=== PATIENT | male | born 1940 | race Caucasian/White ===

== ENCOUNTER → 2016-08-14 | Outpatient (CLI) | payer OTHER ==
[~2016-08-14] MED LIST: ASPI1TAB83 PO; ASPI325T39 PO; CIPR-255 PO; CIPR250T3 PO; CLOP1TAB5 PO; DILT120C68 PO; FINA5TAB PO; LISI-461 PO; NTRSL3 UT; OXYC-57 PO; OXYC5TAB PO; PHEN-939 PO; TAMS0.4C38 PO
[2016-08-14 18:04] LABS: HEMATOCRIT 27.4 % (42-52); MEAN CORPUSCULAR HEMOGLOBIN 21.9 pg (25-34); MEAN CORPUSCULAR HGB CONC 28.5 g/dl (32-36); MEAN PLATELET VOLUME 9.9 fL (7.4-10.4); PLATELET COUNT 611 K/uL (130-400); RED BLOOD COUNT 3.56 M/uL (4.7-6.1); WHITE BLOOD COUNT 7.47 K/uL (4.8-10.8)
[2016-08-14 18:23] LABS: BASO % 2.3 %; BASO ABS # 0.17 K/uL (0-0.2); COMPLETE YES; ECHINOCYTES 1+; EOS % 2.4 %; IG% 0.3 %; LYMPH % 20.1 %; MONO % 7.2 %; NEUT % 67.7 %; OVALOCYTES 1+; POIKILOCYTOSIS PRESENT
[2016-08-14 19:29] LABS: BLOOD UREA NITROGEN 37 mg/dl (7-18); BUN/CREATININE RATIO 15.6 (10-20); CALCIUM 8.5 mg/dl (8.5-10.1); CARBON DIOXIDE 18 mmol/L (21-32); CHLORIDE 110 mmol/L (98-107); GLUCOSE 90 mg/dl (70-99); POTASSIUM 4.8 mmol/L (3.5-5.1); SODIUM 140 mmol/L (136-145)
[2016-08-14 19:41] LABS: ALB/GLOB RATIO 1.1 (0.9-2); ALKALINE PHOSPHATASE 129 U/L (45-117); ALT/SGPT 21 U/L (12-78); AST/SGOT 12 U/L (15-37); CHOLESTEROL 148 mg/dl (0-200); CHOLESTEROL/HDL RATIO 2.8; HDL CHOLESTEROL 53 mg/dl; TRIGLYCERIDES 117 mg/dl (0-150); VERY LOW DENSITY LIPOPROT CALC 23 mg/dl
[2016-08-15 06:30] LABS: ESTIMATED AVERAGE GLUCOSE 100 mg/dl; HA1C FLAG Normal (Normal)
--- NOTE | 2016-08-21 06:54 | CODING QUERY MEDICAL NECESSITY ---
SUPPORTING DIAGNOSIS NEEDED A supporting diagnosis is required for the test/procedure performed on this patient in order for us to be reimbursed by the patient's insurance. Please provide a supporting diagnosis for the following test/procedure listed below next to the test name along with your signature. *If there is no additional diagnosis for this patient that would support the following test/procedure please document that below next to the test/procedure. Test(s)/Procedure(s) that require a supporting diagnosis: * HEMOGLOBIN A1C DIAGNOSIS: Provider Signature: Date: Thank you Liliana Ireland [facility] Information Management Once completed, please kindly fax back to [phone] For questions please call [phone]
== END | disposition home or self-care (01) ==
LOC: C.LABSPEC 17:31
PROVIDERS: ATTEND Internal Medicine
DX: I25.10 Atherosclerotic heart disease of native coronary artery without angina pectoris (principal); I10 Essential (primary) hypertension; E78.5 Hyperlipidemia, unspecified; N39.0 Urinary tract infection, site not specified; R73.9 Hyperglycemia, unspecified

== ENCOUNTER → 2016-08-25 | Outpatient (CLI) | payer OTHER ==
[2016-08-25 16:52] LABS: FERRITIN 8.9 ng/ml (8.0-388.0)
[2016-08-25 17:45] LABS: HEMATOCRIT 22.2 % (42-52); MEAN CELL VOLUME 77.4 fL (80-100); MEAN CORPUSCULAR HEMOGLOBIN 23.3 pg (25-34); MEAN CORPUSCULAR HGB CONC 30.2 g/dl (32-36); MEAN PLATELET VOLUME 9.9 fL (7.4-10.4); PLATELET COUNT 462 K/uL (130-400); RED BLOOD COUNT 2.87 M/uL (4.7-6.1); WHITE BLOOD COUNT 8.89 K/uL (4.8-10.8)
[2016-08-25 17:50] LABS: ACANTHOCYTES 1+; BASO % 0.4 %; BASO ABS # 0.04 K/uL (0-0.2); COMPLETE YES; ECHINOCYTES 1+; EOS % 1.5 %; HYPOCHROMIA PRESENT; IG% 0.2 %; LYMPH % 12.7 %; LYMPH ABS # 1.13 K/uL (1.2-3.4); MONO % 5.7 %; NEUT % 79.5 %; OVALOCYTES 1+; POIKILOCYTOSIS PRESENT; SCHISTOCYTES 1+
== END | disposition home or self-care (01) ==
LOC: C.LABSPEC 15:33
PROVIDERS: ATTEND Internal Medicine
DX: D64.9 Anemia, unspecified (principal)

== ENCOUNTER → 2016-09-11 | Outpatient (CLI) | payer OTHER ==
[~2016-09-11] MED LIST changes: -ASPI1TAB83 PO; -CIPR-255 PO; -CIPR250T3 PO; -OXYC-57 PO; -OXYC5TAB PO; -PHEN-939 PO
--- NOTE | 2016-09-11 15:59 | DIAGNOSTIC IMAGING REPORT ---
ULTRASOUND LEFT LOWER EXTREMITY VENOUS CLINICAL HISTORY: Left leg pain and swelling. COMPARISON STUDY: No priors. TECHNIQUE: Real-time, grayscale, and color Doppler sonography of the deep veins of the left lower extremity was performed from the inguinal crease to the calf. Compression and augmentation were utilized. FINDINGS: There is no sonographic evidence of deep venous thrombosis identified in the left lower extremity. The common femoral, superficial femoral, and popliteal veins are patent and normally compressible. The greater saphenous vein and the profunda femoris vein at the junction with the common femoral vein are clear. The visualized calf veins are patent. IMPRESSION: There is no sonographic evidence of deep venous thrombosis identified in the left lower extremity. Electronically signed by: Randy Correa M.D. 09/11/2016 3:58 PM Dictated Date/Time: 09/11/2016 3:57 PM
== END | disposition home or self-care (01) ==
LOC: C.ULTR 15:33
PROVIDERS: ATTEND Internal Medicine
DX: M79.605 Pain in left leg (principal); M79.89 Other specified soft tissue disorders

== ENCOUNTER → 2016-09-11 | Outpatient (CLI) | payer OTHER ==
[2016-09-11 15:58] LABS: BASO ABS # 0.13 K/uL (0-0.2); EOS % 3.2 %; HEMATOCRIT 27.9 % (42-52); IG% 0.2 %; LYMPH % 18.2 %; LYMPH ABS # 1.19 K/uL (1.2-3.4); MEAN CELL VOLUME 84.5 fL (80-100); MEAN CORPUSCULAR HEMOGLOBIN 25.8 pg (25-34); MEAN CORPUSCULAR HGB CONC 30.5 g/dl (32-36); MEAN PLATELET VOLUME 10.1 fL (7.4-10.4); MONO % 8.4 %; PLATELET COUNT 405 K/uL (130-400); WHITE BLOOD COUNT 6.53 K/uL (4.8-10.8)
[2016-09-11 16:06] LABS: ALT/SGPT 40 U/L (12-78); BLOOD UREA NITROGEN 28 mg/dl (7-18); BUN/CREATININE RATIO 11.6 (10-20); CALCIUM 8.2 mg/dl (8.5-10.1); CARBON DIOXIDE 18 mmol/L (21-32); CHLORIDE 115 mmol/L (98-107); GLUCOSE 81 mg/dl (70-99); POTASSIUM 5.6 mmol/L (3.5-5.1); SODIUM 140 mmol/L (136-145)
[2016-09-11 16:10] LABS: ALB/GLOB RATIO 1.1 (0.9-2); ALKALINE PHOSPHATASE 117 U/L (45-117); AST/SGOT 15 U/L (15-37); FERRITIN 12.8 ng/ml (8.0-388.0)
[2016-09-11 16:53] LABS: ANISOCYTOSIS PRESENT; COMPLETE YES; ECHINOCYTES 2+; OVALOCYTES 1+
== END | disposition home or self-care (01) ==
LOC: C.LABSPEC 15:03
PROVIDERS: ATTEND Internal Medicine
DX: J44.9 Chronic obstructive pulmonary disease, unspecified (principal); I10 Essential (primary) hypertension; I25.10 Atherosclerotic heart disease of native coronary artery without angina pectoris; D64.9 Anemia, unspecified

== ENCOUNTER 2016-11-20 16:18 | Emergency (ER) | payer OTHER ==
[~2016-11-20] VITALS: Ht 177.8 cm; Wt 62.0 kg
[2016-11-20 16:22] VITALS: Ht 177.8 cm; Wt 62.0 kg
[2016-11-20 16:58] LABS: URINE APPEARANCE CLOUDY (CLEAR); URINE BILIRUBIN NEG (NEG); URINE COLOR YELLOW; URINE EPITHELIAL CELL AUTO >30 /lpf (0-5); URINE NITRITE POS (NEG); URINE PH 8.5 (4.5-7.5); URINE SPECIFIC GRAVITY 1.013 (1.000-1.030); UROBILINOGEN NEG (NEG)
[2016-11-20 17:08] LABS: MANUAL MICROSCOPIC REQUIRED? NO; REVIEW REQ? YES; SULFASALICYLIC ACID NEG (NEG)
[2016-11-20 17:13] LABS: ZZURINE CULT IF INDIC CATH YES
[2016-11-20] MEDS ORDERED: CIPROFLOXACIN 500 MG TAB PO STA (18:05)
[2016-11-20] MEDS ORDERED: CIPR-255 PO (18:11)
[2016-11-20 18:40] VITALS: BP 116/66; PULSE 89; TEMP 36.5; O2SAT 98
--- NOTE | 2016-11-21 02:00 | EMERGENCY ROOM VISIT NOTE ---
History First contact with patient: 16:30 Chief Complaint: UNABLE TO VOID Stated Complaint: UNABLE TO VOID Nursing Triage Summary: pt states he cant urinate, states he had a few drops at 0315 this am, pt states he feels like his bladder is full. pt has a hx of needing to be cathed History of Present Illness The patient is a 76 year old male who presents to the Emergency Room with complaints of inability to urinate since early this morning upon awakening. The patient reports a history of prostate problems, and takes finasteride as prescribed by his PCP. The patient reports that he has seen a urologist in the past that provided prescription for a medication that seems to work better. The patient reports that his last Hill catheterization was approximately one year ago. The patient has no recent increased urination, dysuria, hematuria or frequency. He also denies any preceding abdominal or back pain, fever or chills. He rates his discomfort a 10 out of 10. Review of Systems HEENT: Denies dizziness, visual problems, hearing loss, tinnitus. Denies difficulty swallowing or oral lesions. PULMONARY: Denies cough, shortness of breath, sputum production or hemoptysis. CARDIOVASCULAR: Denies chest pain, palpitations, dyspnea on exertion, orthopnea or peripheral edema. GASTROINTESTINAL: Denies diarrhea, constipation, nausea or vomiting. GENITOURINARY: Denies recent dysuria, frequency, urgency or nocturia. NEUROLOGIC: Denies history of epilepsy, CVA, TIA or chronic headaches. MUSCULOSKELETAL: Denies history of joint tenderness/swelling. SKIN: Denies rashes or lesions. PSYCHIATRIC: Denies history of depression or mental illness. ENDOCRINE: Denies history of diabetes or thyroid disorders. Past Medical/Surgical History Medical Problems: (1) Superficial femoral artery occlusion (2) Urinary retention Family History Unremarkable Social History Smoking Status: Current Every Day Smoker Alcohol Use: none Drug Use: none Marital Status: Occupation Status: retired Current/Historical Medications Scheduled Aspirin (Aspirin Ec), 325 MG PO DAILY Ciprofloxacin Hcl (Cipro), 500 MG PO BID Clopidogrel Bisulfate (Plavix), 75 MG PO QPM Diltiazem Hcl Ext Rel (Tiazac), 120 MG PO HS Finasteride (Proscar), 5 MG PO HS Lisinopril (Zestril), 10 MG PO HS Nitroglycerin (Nitrostat), 0.3 MG UT PRN Tamsulosin Hcl (Flomax), 0.4 MG PO BID Physical Exam Vital Signs Date Time Temp Pulse Resp B/P (MAP) Pulse Ox O2 Delivery O2 Flow Rate FiO2 11/20/16 18:40 36.5 89 18 116/66 98 11/20/16 18:15 89 18 116/66 98 Room Air 11/20/16 16:22 36.5 97 18 93/67 98 Room Air Pain Rating (0-10): 4.0 Physical Exam CONSTITUTIONAL: Healthy and well nourished. Alert and oriented X 3 with positive affect. Patient appears in moderate discomfort. HEENT: Normocephalic, atraumatic. Pupils equal, round and reactive. NECK: Full active range of motion without discomfort. RESPIRATORY: Clear to auscultation bilaterally with no wheezing, crackles, rhonchi or stridor. CARDIOVASCULAR: Regular rate and rhythm with no murmurs, rubs or gallops. GASTROINTESTINAL: Bowel sounds present in all quadrants. The patient has suprapubic tenderness to palpation with a palpable distended bladder. Negative CVA tenderness. No abdominal rigidity, guarding or rebound. MUSCULOSKELETAL: Full range of motion of all joints without discomfort. INTEGUMENTARY: No rash or other significant dermatologic conditions noted. NEUROLOGIC: No focal neurologic deficits noted. Medical Decision & Procedures Laboratory Results Test 11/20/16 16:49 Urine Color YELLOW Urine Appearance CLOUDY (CLEAR) Urine pH 8.5 (4.5-7.5) Urine Specific [place] 1.013 (1.000-1.030) Urine Protein NEG (NEG) Urine Glucose (UA) NEG (NEG) Urine Ketones NEG (NEG) Urine Occult Blood 1+ (NEG) Urine Nitrite POS (NEG) Urine Bilirubin NEG (NEG) Urine Urobilinogen NEG (NEG) Urine Leukocyte Esterase TRACE (NEG) Urine WBC (Auto) 5-10 /hpf (0-5) Urine RBC (Auto) 5-10 /hpf (0-4) Urine Hyaline Casts (Auto) 1-5 /lpf (0-5) Urine Epithelial Cells (Auto) >30 /lpf (0-5) Urine Bacteria (Auto) 2+ (NEG) Urine Renal Epithelial Cells /lpf (0-5) Urine Yeast (Auto) (NONE PRSENT) Urinalysis shows a contaminated cath sample, but enough elements to suggest UTI. Urine cultures are pending. Cultures were ordered on a second catheter bag collection instead of the first draw. Medications Administered Medications (Trade) Dose Ordered Sig/[place] Route Start Time Stop Time Status Last Admin Dose Admin Ciprofloxacin (Cipro Tab) 500 mg NOW STAT PO 11/20/16 18:05 11/20/16 18:08 DC 11/20/16 18:31 500 MG ED Course Patient history and physical exam were performed. Nurse's notes were reviewed. Vital signs were reviewed showing hypertension. The patient reports that his blood pressure is usually low. He is afebrile and not tachycardic. The patient appears in moderate discomfort because of inability to urinate. A bladder scan was unable to provide a calculated volume, showing a fully distended bladder. A Hill catheter was inserted with output of 1950 milliliters. The patient reported complete relief of his discomfort. Review of urinalysis results shows evidence for possible infection. Initial catheter collection was contaminated. Second collection was sent to the lab for cultures. The patient was provided a prescription for Cipro 500 mg twice a day. He was instructed to follow-up with his urologist for further reevaluation and management. He is welcome to return to the emergency department over the weekend for any unmanageable pain secondary to his Hill catheter placement. He was also instructed to return for any developing fever or other concerning symptoms. The patient was happy with plan of care, and denied any discomfort at the time of discharge. The patient was also seen and examined by Dr. Donahue, ED attending physician , who agrees with workup and plan of care. Medical Decision Medication Reconcilliation Current Medication List: was personally reviewed by fl Blood Pressure Screening Patient's blood pressure: Low blood pressure Impression Primary Impression: UTI (urinary tract infection) Additional Impression: Acute urinary retention Departure Information Dispostion Home / Self-Care Condition GOOD Prescriptions Ciprofloxacin Hcl (CIPRO) 500 Mg Tab 500 MG PO BID for 7 Days, #14 TAB Prov: Chai Chu PA 11/20/16 Referrals Dmitriy Aguilar M.D. Forms HOME CARE DOCUMENTATION FORM, IMPORTANT VISIT INFORMATION Patient Instructions UTI, My [facility], ED Catheter Care [facility] Additional Instructions Complete all Cipro antibiotics as prescribed. Follow-up with [facility] urology (Dr. Aguilar's office) for further management. Return to the emergency department for any progressively worsening symptoms or other catheter issues. Problem Qualifiers Primary Impression: UTI (urinary tract infection) Urinary tract infection type: acute cystitis Hematuria presence: with hematuria Qualified Codes: N30.01 - Acute cystitis with hematuria
--- NOTE | 2016-11-22 17:47 | EMERGENCY ROOM VISIT NOTE ---
ED Visit Note First contact with patient: 16:30 Physician Web Retailer Supervision Note: I interviewed and examined the patient. Discussed with Chai Chu PA-C and agree with findings and plan as documented in the note. The pt UA is questionable and likely contaminated however with acute urinary retention there is a possibility of prostatitis. Pt will be placed on cipro. He was asked to f /u with PCP this week. He will return to the ED for worsening of symptoms or any medical concerns. Documented By: Vonnie Donahue
== END 2016-11-20 18:40 | disposition home or self-care (01) ==
LOC: C.EDB 16:19 → C.EDA 18:40
DX: R33.9 Retention of urine, unspecified (principal); N39.0 Urinary tract infection, site not specified; F17.210 Nicotine dependence, cigarettes, uncomplicated; Z79.82 Long term (current) use of aspirin; Z79.899 Other long term (current) drug therapy

== ENCOUNTER → 2016-12-03 | Outpatient (CLI) | payer OTHER ==
[~2016-12-03] MED LIST changes: +CIPR-255 PO
[2016-12-03 16:54] LABS: BLOOD UREA NITROGEN 44 mg/dl (7-18); BUN/CREATININE RATIO 18.5 (10-20)
--- NOTE | 2016-12-08 10:14 | CODING QUERY MEDICAL NECESSITY ---
SUPPORTING DIAGNOSIS NEEDED Dr. Urbina, A supporting diagnosis is required for the test/procedure performed on this patient in order for us to be reimbursed by the patient's insurance. Please provide a supporting diagnosis for the following test/procedure listed below next to the test name along with your signature. *If there is no additional diagnosis for this patient that would support the following test/procedure please document that below next to the test/procedure. Test(s)/Procedure(s) that require a supporting diagnosis: * [id number] PSA DIAGNOSIS: DATE OF SERVICE: 12/03/16 Provider Signature: Date: Thank you Carlito Chowdhury [facility] Information Management Once completed, please kindly fax back to [phone] For questions please call [phone]
== END | disposition home or self-care (01) ==
LOC: C.LAB 15:45
PROVIDERS: ATTEND Urology
DX: N32.89 Other specified disorders of bladder (principal)

== ENCOUNTER → 2016-12-25 | Outpatient (CLI) | payer OTHER ==
[~2016-12-25] MED LIST changes: -CIPR-255 PO; +CIPR250T3 PO; +OXYC-57 PO; +PHEN-939 PO
--- NOTE | 2016-12-25 09:05 | DIAGNOSTIC IMAGING REPORT ---
CT SCAN OF THE ABDOMEN AND PELVIS WITHOUT IV CONTRAST CLINICAL HISTORY: Bladder mass. COMPARISON STUDY: No priors. TECHNIQUE: CT scan of the abdomen and pelvis is performed from the lung bases to the proximal femora. Images are reviewed in the axial, sagittal, and coronal planes. IV contrast was not administered for this examination as per the referring clinician. Note that the examination is suboptimal without oral and IV contrast. A dose lowering technique was utilized adhering to the principles of ALARA. CT DOSE: 253.30 mGy.cm FINDINGS: Lung bases: The heart is mildly enlarged and there is trace pericardial effusion. The coronary arteries are densely calcified. Advanced emphysematous change is seen at the lung bases. There is dependent atelectasis. No airspace consolidation or pleural effusion is identified. Liver: The unenhanced liver is normal in size, contour, and attenuation. Small hepatic cysts measure up to 1.5 cm. Additional subcentimeter hepatic hypodensities also likely represent cysts but are too small for definitive characterization. There is no intrahepatic biliary ductal dilatation. Gallbladder: Unremarkable. Spleen: Normal in size and attenuation. Pancreas: The unenhanced pancreas is grossly unremarkable. Adrenal glands: Unremarkable. Kidneys: The unenhanced kidneys are atrophic and without hydronephrosis. There are no renal calculi clearly identified. Numerous renovascular calcifications are observed. Bilateral renal cysts measure 1.8 cm. Additional subcentimeter cortical hypodensities also likely represent cysts but are too small for definitive characterization. Abdominal vasculature: The abdominal aorta is normal in course and caliber noting advanced atherosclerotic calcification. Postoperative change is suggested involving the femoral arteries bilaterally. Bowel: There is a left inguinal hernia containing a nonobstructed loop of small bowel. No bowel obstruction is seen. There is moderate to advanced colonic diverticulosis without CT evidence of acute diverticulitis. The appendix is well-visualized and normal. Peritoneum: There is no intraperitoneal free air or abdominal ascites. Lymphadenopathy: None. Pelvic viscera: There is marked median lobe hypertrophy of the prostate gland. The bladder wall is thickened and trabeculated indicating chronic outlet obstruction. Postoperative change is noted in the groin bilaterally. Skeletal structures: The skeletal structures are heterogeneously osteopenic. There are moderate and age-indeterminate compression deformities of L2 and L5. No large retropulsed fragments are identified. There are bilateral pars defects at L5 with 1.5 cm of anterolisthesis at L5-S1. Moderate lumbosacral spondylosis is observed. No lytic or blastic lesions are seen. Trabecular thickening and sclerosis involving L5 may represent Pagetoid change. IMPRESSION: 1. Significantly suboptimal examination without oral and IV contrast. 2. The prostate gland is enlarged and there is marked median lobe hypertrophy. Correlation with serum PSA levels is recommended. 3. The bladder wall is thickened and trabeculated, consistent with chronic outlet obstruction. No bladder mass is identified by CT. If there is strong clinical concern for bladder mass then correlation with cystoscopy would be appropriate for further assessment. 4. Moderate to advanced colonic diverticulosis without CT evidence of acute diverticulitis. 5. Cardiomegaly and advanced emphysema. 6. There is a left inguinal hernia containing a nonobstructed loop of small bowel. 7. Additional findings as above. Electronically signed by: Randy Correa M.D. 12/25/2016 9:03 AM Dictated Date/Time: 12/25/2016 8:41 AM
== END | disposition home or self-care (01) ==
LOC: C.CTS 07:23
PROVIDERS: ATTEND Urology
DX: N32.89 Other specified disorders of bladder (principal); N40.1 Benign prostatic hyperplasia with lower urinary tract symptoms; K57.30 Diverticulosis of large intestine without perforation or abscess without bleeding; I51.7 Cardiomegaly; J43.9 Emphysema, unspecified; K40.90 Unilateral inguinal hernia, without obstruction or gangrene, not specified as recurrent

== ENCOUNTER → 2017-01-26 | Outpatient (CLI) | payer OTHER ==
[~2017-01-26] MED LIST changes: -PHEN-939 PO
--- NOTE | 2017-01-26 14:54 | DIAGNOSTIC IMAGING REPORT ---
BONE SCAN WHOLE BODY HISTORY: Prostate carcinoma C61 Prostate cancerNPR - DANNY Cunningham REF#[id number] RADIOTRACER: 23.5 mCi Tc-99m MDP STUDY/IMAGES: Planar anterior and posterior whole body imaging was performed 3 hours following the intravenous administration of radiotracer. COMPARISON: None. FINDINGS: Mild S-shaped scoliosis of the thoracolumbar spine. Intense increase in metabolic activity overlying the low lumbosacral spine. Base of the patient's prior CT study this potentially represents patchy joint change. Activity characteristics otherwise are unremarkable. Mild scattered degenerative activity of the hips and shoulders and knees are present area IMPRESSION: 1. Intense activity overlying the low lumbar and superior sacral regions. 2. Based on the patient's prior CT exam this potentially represents patchy joint change, with the possibility of metastatic disease less likely but impossible to entirely exclude. 3. Minimal scattered degenerative activity throughout the remainder of the axial and appendicular skeleton. The above report was generated using voice recognition software. It may contain grammatical, syntax or spelling errors. Electronically signed by: Apolinar Orta M.D. 01/26/2017 2:53 PM Dictated Date/Time: 01/26/2017 2:49 PM
== END | disposition home or self-care (01) ==
LOC: C.NUCL 10:57
PROVIDERS: ATTEND Urology
DX: C61 Malignant neoplasm of prostate (principal)

== ENCOUNTER 2017-02-05 13:10 | Inpatient (IN) | payer OTHER ==
[~2017-02-05] VITALS: Ht 177.8 cm; Wt 61.2 kg
[2017-02-05] VITALS (17 sets, daily range): BP systolic 118–169; BP diastolic 48–62; PULSE 65–88; TEMP 32.9–37.4; O2SAT 90–100; Ht 177.8 cm; Wt 61.2 kg
[2017-02-05] MEDS ORDERED: SODIUM CHLORIDE 0.9% 1000ML 1,000 ML IV STA ×2 (13:19→15:20)
--- NOTE | 2017-02-05 13:39 | DIAGNOSTIC IMAGING REPORT ---
CHEST ONE VIEW PORTABLE CLINICAL HISTORY: Sepsis SHORTNESS OF BREATH COMPARISON STUDY: No previous studies for comparison. FINDINGS: The heart is at the upper limits of normal in size. There are low lung volumes with hypoventilatory changes at the lung bases. There are no pleural effusions. There is no failure. There is colonic interposition versus free intraperitoneal air. Abdominal imaging with decubitus views is recommended in follow-up. This finding will be called to the emergency room.[ IMPRESSION: 1. Free intraperitoneal air versus colonic interposition. Abdominal imaging with decubitus views is recommended in follow-up 2. Low lung volumes with hypoventilatory changes at the lung bases. Electronically signed by: Ozzy Tuttle M.D. 02/05/2017 1:38 PM Dictated Date/Time: 02/05/2017 1:36 PM
[2017-02-05 13:55] LABS: ISTAT CREATININE 5.4 mg/dl (0.6-1.3); ISTAT IONIZED CALCIUM 0.94 mmol/l (1.12-1.32); ISTAT POTASSIUM 6.8 mEq/L (3.3-5.0)
[2017-02-05] MEDS ORDERED: DOPamine 400MG / D5W 400 MG IV STA (14:07)
[2017-02-05 14:17] LABS: INR 1.1 (0.9-1.1); PTT PATIENT 20.5 SECONDS (21.0-31.0)
[2017-02-05 14:18] LABS: HEMATOCRIT 17.9 % (42-52); HEMOGLOBIN 5.1 g/dL (14.0-18.0); MEAN CELL VOLUME 88.2 fL (80-100); MEAN CORPUSCULAR HEMOGLOBIN 25.1 pg (25-34); MEAN CORPUSCULAR HGB CONC 28.5 g/dl (32-36); MEAN PLATELET VOLUME 9.4 fL (7.4-10.4); PLATELET COUNT 536 K/uL (130-400); RED CELL DISTRIBUTION WIDTH CV 18.9 % (11.5-14.5); RED CELL DISTRIBUTION WIDTH SD 61.1 fL (36.4-46.3); WHITE BLOOD COUNT 15.15 K/uL (4.8-10.8)
[2017-02-05] MEDS ORDERED: NovoLIN-R INSULIN PER UNIT CHARGE IV STA (14:18)
[2017-02-05] MEDS ORDERED: DEXTROSE 50% 50 ML SYR IV STA (14:18)
[2017-02-05] MEDS ORDERED: ALBUT/IPRATROP 3MG/0.5MG NEB 3 ML VIAL INH STA (14:18)
[2017-02-05 14:19] LABS: BASO % 0.1 %; BASO ABS # 0.01 K/uL (0-0.2); IG# 0.06 K/uL (0.00-0.02); LYMPH % 5.2 %; LYMPH ABS # 0.79 K/uL (1.2-3.4); MONO % 4.7 %; MONO ABS # 0.71 K/uL (0.11-0.59); NEUT % 89.6 %; NEUT ABS # 13.58 K/uL (1.4-6.5)
[2017-02-05 14:36] LABS: CALCIUM 8.3 mg/dl (8.5-10.1); CREATININE 5.29 mg/dl (0.60-1.40); POTASSIUM 6.8 mmol/L (3.5-5.1); TOTAL PROTEIN 6.2 gm/dl (6.4-8.2)
--- NOTE | 2017-02-05 14:47 | DIAGNOSTIC IMAGING REPORT ---
SINGLE VIEW CHEST CLINICAL HISTORY: Central venous catheter placement. FINDINGS: An AP, portable, upright chest radiograph is compared to study performed earlier the same day 02/05/2017. The examination is significantly degraded by portable technique and patient rotation. A right internal jugular central venous catheter has been placed. The tip projects over the cavoatrial junction. The heart is top normal for projection. There is atherosclerotic calcification of the thoracic aorta. The pulmonary vasculature is noncongested. Emphysema and chronic interstitial thickening are similar to previous. There are low lung volumes. Bibasilar airspace opacities have increased and likely represent atelectasis. No large pleural effusion or pneumothorax is seen. The skeletal structures are osteopenic. The bony thorax is grossly intact. Gas-filled structures below both hemidiaphragms likely represent gas-filled stomach and bowel loops. IMPRESSION: 1. Emphysema. 2. There are low lung volumes with increasing bibasilar airspace opacities. This likely represents atelectasis. Clinical correlation will be required. 3. A right internal jugular central venous catheter has been placed as above. No pneumothorax is seen post procedure. Electronically signed by: Randy Correa M.D. 02/05/2017 2:46 PM Dictated Date/Time: 02/05/2017 2:42 PM
[2017-02-05] MEDS ORDERED: PANTOprazole INJ 80 MG in DEXTROSE 5% 100ML 100 ML IV SCH (15:00)
[2017-02-05] MEDS ORDERED: SODIUM BICARB 8.4% INJ 50 MEQ/50 ML SYR IV STA (15:39)
[2017-02-05] MEDS ORDERED: SODIUM BICARB 8.4% INJ 50 MEQ/50 ML SYR IV ONE (15:43)
[2017-02-05 15:48] LABS: INFLUENZA B ANTIGEN Neg for Influ B (NEG)
[2017-02-05] MEDS ORDERED: CEFTRIAXONE SOD INJ 2,000 MG in DEXTROSE 5% 50ML 50 ML IV ONE (16:15)
--- NOTE | 2017-02-05 16:53 | EMERGENCY ROOM VISIT NOTE ---
History Report prepared by Jamaal: Albino Terrell Under the Supervision of: Dr. Mau Matute M.D. First contact with patient: 13:14 Chief Complaint: SHORTNESS OF BREATH Stated Complaint: SHORTNESS OF BREATH History of Present Illness The patient is a 76 year old male who presents to the Emergency Room by EMS with complaints of persistent shortness of breath beginning a few days ago. He is unsure if he has had a fever recently. He denies generalized weakness, lightheadedness, headache, rashes, chest discomfort, or new urinary symptoms. The patient denies passing out, but states that he feels like he is going to. He lives at home with his . He does not wear supplemental oxygen at home. Per EMS, the patient's blood pressure was found to be in the 60's upon their arrival. They state that the patient appeared "lethargic, and slow to respond" at this time. They deny any confusion. The patient was not febrile upon arrival of EMS. EMS is unsure regarding the patient's wishes on advance directives. They note that the patient's recently had flu-like symptoms. Source of History: patient, EMS History Limited By: other (patient is critically ill) Onset: A few days ago Quality: other (shortness of breath) Timing: other (persistent) Associated Symptoms: No fevers, No headache, No urinary symptoms, No weakness Note: The patient denies lightheadedness. Additional symptoms: appearing "lethargic, and slow to respond". Review of Systems See HPI for pertinent positives & negatives. A total of 10 systems reviewed and were otherwise negative. Past Medical & Surgical Medical Problems: (1) gi bleed, anemia, acutr renal failure (2) Superficial femoral artery occlusion (3) Urinary retention Family History No pertinent family history stated. Social History Smoking Status: Current Every Day Smoker Alcohol Use: none Drug Use: none Marital Status: Occupation Status: retired Current/Historical Medications Scheduled Aspirin (Aspirin Ec), 325 MG PO QPM Ciprofloxacin (Cipro), 250 MG PO BID Clopidogrel Bisulfate (Plavix), 75 MG PO QPM Diltiazem Hcl Ext Rel (Tiazac), 120 MG PO HS Finasteride (Proscar), 5 MG PO HS Lisinopril (Zestril), 10 MG PO HS Nitroglycerin (Nitrostat), 0.3 MG UT PRN Tamsulosin Hcl (Flomax), 0.4 MG PO BID Scheduled PRN Oxycodone/Acetaminophen 5MG/325MG (Percocet 5MG/325MG), 1 TABLET PO Q4H PRN for Pain Allergies Coded Allergies: No Known Allergies (Verified , 12/31/16) Physical Exam Vital Signs Date Time Temp Pulse Resp B/P (MAP) Pulse Ox O2 Delivery O2 Flow Rate FiO2 02/05/17 16:15 33.4 66 22 118/48 02/05/17 15:55 32.9 66 21 118/52 50.0 02/05/17 15:50 88 100 100 02/05/17 15:36 65 24 122/53 BiPAP 100 02/05/17 15:25 32.5 98 28 124/52 Nasal Cannula 6.0 02/05/17 15:11 67 30 115/51 02/05/17 15:05 69 30 120/40 02/05/17 15:00 67 30 120/40 86 Nasal Cannula 02/05/17 14:45 78 38 111/42 86 Nasal Cannula 02/05/17 14:37 68 26 103/50 90 Nasal Cannula 4.0 02/05/17 14:00 32.5 02/05/17 13:36 100 Nasal Cannula 3.5 02/05/17 13:36 140 36 56/38 100 Nasal Cannula 3.5 02/05/17 13:30 56 02/05/17 13:28 58 36 75/36 84 Nasal Cannula 5.0 02/05/17 13:23 100 Nasal Cannula 3.5 02/05/17 13:18 58 30 56/38 Physical Exam Constitutional: Vital signs reviewed. Noted to be hypotensive. Eyes: Pupils are equal round reactive to light. Conjunctiva are noninjected. ENT: Pharynx is clear without erythema or exudate. Mucous membranes are moist. Neck supple without meningeal signs. Respiratory: Rhonchi bilaterally. Breath sounds are equal bilaterally. Cardiovascular: Regular rate and rhythm. No rubs or gallops. GI: Soft, nondistended and nontender. Bowel sounds are present. Rectal: Guaiac positive, melanotic stool. No gross blood. Musculoskeletal: No peripheral edema. No lower extremity tenderness. Integumentary: Pale. No cyanosis. Neurological: The patient is awake and alert. No focal deficits. Psychiatric: Unable to assess. Medical Decision & Procedures ER Provider Diagnostic Interpretation: X-ray results as stated below per interpretation by me and the radiologist: CHEST ONE VIEW PORTABLE FINDINGS: The heart is at the upper limits of normal in size. There are low lung volumes with hypoventilatory changes at the lung bases. There are no pleural effusions. There is no failure. There is colonic interposition versus free intraperitoneal air. Abdominal imaging with decubitus views is recommended in follow-up. This finding will be called to the emergency room.[ IMPRESSION: 1. Free intraperitoneal air versus colonic interposition. Abdominal imaging with decubitus views is recommended in follow-up 2. Low lung volumes with hypoventilatory changes at the lung bases. Electronically signed by: Ozzy Tuttle M.D. 02/05/2017 1:38 PM Laboratory Results 02/05/17 13:20 Red Blood Count 2.03, Mean Corpuscular Volume 88.2, Mean Corpuscular Hemoglobin 25.1, Mean Corpuscular Hemoglobin Concent 28.5, Mean Platelet Volume 9.4, Neutrophils (%) (Auto) 89.6, Lymphocytes (%) (Auto) 5.2, Monocytes (%) (Auto) 4.7, Eosinophils (%) (Auto) 0.0, Basophils (%) (Auto) 0.1, Neutrophils # (Auto) 13.58, Lymphocytes # (Auto) 0.79, Monocytes # (Auto) 0.71, Eosinophils # (Auto) 0.00, Basophils # (Auto) 0.01 02/05/17 13:20 Test 02/05/17 13:20 02/05/17 13:32 02/05/17 13:36 02/05/17 13:37 White Blood Count 15.15 K/uL (4.8-10.8) Red Blood Count 2.03 M/uL (4.7-6.1) Hemoglobin 5.1 g/dL (14.0-18.0) Hematocrit 17.9 % (42-52) Mean Corpuscular Volume 88.2 fL (80-100) Mean Corpuscular Hemoglobin 25.1 pg (25-34) Mean Corpuscular Hemoglobin Concent 28.5 g/dl (32-36) Platelet Count 536 K/uL (130-400) Mean Platelet Volume 9.4 fL (7.4-10.4) Neutrophils (%) (Auto) 89.6 % Lymphocytes (%) (Auto) 5.2 % Monocytes (%) (Auto) 4.7 % Eosinophils (%) (Auto) 0.0 % Basophils (%) (Auto) 0.1 % Neutrophils # (Auto) 13.58 K/uL (1.4-6.5) Lymphocytes # (Auto) 0.79 K/uL (1.2-3.4) Monocytes # (Auto) 0.71 K/uL (0.11-0.59) Eosinophils # (Auto) 0.00 K/uL (0-0.5) Basophils # (Auto) 0.01 K/uL (0-0.2) RDW Standard Deviation 61.1 fL (36.4-46.3) RDW Coefficient of Variation 18.9 % (11.5-14.5) Immature Granulocyte % (Auto) 0.4 % Immature Granulocyte # (Auto) 0.06 K/uL (0.00-0.02) Hypochromasia PRESENT Acanthocytes 1+ Schistocytes 1+ Prothrombin Time 11.7 SECONDS (9.0-12.0) Prothromb Time International Ratio 1.1 (0.9-1.1) Activated Partial Thromboplast Time 20.5 SECONDS (21.0-31.0) Partial Thromboplastin Ratio 0.8 Est Creatinine Clear Calc Drug Dose 9.9 ml/min Estimated GFR () 11.1 Estimated GFR (Non- 9.6 BUN/Creatinine Ratio 16.2 (10-20) Calcium Level 8.3 mg/dl (8.5-10.1) Total Bilirubin 0.4 mg/dl (0.2-1) Aspartate Amino Transf (AST/SGOT) 75 U/L (15-37) Alanine Aminotransferase (ALT/SGPT) 51 U/L (12-78) Alkaline Phosphatase 86 U/L (45-117) Total Protein 6.2 gm/dl (6.4-8.2) Albumin 3.0 gm/dl (3.4-5.0) Globulin 3.2 gm/dl (2.5-4.0) Albumin/Globulin Ratio 0.9 (0.9-2) Bedside Lactic Acid Venous 13.93 mmol/L (0.90-1.70) Bedside Hemoglobin 5.1 g/dl (14.0-18.0) Bedside Hematocrit 15 % (42-52) Bedside Sodium 135 mEq/L (135-144) Bedside Potassium 6.8 mEq/L (3.3-5.0) Bedside Chloride 104 mEq/L (101-112) Bedside Total CO2 16 mEq/l (24-31) Anion Gap 23.0 mmol/L (16-25) Bedside Blood Urea Nitrogen 84 mg/dl (7-18) Bedside Creatinine 5.4 mg/dl (0.6-1.3) Bedside Glucose (other) 79 mg/dl (70-99) Bedside Ionized Calcium (Marianela) 0.94 mmol/l (1.12-1.32) Bedside Troponin I < 0.030 ng/ml (0-0.045) Test 02/05/17 14:30 02/05/17 15:10 02/05/17 15:38 Urine Color YELLOW Urine Appearance CLOUDY (CLEAR) Urine pH 8.5 (4.5-7.5) Urine Specific Brilliant 1.016 (1.000-1.030) Urine Protein 1+ (NEG) Urine Glucose (UA) NEG (NEG) Urine Ketones NEG (NEG) Urine Occult Blood NEG (NEG) Urine Nitrite POS (NEG) Urine Bilirubin NEG (NEG) Urine Urobilinogen NEG (NEG) Urine Leukocyte Esterase LARGE (NEG) Urine WBC (Auto) >30 /hpf (0-5) Urine RBC (Auto) 0-4 /hpf (0-4) Urine Hyaline Casts (Auto) 1-5 /lpf (0-5) Urine Epithelial Cells (Auto) 5-10 /lpf (0-5) Urine Bacteria (Auto) NEG (NEG) Influenza Type A Antigen Neg for Influ A (NEG) Influenza Type B Antigen Neg for Influ B (NEG) Bedside Blood Gas pH (LAB) 7.25 (7.35-7.45) Bedside Blood Gas pCO2 (LAB) 30 mmHg (35-46) Bedside Blood Gas pO2 (LAB) 390 mmHg (80-95) Bedside Blood Gas HCO3 (LAB) 13 meq/L (19-24) Bedside Blood Gas Total CO2 14 mEq/l (24-31) Bedside Blood Gas Base Excess (LAB) -14.0 meq/L (-9-1.8) Bedside Blood Gas O2 Saturation 100.0 % (90-95) Laboratory results as reviewed by me. Medications Administered Medications (Trade) Dose Ordered Sig/Prais Route Start Time Stop Time Status Last Admin Dose Admin Sodium Chloride 1,000 ml @ 999 mls/hr Q1H1M STAT IV 02/05/17 13:19 02/05/17 14:19 DC 02/05/17 13:19 999 MLS/HR Dopamine HCl/ Dextrose 250 ml @ 0 mls/hr Q0M STAT IV 02/05/17 14:07 02/05/17 14:11 DC 02/05/17 14:29 11.4 MLS/HR Insulin Human Regular (novoLIN-R U-100 PER UNIT) 10 units NOW STAT IV 02/05/17 14:18 02/05/17 14:20 DC 02/05/17 14:56 10 UNITS Dextrose (Dextrose 50% 50ML Syringe) 50 ml NOW STAT IV 02/05/17 14:18 02/05/17 14:20 DC 02/05/17 14:56 50 ML Albuterol/ Ipratropium (Duoneb) 3 ml NOW STAT INH 02/05/17 14:18 02/05/17 14:20 DC 02/05/17 14:55 3 ML Pantoprazole Sodium 80 mg/ Dextrose 120 ml @ 400 mls/hr NOW IV 02/05/17 15:00 03/07/17 14:59 02/05/17 15:53 400 MLS/HR Sodium Chloride 1,000 ml @ 999 mls/hr Q1H1M STAT IV 02/05/17 15:20 02/05/17 16:20 DC 02/05/17 13:30 999 MLS/HR Sodium Bicarbonate (Sodium Bicarbonate 8.4% Inj) 50 ml STK-MED ONCE IV 02/05/17 15:43 02/05/17 15:44 DC 02/05/17 15:47 50 ML Procedure Central Venous Catheter Indication: hypotension Catheter type: triple lumen Location: right IJ Verbal consent was obtained after the risks and benefits were explained, including but not limited to pneumothorax, hemothorax, vessel injury, bleeding, scarring, infection, pain, and bone/joint/nerve damage. At this time, the risks of the procedure are less than the risks of NOT performing the procedure. A time out was taken and the correct patient and site identified. The patient was placed in the Trendelenburg supine position and the skin was prepped in the standard fashion with chlorhexidine and full sterile drapes applied. The proper landmarks were identified with ultrasound, anesthetized with 1% lidocaine without epinephrine, and the needle was inserted through the skin in the standard fashion. The needle was carefully advanced into blood vessel lumen under ultrasound guidance. The guidewire was placed uneventfully. The vessel is dilated and the catheter was placed. It was sutured into position. There was good blood return from all ports. The patient tolerated the procedure well and there were no complications. Post procedure x-ray was normal. ECG Indication: SOB/dyspnea Rate (beats per minute): 62 Rhythm: normal sinus Findings: RBBB, T-wave inversion (AVR and V1) Comparison ECG Date: December 31, 2016 Change: no significant change Change: Pre-hospital ECG reveals a sinus bradycardia with a rate of 54 bpm. Right bundle branch block pattern noted. T-wave inversions seen in AVR and V1. No significant change from other ECG. ED Course 1310: The patient was evaluated in room A1. A complete history and physical exam was performed. 1319: Ordered Sodium Chloride 1000 ml @ 999 mls/hr IV. 1336: The patient's blood pressure is 75/35. I obtained verbal consent for a central line. The patient states that he is a full code. 1342: I placed the central line. See the procedure note for details. 1407: Ordered Dopamine HCl/Dextrose 250 mL IV. 1418: Ordered DuoNeb 3 mL INH, Dextrose 50% 50 mL IV, Novolin-R U-100 10 units IV. 1420: I reevaluated the patient. He states that he has been having bloody stools recently. Rectal exam reveals guaiac positive, melanotic stools. No gross blood seen. I discussed the patient's results with him. He verbalized agreement and understanding. The patient will be evaluated for further management. 1440: I reassessed the patient. His blood pressure is 103/50. He is having a Hill catheter placed. 1453: I checked in on the patient. His blood pressure is 114/47. 1500: Ordered Pantoprazole Sodium 80 mg/Dextrose 80 mg 120 mL @ 400 mL/hr IV. 1518: I spoke with Dr. Sorto at the patient's bedside. He recommends an additional bag of saline, and to hold the Dopamine for now. The patient's blood pressure is 124 systolically. I called the blood bank for an update, and they are still working on obtaining blood for the patient. 1520: Ordered Sodium Chloride 1000 ml @ 999 mls/hr IV. 1615: I reexamined the patient. His blood pressure is 114/48. He is receiving his blood transfusion. I spoke with Dr. Sorto who recommends holding off on the CT given the patient's PA O2. Medical Decision This is a 76-year-old male who presents in respiratory distress with hypotension. Differential diagnosis includes pulmonary embolism, pneumonia, sepsis, UTI, metabolic derangement, anemia, GI bleed. I did perform a limited focused review of portions of the patient's old chart on the electronic medical record. The patient had a TURP and biopsy of the prostate January [address] Urbina of Urology. I did provide prehospital medical command for the patient. The patient was hypotensive and they had difficulty getting a pulse ox. I did order a liter normal saline IV but his IV was not functioning and he did not receive that prior to arrival. I did immediately evaluate the patient as noted above. IV access was established. The patient was placed on a continuous environmental monitoring specialist. He is hypotensive. He has no specific complaints other than shortness of breath. He denies any pain anywhere. I did order and personally review the patient's 12-lead EKG and chest x-ray as described above. I did order and review the patient's blood work as noted in the electronic medical record. He is severely anemic. He also has acute kidney injury with hyperkalemia. He states he only takes aspirin and no other anticoagulants. Rectal examination was performed which showed guaiac positive melanotic stools. I did order 2 units of packed RBCs for transfusion. Written consent was obtained from the patient prior to this. I also ordered Protonix IV. He also has acute kidney injury and hyperkalemia. I did treat him with an albuterol nebulizer as well as IV insulin and glucose. He was given a liter normal saline here. His blood pressure remained low and so I did order a second liter normal saline and recommended central line placement for pressors. I did place a triple-lumen central venous catheter in the right internal jugular vein as described above. He was placed on a dopamine drip and his blood pressure improved significantly. I did discuss the case with Dr. Sorto who evaluated patient in the ED. Transfusion was started in the ED. Initially I had written for a CT scan of the chest to rule out a central pulmonary embolism but wanted to hold off at this time. Medication Reconcilliation Current Medication List: was personally reviewed by me Blood Pressure Screening Patient's blood pressure: Low blood pressure Blood pressure disposition: Did not require urgent referral Consults Time Called: 1412 Consulting Physician: Dr. Sorto -[facility] Returned Call: [address] Sorto of [facility]. We discussed the patient and his results. The patient will be further evaluated by Dr. Shiva Cavazos. Impression Primary Impression: Symptomatic anemia Additional Impressions: Hypotension MY (acute kidney injury) Hyperkalemia GI bleed UTI (urinary tract infection) Critical Care I have personally spent 45 minutes of critical care time in the direct management of this patient. This includes bedside care, interpretation of diagnostic studies, and testing, discussion with consultants, patient, and family members, and other required patient management activities. This 45 minutes is in excess of all separately billable procedures. Scribe Attestation The scribe's documentation has been prepared under my direct and personally reviewed by me in its entirety. I confirm that the note above accurately reflects all work, treatment, procedures, and medical decision making performed by me. Departure Information Dispostion Being Evaluated By Hospitalist Referrals Nitish Shay M.D. (PCP) Patient Instructions My [facility] Problem Qualifiers Additional Impressions: Hypotension Hypotension type: unspecified hypotension type Qualified Codes: I95.9 - Hypotension, unspecified GI bleed GI bleed type/associated pathology: unspecified gastrointestinal hemorrhage type Qualified Codes: K92.2 - Gastrointestinal hemorrhage, unspecified UTI (urinary tract infection) Urinary tract infection type: site unspecified Hematuria presence: without hematuria Qualified Codes: N39.0 - Urinary tract infection, site not specified
[2017-02-05] MEDS: PANTOprazole INJ 40 MG in DEXTROSE 5% 100ML IV SCH (20:10)
[2017-02-05 21:16] LABS: ALBUMIN 2.7 gm/dl (3.4-5.0); CALCIUM 7.2 mg/dl (8.5-10.1); CREATININE 4.38 mg/dl (0.60-1.40); POTASSIUM 5.5 mmol/L (3.5-5.1); TOTAL PROTEIN 5.2 gm/dl (6.4-8.2)
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
[2017-02-06] VITALS (15 sets, daily range): BP systolic 89–164; BP diastolic 50–68; PULSE 50–76; TEMP 36.7–36.9; O2SAT 90–100
[2017-02-06] MEDS: PANTOprazole INJ 40 MG in DEXTROSE 5% 100ML IV SCH ×5 (01:10→19:52)
[2017-02-06 03:56] LABS: ALBUMIN 2.6 gm/dl (3.4-5.0); CREATININE 4.44 mg/dl (0.60-1.40); POTASSIUM 6.3 mmol/L (3.5-5.1); TOTAL PROTEIN 5.2 gm/dl (6.4-8.2)
[2017-02-06 04:13] LABS: HEMATOCRIT 29.2 % (42-52); HEMOGLOBIN 9.5 g/dL (14.0-18.0); MEAN CELL VOLUME 83.9 fL (80-100); MEAN CORPUSCULAR HEMOGLOBIN 27.3 pg (25-34); MEAN CORPUSCULAR HGB CONC 32.5 g/dl (32-36); MEAN PLATELET VOLUME 10.2 fL (7.4-10.4); NUCLEATED RED BLOOD CELL ABS 0.04 K/uL (0-0); PLATELET COUNT 299 K/uL (130-400); RED CELL DISTRIBUTION WIDTH CV 16.5 % (11.5-14.5); RED CELL DISTRIBUTION WIDTH SD 50.3 fL (36.4-46.3); WHITE BLOOD COUNT 28.81 K/uL (4.8-10.8)
[2017-02-06 04:16] LABS: BASO ABS # 0.01 K/uL (0-0.2); IG# 0.17 K/uL (0.00-0.02); LYMPH % 2.1 %; LYMPH ABS # 0.61 K/uL (1.2-3.4); MONO % 3.5 %; MONO ABS # 1.01 K/uL (0.11-0.59); NEUT % 93.8 %; NEUT ABS # 27.01 K/uL (1.4-6.5)
[2017-02-06] MEDS ORDERED: SODIUM POLYST. SULF SUSP 15G/60ML PO STA (04:42)
[2017-02-06] MEDS: SODIUM CHLORIDE 0.9% 1000ML 1,000 ML IV SCH ×2 (05:17→16:04)
[2017-02-06] MEDS: LEVALBUTEROL 1.25MG/3ML NEB INH SCH ×5 (08:58→23:07)
--- NOTE | 2017-02-06 09:00 | Clinical Documentation Query ---
Dr. SOPHIA SPENCE KYLEIGH : CLINICAL DOCUMENTATION QUERIES QUERY 1 OF 3 Patient is a 76 year old male admitted for evaluation and treatment of GI bleeding, anemia, hypotension, MY, and UTI. Was markedly "hypotensive, lethargic, and slow to respond". Blood pressure was found to be in the 60's upon arrival. Right IJ TLC inserted in the ED. IV NSS boluses and IV Dopamine infusion administered. PRBC transfusion initiated and admitted to telemetry. In your clinical opinion is this patient being managed for: ( x ) Hemorrhagic shock ( ) Not Agree ( ) Other explanation of clinical findings (Please Explain) ( ) Unable to determine (Please Define) ( ) Need to Discuss The medical record reflects the following clinical findings, treatment, and risk factors. Clinical Indicators: As above Treatment: IV boluses, maintenance fluid, IV dopamine, IJ TLC, PRBC transfusion, telemetry. Risk Factors:GI bleed, severe anemia QUERY 2 OF 3 Documentation includes "profound anemia". Although documented GI bleeding, the anemia cannot be assumed by the jig borer to be related to, or only to bleeding. As appropriate, consider documentation as suggested below. In your clinical opinion is this patient being managed for: ( xxxx ) Acute blood loss anemia ( ) Not Agree ( ) Other explanation of clinical findings (Please Explain) ( ) Unable to determine (Please Define) ( ) Need to Discuss The medical record reflects the following clinical findings, treatment, and risk factors. Clinical Indicators: As above, H&H 5.1 g/dl and 17.9 % on admission. Treatment: Transfusion of 4 units of PRBC's. Serial hematology, PPI infusion, GI consultation Risk Factors: Angiodysplasia, ASA, Plavix QUERY 3 OF 3 BMI noted to be 17.9 Kg/m*m. In order to capture the severity of illness associated with this data, an associated clinical condition must be explicitly documented by the provider. As appropriate, consider clarification as suggested below. In your clinical opinion is this patient: ( x ) Underweight/thin/cachectic ( ) Not Agree ( ) Other explanation of clinical findings (Please Explain) ( ) Unable to determine (Please Define) ( ) Need to Discuss The medical record reflects the following clinical findings, treatment, and risk factors. Clinical Indicators: Above noted BMI Treatment: Risk Factors: Age, prostate CA Please clarify and document your clinical opinion in the progress notes and discharge summary. Terms such as "probable", "suspected", "likely", "questionable", "possible", or "still to be ruled out" are acceptable. IF IN AGREEMENT, YOU MUST DOCUMENT ABOVE DIAGNOSTIC STATEMENT IN DAILY PROGRESS NOTES AND DISCHARGE SUMMARY. This document is not part of the patient's record. Thank You, Nain Camacho, RN [phone]
[2017-02-06 09:21] LABS: HEMATOCRIT 29.8 % (42-52); HEMOGLOBIN 9.5 g/dL (14.0-18.0); MEAN CELL VOLUME 84.4 fL (80-100); MEAN CORPUSCULAR HEMOGLOBIN 26.9 pg (25-34); MEAN CORPUSCULAR HGB CONC 31.9 g/dl (32-36); MEAN PLATELET VOLUME 10.2 fL (7.4-10.4); PLATELET COUNT 313 K/uL (130-400); RED CELL DISTRIBUTION WIDTH SD 52.5 fL (36.4-46.3); WHITE BLOOD COUNT 28.96 K/uL (4.8-10.8)
[2017-02-06 09:44] LABS: BASO % 0.1 %; BASO ABS # 0.02 K/uL (0-0.2); IG# 0.19 K/uL (0.00-0.02); LYMPH % 2.1 %; LYMPH ABS # 0.61 K/uL (1.2-3.4); MONO % 3.4 %; MONO ABS # 0.99 K/uL (0.11-0.59); NEUT % 93.7 %; NEUT ABS # 27.15 K/uL (1.4-6.5)
--- NOTE | 2017-02-06 10:02 | DIAGNOSTIC IMAGING REPORT ---
CHEST ONE VIEW PORTABLE CLINICAL HISTORY: dyspnea dysphagia COMPARISON STUDY: 02/05/2017 FINDINGS: Unchanging bibasilar atelectasis. Mid and upper lungs are clear. Central catheter remains this. Vena cava. No evidence pneumothorax. IMPRESSION: Unchanging mild bibasilar atelectasis. No new or interval process. The above report was generated using voice recognition software. It may contain grammatical, syntax or spelling errors. Electronically signed by: Apolinar Orta M.D. 02/06/2017 10:00 AM Dictated Date/Time: 02/06/2017 10:00 AM
[2017-02-06] MEDS ORDERED: VANCOMYCIN CONSULT ACTIVE PRN (10:45)
[2017-02-06] MEDS ORDERED: VANCOMYCIN INJ 1,000 MG in SODIUM CHLORIDE 0.9% 250ML 250 ML IV SCH (11:00)
--- NOTE | 2017-02-06 11:32 | Pharmacy Progress Note ---
Pharmacy Antibiotic Consult Date of Service: Feb 06, 2017. Pharmacy Dosing Scope Pharmacy is consulted to initiate vancomycin IV dosing therapy, order appropriate labs and adjust drug dose/frequency. Subjective The patient is a 76 year old male admitted on Feb 05, 2017 at 16:09 with UTI, culture positive for [facility], sens pending. Concern for sepsis, elevated WBC count. Rocephin 1gm IV q 24h is ordered for UTI, vanco is added empirically until more results obtained. Objective Height (Feet): 5 Height (Inches): 10.00 Weight (Kilograms): 56.500 Lab Results (24hrs): Test 02/05/17 13:20 02/05/17 13:32 02/05/17 13:36 02/05/17 13:37 Hypochromasia PRESENT Acanthocytes 1+ Schistocytes 1+ Prothrombin Time 11.7 SECONDS (9.0-12.0) Prothromb Time International Ratio 1.1 (0.9-1.1) Activated Partial Thromboplast Time 20.5 SECONDS (21.0-31.0) Partial Thromboplastin Ratio 0.8 Bedside Lactic Acid Venous 13.93 mmol/L (0.90-1.70) Bedside Hemoglobin 5.1 g/dl (14.0-18.0) Bedside Hematocrit 15 % (42-52) Bedside Sodium 135 mEq/L (135-144) Bedside Potassium 6.8 mEq/L (3.3-5.0) Bedside Chloride 104 mEq/L (101-112) Bedside Total CO2 16 mEq/l (24-31) Bedside Blood Urea Nitrogen 84 mg/dl (7-18) Bedside Creatinine 5.4 mg/dl (0.6-1.3) Bedside Glucose (other) 79 mg/dl (70-99) Bedside Ionized Calcium (Marianela) 0.94 mmol/l (1.12-1.32) Bedside Troponin I < 0.030 ng/ml (0-0.045) Test 02/05/17 14:30 02/05/17 15:10 02/05/17 15:15 02/05/17 15:38 Urine Color YELLOW Urine Appearance CLOUDY (CLEAR) Urine pH 8.5 (4.5-7.5) Urine Specific Elliott 1.016 (1.000-1.030) Urine Protein 1+ (NEG) Urine Glucose (UA) NEG (NEG) Urine Ketones NEG (NEG) Urine Occult Blood NEG (NEG) Urine Nitrite POS (NEG) Urine Bilirubin NEG (NEG) Urine Urobilinogen NEG (NEG) Urine Leukocyte Esterase LARGE (NEG) Urine WBC (Auto) >30 /hpf (0-5) Urine RBC (Auto) 0-4 /hpf (0-4) Urine Hyaline Casts (Auto) 1-5 /lpf (0-5) Urine Epithelial Cells (Auto) 5-10 /lpf (0-5) Urine Bacteria (Auto) NEG (NEG) Influenza Type A Antigen Neg for Influ A (NEG) Influenza Type B Antigen Neg for Influ B (NEG) Stool Occult Blood POSITIVE (NEGATIVE) Bedside Blood Gas pH (LAB) 7.25 (7.35-7.45) Bedside Blood Gas pCO2 (LAB) 30 mmHg (35-46) Bedside Blood Gas pO2 (LAB) 390 mmHg (80-95) Bedside Blood Gas HCO3 (LAB) 13 meq/L (19-24) Bedside Blood Gas Total CO2 14 mEq/l (24-31) Bedside Blood Gas Base Excess (LAB) -14.0 meq/L (-9-1.8) Bedside Blood Gas O2 Saturation 100.0 % (90-95) Test 02/05/17 19:51 02/05/17 20:52 02/06/17 03:07 02/06/17 08:53 Sodium Level 139 mmol/L (136-145) 138 mmol/L (136-145) Potassium Level 5.5 mmol/L (3.5-5.1) 6.3 mmol/L (3.5-5.1) Chloride Level 110 mmol/L (98-107) 112 mmol/L (98-107) Carbon Dioxide Level 19 mmol/L (21-32) 23 mmol/L (21-32) Anion Gap 10.0 mmol/L (3-11) 3.0 mmol/L (3-11) Blood Urea Nitrogen 83 mg/dl (7-18) 85 mg/dl (7-18) Creatinine 4.38 mg/dl (0.60-1.40) 4.44 mg/dl (0.60-1.40) Est Creatinine Clear Calc Drug Dose 11.8 ml/min 11.6 ml/min Estimated GFR () 13.9 13.7 Estimated GFR (Non- 12.0 11.8 BUN/Creatinine Ratio 19.0 (10-20) 19.2 (10-20) Random Glucose 79 mg/dl (70-99) 85 mg/dl (70-99) Calcium Level 7.2 mg/dl (8.5-10.1) 7.0 mg/dl (8.5-10.1) Magnesium Level 6.0 mg/dl (1.8-2.4) Total Bilirubin 0.4 mg/dl (0.2-1) 0.5 mg/dl (0.2-1) Aspartate Amino Transf (AST/SGOT) 252 U/L (15-37) 315 U/L (15-37) Alanine Aminotransferase (ALT/SGPT) 127 U/L (12-78) 142 U/L (12-78) Alkaline Phosphatase 72 U/L (45-117) 75 U/L (45-117) Total Protein 5.2 gm/dl (6.4-8.2) 5.2 gm/dl (6.4-8.2) Albumin 2.7 gm/dl (3.4-5.0) 2.6 gm/dl (3.4-5.0) Globulin 2.5 gm/dl (2.5-4.0) 2.6 gm/dl (2.5-4.0) Albumin/Globulin Ratio 1.1 (0.9-2) 1.0 (0.9-2) Lactic Acid Level 2.3 mmol/L (0.4-2.0) White Blood Count 28.81 K/uL (4.8-10.8) 28.96 K/uL (4.8-10.8) Red Blood Count 3.48 M/uL (4.7-6.1) 3.53 M/uL (4.7-6.1) Hemoglobin 9.5 g/dL (14.0-18.0) 9.5 g/dL (14.0-18.0) Hematocrit 29.2 % (42-52) 29.8 % (42-52) Mean Corpuscular Volume 83.9 fL (80-100) 84.4 fL (80-100) Mean Corpuscular Hemoglobin 27.3 pg (25-34) 26.9 pg (25-34) Mean Corpuscular Hemoglobin Concent 32.5 g/dl (32-36) 31.9 g/dl (32-36) Platelet Count 299 K/uL (130-400) 313 K/uL (130-400) Mean Platelet Volume 10.2 fL (7.4-10.4) 10.2 fL (7.4-10.4) Neutrophils (%) (Auto) 93.8 % 93.7 % Lymphocytes (%) (Auto) 2.1 % 2.1 % Monocytes (%) (Auto) 3.5 % 3.4 % Eosinophils (%) (Auto) 0.0 % 0.0 % Basophils (%) (Auto) 0.0 % 0.1 % Neutrophils # (Auto) 27.01 K/uL (1.4-6.5) 27.15 K/uL (1.4-6.5) Lymphocytes # (Auto) 0.61 K/uL (1.2-3.4) 0.61 K/uL (1.2-3.4) Monocytes # (Auto) 1.01 K/uL (0.11-0.59) 0.99 K/uL (0.11-0.59) Eosinophils # (Auto) 0.00 K/uL (0-0.5) 0.00 K/uL (0-0.5) Basophils # (Auto) 0.01 K/uL (0-0.2) 0.02 K/uL (0-0.2) RDW Standard Deviation 50.3 fL (36.4-46.3) 52.5 fL (36.4-46.3) RDW Coefficient of Variation 16.5 % (11.5-14.5) 17.0 % (11.5-14.5) Immature Granulocyte % (Auto) 0.6 % 0.7 % Immature Granulocyte # (Auto) 0.17 K/uL (0.00-0.02) 0.19 K/uL (0.00-0.02) Nucleated RBC Absolute Count (auto) 0.04 K/uL (0-0) Nucleated Red Blood Cells % 0.1 % Polychromasia 1+ 1+ Poikilocytosis PRESENT Schistocytes OCCASIONAL Hypersegmented Polys 1+ Hypochromasia PRESENT Anisocytosis PRESENT Echinocytes 1+ Micro Results: Blood cx x 2 ordered Urine: [employer] Assessment & Plan Vancomycin: 1000mg x 1 dose (~17mg/kg). Pt with ARF, SCr = 4.44 today ( baseline ~2.4). One time dose 1000mg due to poor renal fx. Will get a random level tomorrow w/ AM labs and assess CrCl. Pharmacy will continue to follow and will adjust dose/frequency as necessary. Thank you
--- NOTE | 2017-02-06 12:14 | Progress Note ---
Progress Note Date of Service Feb 06, 2017. Progress Note 76-year-old male admitted with multiple problems including * Acute GI bleed with hemoglobin down to 5.1 * History of prior episodes of severe anemia requiring transfusion but has declined any recent hospitalization or evaluation other than the blood transfusions * History of GI bleed with documented angiodysplasia * Hemorrhagic shock with hypothermia, hypotension, acute renal failure, hyperkalemia, metabolic acidosis * Acute renal failure most likely related to his hypotension and anemia. Possible ATN. * Severe COPD. * Smoker since age 12 * Coronary artery disease * Peripheral arterial disease * Recent diagnosis of prostate cancer Patient was admitted. Resuscitated. Received IV fluid, dopamine, transfused 4 units of packed RBCs, IV Protonix. His condition has improved. He is resting comfortably. Denied any headache or dizziness or lightheadedness. No chest pain. He is chronically dyspneic. No abdominal pain. No nausea no vomiting. He continues to have bowel movements with black stool. He has a Hill catheter in place EXAMINATION Well-developed. No distress. Vital signs blood pressure 136/50, pulse 50, respiration 20, temperature 36.7, oxygen saturation 95% on 2 L oxygen by nasal cannula Skin is warm and dry. No rash. HEENT oxygen cannula in place. He does not have any teeth. Neck is supple. Nontender. No JVD no adenopathy. Heart regular heart sounds with 2/6 systolic murmur Lungs diffuse rhonchi. Abdomen is soft nontender without organomegaly or masses Extremities no edema clubbing or cyanosis absent pedal pulses LABORATORY TESTS WBC count 28,960, hemoglobin 9.5, hematocrit 29.8, platelet count 313,000. Sodium 138, potassium 6.3, chloride 112, CO2 23, BUN 85, creatinine 4.44, glucose 85, calcium 7.0, total bilirubin 0.5, AST 315, ALT 142, alkaline phosphatase 75, total protein 5.2, albumin 2.6, Urine culture is growing coagulase-negative Staphylococcus. Sensitivities pending. Electrocardiogram showed sinus rhythm with PVCs. No acute changes Chest x-ray showed chronic changes. No acute CHF. ASSESSMENT * Massive GI bleed * Hemorrhagic shock * Acute renal failure * Anemia secondary to acute blood loss * Chronic obstructive pulmonary disease * Coronary artery disease * Peripheral arterial disease * Carcinoma of the prostate PLAN: * Continuing IV fluid * Continue IV Protonix * Continue monitoring his laboratory tests * GI consultation requested * He is already on Rocephin for his urinary tract infection * Added vancomycin because of the positive urine culture with Staphylococcus aureus. I did speak with Estee in pharmacy. * Started on Xopenex * Was given a dose of Kayexalate this morning. Repeat blood tests pending.
[2017-02-06 12:29] LABS: HEMATOCRIT 27.7 % (42-52); MEAN CELL VOLUME 84.2 fL (80-100); MEAN CORPUSCULAR HEMOGLOBIN 27.4 pg (25-34); MEAN CORPUSCULAR HGB CONC 32.5 g/dl (32-36); NUCLEATED RED BLOOD CELL ABS 0.06 K/uL (0-0); PLATELET COUNT 274 K/uL (130-400); RED CELL DISTRIBUTION WIDTH CV 17.2 % (11.5-14.5); RED CELL DISTRIBUTION WIDTH SD 53.4 fL (36.4-46.3); WHITE BLOOD COUNT 27.12 K/uL (4.8-10.8)
[2017-02-06 12:56] LABS: BASO ABS # 0.01 K/uL (0-0.2); IG# 0.14 K/uL (0.00-0.02); LYMPH % 1.7 %; LYMPH ABS # 0.46 K/uL (1.2-3.4); MONO % 3.7 %; NEUT % 94.1 %; NEUT ABS # 25.51 K/uL (1.4-6.5)
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
[2017-02-06 13:14] LABS: CALCIUM 7.2 mg/dl (8.5-10.1); CREATININE 4.51 mg/dl (0.60-1.40); POTASSIUM 5.1 mmol/L (3.5-5.1)
[2017-02-06] MEDS: CEFTRIAXONE SOD INJ 2,000 MG in DEXTROSE 5% 50ML 50 ML IV SCH (16:03)
[2017-02-06 16:51] LABS: HEMATOCRIT 27.7 % (42-52); MEAN CELL VOLUME 84.5 fL (80-100); MEAN CORPUSCULAR HEMOGLOBIN 27.4 pg (25-34); MEAN CORPUSCULAR HGB CONC 32.5 g/dl (32-36); MEAN PLATELET VOLUME 10.6 fL (7.4-10.4); NUCLEATED RED BLOOD CELL ABS 0.03 K/uL (0-0); PLATELET COUNT 247 K/uL (130-400); RED CELL DISTRIBUTION WIDTH CV 17.3 % (11.5-14.5); RED CELL DISTRIBUTION WIDTH SD 53.1 fL (36.4-46.3); WHITE BLOOD COUNT 25.75 K/uL (4.8-10.8)
[2017-02-06 17:22] LABS: BASO ABS # 0.01 K/uL (0-0.2); IG# 0.12 K/uL (0.00-0.02); LYMPH % 1.9 %; MONO % 3.7 %; MONO ABS # 0.96 K/uL (0.11-0.59); NEUT % 93.9 %; NEUT ABS # 24.16 K/uL (1.4-6.5)
[2017-02-07] VITALS (15 sets, daily range): BP systolic 118–185; BP diastolic 61–76; PULSE 62–77; TEMP 36.5–37; O2SAT 91–100
[2017-02-07] MEDS: PANTOprazole INJ 40 MG in DEXTROSE 5% 100ML IV SCH ×5 (00:26→20:41)
[2017-02-07] MEDS: SODIUM CHLORIDE 0.9% 1000ML 1,000 ML IV SCH ×2 (00:26→11:45)
[2017-02-07] MEDS: LEVALBUTEROL 1.25MG/3ML NEB INH SCH ×2 (03:02→07:02)
[2017-02-07 05:20] LABS: HEMATOCRIT 27.8 % (42-52); HEMOGLOBIN 8.8 g/dL (14.0-18.0); MEAN CELL VOLUME 85.3 fL (80-100); MEAN CORPUSCULAR HGB CONC 31.7 g/dl (32-36); MEAN PLATELET VOLUME 10.3 fL (7.4-10.4); NUCLEATED RED BLOOD CELL ABS 0.04 K/uL (0-0); PLATELET COUNT 215 K/uL (130-400); RED CELL DISTRIBUTION WIDTH CV 17.7 % (11.5-14.5); WHITE BLOOD COUNT 24.39 K/uL (4.8-10.8)
[2017-02-07 05:49] LABS: ALBUMIN 2.3 gm/dl (3.4-5.0); CALCIUM 6.9 mg/dl (8.5-10.1); CREATININE 4.12 mg/dl (0.60-1.40); POTASSIUM 4.4 mmol/L (3.5-5.1)
[2017-02-07 06:33] LABS: BASO ABS # 0.01 K/uL (0-0.2); IG# 0.14 K/uL (0.00-0.02); LYMPH % 1.9 %; LYMPH ABS # 0.47 K/uL (1.2-3.4); MONO % 3.8 %; MONO ABS # 0.92 K/uL (0.11-0.59); NEUT % 93.7 %; NEUT ABS # 22.85 K/uL (1.4-6.5)
--- NOTE | 2017-02-07 07:18 | Progress Note ---
Subjective Date of Service: Feb 06, 2017. Subjective pt is confused, appears weak and chronically ill Problem List Medical Problems: (1) Acute urinary retention Status: Acute (2) MY (acute kidney injury) Status: Acute (3) GI bleed Status: Acute (4) Hyperkalemia Status: Acute (5) Hypotension Status: Acute (6) Symptomatic anemia Status: Acute (7) UTI (urinary tract infection) Status: Acute (8) UTI (urinary tract infection) Status: Acute Objective Vital Signs Date Time Temp Pulse Resp B/P (MAP) Pulse Ox O2 Delivery O2 Flow Rate FiO2 02/06/17 11:56 36.7 66 20 91/62 (72) 92 Nasal Cannula 3.0 02/06/17 11:10 76 20 92 Nasal Cannula 3.0 02/06/17 08:58 62 20 92 Nasal Cannula 2.0 02/06/17 08:30 50 20 136/50 (78) 95 Nasal Cannula 2.0 02/06/17 08:00 Nasal Cannula 2.0 02/06/17 07:49 36.7 70 20 164/60 (94) 97 Nasal Cannula 1.0 02/06/17 04:18 36.8 72 20 159/58 (91) 93 Nasal Cannula 2.0 02/06/17 04:00 Nasal Cannula 2.0 02/06/17 00:58 73 20 151/53 93 2.0 02/06/17 00:01 Nasal Cannula 2.0 02/05/17 23:58 75 20 143/57 93 2.0 02/05/17 23:30 36.9 76 22 149/57 92 2.0 02/05/17 23:11 36.8 77 20 159/56 90 2.0 02/05/17 22:07 36.8 78 18 169/62 92 2.0 02/05/17 21:40 37.4 80 18 161/55 94 2.0 02/05/17 21:08 36.5 79 20 168/58 97 02/05/17 20:00 Nasal Cannula 2.0 02/05/17 19:30 36.5 77 22 157/55 95 3.0 02/05/17 18:25 34.6 70 14 144/52 97 2.0 02/05/17 18:10 68 147/55 100 2.0 02/05/17 17:49 68 18 121/51 97 12/7/17 17:46 67 20 121/51 92 2.0 02/05/17 17:40 65 121/51 98 Nasal Cannula 2.0 02/05/17 17:15 69 20 131/60 02/05/17 17:15 33.9 69 20 131/60 100 02/05/17 16:45 33.9 71 18 128/52 02/05/17 16:15 33.4 66 22 118/48 02/05/17 15:55 32.9 66 21 118/52 50.0 02/05/17 15:50 88 100 100 02/05/17 15:36 65 24 122/53 BiPAP 100 02/05/17 15:25 32.5 98 28 124/52 Nasal Cannula 6.0 02/05/17 15:11 67 30 115/51 02/05/17 15:05 69 30 120/40 Laboratory Results Last 24 Hours Test 02/05/17 15:10 02/05/17 15:15 02/05/17 15:38 02/05/17 19:51 Influenza Type A Antigen Neg for Influ A Influenza Type B Antigen Neg for Influ B Stool Occult Blood POSITIVE Bedside Blood Gas pH (LAB) 7.25 Bedside Blood Gas pCO2 (LAB) 30 mmHg Bedside Blood Gas pO2 (LAB) 390 mmHg Bedside Blood Gas HCO3 (LAB) 13 meq/L Bedside Blood Gas Total CO2 14 mEq/l Bedside Blood Gas Base Excess (LAB) -14.0 meq/L Bedside Blood Gas O2 Saturation 100.0 % Sodium Level 139 mmol/L Potassium Level 5.5 mmol/L Chloride Level 110 mmol/L Carbon Dioxide Level 19 mmol/L Anion Gap 10.0 mmol/L Blood Urea Nitrogen 83 mg/dl Creatinine 4.38 mg/dl Est Creatinine Clear Calc Drug Dose 11.8 ml/min Estimated GFR () 13.9 Estimated GFR (Non- 12.0 BUN/Creatinine Ratio 19.0 Random Glucose 79 mg/dl Calcium Level 7.2 mg/dl Magnesium Level 6.0 mg/dl Total Bilirubin 0.4 mg/dl Aspartate Amino Transf (AST/SGOT) 252 U/L Alanine Aminotransferase (ALT/SGPT) 127 U/L Alkaline Phosphatase 72 U/L Total Protein 5.2 gm/dl Albumin 2.7 gm/dl Globulin 2.5 gm/dl Albumin/Globulin Ratio 1.1 Test 02/05/17 20:52 02/06/17 03:07 02/06/17 08:53 02/06/17 11:57 Lactic Acid Level 2.3 mmol/L White Blood Count 28.81 K/uL 28.96 K/uL 27.12 K/uL Red Blood Count 3.48 M/uL 3.53 M/uL 3.29 M/uL Hemoglobin 9.5 g/dL 9.5 g/dL 9.0 g/dL Hematocrit 29.2 % 29.8 % 27.7 % Mean Corpuscular Volume 83.9 fL 84.4 fL 84.2 fL Mean Corpuscular Hemoglobin 27.3 pg 26.9 pg 27.4 pg Mean Corpuscular Hemoglobin Concent 32.5 g/dl 31.9 g/dl 32.5 g/dl Platelet Count 299 K/uL 313 K/uL 274 K/uL Mean Platelet Volume 10.2 fL 10.2 fL 10.0 fL Neutrophils (%) (Auto) 93.8 % 93.7 % 94.1 % Lymphocytes (%) (Auto) 2.1 % 2.1 % 1.7 % Monocytes (%) (Auto) 3.5 % 3.4 % 3.7 % Eosinophils (%) (Auto) 0.0 % 0.0 % 0.0 % Basophils (%) (Auto) 0.0 % 0.1 % 0.0 % Neutrophils # (Auto) 27.01 K/uL 27.15 K/uL 25.51 K/uL Lymphocytes # (Auto) 0.61 K/uL 0.61 K/uL 0.46 K/uL Monocytes # (Auto) 1.01 K/uL 0.99 K/uL 1.00 K/uL Eosinophils # (Auto) 0.00 K/uL 0.00 K/uL 0.00 K/uL Basophils # (Auto) 0.01 K/uL 0.02 K/uL 0.01 K/uL RDW Standard Deviation 50.3 fL 52.5 fL 53.4 fL RDW Coefficient of Variation 16.5 % 17.0 % 17.2 % Immature Granulocyte % (Auto) 0.6 % 0.7 % 0.5 % Immature Granulocyte # (Auto) 0.17 K/uL 0.19 K/uL 0.14 K/uL Nucleated RBC Absolute Count (auto) 0.04 K/uL 0.06 K/uL Nucleated Red Blood Cells % 0.1 % 0.2 % Polychromasia 1+ 1+ 1+ Poikilocytosis PRESENT Schistocytes OCCASIONAL Sodium Level 138 mmol/L 142 mmol/L Potassium Level 6.3 mmol/L 5.1 mmol/L Chloride Level 112 mmol/L 114 mmol/L Carbon Dioxide Level 23 mmol/L 19 mmol/L Anion Gap 3.0 mmol/L 9.0 mmol/L Blood Urea Nitrogen 85 mg/dl 87 mg/dl Creatinine 4.44 mg/dl 4.51 mg/dl Est Creatinine Clear Calc Drug Dose 11.6 ml/min 10.8 ml/min Estimated GFR () 13.7 13.5 Estimated GFR (Non- 11.8 11.6 BUN/Creatinine Ratio 19.2 19.4 Random Glucose 85 mg/dl 103 mg/dl Calcium Level 7.0 mg/dl 7.2 mg/dl Total Bilirubin 0.5 mg/dl Aspartate Amino Transf (AST/SGOT) 315 U/L Alanine Aminotransferase (ALT/SGPT) 142 U/L Alkaline Phosphatase 75 U/L Total Protein 5.2 gm/dl Albumin 2.6 gm/dl Globulin 2.6 gm/dl Albumin/Globulin Ratio 1.0 Hypersegmented Polys 1+ Hypochromasia PRESENT Anisocytosis PRESENT Echinocytes 1+ 1+ Basophilic Stippling 1+ Target Cells 1+ Ovalocytes 1+ Magnesium Level 6.3 mg/dl Assessment and Plan 76 M admitted with hemorrhagic shock, from presumed GI bleed and coagulase neg staph uti poa. Has acute on chronic renal failure stage 3 now with hyperkalemia , and COPD Hemorrhagic shock from presumed GI bleed, volume resuscitated, IV protonix, clear liquids, Gi medicine did see and plans on endoscopy 02/09. Typically takes asa and plavix Acute renal failure and hyperkalemia, did recieve kayexalate and is having stools, repeat K is improved as well as CR although still 4, prehospital was on lisinopril UTI poa, will be continued on vancomycin renally dosing by pharmacy and rocephin COPD, Xopenex BPH was on proscar and flomax, these are held and rapp is placed DVT prevention is mechanical with concern for GI bleed PT is DNR
[2017-02-07] MEDS ORDERED: HydrALAZINE HCL 20 MG/ML VIAL IV PRN (09:00)
[2017-02-07] MEDS: TAMSULOSIN HCL 0.4 MG CAP PO SCH ×2 (10:57→20:41)
[2017-02-07] MEDS: GUAIFENESIN 600 MG TABCR PO SCH ×2 (10:57→20:41)
[2017-02-07] MEDS: DILTIAZEM HCL 120 MG EXT REL CAP PO SCH (10:58)
[2017-02-07] MEDS ORDERED: VANCOMYCIN INJ 1,250 MG in SODIUM CHLORIDE 0.9% 250ML 250 ML IV SCH (11:00)
[2017-02-07] MEDS: FORMOTEROL FUMA NEBULIZER SOLN 20 MCG/2 ML VIAL INH SCH ×2 (11:14→19:49)
[2017-02-07] MEDS: ALBUT/IPRATROP 3MG/0.5MG NEB 3 ML VIAL INH SCH ×3 (11:15→19:49)
--- NOTE | 2017-02-07 11:41 | Progress Note ---
Subjective Date of Service: Feb 07, 2017. Subjective pts biggest complaint is his breathing, not able to cough sputum out, still with some dark stools Problem List Medical Problems: (1) Acute urinary retention Status: Acute (2) MY (acute kidney injury) Status: Acute (3) GI bleed Status: Acute (4) Hyperkalemia Status: Acute (5) Hypotension Status: Acute (6) Symptomatic anemia Status: Acute (7) UTI (urinary tract infection) Status: Acute (8) UTI (urinary tract infection) Status: Acute Review of Systems Constitutional: + weakness, No fever, No chills Respiratory: + cough, + shortness of breath, + dyspnea on exertion, No sputum Cardiac: No chest pain, No edema Abdomen: + GI bleeding, No pain, No nausea, No vomiting, No diarrhea, No constipation Musculoskeletal: No joint pain, No muscle pain Neurologic: No memory loss, No paralysis, No weakness Psychiatric: No depression symptoms, No anhedonism Objective Vital Signs Date Time Temp Pulse Resp B/P (MAP) Pulse Ox O2 Delivery O2 Flow Rate FiO2 02/07/17 07:02 69 20 96 BiPAP/CPAP 50 02/07/17 04:00 BiPAP 02/07/17 03:54 36.8 73 18 118/62 (80) 100 BiPAP 02/07/17 03:03 69 100 50 02/07/17 03:03 69 17 100 BiPAP/CPAP 50 02/07/17 00:00 BiPAP 02/06/17 23:42 36.7 66 18 101/60 (74) 99 BiPAP 50 02/06/17 23:08 67 16 100 BiPAP/CPAP 50 02/06/17 22:21 70 100 50 02/06/17 20:00 Nasal Cannula 3.0 02/06/17 19:33 68 20 95 Nasal Cannula 3.0 02/06/17 19:21 36.9 62 18 149/68 (95) 100 02/06/17 16:00 94 Nasal Cannula 3.0 100 02/06/17 15:38 36.7 74 19 89/50 (63) 94 Nasal Cannula 3.0 02/06/17 15:25 67 18 90 Nasal Cannula 3.0 02/06/17 12:00 Nasal Cannula 3.0 02/06/17 11:56 36.7 66 20 91/62 (72) 92 Nasal Cannula 3.0 02/06/17 11:10 76 20 92 Nasal Cannula 3.0 02/06/17 08:58 62 20 92 Nasal Cannula 2.0 02/06/17 08:30 50 20 136/50 (78) 95 Nasal Cannula 2.0 02/06/17 08:00 Nasal Cannula 2.0 02/06/17 07:49 36.7 70 20 164/60 (94) 97 Nasal Cannula 1.0 Physical Exam General Appearance: WD/WN, + moderate distress Eyes: normal inspection, PERRL Respiratory/Chest: chest non-tender, + decreased breath sounds, + accessory muscle use, + rhonchi Cardiovascular: regular rate, rhythm, no murmur Abdomen: normal bowel sounds, non tender, soft Extremities: no pedal edema, no calf tenderness Neurologic/Psychiatric: alert, oriented x 3 Laboratory Results Last 24 Hours Test 02/06/17 08:53 02/06/17 11:57 02/06/17 15:56 02/07/17 04:46 White Blood Count 28.96 K/uL 27.12 K/uL 25.75 K/uL 24.39 K/uL Red Blood Count 3.53 M/uL 3.29 M/uL 3.28 M/uL 3.26 M/uL Hemoglobin 9.5 g/dL 9.0 g/dL 9.0 g/dL 8.8 g/dL Hematocrit 29.8 % 27.7 % 27.7 % 27.8 % Mean Corpuscular Volume 84.4 fL 84.2 fL 84.5 fL 85.3 fL Mean Corpuscular Hemoglobin 26.9 pg 27.4 pg 27.4 pg 27.0 pg Mean Corpuscular Hemoglobin Concent 31.9 g/dl 32.5 g/dl 32.5 g/dl 31.7 g/dl Platelet Count 313 K/uL 274 K/uL 247 K/uL 215 K/uL Mean Platelet Volume 10.2 fL 10.0 fL 10.6 fL 10.3 fL Neutrophils (%) (Auto) 93.7 % 94.1 % 93.9 % 93.7 % Lymphocytes (%) (Auto) 2.1 % 1.7 % 1.9 % 1.9 % Monocytes (%) (Auto) 3.4 % 3.7 % 3.7 % 3.8 % Eosinophils (%) (Auto) 0.0 % 0.0 % 0.0 % 0.0 % Basophils (%) (Auto) 0.1 % 0.0 % 0.0 % 0.0 % Neutrophils # (Auto) 27.15 K/uL 25.51 K/uL 24.16 K/uL 22.85 K/uL Lymphocytes # (Auto) 0.61 K/uL 0.46 K/uL 0.50 K/uL 0.47 K/uL Monocytes # (Auto) 0.99 K/uL 1.00 K/uL 0.96 K/uL 0.92 K/uL Eosinophils # (Auto) 0.00 K/uL 0.00 K/uL 0.00 K/uL 0.00 K/uL Basophils # (Auto) 0.02 K/uL 0.01 K/uL 0.01 K/uL 0.01 K/uL RDW Standard Deviation 52.5 fL 53.4 fL 53.1 fL 55.0 fL RDW Coefficient of Variation 17.0 % 17.2 % 17.3 % 17.7 % Immature Granulocyte % (Auto) 0.7 % 0.5 % 0.5 % 0.6 % Immature Granulocyte # (Auto) 0.19 K/uL 0.14 K/uL 0.12 K/uL 0.14 K/uL Hypersegmented Polys 1+ Polychromasia 1+ 1+ 1+ Hypochromasia PRESENT Anisocytosis PRESENT Echinocytes 1+ 1+ 1+ 1+ Nucleated RBC Absolute Count (auto) 0.06 K/uL 0.03 K/uL 0.04 K/uL Nucleated Red Blood Cells % 0.2 % 0.1 % 0.2 % Basophilic Stippling 1+ Target Cells 1+ Ovalocytes 1+ 1+ 1+ Sodium Level 142 mmol/L 140 mmol/L Potassium Level 5.1 mmol/L 4.4 mmol/L Chloride Level 114 mmol/L 114 mmol/L Carbon Dioxide Level 19 mmol/L 21 mmol/L Anion Gap 9.0 mmol/L 5.0 mmol/L Blood Urea Nitrogen 87 mg/dl 78 mg/dl Creatinine 4.51 mg/dl 4.12 mg/dl Est Creatinine Clear Calc Drug Dose 10.8 ml/min 11.8 ml/min Estimated GFR () 13.5 15.0 Estimated GFR (Non- 11.6 13.0 BUN/Creatinine Ratio 19.4 19.0 Random Glucose 103 mg/dl 92 mg/dl Calcium Level 7.2 mg/dl 6.9 mg/dl Magnesium Level 6.3 mg/dl 5.7 mg/dl Total Bilirubin 0.2 mg/dl Aspartate Amino Transf (AST/SGOT) 191 U/L Alanine Aminotransferase (ALT/SGPT) 156 U/L Alkaline Phosphatase 78 U/L Total Protein 5.0 gm/dl Albumin 2.3 gm/dl Globulin 2.7 gm/dl Albumin/Globulin Ratio 0.9 Random Vancomycin Level 10.2 mcg/ml Assessment and Plan 76 M admitted with hemorrhagic shock, from presumed GI bleed and coagulase neg staph uti poa. Has acute on chronic renal failure stage 3 now with hyperkalemia , and COPD Hemorrhagic shock from presumed GI bleed, volume resuscitated, IV protonix, clear liquids, Gi medicine did see and plans on endoscopy 02/09. Typically takes asa and plavix which are held. concerns that COPD may present limitation to anesthesia and prohibit EGD, will not add steroids for COPD unless absolutely necessary HTN, typically takes diltiazem which will be restarted, holding lisinopril due to renal failure Acute renal failure and hyperkalemia, did recieve kayexalate and is having stools, repeat K is improved as well as CR although still 4, prehospital was on lisinopril Hypermagnesemia, is improving, will follow no clinical issues at this time UTI poa, will be continued on vancomycin renally dosing by pharmacy and rocephin COPD, , pt not able to cough up sputum, will add mucolytics, and broaden nebulized meds, add flutter valve may need chest PT BPH was on proscar and flomax,restarted 02/07 and rapp is placed DVT prevention is mechanical with concern for GI bleed PT is DNR, called left ring for over a minute, no answer and no answering machine
--- NOTE | 2017-02-07 13:59 | Gastroenterology Progress Note ---
Progress Note Date of Service: Feb 07, 2017 Subjective Pt evaluation today including: conversation w/ patient, physical exam, chart review, lab review, review of studies, review of inpatient medication list CC f/u GI bleeding HPI Pt with bleeding in his bowels at home and having difficulty telling me what color. Going back and forth the last statement seems as if it was black stools at home. Pt appears very short of breath at present. NO abd pain. Review of Systems Respiratory: + shortness of breath Cardiac: No chest pain Medications Current Inpatient Medications Medications (Trade) Dose Ordered Sig/[place] Route Start Time Stop Time Status Last Admin Dose Admin Ceftriaxone Sodium 2000 mg/ Dextrose 70 ml @ 100 mls/hr Q24H IV 02/06/17 16:00 02/16/17 15:59 02/06/17 16:03 100 MLS/HR Pantoprazole Sodium 40 mg/ Dextrose 100 ml @ 20 mls/hr Q5H IV 02/05/17 19:00 03/07/17 18:59 02/07/17 10:55 20 MLS/HR Sodium Chloride 1,000 ml @ 80 mls/hr [id number] IV 02/06/17 04:45 03/08/17 04:44 02/07/17 11:45 80 MLS/HR Vancomycin HCl (Consult) 1 ea UD PRN N/A 02/06/17 10:45 03/08/17 10:44 Heparin Sodium (Porcine) (Heparin 10 Unit/ ml 5 ml Flush) 5 ml PRN PRN FLUSH 02/07/17 04:00 03/09/17 03:59 Diltiazem HCl (TIAzac CAP) 120 mg DAILY PO 02/07/17 09:00 03/09/17 08:59 02/07/17 10:58 120 MG Finasteride (Proscar Tab) 5 mg HS PO 02/07/17 21:00 03/09/17 20:59 Tamsulosin HCl (Flomax Cap) 0.4 mg BID PO 02/07/17 09:00 03/09/17 08:59 02/07/17 10:57 0.4 MG Hydralazine HCl (HydrALAZINE INJ) 10 mg Q4H PRN IV 02/07/17 09:00 03/09/17 08:59 Formoterol Fumarate (Perforomist 20MCG/2ML Neb Soln) 20 mcg BID INH 02/07/17 09:00 03/09/17 08:59 Albuterol/ Ipratropium (Duoneb) 3 ml QIDR INH 02/07/17 12:00 03/09/17 11:59 02/07/17 11:15 3 ML Guaifenesin (Mucinex Contr Rel Tab) 600 mg Q12 PO 02/07/17 09:00 03/09/17 08:59 02/07/17 10:57 600 MG Objective Vital Signs Date Time Temp Pulse Resp B/P (MAP) Pulse Ox O2 Delivery O2 Flow Rate FiO2 02/07/17 12:00 97 Nasal Cannula 3.0 02/07/17 11:50 36.7 65 22 181/76 (111) 94 Nasal Cannula 3.0 02/07/17 11:16 70 20 96 Nasal Cannula 3.0 02/07/17 08:00 96 Nasal Cannula 3.0 02/07/17 07:36 36.6 73 22 185/63 (103) 100 Nasal Cannula 3.0 02/07/17 07:02 69 20 96 BiPAP/CPAP 50 02/07/17 04:00 BiPAP 02/07/17 03:54 36.8 73 18 118/62 (80) 100 BiPAP 02/07/17 03:03 69 100 50 02/07/17 03:03 69 17 100 BiPAP/CPAP 50 02/07/17 00:00 BiPAP 02/06/17 23:42 36.7 66 18 101/60 (74) 99 BiPAP 50 02/06/17 23:08 67 16 100 BiPAP/CPAP 50 02/06/17 22:21 70 100 50 02/06/17 20:00 Nasal Cannula 3.0 02/06/17 19:33 68 20 95 Nasal Cannula 3.0 02/06/17 19:21 36.9 62 18 149/68 (95) 100 02/06/17 16:00 94 Nasal Cannula 3.0 100 02/06/17 15:38 36.7 74 19 89/50 (63) 94 Nasal Cannula 3.0 02/06/17 15:25 67 18 90 Nasal Cannula 3.0 Physical Exam General Appearance: WD/WN, + mild distress (short of breath) Respiratory/Chest: + decreased breath sounds, + accessory muscle use Cardiovascular: no murmur Abdomen: normal bowel sounds, non tender, soft, no organomegaly Neurologic/Psych: clinician oncology II-XII nml as tested, alert, normal mood/affect, oriented x 3 Laboratory Results Last 24 Hours Test 02/06/17 15:56 02/07/17 04:46 White Blood Count 25.75 K/uL 24.39 K/uL Red Blood Count 3.28 M/uL 3.26 M/uL Hemoglobin 9.0 g/dL 8.8 g/dL Hematocrit 27.7 % 27.8 % Mean Corpuscular Volume 84.5 fL 85.3 fL Mean Corpuscular Hemoglobin 27.4 pg 27.0 pg Mean Corpuscular Hemoglobin Concent 32.5 g/dl 31.7 g/dl Platelet Count 247 K/uL 215 K/uL Mean Platelet Volume 10.6 fL 10.3 fL Neutrophils (%) (Auto) 93.9 % 93.7 % Lymphocytes (%) (Auto) 1.9 % 1.9 % Monocytes (%) (Auto) 3.7 % 3.8 % Eosinophils (%) (Auto) 0.0 % 0.0 % Basophils (%) (Auto) 0.0 % 0.0 % Neutrophils # (Auto) 24.16 K/uL 22.85 K/uL Lymphocytes # (Auto) 0.50 K/uL 0.47 K/uL Monocytes # (Auto) 0.96 K/uL 0.92 K/uL Eosinophils # (Auto) 0.00 K/uL 0.00 K/uL Basophils # (Auto) 0.01 K/uL 0.01 K/uL RDW Standard Deviation 53.1 fL 55.0 fL RDW Coefficient of Variation 17.3 % 17.7 % Immature Granulocyte % (Auto) 0.5 % 0.6 % Immature Granulocyte # (Auto) 0.12 K/uL 0.14 K/uL Nucleated RBC Absolute Count (auto) 0.03 K/uL 0.04 K/uL Nucleated Red Blood Cells % 0.1 % 0.2 % Polychromasia 1+ Ovalocytes 1+ 1+ Echinocytes 1+ 1+ Sodium Level 140 mmol/L Potassium Level 4.4 mmol/L Chloride Level 114 mmol/L Carbon Dioxide Level 21 mmol/L Anion Gap 5.0 mmol/L Blood Urea Nitrogen 78 mg/dl Creatinine 4.12 mg/dl Est Creatinine Clear Calc Drug Dose 11.8 ml/min Estimated GFR () 15.0 Estimated GFR (Non- 13.0 BUN/Creatinine Ratio 19.0 Random Glucose 92 mg/dl Calcium Level 6.9 mg/dl Magnesium Level 5.7 mg/dl Total Bilirubin 0.2 mg/dl Aspartate Amino Transf (AST/SGOT) 191 U/L Alanine Aminotransferase (ALT/SGPT) 156 U/L Alkaline Phosphatase 78 U/L Total Protein 5.0 gm/dl Albumin 2.3 gm/dl Globulin 2.7 gm/dl Albumin/Globulin Ratio 0.9 Random Vancomycin Level 10.2 mcg/ml Assessment and Plan GI bleeding--unclear if upper or lower source. In his present pulmonary state he is not candidate for sedation for endoscopy. If/when pulmonary status improves enough to be a candidate then would do EGD because of black stool and hx of upper AVMs and also colonoscopy anemia--stable, transfuse prn pulm status--Discussed with DR Prajapati who is attempting to optimize this elev WBC--suspect pulmonary--no abd pain to suggest ischemic bowel or other abdominal process.
[2017-02-07] MEDS: CEFTRIAXONE SOD INJ 2,000 MG in DEXTROSE 5% 50ML 50 ML IV SCH (15:13)
[2017-02-07] MEDS: BOOST BREEZE NUTRITION DRINK 1 BOX PO SCH (16:45)
[2017-02-07] MEDS: FINASTERIDE 5 MG TAB PO SCH (20:41)
[2017-02-08] VITALS (13 sets, daily range): BP systolic 131–155; BP diastolic 49–64; PULSE 54–75; TEMP 36.2–36.8; O2SAT 89–97
[2017-02-08] MEDS: PANTOprazole INJ 40 MG in DEXTROSE 5% 100ML IV SCH ×5 (01:59→22:08)
[2017-02-08 04:49] LABS: HEMATOCRIT 26.5 % (42-52); HEMOGLOBIN 8.3 g/dL (14.0-18.0); MEAN CELL VOLUME 85.8 fL (80-100); MEAN CORPUSCULAR HEMOGLOBIN 26.9 pg (25-34); MEAN CORPUSCULAR HGB CONC 31.3 g/dl (32-36); MEAN PLATELET VOLUME 10.2 fL (7.4-10.4); NUCLEATED RED BLOOD CELL ABS 0.02 K/uL (0-0); PLATELET COUNT 192 K/uL (130-400); RED CELL DISTRIBUTION WIDTH CV 17.8 % (11.5-14.5); RED CELL DISTRIBUTION WIDTH SD 55.9 fL (36.4-46.3); WHITE BLOOD COUNT 17.74 K/uL (4.8-10.8)
[2017-02-08] MEDS: SODIUM CHLORIDE 0.9% 1000ML 1,000 ML IV SCH (05:03)
[2017-02-08 05:26] LABS: CREATININE 3.75 mg/dl (0.60-1.40); POTASSIUM 4.2 mmol/L (3.5-5.1); TOTAL PROTEIN 4.8 gm/dl (6.4-8.2)
[2017-02-08 05:28] LABS: BASO % 0.1 %; BASO ABS # 0.02 K/uL (0-0.2); EOS % 0.3 %; EOS ABS # 0.05 K/uL (0-0.5); IG# 0.06 K/uL (0.00-0.02); LYMPH % 2.5 %; LYMPH ABS # 0.45 K/uL (1.2-3.4); MONO ABS # 0.88 K/uL (0.11-0.59); NEUT % 91.8 %; NEUT ABS # 16.28 K/uL (1.4-6.5)
[2017-02-08] MEDS: ALBUT/IPRATROP 3MG/0.5MG NEB 3 ML VIAL INH SCH ×4 (07:13→20:00)
[2017-02-08] MEDS: FORMOTEROL FUMA NEBULIZER SOLN 20 MCG/2 ML VIAL INH SCH ×2 (07:13→19:58)
[2017-02-08] MEDS: BOOST BREEZE NUTRITION DRINK 1 BOX PO SCH ×2 (07:44→15:57)
[2017-02-08] MEDS: TAMSULOSIN HCL 0.4 MG CAP PO SCH ×2 (07:44→21:17)
[2017-02-08] MEDS: DILTIAZEM HCL 120 MG EXT REL CAP PO SCH (07:45)
[2017-02-08] MEDS: GUAIFENESIN 600 MG TABCR PO SCH ×2 (07:45→21:17)
--- NOTE | 2017-02-08 09:34 | DIAGNOSTIC IMAGING REPORT ---
CHEST ONE VIEW PORTABLE HISTORY: 76 years-old Male COPD, ?chf follow-up study in a patient with COPD and congestive heart failure. Acute dyspnea COMPARISON: Chest radiograph 02/06/2017 TECHNIQUE: Portable AP view of the chest FINDINGS: Cardiac silhouette is upper limits of normal. Pulmonary vascular congestion is noted with development of mild interstitial coarsening bilaterally. Hazy subsegmental bibasilar opacities. No pneumothorax or large pleural effusion. Mild left hemidiaphragmatic elevation. Atherosclerosis of the aorta. Right internal jugular central venous catheter is unchanged. Gaseous distention of bowel throughout the upper abdomen again noted. Bones appear grossly intact. IMPRESSION: 1. Development of pulmonary vascular congestion with interstitial coarsening suggesting mild pulmonary edema. 2. Persistent left greater than right bibasilar opacities suggest atelectasis. The above report was generated using voice recognition software. It may contain grammatical, syntax or spelling errors. Electronically signed by: Chema Cruz M.D. 02/08/2017 9:33 AM Dictated Date/Time: 02/08/2017 9:30 AM
--- NOTE | 2017-02-08 12:43 | DIAGNOSTIC IMAGING REPORT ---
KUB HISTORY: Acute abdominal distention abd distension on examination COMPARISON: Chest radiograph of same day, CT abdomen and pelvis 12/25/2016. FINDINGS: Mildly dilated air distended loops of both small and large bowel are noted throughout the abdomen with moderate volume of formed stool seen within the rectosigmoid. Extensive vascular calcifications noted. Stent grafts of the bilateral iliac vasculature. There is no organomegaly. No renal calculi. No ureteral calculi. No pneumoperitoneum or pneumatosis. No fracture. Dextroscoliosis of the lumbar spine. Multilevel degenerative changes of the lumbar spine are noted. IMPRESSION: 1. Mild gaseous distention of both small and large bowel loops suggest ileus with distal obstruction also differential. 2. No pneumoperitoneum identified. 3. Moderate stool volume of the rectosigmoid suggests constipation. Electronically signed by: Chema Cruz M.D. 02/08/2017 12:42 PM Dictated Date/Time: 02/08/2017 12:39 PM
--- NOTE | 2017-02-08 13:19 | Gastroenterology Progress Note ---
Progress Note Date of Service: Feb 08, 2017 Subjective Pt evaluation today including: conversation w/ patient, physical exam, chart review, lab review, review of studies, review of inpatient medication list CC f/u GI bleed HPI Per nurse patient has incontinence of soft stools several times daily. The KUB suggest distal colon stool with dilated SB and colon. He denies abd paiin. Review of Systems Respiratory: + shortness of breath Cardiac: No chest pain Medications Current Inpatient Medications Medications (Trade) Dose Ordered Sig/[place] Route Start Time Stop Time Status Last Admin Dose Admin Ceftriaxone Sodium 2000 mg/ Dextrose 70 ml @ 100 mls/hr Q24H IV 02/06/17 16:00 02/16/17 15:59 02/07/17 15:13 100 MLS/HR Pantoprazole Sodium 40 mg/ Dextrose 100 ml @ 20 mls/hr Q5H IV 02/05/17 19:00 03/07/17 18:59 02/08/17 07:44 20 MLS/HR Vancomycin HCl (Consult) 1 ea UD PRN N/A 02/06/17 10:45 03/08/17 10:44 Heparin Sodium (Porcine) (Heparin 10 Unit/ ml 5 ml Flush) 5 ml PRN PRN FLUSH 02/07/17 04:00 03/09/17 03:59 Diltiazem HCl (TIAzac CAP) 120 mg DAILY PO 02/07/17 09:00 03/09/17 08:59 02/08/17 07:45 120 MG Finasteride (Proscar Tab) 5 mg HS PO 02/07/17 21:00 03/09/17 20:59 02/07/17 20:41 5 MG Tamsulosin HCl (Flomax Cap) 0.4 mg BID PO 02/07/17 09:00 03/09/17 08:59 02/08/17 07:44 0.4 MG Hydralazine HCl (HydrALAZINE INJ) 10 mg Q4H PRN IV 02/07/17 09:00 03/09/17 08:59 Formoterol Fumarate (Perforomist 20MCG/2ML Neb Soln) 20 mcg BID INH 02/07/17 09:00 03/09/17 08:59 02/08/17 07:13 20 MCG Albuterol/ Ipratropium (Duoneb) 3 ml QIDR INH 02/07/17 12:00 03/09/17 11:59 02/08/17 11:16 3 ML Guaifenesin (Mucinex Contr Rel Tab) 600 mg Q12 PO 02/07/17 09:00 18 08:59 02/08/17 07:45 600 MG Enteral Nutritional Formula (Boost Breeze Nutritional Drink) 1 box BIDM PO 02/07/17 16:45 03/09/17 16:44 02/08/17 07:44 1 BOX Methylprednisolone Sodium Succinate 40 mg/Syringe 0.64 ml @ 1.5 mls/min Q12H IV 02/08/17 13:00 03/10/17 12:59 Objective Vital Signs Date Time Temp Pulse Resp B/P (MAP) Pulse Ox O2 Delivery O2 Flow Rate FiO2 02/08/17 12:00 94 Nasal Cannula 3.0 02/08/17 11:49 36.4 54 23 135/54 (81) 93 Nasal Cannula 2.0 02/08/17 11:16 72 18 95 Nasal Cannula 3.0 02/08/17 08:00 96 Nasal Cannula 3.0 02/08/17 07:49 36.2 75 20 154/64 (94) 96 Nasal Cannula 3.0 02/08/17 07:14 70 20 93 Nasal Cannula 3.0 02/08/17 04:00 BiPAP 40 02/08/17 04:00 36.6 66 22 146/53 (84) 97 BiPAP 45 02/07/17 23:59 36.5 65 20 150/61 (90) 95 BiPAP 40 02/07/17 23:59 BiPAP 40 02/07/17 22:32 62 94 40 02/07/17 20:00 Nasal Cannula 3.0 02/07/17 19:49 74 16 91 Nasal Cannula 3.0 02/07/17 19:32 37.0 74 18 126/72 (90) 99 02/07/17 16:04 36.9 67 18 132/63 (86) 100 02/07/17 16:00 95 Nasal Cannula 3.0 02/07/17 15:18 77 16 91 Nasal Cannula 3.0 Physical Exam General Appearance: WD/WN, no apparent distress Respiratory/Chest: lungs clear, + decreased breath sounds, + accessory muscle use Cardiovascular: no murmur Abdomen: normal bowel sounds, non tender, soft, no organomegaly, + distended ( mildly distended and tympanitic) Neurologic/Psych: normal mood/affect, oriented x 3 Skin: normal color Laboratory Results Last 24 Hours Test 02/08/17 04:34 White Blood Count 17.74 K/uL Red Blood Count 3.09 M/uL Hemoglobin 8.3 g/dL Hematocrit 26.5 % Mean Corpuscular Volume 85.8 fL Mean Corpuscular Hemoglobin 26.9 pg Mean Corpuscular Hemoglobin Concent 31.3 g/dl Platelet Count 192 K/uL Mean Platelet Volume 10.2 fL Neutrophils (%) (Auto) 91.8 % Lymphocytes (%) (Auto) 2.5 % Monocytes (%) (Auto) 5.0 % Eosinophils (%) (Auto) 0.3 % Basophils (%) (Auto) 0.1 % Neutrophils # (Auto) 16.28 K/uL Lymphocytes # (Auto) 0.45 K/uL Monocytes # (Auto) 0.88 K/uL Eosinophils # (Auto) 0.05 K/uL Basophils # (Auto) 0.02 K/uL RDW Standard Deviation 55.9 fL RDW Coefficient of Variation 17.8 % Immature Granulocyte % (Auto) 0.3 % Immature Granulocyte # (Auto) 0.06 K/uL Nucleated RBC Absolute Count (auto) 0.02 K/uL Nucleated Red Blood Cells % 0.1 % Echinocytes 1+ Schistocytes OCCASIONAL Sodium Level 138 mmol/L Potassium Level 4.2 mmol/L Chloride Level 113 mmol/L Carbon Dioxide Level 20 mmol/L Anion Gap 5.0 mmol/L Blood Urea Nitrogen 75 mg/dl Creatinine 3.75 mg/dl Est Creatinine Clear Calc Drug Dose 13.0 ml/min Estimated GFR () 16.8 Estimated GFR (Non- 14.5 BUN/Creatinine Ratio 19.9 Random Glucose 84 mg/dl Calcium Level 7.0 mg/dl Magnesium Level 5.2 mg/dl Total Bilirubin 0.3 mg/dl Aspartate Amino Transf (AST/SGOT) 100 U/L Alanine Aminotransferase (ALT/SGPT) 124 U/L Alkaline Phosphatase 75 U/L Total Protein 4.8 gm/dl Albumin 2.0 gm/dl Globulin 2.8 gm/dl Albumin/Globulin Ratio 0.7 Random Vancomycin Level 17.8 mcg/ml Assessment and Plan GI bleeding--unclear if upper or lower source. In his present pulmonary state he is not candidate for sedation for endoscopy. If/when pulmonary status improves enough to be a candidate then would do EGD because of black stool and hx of upper AVMs and also colonoscopy distended bowel---possible partial obstruction from stools, will have nurse check for impaction and give enema. anemia--stable, transfuse prn pulm status--per attending. elev WBC--suspect pulmonary--no abd pain to suggest ischemic bowel or other abdominal process.
[2017-02-08] MEDS ORDERED: SOD PHOSPHATE/SOD BIPHOSPHATE ENEMA 132 ML BTL PR ONE (13:30)
[2017-02-08] MEDS ORDERED: SOAP SUDS ENEMA PR ONE (13:45)
[2017-02-08] MEDS ORDERED: SOD PHOSPHATE/SOD BIPHOSPHATE ENEMA 132 ML BTL ONE (14:07)
[2017-02-08] MEDS: METHYLPREDNISOLONE IV 40 MG in SYRINGE 0 ML IV SCH (15:56)
[2017-02-08] MEDS: CEFTRIAXONE SOD INJ 2,000 MG in DEXTROSE 5% 50ML 50 ML IV SCH (15:59)
[2017-02-08] MEDS ORDERED: FUROSEMIDE INJ 60 MG in SYRINGE 0 ML IV ONE (17:00)
--- NOTE | 2017-02-08 17:02 | Progress Note ---
Subjective Date of Service: Feb 08, 2017. Subjective Pt evaluation today including: conversation w/ patient, physical exam, chart review, lab review, review of studies (cxr), conversation w/ sr solutions consultant (GI), review of inpatient medication list Pain: none voiced PO Intake: only on clears; tolerating Voiding: rapp catheter in place tele stable overnight reports cough, wheezing, and dyspnea but "better" than early this AM no obvious melena or BRBPR BPs stable overnight staff report stool is liquid Problem List Medical Problems: (1) Acute urinary retention Status: Acute (2) MY (acute kidney injury) Status: Acute (3) GI bleed Status: Acute (4) Hyperkalemia Status: Acute (5) Hypotension Status: Acute (6) Symptomatic anemia Status: Acute (7) UTI (urinary tract infection) Status: Acute (8) UTI (urinary tract infection) Status: Acute Review of Systems Constitutional: No fever Cardiac: No chest pain, No orthopnea Abdomen: No pain Objective Vital Signs Date Time Temp Pulse Resp B/P (MAP) Pulse Ox O2 Delivery O2 Flow Rate FiO2 02/08/17 16:00 95 Nasal Cannula 3.0 02/08/17 15:42 36.5 63 20 131/51 (77) 90 Nasal Cannula 2.0 02/08/17 14:59 72 18 91 Nasal Cannula 3.0 02/08/17 12:00 94 Nasal Cannula 3.0 02/08/17 11:49 36.4 54 23 135/54 (81) 93 Nasal Cannula 2.0 02/08/17 11:16 72 18 95 Nasal Cannula 3.0 02/08/17 08:00 96 Nasal Cannula 3.0 02/08/17 07:49 36.2 75 20 154/64 (94) 96 Nasal Cannula 3.0 02/08/17 07:14 70 20 93 Nasal Cannula 3.0 02/08/17 04:00 BiPAP 40 02/08/17 04:00 36.6 66 22 146/53 (84) 97 BiPAP 45 02/07/17 23:59 36.5 65 20 150/61 (90) 95 BiPAP 40 02/07/17 23:59 BiPAP 40 02/07/17 22:32 62 94 40 02/07/17 20:00 Nasal Cannula 3.0 02/07/17 19:49 74 16 91 Nasal Cannula 3.0 02/07/17 19:32 37.0 74 18 126/72 (90) 99 Physical Exam General Appearance: + mild distress (tachypnea, audible wheezing), + cachetic ENT: + pertinent finding (MM dry; no thrush) Neck: no JVD, + pertinent finding (right sided CVC clean) Respiratory/Chest: + respiratory distress, + decreased breath sounds, + wheezing, + pertinent finding (tachypnea) Cardiovascular: + pertinent finding (heart tones distant, but RRR, s1, s2) Abdomen: normal bowel sounds, non tender, no organomegaly, + distended Extremities: no pedal edema Neurologic/Psychiatric: alert, oriented x 3 Skin: + pallor Laboratory Results Last 24 Hours Test 02/08/17 04:34 White Blood Count 17.74 K/uL Red Blood Count 3.09 M/uL Hemoglobin 8.3 g/dL Hematocrit 26.5 % Mean Corpuscular Volume 85.8 fL Mean Corpuscular Hemoglobin 26.9 pg Mean Corpuscular Hemoglobin Concent 31.3 g/dl Platelet Count 192 K/uL Mean Platelet Volume 10.2 fL Neutrophils (%) (Auto) 91.8 % Lymphocytes (%) (Auto) 2.5 % Monocytes (%) (Auto) 5.0 % Eosinophils (%) (Auto) 0.3 % Basophils (%) (Auto) 0.1 % Neutrophils # (Auto) 16.28 K/uL Lymphocytes # (Auto) 0.45 K/uL Monocytes # (Auto) 0.88 K/uL Eosinophils # (Auto) 0.05 K/uL Basophils # (Auto) 0.02 K/uL RDW Standard Deviation 55.9 fL RDW Coefficient of Variation 17.8 % Immature Granulocyte % (Auto) 0.3 % Immature Granulocyte # (Auto) 0.06 K/uL Nucleated RBC Absolute Count (auto) 0.02 K/uL Nucleated Red Blood Cells % 0.1 % Echinocytes 1+ Schistocytes OCCASIONAL Sodium Level 138 mmol/L Potassium Level 4.2 mmol/L Chloride Level 113 mmol/L Carbon Dioxide Level 20 mmol/L Anion Gap 5.0 mmol/L Blood Urea Nitrogen 75 mg/dl Creatinine 3.75 mg/dl Est Creatinine Clear Calc Drug Dose 13.0 ml/min Estimated GFR () 16.8 Estimated GFR (Non- 14.5 BUN/Creatinine Ratio 19.9 Random Glucose 84 mg/dl Calcium Level 7.0 mg/dl Magnesium Level 5.2 mg/dl Total Bilirubin 0.3 mg/dl Aspartate Amino Transf (AST/SGOT) 100 U/L Alanine Aminotransferase (ALT/SGPT) 124 U/L Alkaline Phosphatase 75 U/L Total Protein 4.8 gm/dl Albumin 2.0 gm/dl Globulin 2.8 gm/dl Albumin/Globulin Ratio 0.7 Random Vancomycin Level 17.8 mcg/ml Assessment and Plan 76yo male: 1. Hemorrhagic shock - from presumed GI bleed. Resolved. 2. acute blood loss anemia s/p 4 units PRBCs - H/H relatively stable last 48 hours. Cont PPI drip. Cont clear liquids. CBC every AM and more frequently if clinically indicated. 3. acute renal failure in setting of CKD stage 4 - ARF slowly improving, but now with evidence of volume overload based on cxr. stop IVF. Give dose of IV lasix. Follow UOP. BMP am. Rapp. 4. coag negative staph UTI - cont vanco, stop rocephin. 5. hypothermia at admission - presumably due to #1 above - resolved. 6. acute hypoxic respiratory failure 2nd to COPD exacerbation - I believe the benefits of IV steroids outweigh its risk. Will start solumedrol 40mg IV q12h. Cont nebs. Cont pulmonary toilet. Part of this issue could also be due to volume overload. 7. HTN - adequate control - hold lisinopril Cont diltiazem. 8. BPH - cont flomax. Rapp in place. 9. DVT proph - SCDs; chemical means contraindicated. 10. prostate cancer - newly diagnosed. 11. severe hypoalbuminemia - likely severe protein calorie malnutrition - boost breeze for now. 12. abnormal LFTs - 2nd to shock at time of presentation ? Either way they continue to improve. Check again in AM. 13. abdominal distension - KUB x-ray obtained - has ileus. GI aware. Clear liquids only. Enema for impaction. remains quite ill but hemodynamically stable Continued [facility] stay due to: inadequate po fluid intake, voiding difficulties, ambulation difficulties, multiple IV medications needed Discharge planning: uncertain
[2017-02-08] MEDS ORDERED: VANCOMYCIN INJ 1,000 MG in SODIUM CHLORIDE 0.9% 250ML 250 ML IV SCH (18:00)
[2017-02-08] MEDS: FINASTERIDE 5 MG TAB PO SCH (21:17)
[2017-02-09] VITALS (10 sets, daily range): BP systolic 125–153; BP diastolic 53–62; PULSE 57–111; TEMP 36.2–36.9; O2SAT 90–96
[2017-02-09] MEDS: METHYLPREDNISOLONE IV 40 MG in SYRINGE 0 ML IV SCH ×3 (01:25→17:55)
[2017-02-09] MEDS: PANTOprazole INJ 40 MG in DEXTROSE 5% 100ML IV SCH ×5 (03:23→23:38)
[2017-02-09 06:30] LABS: HEMATOCRIT 26.2 % (42-52); HEMOGLOBIN 8.2 g/dL (14.0-18.0); IG# 0.05 K/uL (0.00-0.02); LYMPH % 1.1 %; LYMPH ABS # 0.18 K/uL (1.2-3.4); MEAN CELL VOLUME 84.8 fL (80-100); MEAN CORPUSCULAR HEMOGLOBIN 26.5 pg (25-34); MEAN CORPUSCULAR HGB CONC 31.3 g/dl (32-36); MEAN PLATELET VOLUME 10.7 fL (7.4-10.4); MONO % 1.3 %; MONO ABS # 0.22 K/uL (0.11-0.59); NEUT % 97.3 %; NEUT ABS # 16.34 K/uL (1.4-6.5); NUCLEATED RED BLOOD CELL ABS 0.06 K/uL (0-0); PLATELET COUNT 171 K/uL (130-400); RED CELL DISTRIBUTION WIDTH CV 17.7 % (11.5-14.5); RED CELL DISTRIBUTION WIDTH SD 55.2 fL (36.4-46.3); WHITE BLOOD COUNT 16.79 K/uL (4.8-10.8)
[2017-02-09] MEDS: ALBUT/IPRATROP 3MG/0.5MG NEB 3 ML VIAL INH SCH ×4 (06:58→19:48)
[2017-02-09] MEDS: FORMOTEROL FUMA NEBULIZER SOLN 20 MCG/2 ML VIAL INH SCH ×2 (06:58→19:05)
[2017-02-09 07:15] LABS: CALCIUM 7.2 mg/dl (8.5-10.1); CREATININE 3.88 mg/dl (0.60-1.40); POTASSIUM 3.5 mmol/L (3.5-5.1); TOTAL PROTEIN 4.9 gm/dl (6.4-8.2)
[2017-02-09] MEDS: DILTIAZEM HCL 120 MG EXT REL CAP PO SCH (08:00)
[2017-02-09] MEDS: BOOST BREEZE NUTRITION DRINK 1 BOX PO SCH ×2 (08:00→17:00)
[2017-02-09] MEDS: GUAIFENESIN 600 MG TABCR PO SCH ×2 (08:00→20:37)
[2017-02-09] MEDS: TAMSULOSIN HCL 0.4 MG CAP PO SCH ×2 (08:00→20:37)
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
--- NOTE | 2017-02-09 11:14 | Hospitalist Progress Note ---
Hospitalist Progress Note Date of Service Feb 09, 2017. (Zahida Blanco CRNP) Subjective Pt evaluation today including: conversation w/ patient, physical exam, chart review, lab review, conversation w/ mainframe consultant, review of inpatient medication list Voiding: no voiding problems Mr. Thurman wants to go home. He appears very frail in bed. He is visibly sob. He denies any n/v/abdominal pain. Per nursing he has had multiple large liquid bowel movements, no obvious bleeding though stools were a little dark. ROS Constitutional: no chills, aches, sweats or fever Respiratory: no sob,cough, sputum, or wheezing Cardiac: no chest pain, palpitations, edema, orthopnea or lightheadedness GI: no abdominal pain, nausea, vomiting, diarrhea or constipation : no dysuria or hesitancy Extremities: no joint pain or weakness Skin: no rash All Other Systems: Reviewed and Negative (Zahida Blanco CRNP) Medications Medications Administered Medications (Trade) Dose Ordered Sig/Paris Route Start Time Stop Time Status Last Admin Dose Admin Sodium Chloride 1,000 ml @ 999 mls/hr Q1H1M STAT IV 02/05/17 13:19 02/05/17 14:19 DC 02/05/17 13:19 999 MLS/HR Dopamine HCl/ Dextrose 250 ml @ 0 mls/hr Q0M STAT IV 02/05/17 14:07 02/05/17 14:11 DC 02/05/17 14:29 11.4 MLS/HR Insulin Human Regular (novoLIN-R U-100 PER UNIT) 10 units NOW STAT IV 02/05/17 14:18 02/05/17 14:20 DC 02/05/17 14:56 10 UNITS Dextrose (Dextrose 50% 50ML Syringe) 50 ml NOW STAT IV 02/05/17 14:18 02/05/17 14:20 DC 02/05/17 14:56 50 ML Albuterol/ Ipratropium (Duoneb) 3 ml NOW STAT INH 02/05/17 14:18 02/05/17 14:20 DC 02/05/17 14:55 3 ML Pantoprazole Sodium 80 mg/ Dextrose 120 ml @ 400 mls/hr NOW IV 02/05/17 15:00 02/05/17 18:50 DC 02/05/17 15:53 400 MLS/HR Sodium Chloride 1,000 ml @ 999 mls/hr Q1H1M STAT IV 02/05/17 15:20 02/05/17 16:20 DC 02/05/17 13:30 999 MLS/HR Sodium Bicarbonate (Sodium Bicarbonate 8.4% Inj) 50 ml STK-MED ONCE IV 02/05/17 15:43 02/05/17 15:44 DC 02/05/17 15:47 50 ML Ceftriaxone Sodium 2000 mg/ Dextrose 70 ml @ 100 mls/hr 1615 ONCE IV 02/05/17 16:15 02/05/17 16:56 DC 02/05/17 16:40 100 MLS/HR Ceftriaxone Sodium 2000 mg/ Dextrose 70 ml @ 100 mls/hr Q24H IV 02/06/17 16:00 02/08/17 16:51 DC 02/08/17 15:59 100 MLS/HR Pantoprazole Sodium 40 mg/ Dextrose 100 ml @ 20 mls/hr Q5H IV 02/05/17 19:00 03/07/17 18:59 02/09/17 08:00 20 MLS/HR Sodium Chloride 1,000 ml @ 80 mls/hr [id number] IV 02/06/17 04:45 02/08/17 11:33 DC 02/08/17 05:03 80 MLS/HR Sodium Polystyrene Sulfonate (Kayexalate Susp) 15 gm NOW STAT PO 02/06/17 04:42 02/06/17 05:10 DC 02/06/17 05:57 15 GM Levalbuterol (Xopenex 1.25MG/ 3ML Neb) 1.25 mg Q4R INH 02/06/17 08:30 02/07/17 08:59 DC 02/07/17 07:02 1.25 MG Vancomycin HCl 1000 mg/Sodium Chloride 270 ml @ 125 mls/hr TODAY@1100 IV 02/06/17 11:00 02/06/17 13:10 DC 02/06/17 11:27 125 MLS/HR Heparin Sodium (Porcine) (Heparin 10 Unit/ ml 5 ml Flush) 5 ml PRN PRN FLUSH 02/07/17 04:00 03/09/17 03:59 02/08/17 21:17 5 ML Diltiazem HCl (TIAzac CAP) 120 mg DAILY PO 02/07/17 09:00 03/09/17 08:59 02/09/17 08:00 120 MG Finasteride (Proscar Tab) 5 mg HS PO 02/07/17 21:00 03/09/17 20:59 02/08/17 21:17 5 MG Tamsulosin HCl (Flomax Cap) 0.4 mg BID PO 02/07/17 09:00 03/09/17 08:59 02/09/17 08:00 0.4 MG Formoterol Fumarate (Perforomist 20MCG/2ML Neb Soln) 20 mcg BID INH 02/07/17 09:00 03/09/17 08:59 02/09/17 06:58 20 MCG Albuterol/ Ipratropium (Duoneb) 3 ml QIDR INH 02/07/17 12:00 03/09/17 11:59 02/08/17 14:59 3 ML Guaifenesin (Mucinex Contr Rel Tab) 600 mg Q12 PO 02/07/17 09:00 03/09/17 08:59 02/09/17 08:00 600 MG Vancomycin HCl 1250 mg/Sodium Chloride 275 ml @ 125 mls/hr TODAY@1100 IV 02/07/17 11:00 02/07/17 13:11 DC 02/07/17 11:51 125 MLS/HR Enteral Nutritional Formula (Boost Breeze Nutritional Drink) 1 box BIDM PO 02/07/17 16:45 03/09/17 16:44 02/09/17 08:00 1 BOX Methylprednisolone Sodium Succinate 40 mg/Syringe 0.64 ml @ 1.5 mls/min Q12H IV 02/08/17 13:00 02/09/17 10:28 DC 02/09/17 01:25 1.5 MLS/MIN Miscellaneous (Soap Suds Enema) 1 ea NOW ONCE ND 02/08/17 13:45 02/08/17 13:46 DC 02/08/17 15:56 1 EA Sodium Biphosphate/ Sodium Phosphate (Fleet Enema) 132 ml STK-MED ONCE .ROUTE 02/08/17 14:07 02/08/17 14:08 DC 02/08/17 15:56 132 ML Furosemide 60 mg/ Syringe 6 ml @ 4 mls/min 1700 ONCE IV 02/08/17 17:00 02/08/17 17:01 DC 02/08/17 17:43 4 MLS/MIN Vancomycin HCl 1000 mg/Sodium Chloride 270 ml @ 125 mls/hr TODAY@1800 IV 02/08/17 18:00 02/08/17 20:10 DC 02/08/17 18:37 125 MLS/HR (Zahida Blanco, TRANSITION RN) Objective Vital Signs Date Time Temp Pulse Resp B/P (MAP) Pulse Ox O2 Delivery O2 Flow Rate FiO2 02/09/17 08:13 36.2 62 18 149/61 (90) 90 Nasal Cannula 3.0 02/09/17 08:00 Nasal Cannula 3.0 02/09/17 07:01 68 18 93 Nasal Cannula 3.0 02/09/17 04:00 Nasal Cannula 3.0 02/09/17 03:33 36.9 57 16 153/53 (86) 92 Nasal Cannula 3.0 02/09/17 00:00 Nasal Cannula 3.0 02/08/17 23:31 36.8 62 16 155/61 (92) 89 Nasal Cannula 2.0 02/08/17 20:01 58 18 90 Nasal Cannula 3.0 02/08/17 20:00 Nasal Cannula 3.0 02/08/17 19:36 36.6 59 20 147/49 (81) 92 Nasal Cannula 3.0 02/08/17 16:00 95 Nasal Cannula 3.0 02/08/17 15:42 36.5 63 20 131/51 (77) 90 Nasal Cannula 2.0 02/08/17 14:59 72 18 91 Nasal Cannula 3.0 02/08/17 12:00 94 Nasal Cannula 3.0 02/08/17 11:49 36.4 54 23 135/54 (81) 93 Nasal Cannula 2.0 02/08/17 11:16 72 18 95 Nasal Cannula 3.0 (Zahida Blanco, OXANA) Physical Exam Notes: General: no distress Eyes: normal inspection, PERLL Respiratory: chest non tender, coarse with expiratory wheezes throughout both lung schafer, appears somewhat labored breathing Cardiac: regular rate and rhythm, no rub or gallop, no murmur, no edema, no jvd GI/: active bowel sounds, no abd pain or tenderness, soft, non distended Extremities: normal range of motion, normal strength, non tender Neuro/Psych: alert and oriented x 3, normal mood and affect Skin: normal color, dry (Zahida Blanco, OXANA) Laboratory Results Last 24 Hours Test 02/09/17 06:05 02/09/17 06:38 White Blood Count 16.79 K/uL Red Blood Count 3.09 M/uL Hemoglobin 8.2 g/dL Hematocrit 26.2 % Mean Corpuscular Volume 84.8 fL Mean Corpuscular Hemoglobin 26.5 pg Mean Corpuscular Hemoglobin Concent 31.3 g/dl Platelet Count 171 K/uL Mean Platelet Volume 10.7 fL Neutrophils (%) (Auto) 97.3 % Lymphocytes (%) (Auto) 1.1 % Monocytes (%) (Auto) 1.3 % Eosinophils (%) (Auto) 0.0 % Basophils (%) (Auto) 0.0 % Neutrophils # (Auto) 16.34 K/uL Lymphocytes # (Auto) 0.18 K/uL Monocytes # (Auto) 0.22 K/uL Eosinophils # (Auto) 0.00 K/uL Basophils # (Auto) 0.00 K/uL RDW Standard Deviation 55.2 fL RDW Coefficient of Variation 17.7 % Immature Granulocyte % (Auto) 0.3 % Immature Granulocyte # (Auto) 0.05 K/uL Nucleated RBC Absolute Count (auto) 0.06 K/uL Nucleated Red Blood Cells % 0.3 % Polychromasia 1+ Echinocytes 1+ Sodium Level 136 mmol/L Potassium Level 3.5 mmol/L Chloride Level 106 mmol/L Carbon Dioxide Level 19 mmol/L Anion Gap 11.0 mmol/L Blood Urea Nitrogen 73 mg/dl Creatinine 3.88 mg/dl Est Creatinine Clear Calc Drug Dose 13.9 ml/min Estimated GFR () 16.1 Estimated GFR (Non- 13.9 BUN/Creatinine Ratio 18.9 Random Glucose 115 mg/dl Calcium Level 7.2 mg/dl Magnesium Level 4.9 mg/dl Total Bilirubin 0.3 mg/dl Aspartate Amino Transf (AST/SGOT) 73 U/L Alanine Aminotransferase (ALT/SGPT) 118 U/L Alkaline Phosphatase 83 U/L Total Protein 4.9 gm/dl Albumin 2.0 gm/dl Globulin 2.9 gm/dl Albumin/Globulin Ratio 0.7 Bedside Glucose 125 mg/dl (Zahida Blanco ., OXANA) Assessment and Plan Mr. Thurman is a 76 year old man with multiple comorbidities who presented to the hospital for GI bleed and renal failure. Pmhx COPD, current smoker, CAD, PAD, prostate CA, anemia and CKD IV Severe anemia due to GI Bleed - Hgb was 5.1 on presentation and today is 8.2 - cbc am, continue to monitor for s/s of bleeding with stools - GI unable to scope patient due to respiratory status - s/p 4 units prbcs - Cont PPI drip. - Cont clear liquids. Acute renal failure in setting of CKD stage 4 - baseline creatinine is 1.8 - consulted nephrology - avoid DAVID inhibitors, no indication for dialysis at this time - creatinine 3.2 today Coag negative staph UTI - cont vanco Acute hypoxic respiratory failure 2nd to COPD exacerbation -Increased solumedrol from 40mg IV q12h to TID -Cont nebs. -Cont pulmonary toilet. - Some volume overload yesterday may have been exacerbating issue and lasix was administered, no further diuresis indicated at this time. HTN -Cont diltiazem. BPH - cont flomax. DVT proph - SCDs; chemical proph contraindicated due to GI bleed Prostate cancer - newly diagnosed. Severe hypoalbuminemia - likely severe protein calorie malnutrition - boost breeze for now. Abnormal LFTs - 2nd to shock at time of presentation ? - improving Abdominal distension - KUB x-ray obtained - has ileus. GI aware. - continue Clear liquids only - Enema yesterday resulted in multiple liquid stools and another this morning (Zahida Blanco ., OXANA) Attending Attestation: Pt seen/examined, chart reviewed, care plan d/w OXANA Blanco. I agree w/ the michaud components of her documentation. Pt again asks "when am I leaving?" He states "my breathing is fine." Had multiple liquid BMs yesterday after enema. Tele stable overnight. Refused CPAP overnight. VSS, no fever gen - cachectic, respiratory distress (accessory muscle use, tachypnea) present but able to speak in full sentences neck - no JVD, right IJ CVC clean mouth - no thrush heart - tones are distant, but RRR, s1, s2 lungs - diffuse wheeze & rhonchi b/l abd - softer today (less distended), BS+, NT ext - no edema labs - Hb 8.2 Cr 3.8 A/P: 1. acute renal failure in setting of CKD stage 4 - nephrology consult; 2nd to ATN from hypotension/shock? 2. acute hypoxic respiratory failure 2nd to COPD exacerbation + acute diastolic CHF/volume overload agree w/ increase in steroids s/p IV lasix yesterday with good UOP 3. hemorrhagic shock - resolved 4. presumed GI bleeding with resulting acute blood loss anemia spoke with GI - in event this is portal HTN bleeding will add octreotide to the PPI drip 5. ileus - clears Eron Crum MD (Eron Crum MD)
--- NOTE | 2017-02-09 13:15 | GASTROENTEROLOGY PROGRESS NOTE ---
DATE: 02/09/2017 GASTROENTEROLOGY INPATIENT PROGRESS NOTE SUBJECTIVE: Chart reviewed, patient examined. The patient doing about the same by his history, compared with yesterday perhaps slightly better. Reading continues to be reasonably comfortable at rest, although does have distress, easily, particularly with coughing. The patient currently being treated with for COPD exacerbation with steroids started. The patient denies any hematemesis, coffee-ground emesis, melena or bright red blood per rectum. MEDICATIONS: Include methylprednisolone, finasteride, DuoNeb, diltiazem, Flomax, hydralazine, guaifenesin, heparin, vancomycin and pantoprazole IV drip. LABORATORY STUDIES: His microbiology shows coag-negative Staphylococcus on urine and blood cultures no growth to date. Today, white count is down to 16.7 with a hemoglobin of 8.2, which has drifted down over the past 2 days. Platelets 171,000. BUN and creatinine today is 73 and 3.88. Total bilirubin 0.3; AST 73, slightly decreased and ALT 118 slightly decreased, but alkaline phosphatase is normal, albumin 2.9. INR 1.1. Negative for influenza type A and B. IMAGING: No imaging from today reported. PHYSICAL EXAMINATION: VITAL SIGNS: Today - blood pressure 132/62, 92% on 3 liters, heart rate 62, afebrile 36.3, respirations 22. GENERAL: The patient is awake, alert and oriented x3. HEENT: Sclerae are anicteric. Conjunctivae moist. Oral mucosa parched. LUNGS: There is diffuse crackles, wheezes and rhonchi noted throughout both lung schafer. HEART: Normal S1, S2 with distant sounds. ABDOMEN: Abdomen soft, flat, nontender, nondistended with good bowel sounds. The patient has reported bowel movements through yesterday at midnight, up to 6. EXTREMITIES: Without edema. RECTAL: Deferred. The patient has received a total of 4 units of packed red blood cells. DATA: The patient had upper endoscopy in 2014, which revealed gastric AVMs that were cauterized. IMPRESSION AND PLAN: The patient with chronic obstructive pulmonary disease exacerbation and significant anemia on admission with a hemoglobin of 5.1 with an MCV of 88, RDW is markedly elevated 18.9. At the present time, respiratory status precludes elective endoscopy and hopefully this can be optimized over the next 24-48 hours with intentions perform an upper endoscopy initially. At some point a colonoscopy may be reasonable, although his current respiratory status is limited and therefore, upper endoscopy alone is reasonable. Please continue the PPI drip. I would test stools for H. pylori antigen. There is a history of alcohol use and it is reasonable to consider an empiric therapy with octreotide, in case this represents a portal hypertensive bleeding event. Case discussed with Dr. Gustafson. Will continue to follow. All questions answered.
--- NOTE | 2017-02-09 14:29 | DIAGNOSTIC IMAGING REPORT ---
(RENAL)RETROPERITON COMP CLINICAL HISTORY: 76 years-old Male presenting with MY. TECHNIQUE: Real-time grayscale and limited color Doppler ultrasound imaging of the kidneys and bladder was performed. COMPARISON: CT from 12/25/2016. FINDINGS: Right kidney: Increased parenchymal echogenicity. Right kidney measures 7.5 cm. No hydronephrosis. 1.5 x 1.3 x 1.3 cm cyst noted at the upper pole among other smaller simple appearing cysts. Normal perfusion. Left kidney: Increased parenchymal echogenicity. Left kidney measures 8.7 cm. No hydronephrosis. Cysts also noted in the left kidney, the largest at the lower pole measuring 2.1 x 1.7 x 1.3 cm. Normal perfusion. Bladder: Decompressed with a Hill catheter. Other: Trace amount of ascites noted. Gallbladder sludge evident. A 1.6 cm hepatic cyst also seen in the right lobe. IMPRESSION: 1. Echogenic renal parenchyma suggests medical renal disease. No obstruction. 2. Gallbladder sludge. 3. Trace ascites. Electronically signed by: Jameel Valenzuela M.D. 02/09/2017 2:28 PM Dictated Date/Time: 02/09/2017 2:25 PM
[2017-02-09] MEDS ORDERED: OCTREOTIDE IV BOLUS & DRIP IV STA (14:38)
[2017-02-09] MEDS ORDERED: OCTREOTIDE ACETATE INJ 100 MCG in SYR 9 ML PHA PREPARED IV SCH (15:00)
[2017-02-09] MEDS: OCTREOTIDE ACETATE INJ 500 MCG in NSS 100ML IV SCH (15:20)
[2017-02-09] MEDS: CEPHALEXIN MONOHYDRATE 250 MG CAP PO SCH (17:00)
[2017-02-09] MEDS: FINASTERIDE 5 MG TAB PO SCH (20:38)
[2017-02-10] VITALS (11 sets, daily range): BP systolic 150–173; BP diastolic 54–72; PULSE 53–100; TEMP 36.4–36.6; O2SAT 79–95
[2017-02-10] MEDS: OCTREOTIDE ACETATE INJ 500 MCG in NSS 100ML IV SCH ×3 (00:56→20:54)
[2017-02-10] MEDS: METHYLPREDNISOLONE IV 40 MG in SYRINGE 0 ML IV SCH ×3 (02:30→18:20)
[2017-02-10] MEDS: PANTOprazole INJ 40 MG in DEXTROSE 5% 100ML IV SCH ×5 (04:15→23:05)
[2017-02-10 07:11] LABS: BASO % 0.1 %; BASO ABS # 0.01 K/uL (0-0.2); HEMATOCRIT 26.6 % (42-52); HEMOGLOBIN 8.3 g/dL (14.0-18.0); IG# 0.05 K/uL (0.00-0.02); LYMPH % 1.4 %; LYMPH ABS # 0.23 K/uL (1.2-3.4); MEAN CELL VOLUME 85.3 fL (80-100); MEAN CORPUSCULAR HEMOGLOBIN 26.6 pg (25-34); MEAN CORPUSCULAR HGB CONC 31.2 g/dl (32-36); MEAN PLATELET VOLUME 11.3 fL (7.4-10.4); MONO % 3.5 %; MONO ABS # 0.58 K/uL (0.11-0.59); NEUT % 94.7 %; NEUT ABS # 15.71 K/uL (1.4-6.5); NUCLEATED RED BLOOD CELL ABS 0.11 K/uL (0-0); PLATELET COUNT 213 K/uL (130-400); RED CELL DISTRIBUTION WIDTH CV 17.6 % (11.5-14.5); RED CELL DISTRIBUTION WIDTH SD 55.1 fL (36.4-46.3); WHITE BLOOD COUNT 16.58 K/uL (4.8-10.8)
[2017-02-10] MEDS: FORMOTEROL FUMA NEBULIZER SOLN 20 MCG/2 ML VIAL INH SCH ×2 (07:15→18:49)
[2017-02-10 07:39] LABS: ALBUMIN 2.1 gm/dl (3.4-5.0); CALCIUM 7.6 mg/dl (8.5-10.1); CREATININE 3.95 mg/dl (0.60-1.40); POTASSIUM 3.6 mmol/L (3.5-5.1)
[2017-02-10 07:41] LABS: TOTAL PROTEIN 5.3 gm/dl (6.4-8.2)
[2017-02-10] MEDS: ALBUT/IPRATROP 3MG/0.5MG NEB 3 ML VIAL INH SCH ×4 (08:00→18:49)
[2017-02-10] MEDS: TAMSULOSIN HCL 0.4 MG CAP PO SCH ×2 (08:07→20:53)
[2017-02-10] MEDS: DILTIAZEM HCL 120 MG EXT REL CAP PO SCH (08:07)
[2017-02-10] MEDS: BOOST BREEZE NUTRITION DRINK 1 BOX PO SCH ×2 (08:07→16:31)
[2017-02-10] MEDS: CEPHALEXIN MONOHYDRATE 250 MG CAP PO SCH (08:07)
[2017-02-10] MEDS: GUAIFENESIN 600 MG TABCR PO SCH ×2 (08:07→20:53)
--- NOTE | 2017-02-10 09:54 | Nephrology Progress Note ---
Nephrology Progress Note Date of Service Feb 10, 2017. Chief Complaint Evaluation of acute on chronic kidney disease Subjective Mr. Thurman was seen & examined in the PCU this morning. He reports that his breathing is improved. He is breathing comfortably flat in bed on O2 at 3 L / min NC. Mr. Thurman denies fever, angina, or abdominal pain. He has had no overt blood loss overnight. Review of Systems Constitutional: No fever Cardiovascular: No chest pain Respiratory: No dyspnea at rest Abdomen: No pain, No hematochezia, No melena Extremities: No leg edema A complete review of systems was performed. Pertinent positives are noted above. All other systems are negative. Vital Signs Last 8 Hrs Date Time Temp Pulse Resp B/P (MAP) Pulse Ox O2 Delivery O2 Flow Rate FiO2 02/10/17 08:02 100 20 79 Nasal Cannula 02/10/17 08:00 95 Nasal Cannula 3.0 02/10/17 07:40 36.6 58 20 167/72 (103) 95 Nasal Cannula 3.0 02/10/17 04:00 Nasal Cannula 3.0 02/10/17 03:52 36.6 63 17 150/54 (86) 90 Nasal Cannula 3.0 Last Recorded Weight Weight (Kilograms): 61.200 Physical Exam General Appearance: + cachetic Head: atraumatic (temporal muscle wasting) Eyes: PERRL, EOMI Neck: no adenopathy Respiratory/Chest: + wheezing Cardiovascular: + tachycardia Abdomen/GI: soft (hypoactive bowel sounds) Extremities/Musculoskelatal: no pedal edema Neurologic/Psych: alert, oriented x 3 Family History Negative for CKD / ESRD Social History Smoking Status: Current every day smoker Drug Use: none Marital Status: Occupation: retired . No children. Current smoker (1 ppd since age 13). Drinks 3 beer / day. Formerly worked at [employer]. Now retired. Laboratory Results Past 24 Hours 02/10/17 06:32 Red Blood Count 3.12, Mean Corpuscular Volume 85.3, Mean Corpuscular Hemoglobin 26.6, Mean Corpuscular Hemoglobin Concent 31.2, Mean Platelet Volume 11.3, Neutrophils (%) (Auto) 94.7, Lymphocytes (%) (Auto) 1.4, Monocytes (%) (Auto) 3.5, Eosinophils (%) (Auto) 0.0, Basophils (%) (Auto) 0.1, Neutrophils # (Auto) 15.71, Lymphocytes # (Auto) 0.23, Monocytes # (Auto) 0.58, Eosinophils # (Auto) 0.00, Basophils # (Auto) 0.01 02/10/17 06:32 Test 02/09/17 18:00 02/10/17 06:32 Urine Color YELLOW Urine Appearance CLEAR (CLEAR) Urine pH 5.0 (4.5-7.5) Urine Specific [place] 1.018 (1.000-1.030) Urine Protein TRACE (NEG) Urine Glucose (UA) NEG (NEG) Urine Ketones NEG (NEG) Urine Occult Blood TRACE (NEG) Urine Nitrite NEG (NEG) Urine Bilirubin NEG (NEG) Urine Urobilinogen NEG (NEG) Urine Leukocyte Esterase MODERATE (NEG) Urine WBC (Auto) >30 /hpf (0-5) Urine RBC (Auto) 0-4 /hpf (0-4) Urine Hyaline Casts (Auto) 5-10 /lpf (0-5) Urine Epithelial Cells (Auto) 10-20 /lpf (0-5) Urine Bacteria (Auto) NEG (NEG) White Blood Count 16.58 K/uL (4.8-10.8) Red Blood Count 3.12 M/uL (4.7-6.1) Hemoglobin 8.3 g/dL (14.0-18.0) Hematocrit 26.6 % (42-52) Mean Corpuscular Volume 85.3 fL (80-100) Mean Corpuscular Hemoglobin 26.6 pg (25-34) Mean Corpuscular Hemoglobin Concent 31.2 g/dl (32-36) Platelet Count 213 K/uL (130-400) Mean Platelet Volume 11.3 fL (7.4-10.4) Neutrophils (%) (Auto) 94.7 % Lymphocytes (%) (Auto) 1.4 % Monocytes (%) (Auto) 3.5 % Eosinophils (%) (Auto) 0.0 % Basophils (%) (Auto) 0.1 % Neutrophils # (Auto) 15.71 K/uL (1.4-6.5) Lymphocytes # (Auto) 0.23 K/uL (1.2-3.4) Monocytes # (Auto) 0.58 K/uL (0.11-0.59) Eosinophils # (Auto) 0.00 K/uL (0-0.5) Basophils # (Auto) 0.01 K/uL (0-0.2) RDW Standard Deviation 55.1 fL (36.4-46.3) RDW Coefficient of Variation 17.6 % (11.5-14.5) Immature Granulocyte % (Auto) 0.3 % Immature Granulocyte # (Auto) 0.05 K/uL (0.00-0.02) Nucleated RBC Absolute Count (auto) 0.11 K/uL (0-0) Nucleated Red Blood Cells % 0.7 % Hypochromasia PRESENT Acanthocytes 2+ Schistocytes 1+ Anion Gap 11.0 mmol/L (3-11) Est Creatinine Clear Calc Drug Dose 13.3 ml/min Estimated GFR () 15.8 Estimated GFR (Non- 13.6 BUN/Creatinine Ratio 19.9 (10-20) Calcium Level 7.6 mg/dl (8.5-10.1) Magnesium Level 4.7 mg/dl (1.8-2.4) Total Bilirubin 0.3 mg/dl (0.2-1) Aspartate Amino Transf (AST/SGOT) 34 U/L (15-37) Alanine Aminotransferase (ALT/SGPT) 97 U/L (12-78) Alkaline Phosphatase 78 U/L (45-117) Total Protein 5.3 gm/dl (6.4-8.2) Albumin 2.1 gm/dl (3.4-5.0) Globulin 3.2 gm/dl (2.5-4.0) Albumin/Globulin Ratio 0.7 (0.9-2) Allergies Coded Allergies: No Known Allergies (Verified , 12/31/16) Medications Current Inpatient Medications Medications (Trade) Dose Ordered Sig/[place] Route Start Time Stop Time Status Last Admin Dose Admin Pantoprazole Sodium 40 mg/ Dextrose 100 ml @ 20 mls/hr Q5H IV 02/05/17 19:00 03/07/17 18:59 02/10/17 08:07 20 MLS/HR Heparin Sodium (Porcine) (Heparin 10 Unit/ ml 5 ml Flush) 5 ml PRN PRN FLUSH 02/07/17 04:00 03/09/17 03:59 02/08/17 21:17 5 ML Diltiazem HCl (TIAzac CAP) 120 mg DAILY PO 02/07/17 09:00 03/09/17 08:59 02/10/17 08:07 120 MG Finasteride (Proscar Tab) 5 mg HS PO 02/07/17 21:00 03/09/17 20:59 02/09/17 20:38 5 MG Tamsulosin HCl (Flomax Cap) 0.4 mg BID PO 02/07/17 09:00 03/09/17 08:59 02/10/17 08:07 0.4 MG Hydralazine HCl (HydrALAZINE INJ) 10 mg Q4H PRN IV 02/07/17 09:00 03/09/17 08:59 Formoterol Fumarate (Perforomist 20MCG/2ML Neb Soln) 20 mcg BID INH 02/07/17 09:00 03/09/17 08:59 02/10/17 07:15 20 MCG Albuterol/ Ipratropium (Duoneb) 3 ml QIDR INH 02/07/17 12:00 03/09/17 11:59 02/09/17 15:38 3 ML Guaifenesin (Mucinex Contr Rel Tab) 600 mg Q12 PO 02/07/17 09:00 03/09/17 08:59 02/10/17 08:07 600 MG Enteral Nutritional Formula (Boost Breeze Nutritional Drink) 1 box BIDM PO 02/07/17 16:45 03/09/17 16:44 02/10/17 08:07 1 BOX Methylprednisolone Sodium Succinate 40 mg/Syringe 0.64 ml @ 1.5 mls/min Q8H IV 02/09/17 10:00 03/11/17 09:59 02/10/17 08:08 1.5 MLS/MIN Octreotide Acetate 500 mcg/ Sodium Chloride 105 ml @ 10 mls/hr [id number] IV 02/09/17 15:00 03/11/17 14:59 02/10/17 00:56 10 MLS/HR Cephalexin Monohydrate (Keflex Cap) 250 mg DAILY PO 02/09/17 16:00 02/15/17 15:59 02/10/17 08:07 250 MG Impression (1) GI bleed (2) Hypotension (3) MY (acute kidney injury) (4) Chronic kidney disease (CKD) stage G3b/A1, moderately decreased glomerular filtration rate (GFR) between 30-44 mL/min/1.73 square meter and albuminuria creatinine ratio less than 30 mg/g (5) COPD exacerbation (6) History of ASCVD (7) PVD (peripheral vascular disease) (8) Prostate CA (9) Cachexia Recommendations ACUTE KIDNEY INJURY: -- Suspect ATN related to hemodynamic instability & anemia in the setting of DAVID inhibitor therapy -- Kidney function is relatively unchanged. Electrolyte balance is acceptable. No acute indication for HD at this time -- Avoid DAVID inhibitor, NSAIDS or potential nephrotoxins -- Renal US 02/09: R kidney 7.5 cm, L kidney 8.7 cm. Increased cortical echogenicity. No obstruction/stone/mass -- Urinalysis c/w UTI. No casts reported on microscopy -- Monitor serial PRP CHRONIC KIDNEY DISEASE: -- Baseline creatinine has been ~ 1.8 HYPERTENSION: -- Now on Diltiazem & Hydralazine. Blood pressure is acceptable -- Hold antihypertensives for SBP < 100 ANEMIA: -- Await endoscopy results. Patient has h/o UGI bleeding w/ angiodysplasia of the stomach COPD: -- Improving. Continue nebulizer and steroid therapy -- CXR film from 1210 reviewed: mild pulmonary vascular congestion
--- NOTE | 2017-02-10 10:34 | Gastroenterology Progress Note ---
Progress Note Date of Service: Feb 10, 2017 Subjective Pt evaluation today including: conversation w/ patient, physical exam, chart review, lab review, review of studies, review of inpatient medication list CC f/u anemia, abd distension HPI Pt now with liquid stools post enema couple days ago. Stool in nursing note from 0655 brown in color. NO abd pain. Review of Systems Respiratory: + shortness of breath Cardiac: No chest pain Medications Current Inpatient Medications Medications (Trade) Dose Ordered Sig/[place] Route Start Time Stop Time Status Last Admin Dose Admin Pantoprazole Sodium 40 mg/ Dextrose 100 ml @ 20 mls/hr Q5H IV 02/05/17 19:00 03/07/17 18:59 02/10/17 08:07 20 MLS/HR Heparin Sodium (Porcine) (Heparin 10 Unit/ ml 5 ml Flush) 5 ml PRN PRN FLUSH 02/07/17 04:00 03/09/17 03:59 02/08/17 21:17 5 ML Diltiazem HCl (TIAzac CAP) 120 mg DAILY PO 02/07/17 09:00 03/09/17 08:59 02/10/17 08:07 120 MG Finasteride (Proscar Tab) 5 mg HS PO 02/07/17 21:00 03/09/17 20:59 02/09/17 20:38 5 MG Tamsulosin HCl (Flomax Cap) 0.4 mg BID PO 02/07/17 09:00 03/09/17 08:59 02/10/17 08:07 0.4 MG Hydralazine HCl (HydrALAZINE INJ) 10 mg Q4H PRN IV 02/07/17 09:00 03/09/17 08:59 Formoterol Fumarate (Perforomist 20MCG/2ML Neb Soln) 20 mcg BID INH 02/07/17 09:00 03/09/17 08:59 02/10/17 07:15 20 MCG Albuterol/ Ipratropium (Duoneb) 3 ml QIDR INH 02/07/17 12:00 03/09/17 11:59 02/09/17 15:38 3 ML Guaifenesin (Mucinex Contr Rel Tab) 600 mg Q12 PO 02/07/17 09:00 03/09/17 08:59 02/10/17 08:07 600 MG Enteral Nutritional Formula (Boost Breeze Nutritional Drink) 1 box BIDM PO 02/07/17 16:45 03/09/17 16:44 02/10/17 08:07 1 BOX Methylprednisolone Sodium Succinate 40 mg/Syringe 0.64 ml @ 1.5 mls/min Q8H IV 02/09/17 10:00 03/11/17 09:59 02/10/17 08:08 1.5 MLS/MIN Octreotide Acetate 500 mcg/ Sodium Chloride 105 ml @ 10 mls/hr [id number] IV 02/09/17 15:00 03/11/17 14:59 02/10/17 10:21 10 MLS/HR Cephalexin Monohydrate (Keflex Cap) 250 mg DAILY PO 02/09/17 16:00 02/15/17 15:59 02/10/17 08:07 250 MG Objective Vital Signs Date Time Temp Pulse Resp B/P (MAP) Pulse Ox O2 Delivery O2 Flow Rate FiO2 02/10/17 08:02 100 20 79 Nasal Cannula 02/10/17 08:00 95 Nasal Cannula 3.0 02/10/17 07:40 36.6 58 20 167/72 (103) 95 Nasal Cannula 3.0 02/10/17 04:00 Nasal Cannula 3.0 02/10/17 03:52 36.6 63 17 150/54 (86) 90 Nasal Cannula 3.0 02/10/17 00:00 Nasal Cannula 3.0 02/09/17 23:26 36.7 61 20 140/62 (88) 91 Nasal Cannula 3.0 02/09/17 20:00 Nasal Cannula 3.0 02/09/17 19:40 36.4 66 20 125/55 (78) 90 Nasal Cannula 3.0 02/09/17 19:05 111 20 96 Nasal Cannula 3.0 02/09/17 16:12 Nasal Cannula 3.0 02/09/17 15:56 36.3 63 20 146/59 (88) 91 Nasal Cannula 3.0 02/09/17 15:38 71 20 91 Nasal Cannula 3.0 02/09/17 12:33 Nasal Cannula 3.0 02/09/17 11:40 36.6 62 22 132/62 (85) 92 Nasal Cannula 3.0 02/09/17 11:25 107 20 91 Nasal Cannula 3.0 Physical Exam General Appearance: WD/WN, no apparent distress Respiratory/Chest: + decreased breath sounds Cardiovascular: regular rate, rhythm Abdomen: normal bowel sounds, non tender, no organomegaly, + distended (mildly distended and tympanitic) Neurologic/Psych: normal mood/affect, oriented x 3 Skin: warm/dry Laboratory Results Last 24 Hours Test 02/09/17 18:00 02/10/17 06:32 Urine Color YELLOW Urine Appearance CLEAR Urine pH 5.0 Urine Specific [place] 1.018 Urine Protein TRACE Urine Glucose (UA) NEG Urine Ketones NEG Urine Occult Blood TRACE Urine Nitrite NEG Urine Bilirubin NEG Urine Urobilinogen NEG Urine Leukocyte Esterase MODERATE Urine WBC (Auto) >30 /hpf Urine RBC (Auto) 0-4 /hpf Urine Hyaline Casts (Auto) 5-10 /lpf Urine Epithelial Cells (Auto) 10-20 /lpf Urine Bacteria (Auto) NEG White Blood Count 16.58 K/uL Red Blood Count 3.12 M/uL Hemoglobin 8.3 g/dL Hematocrit 26.6 % Mean Corpuscular Volume 85.3 fL Mean Corpuscular Hemoglobin 26.6 pg Mean Corpuscular Hemoglobin Concent 31.2 g/dl Platelet Count 213 K/uL Mean Platelet Volume 11.3 fL Neutrophils (%) (Auto) 94.7 % Lymphocytes (%) (Auto) 1.4 % Monocytes (%) (Auto) 3.5 % Eosinophils (%) (Auto) 0.0 % Basophils (%) (Auto) 0.1 % Neutrophils # (Auto) 15.71 K/uL Lymphocytes # (Auto) 0.23 K/uL Monocytes # (Auto) 0.58 K/uL Eosinophils # (Auto) 0.00 K/uL Basophils # (Auto) 0.01 K/uL RDW Standard Deviation 55.1 fL RDW Coefficient of Variation 17.6 % Immature Granulocyte % (Auto) 0.3 % Immature Granulocyte # (Auto) 0.05 K/uL Nucleated RBC Absolute Count (auto) 0.11 K/uL Nucleated Red Blood Cells % 0.7 % Hypochromasia PRESENT Acanthocytes 2+ Schistocytes 1+ Sodium Level 134 mmol/L Potassium Level 3.6 mmol/L Chloride Level 105 mmol/L Carbon Dioxide Level 18 mmol/L Anion Gap 11.0 mmol/L Blood Urea Nitrogen 79 mg/dl Creatinine 3.95 mg/dl Est Creatinine Clear Calc Drug Dose 13.3 ml/min Estimated GFR () 15.8 Estimated GFR (Non- 13.6 BUN/Creatinine Ratio 19.9 Random Glucose 139 mg/dl Calcium Level 7.6 mg/dl Magnesium Level 4.7 mg/dl Total Bilirubin 0.3 mg/dl Aspartate Amino Transf (AST/SGOT) 34 U/L Alanine Aminotransferase (ALT/SGPT) 97 U/L Alkaline Phosphatase 78 U/L Total Protein 5.3 gm/dl Albumin 2.1 gm/dl Globulin 3.2 gm/dl Albumin/Globulin Ratio 0.7 Assessment and Plan GI bleeding--unclear if upper or lower source. In his present pulmonary state he is not candidate for sedation for endoscopy. If/when pulmonary status improves enough to be a candidate then would do EGD because of black stool and hx of upper AVMs and also colonoscopy distended abdomen--stooling but abdomen distended diarrhea--check cdiff anemia--stable, transfuse prn pulm status--per attending. elev WBC--suspect pulmonary--no abd pain to suggest ischemic bowel or other abdominal process. Discussed with DR Crum--pt not optimized from pulm standpoint yet. We discussed doing repeat KUB for abd distension and Cdiff for diarrhea and he states he would order those.
[2017-02-10] MEDS ORDERED: ACETAMINOPHEN 500 MG TAB PO ONE (13:15)
--- NOTE | 2017-02-10 18:01 | Progress Note ---
Subjective Date of Service: Feb 10, 2017. 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 "breathing is ok" - maybe "about the same" as yesterday having liquid stools no abdominal pain Problem List Medical Problems: (1) Acute urinary retention Status: Acute (2) MY (acute kidney injury) Status: Acute (3) GI bleed Status: Acute (4) Hyperkalemia Status: Acute (5) Hypotension Status: Acute (6) Symptomatic anemia Status: Acute (7) UTI (urinary tract infection) Status: Acute (8) UTI (urinary tract infection) Status: Acute Review of Systems Constitutional: No fever Respiratory: + cough, + wheezing, + dyspnea on exertion, No sputum, No dyspnea at rest Cardiac: No chest pain Abdomen: + diarrhea, No pain, No nausea, No vomiting, No GI bleeding Objective Vital Signs Date Time Temp Pulse Resp B/P (MAP) Pulse Ox O2 Delivery O2 Flow Rate FiO2 02/10/17 15:32 70 18 93 Nasal Cannula 3.0 02/10/17 15:25 36.6 71 22 169/69 (102) 91 Nasal Cannula 3.0 02/10/17 12:00 95 Nasal Cannula 3.0 02/10/17 11:51 36.4 68 22 161/61 (94) 94 Nasal Cannula 3.0 02/10/17 11:10 68 20 94 Nasal Cannula 3.0 02/10/17 08:02 100 20 79 Nasal Cannula 02/10/17 08:00 95 Nasal Cannula 3.0 02/10/17 07:40 36.6 58 20 167/72 (103) 95 Nasal Cannula 3.0 02/10/17 04:00 Nasal Cannula 3.0 02/10/17 03:52 36.6 63 17 150/54 (86) 90 Nasal Cannula 3.0 02/10/17 00:00 Nasal Cannula 3.0 02/09/17 23:26 36.7 61 20 140/62 (88) 91 Nasal Cannula 3.0 02/09/17 20:00 Nasal Cannula 3.0 02/09/17 19:40 36.4 66 20 125/55 (78) 90 Nasal Cannula 3.0 02/09/17 19:05 111 20 96 Nasal Cannula 3.0 Physical Exam General Appearance: no apparent distress, + cachetic, + pertinent finding (no distress today) ENT: pharynx normal Neck: no JVD, + pertinent finding (right IJ CVC clean) Respiratory/Chest: no respiratory distress, no accessory muscle use, + rhonchi , + wheezing (b/l, modestly improved from yesterday) Cardiovascular: regular rate, rhythm, no gallop, no murmur Abdomen: normal bowel sounds, non tender, no organomegaly, + distended Extremities: no pedal edema Neurologic/Psychiatric: alert, oriented x 3 Skin: + pallor Laboratory Results Last 24 Hours Test 02/09/17 18:00 02/10/17 06:32 Urine Color YELLOW Urine Appearance CLEAR Urine pH 5.0 Urine Specific [place] 1.018 Urine Protein TRACE Urine Glucose (UA) NEG Urine Ketones NEG Urine Occult Blood TRACE Urine Nitrite NEG Urine Bilirubin NEG Urine Urobilinogen NEG Urine Leukocyte Esterase MODERATE Urine WBC (Auto) >30 /hpf Urine RBC (Auto) 0-4 /hpf Urine Hyaline Casts (Auto) 5-10 /lpf Urine Epithelial Cells (Auto) 10-20 /lpf Urine Bacteria (Auto) NEG White Blood Count 16.58 K/uL Red Blood Count 3.12 M/uL Hemoglobin 8.3 g/dL Hematocrit 26.6 % Mean Corpuscular Volume 85.3 fL Mean Corpuscular Hemoglobin 26.6 pg Mean Corpuscular Hemoglobin Concent 31.2 g/dl Platelet Count 213 K/uL Mean Platelet Volume 11.3 fL Neutrophils (%) (Auto) 94.7 % Lymphocytes (%) (Auto) 1.4 % Monocytes (%) (Auto) 3.5 % Eosinophils (%) (Auto) 0.0 % Basophils (%) (Auto) 0.1 % Neutrophils # (Auto) 15.71 K/uL Lymphocytes # (Auto) 0.23 K/uL Monocytes # (Auto) 0.58 K/uL Eosinophils # (Auto) 0.00 K/uL Basophils # (Auto) 0.01 K/uL RDW Standard Deviation 55.1 fL RDW Coefficient of Variation 17.6 % Immature Granulocyte % (Auto) 0.3 % Immature Granulocyte # (Auto) 0.05 K/uL Nucleated RBC Absolute Count (auto) 0.11 K/uL Nucleated Red Blood Cells % 0.7 % Hypochromasia PRESENT Acanthocytes 2+ Schistocytes 1+ Sodium Level 134 mmol/L Potassium Level 3.6 mmol/L Chloride Level 105 mmol/L Carbon Dioxide Level 18 mmol/L Anion Gap 11.0 mmol/L Blood Urea Nitrogen 79 mg/dl Creatinine 3.95 mg/dl Est Creatinine Clear Calc Drug Dose 13.3 ml/min Estimated GFR () 15.8 Estimated GFR (Non- 13.6 BUN/Creatinine Ratio 19.9 Random Glucose 139 mg/dl Calcium Level 7.6 mg/dl Magnesium Level 4.7 mg/dl Total Bilirubin 0.3 mg/dl Aspartate Amino Transf (AST/SGOT) 34 U/L Alanine Aminotransferase (ALT/SGPT) 97 U/L Alkaline Phosphatase 78 U/L Total Protein 5.3 gm/dl Albumin 2.1 gm/dl Globulin 3.2 gm/dl Albumin/Globulin Ratio 0.7 Assessment and Plan 76yo male with: 1. acute renal failure in setting of CKD stage 4 - nephrology consult appreciated; 2nd to ATN from hypotension/shock suspected; supportive care. volume status/acid-base balance acceptable today. Making good urine. BMP am. 2. acute hypoxic respiratory failure 2nd to COPD exacerbation + acute diastolic CHF/volume overload - stable, improving slowly. 3. hemorrhagic shock - resolved 4. presumed GI bleeding with resulting acute blood loss anemia - cont PPI drip and octreotide drip. Once pulmonary status is more stable then EGD (possibly with colonoscopy). 5. ileus - clears, improved. 6. coag neg staph UTI - day # 5 of abx; plan 7 days then stop. Consider MALI to r/o prostatitis as this would change lengthy of abx course. 7. DVT proph - chemical means contraindicated; SCDs for now. 8. COPD exacerbation - slowly improving; no wean on steroids today; continue nebs & supportive care. 9. HTN - controlled. 10. BPH - cont flomax. 11. recent dx of prostate ca - noted. 12. Severe hypoalbuminemia - likely severe protein calorie malnutrition - boost breeze for now. 13. Abnormal LFTs - 2nd to shock at time of presentation?? -- nearly resolved. 14. liquid bowel movements - check c. diff toxin; repeat KUB x-ray today attempted to call pt's at phone # listed in chart - no answer (02/10/17) PT, OT probably will need rehab Continued [facility] stay due to: inadequate po fluid intake, voiding difficulties, ambulation difficulties, multiple IV medications needed Discharge planning: uncertain
[2017-02-10] MEDS: ACETAMINOPHEN 500 MG TAB PO PRN (18:23)
[2017-02-10] MEDS: FINASTERIDE 5 MG TAB PO SCH (20:53)
--- NOTE | 2017-02-10 21:13 | DIAGNOSTIC IMAGING REPORT ---
KUB CLINICAL HISTORY: Abdominal distention. Recent ileus. COMPARISON STUDY: KUB February 08, [address] of the abdomen and pelvis December 25, 2016. FINDINGS: Incidental note is made of bilateral iliac stents. There is a moderate amount of stool within the rectum. Moderate dilatation of small and large bowel is again noted. Left basilar airspace opacity is noted. IMPRESSION: 1. No significant change in moderate distention of small and large bowel which favors an ileus. 2. Moderate amount of stool within the rectum and colon. Electronically signed by: Gucci Farnsworth M.D. 02/10/2017 9:11 PM Dictated Date/Time: 02/10/2017 9:07 PM
[2017-02-11] VITALS (15 sets, daily range): BP systolic 138–193; BP diastolic 56–75; PULSE 52–82; TEMP 36.3–36.6; O2SAT 91–94
[2017-02-11] MEDS: METHYLPREDNISOLONE IV 40 MG in SYRINGE 0 ML IV SCH ×3 (01:55→17:25)
[2017-02-11] MEDS: ACETAMINOPHEN 500 MG TAB PO PRN (01:58)
[2017-02-11] MEDS ORDERED: METRONIDAZOLE 500 MG TAB PO ONE (03:11)
[2017-02-11] MEDS: PANTOprazole INJ 40 MG in DEXTROSE 5% 100ML IV SCH ×4 (04:43→20:11)
--- NOTE | 2017-02-11 06:33 | DIAGNOSTIC IMAGING REPORT ---
ULTRASOUND VENOUS DOPPLER UPR EXT UNIL CLINICAL HISTORY: Nonfunctioning central venous catheter possible internal jugular vein clot COMPARISON STUDY: No previous studies for comparison. FINDINGS: No intraluminal thrombus was visualized. The internal jugular, subclavian, axillary, cephalic, brachial, basilic, radial, and ulnar veins were patent. IMPRESSION: No evidence of right upper extremity DVT. Electronically signed by: Ozzy Tuttle M.D. 02/11/2017 6:31 AM Dictated Date/Time: 02/11/2017 6:30 AM
[2017-02-11] MEDS: OCTREOTIDE ACETATE INJ 500 MCG in NSS 100ML IV SCH (06:44)
[2017-02-11] MEDS: ALBUT/IPRATROP 3MG/0.5MG NEB 3 ML VIAL INH SCH ×4 (07:04→19:31)
[2017-02-11] MEDS: FORMOTEROL FUMA NEBULIZER SOLN 20 MCG/2 ML VIAL INH SCH ×2 (07:04→19:31)
--- NOTE | 2017-02-11 07:19 | DIAGNOSTIC IMAGING REPORT ---
SINGLE VIEW CHEST CLINICAL HISTORY: Central venous catheter placement. FINDINGS: An AP, portable, upright chest radiograph is compared to study dated 02/08/2017. The examination is significantly degraded by portable technique and patient rotation. A right internal jugular central venous catheter has been placed. The catheter appears truncated, the tip projects over the right internal jugular vein. The catheter is significantly shorter than the catheter is identified on 02/08/2017. The heart is enlarged and there is atherosclerotic calcification of the thoracic aorta. The pulmonary vasculature is noncongested. Emphysema and chronic interstitial thickening are similar to previous. There are low lung volumes and bibasilar atelectasis. Small pleural effusions are not excluded. No pneumothorax is seen. The skeletal structures are osteopenic. The bony thorax is grossly intact. IMPRESSION: 1. Cardiomegaly and emphysema. 2. A short right internal jugular central venous catheter is in place. The tip projects over the internal jugular vein. 3. The catheter is significantly shorter than the catheter identified on 02/08/2017. This may be normal if the catheter has been replaced and this is a new catheter. If this is the same catheter from 02/08/2017 then the appearance is highly concerning for fracture of the catheter. 4. Low lung volumes with bibasilar atelectasis. Electronically signed by: Randy Correa M.D. 02/11/2017 7:18 AM Dictated Date/Time: 02/11/2017 7:14 AM
[2017-02-11 07:29] LABS: BASO % 0.1 %; BASO ABS # 0.01 K/uL (0-0.2); HEMATOCRIT 26.6 % (42-52); HEMOGLOBIN 8.4 g/dL (14.0-18.0); IG# 0.06 K/uL (0.00-0.02); LYMPH % 0.9 %; LYMPH ABS # 0.14 K/uL (1.2-3.4); MEAN CELL VOLUME 85.5 fL (80-100); MEAN CORPUSCULAR HGB CONC 31.6 g/dl (32-36); MEAN PLATELET VOLUME 10.1 fL (7.4-10.4); MONO % 4.6 %; MONO ABS # 0.71 K/uL (0.11-0.59); NEUT ABS # 14.42 K/uL (1.4-6.5); NUCLEATED RED BLOOD CELL ABS 0.08 K/uL (0-0); PLATELET COUNT 260 K/uL (130-400); RED CELL DISTRIBUTION WIDTH CV 17.1 % (11.5-14.5); WHITE BLOOD COUNT 15.34 K/uL (4.8-10.8)
[2017-02-11] MEDS: BOOST BREEZE NUTRITION DRINK 1 BOX PO SCH ×2 (07:30→17:23)
[2017-02-11] MEDS: TAMSULOSIN HCL 0.4 MG CAP PO SCH ×2 (07:31→20:10)
[2017-02-11] MEDS: CEPHALEXIN MONOHYDRATE 250 MG CAP PO SCH (07:31)
[2017-02-11] MEDS: DILTIAZEM HCL 120 MG EXT REL CAP PO SCH (07:31)
[2017-02-11] MEDS: GUAIFENESIN 600 MG TABCR PO SCH ×2 (07:32→20:10)
[2017-02-11 07:48] LABS: CALCIUM 7.3 mg/dl (8.5-10.1); CREATININE 3.84 mg/dl (0.60-1.40); POTASSIUM 3.6 mmol/L (3.5-5.1)
[2017-02-11] MEDS ORDERED: METRONIDAZOLE 500 MG TAB PO SCH (09:00)
--- NOTE | 2017-02-11 09:05 | DIAGNOSTIC IMAGING REPORT ---
CHEST ONE VIEW PORTABLE CLINICAL HISTORY: Nonfunctioning central line. Possible catheter fracture or malposition. COMPARISON STUDY: 02/11/2017 FINDINGS: The cardiac and mediastinal contours remain stable. There is pulmonary emphysema. There are bibasal interstitial opacities similar to the preceding study. The right internal jugular central venous catheter remains unchanged in appearance when compared the preceding study. Again, the catheter appears foreshortened when compared the prior study dated 02/08/2017. This needs to be correlated clinically. If there is concern the presence of a catheter fracture, a noncontrast chest CT could be obtained in follow-up. IMPRESSION: 1. No significant change from the prior study. Emphysema with stable bibasilar interstitial opacities. 2. No change in the appearance of the right internal jugular central venous catheter. The catheter continues to appear foreshortened when compared the prior study dated 02/08/2017. This needs to be correlated clinically to exclude a catheter fracture. Electronically signed by: Ozzy Tuttle M.D. 02/11/2017 9:03 AM Dictated Date/Time: 02/11/2017 8:57 AM
--- NOTE | 2017-02-11 10:46 | Nephrology Progress Note ---
Nephrology Progress Note Date of Service Feb 11, 2017. Chief Complaint Evaluation of acute on chronic kidney disease Subjective Mr. hTurman was seen & examined in the PCU this morning. He reports that his breathing is improved. He is suffering from diarrhea. He is anxious to return home. He denies abdominal pain or overt blood loss. Review of Systems Constitutional: No fever Cardiovascular: No chest pain Respiratory: No dyspnea at rest Abdomen: No pain, No vomiting, No hematochezia, No melena Extremities: No leg edema A complete review of systems was performed. Pertinent positives are noted above. All other systems are negative. Vital Signs Last 8 Hrs Date Time Temp Pulse Resp B/P (MAP) Pulse Ox O2 Delivery O2 Flow Rate FiO2 02/11/17 08:51 36.4 71 20 193/75 (114) 92 Nasal Cannula 3.0 02/11/17 08:00 Nasal Cannula 3.0 02/11/17 07:06 52 18 93 Nasal Cannula 3.0 02/11/17 04:43 36.4 61 23 174/62 (99) 91 Nasal Cannula 3.0 02/11/17 04:00 Nasal Cannula 3.0 Last Recorded Weight Weight (Kilograms): 61.200 Physical Exam General Appearance: no apparent distress Head: normocephalic, atraumatic Eyes: PERRL, EOMI Neck: no adenopathy Respiratory/Chest: lungs clear, no respiratory distress Cardiovascular: regular rate, rhythm Abdomen/GI: normal bowel sounds, non tender, soft Extremities/Musculoskelatal: no calf tenderness, no pedal edema Neurologic/Psych: alert, oriented x 3 Family History Negative for CKD / ESRD Social History Smoking Status: Current every day smoker Drug Use: none Marital Status: Occupation: retired . No children. Current smoker (1 ppd since age 13). Drinks 3 beer / day. Formerly worked at [employer]. Now retired. Laboratory Results Past 24 Hours 02/11/17 07:15 Red Blood Count 3.11, Mean Corpuscular Volume 85.5, Mean Corpuscular Hemoglobin 27.0, Mean Corpuscular Hemoglobin Concent 31.6, Mean Platelet Volume 10.1, Neutrophils (%) (Auto) 94.0, Lymphocytes (%) (Auto) 0.9, Monocytes (%) (Auto) 4.6, Eosinophils (%) (Auto) 0.0, Basophils (%) (Auto) 0.1, Neutrophils # (Auto) 14.42, Lymphocytes # (Auto) 0.14, Monocytes # (Auto) 0.71, Eosinophils # (Auto) 0.00, Basophils # (Auto) 0.01 02/11/17 07:15 Test 02/11/17 07:15 White Blood Count 15.34 K/uL (4.8-10.8) Red Blood Count 3.11 M/uL (4.7-6.1) Hemoglobin 8.4 g/dL (14.0-18.0) Hematocrit 26.6 % (42-52) Mean Corpuscular Volume 85.5 fL (80-100) Mean Corpuscular Hemoglobin 27.0 pg (25-34) Mean Corpuscular Hemoglobin Concent 31.6 g/dl (32-36) Platelet Count 260 K/uL (130-400) Mean Platelet Volume 10.1 fL (7.4-10.4) Neutrophils (%) (Auto) 94.0 % Lymphocytes (%) (Auto) 0.9 % Monocytes (%) (Auto) 4.6 % Eosinophils (%) (Auto) 0.0 % Basophils (%) (Auto) 0.1 % Neutrophils # (Auto) 14.42 K/uL (1.4-6.5) Lymphocytes # (Auto) 0.14 K/uL (1.2-3.4) Monocytes # (Auto) 0.71 K/uL (0.11-0.59) Eosinophils # (Auto) 0.00 K/uL (0-0.5) Basophils # (Auto) 0.01 K/uL (0-0.2) RDW Standard Deviation 54.0 fL (36.4-46.3) RDW Coefficient of Variation 17.1 % (11.5-14.5) Immature Granulocyte % (Auto) 0.4 % Immature Granulocyte # (Auto) 0.06 K/uL (0.00-0.02) Nucleated RBC Absolute Count (auto) 0.08 K/uL (0-0) Nucleated Red Blood Cells % 0.5 % Acanthocytes 1+ Schistocytes 1+ Anion Gap 11.0 mmol/L (3-11) Est Creatinine Clear Calc Drug Dose 13.7 ml/min Estimated GFR () 16.4 Estimated GFR (Non- 14.1 BUN/Creatinine Ratio 19.1 (10-20) Calcium Level 7.3 mg/dl (8.5-10.1) Magnesium Level 4.6 mg/dl (1.8-2.4) Date/Time Source Procedure Growth Status 02/11/17 00:30 Stool C.difficile Toxin B Gene (PCR) - Final Positive for C. difficile toxin B gene Complete Allergies Coded Allergies: No Known Allergies (Verified , 12/31/16) Medications Current Inpatient Medications Medications (Trade) Dose Ordered Sig/[place] Route Start Time Stop Time Status Last Admin Dose Admin Pantoprazole Sodium 40 mg/ Dextrose 100 ml @ 20 mls/hr Q5H IV 02/05/17 19:00 03/07/17 18:59 02/11/17 09:13 20 MLS/HR Heparin Sodium (Porcine) (Heparin 10 Unit/ ml 5 ml Flush) 5 ml PRN PRN FLUSH 02/07/17 04:00 03/09/17 03:59 02/08/17 21:17 5 ML Diltiazem HCl (TIAzac CAP) 120 mg DAILY PO 02/07/17 09:00 03/09/17 08:59 02/11/17 07:31 120 MG Finasteride (Proscar Tab) 5 mg HS PO 02/07/17 21:00 03/09/17 20:59 02/10/17 20:53 5 MG Tamsulosin HCl (Flomax Cap) 0.4 mg BID PO 02/07/17 09:00 03/09/17 08:59 02/11/17 07:31 0.4 MG Hydralazine HCl (HydrALAZINE INJ) 10 mg Q4H PRN IV 02/07/17 09:00 03/09/17 08:59 Formoterol Fumarate (Perforomist 20MCG/2ML Neb Soln) 20 mcg BID INH 02/07/17 09:00 03/09/17 08:59 02/11/17 07:04 20 MCG Albuterol/ Ipratropium (Duoneb) 3 ml QIDR INH 02/07/17 12:00 03/09/17 11:59 02/10/17 15:29 3 ML Guaifenesin (Mucinex Contr Rel Tab) 600 mg Q12 PO 02/07/17 09:00 03/09/17 08:59 02/11/17 07:32 600 MG Enteral Nutritional Formula (Boost Breeze Nutritional Drink) 1 box BIDM PO 02/07/17 16:45 03/09/17 16:44 02/11/17 07:30 1 BOX Methylprednisolone Sodium Succinate 40 mg/Syringe 0.64 ml @ 1.5 mls/min Q8H IV 02/09/17 10:00 03/11/17 09:59 02/11/17 09:14 1.5 MLS/MIN Octreotide Acetate 500 mcg/ Sodium Chloride 105 ml @ 10 mls/hr [id number] IV 02/09/17 15:00 03/11/17 14:59 02/11/17 06:44 10 MLS/HR Cephalexin Monohydrate (Keflex Cap) 250 mg DAILY PO 02/09/17 16:00 02/15/17 15:59 02/11/17 07:31 250 MG Acetaminophen (Tylenol Tab) 1,000 mg Q8 PRN PO 02/10/17 13:00 03/12/17 12:59 02/11/17 01:58 1,000 MG Metronidazole (Flagyl Tab) 500 mg TID PO 02/11/17 09:00 02/25/17 08:59 02/11/17 07:30 500 MG Impression (1) GI bleed (2) Hypotension (3) MY (acute kidney injury) (4) Chronic kidney disease (CKD) stage G3b/A1, moderately decreased glomerular filtration rate (GFR) between 30-44 mL/min/1.73 square meter and albuminuria creatinine ratio less than 30 mg/g (5) COPD exacerbation (6) History of ASCVD (7) PVD (peripheral vascular disease) (8) Prostate CA (9) Cachexia Recommendations ACUTE KIDNEY INJURY: -- Suspect ATN related to hemodynamic instability & anemia in the setting of DAVID inhibitor therapy -- Kidney function is relatively unchanged. Electrolyte balance is acceptable. No acute indication for HD at this time -- Avoid DAVID inhibitor, NSAIDS or potential nephrotoxins -- Renal US 02/09: R kidney 7.5 cm, L kidney 8.7 cm. Increased cortical echogenicity. No obstruction/stone/mass -- Urinalysis c/w UTI. No casts reported on microscopy -- Monitor serial PRP CHRONIC KIDNEY DISEASE: -- Baseline creatinine has been ~ 1.8 HYPERTENSION: -- Now on Diltiazem & Hydralazine. Blood pressure is acceptable -- Hold antihypertensives for SBP < 100 ANEMIA: -- Await endoscopy results. Patient has h/o UGI bleeding w/ angiodysplasia of the stomach COPD: -- Improving. Continue nebulizer and steroid therapy -- CXR film from 02/11 reviewed: No pulmonary vascular congestion ID: -- On Metronidazole for C. Difficile colitis -- On Keflex for UTI
[2017-02-11] MEDS: VANCOMYCIN HCL 125 MG/2.5ML SOLN PO SCH ×3 (12:11→20:11)
[2017-02-11] MEDS: RASPBERRY SYRUP 5 ML UDP PO SCH ×3 (12:11→20:11)
--- NOTE | 2017-02-11 16:13 | PROGRESS NOTE ---
DATE: 02/11/2017 SUBJECTIVE: The patient still is short of breath at rest but better than on admission. The patient's hemoglobin and hematocrit are remaining stable at 8.4 and 26.6. He has received a total of 4 units of blood. The hospitalists feel that he is stable enough now to at least tolerate an upper endoscopy, which we will schedule tomorrow. IMPRESSION AND PLAN: The patient has anemia with heme positive stool. He has had a history of ulcers. We will plan on scheduling him for an EGD tomorrow. I am not sure the patient is quite ready to tolerate a bowel prep, but hopefully will be able to accomplish this as an outpatient when his breathing is a little bit better.
[2017-02-11] MEDS ORDERED: NURSING VERBAL MED ORDER ONE ×2 (17:15→17:30)
[2017-02-11] MEDS ORDERED: HALOPERIDOL 0.5 MG TAB PO ONE (17:15)
[2017-02-11] MEDS: FINASTERIDE 5 MG TAB PO SCH (20:11)
[2017-02-12] VITALS (12 sets, daily range): BP systolic 131–173; BP diastolic 55–81; PULSE 62–79; TEMP 36.1–36.5; O2SAT 90–97
--- NOTE | 2017-02-12 00:06 | Progress Note ---
Subjective Date of Service: Feb 11, 2017. Subjective Pt evaluation today including: conversation w/ patient, physical exam, chart review, lab review, review of inpatient medication list Pain: none reported PO Intake: tolerating clears Voiding: rapp catheter in place tele stable overnight throughout the day today the patient voiced he was very angry about still being in the hospital, still only allowed to have clears, etc he reported he was leaving the hospital and that his would pick him up late afternoon today the patient removed/pulled his rapp catheter out, removed an IV, and told staff he was leaving and that no one could stop him I visited him shortly after and spoke with him extensively he was oriented x 3 and could provide full history he was most angry about his diet and that he has had clears for 5+ days additional events - overnight his c. diff toxin returned positive started on flagyl his central venous catheter also started leaking IV fluid and there was concern of fracture of the catheter Problem List Medical Problems: (1) Acute urinary retention Status: Acute (2) MY (acute kidney injury) Status: Acute (3) GI bleed Status: Acute (4) Hyperkalemia Status: Acute (5) Hypotension Status: Acute (6) Symptomatic anemia Status: Acute (7) UTI (urinary tract infection) Status: Acute (8) UTI (urinary tract infection) Status: Acute Review of Systems Constitutional: No fever Respiratory: + cough, + wheezing, + dyspnea on exertion, No dyspnea at rest, No hemoptysis Cardiac: No chest pain Abdomen: + diarrhea, No pain Objective Vital Signs Date Time Temp Pulse Resp B/P (MAP) Pulse Ox O2 Delivery O2 Flow Rate FiO2 02/11/17 20:39 93 Nasal Cannula 3.0 02/11/17 20:00 Nasal Cannula 3.0 02/11/17 19:36 71 20 Nasal Cannula 3.0 02/11/17 19:25 36.3 75 22 138/62 (87) Nasal Cannula 3.0 02/11/17 16:30 Room Air 02/11/17 15:32 82 20 94 Nasal Cannula 3.0 02/11/17 15:15 36.5 72 22 155/68 (97) 94 Nasal Cannula 3.0 02/11/17 12:00 36.6 68 18 156/59 (91) 92 Nasal Cannula 3.0 02/11/17 12:00 Nasal Cannula 3.0 02/11/17 11:45 36.6 62 20 167/69 (101) 92 Nasal Cannula 3.0 02/11/17 11:30 36.4 62 20 162/60 (94) 92 Nasal Cannula 3.0 02/11/17 11:00 36.4 64 20 174/56 (95) 92 Nasal Cannula 3.0 02/11/17 10:20 36.3 66 20 174/56 (95) 93 Nasal Cannula 3.5 02/11/17 08:51 36.4 71 20 193/75 (114) 92 Nasal Cannula 3.0 02/11/17 08:00 Nasal Cannula 3.0 02/11/17 07:06 52 18 93 Nasal Cannula 3.0 02/11/17 04:43 36.4 61 23 174/62 (99) 91 Nasal Cannula 3.0 02/11/17 04:00 Nasal Cannula 3.0 02/11/17 00:24 36.6 62 22 178/69 (105) 91 Nasal Cannula 3.0 02/11/17 00:00 93 Nasal Cannula 3.0 Physical Exam General Appearance: no apparent distress, + cachetic, + thin ENT: pharynx normal Neck: no JVD Respiratory/Chest: no respiratory distress, no accessory muscle use, + wheezing (but much improved today; no rales) Cardiovascular: regular rate, rhythm, no gallop, no murmur Abdomen: + abnormal bowel sounds (hyperactive), + distended (but less than previous) Extremities: no pedal edema Neurologic/Psychiatric: alert, oriented x 3 Skin: + pallor Laboratory Results Last 24 Hours Test 02/11/17 07:15 White Blood Count 15.34 K/uL Red Blood Count 3.11 M/uL Hemoglobin 8.4 g/dL Hematocrit 26.6 % Mean Corpuscular Volume 85.5 fL Mean Corpuscular Hemoglobin 27.0 pg Mean Corpuscular Hemoglobin Concent 31.6 g/dl Platelet Count 260 K/uL Mean Platelet Volume 10.1 fL Neutrophils (%) (Auto) 94.0 % Lymphocytes (%) (Auto) 0.9 % Monocytes (%) (Auto) 4.6 % Eosinophils (%) (Auto) 0.0 % Basophils (%) (Auto) 0.1 % Neutrophils # (Auto) 14.42 K/uL Lymphocytes # (Auto) 0.14 K/uL Monocytes # (Auto) 0.71 K/uL Eosinophils # (Auto) 0.00 K/uL Basophils # (Auto) 0.01 K/uL RDW Standard Deviation 54.0 fL RDW Coefficient of Variation 17.1 % Immature Granulocyte % (Auto) 0.4 % Immature Granulocyte # (Auto) 0.06 K/uL Nucleated RBC Absolute Count (auto) 0.08 K/uL Nucleated Red Blood Cells % 0.5 % Acanthocytes 1+ Schistocytes 1+ Sodium Level 136 mmol/L Potassium Level 3.6 mmol/L Chloride Level 106 mmol/L Carbon Dioxide Level 19 mmol/L Anion Gap 11.0 mmol/L Blood Urea Nitrogen 74 mg/dl Creatinine 3.84 mg/dl Est Creatinine Clear Calc Drug Dose 13.7 ml/min Estimated GFR () 16.4 Estimated GFR (Non- 14.1 BUN/Creatinine Ratio 19.1 Random Glucose 134 mg/dl Calcium Level 7.3 mg/dl Magnesium Level 4.6 mg/dl Assessment and Plan 76yo male with: 1. acute renal failure in setting of CKD stage 4 - nephrology consult appreciated; 2nd to ATN from hypotension/shock suspected; supportive care. volume status/acid-base balance acceptable today. BMP again in am. 2. acute hypoxic respiratory failure 2nd to COPD exacerbation + acute diastolic CHF/volume overload - stable, improving slowly. Wean steroids today. 3. hemorrhagic shock - resolved 4. presumed GI bleeding with resulting acute blood loss anemia - cont PPI drip ; patient refusing to allow another IV to be placed and thus cannot run the octreotide. 5. ileus - likely due to c. diff. 6. coag neg staph UTI - day # 6 of abx; plan 7 days then stop. Consider MALI to r/o prostatitis as this would change lengthy of abx course. 7. DVT proph - chemical means contraindicated; SCDs for now. 8. COPD exacerbation - improved; wean steroids to q12h dosing. I believe from a pulmonary standpoint it is reasonable to go ahead and perform his EGD tomorrow. GI aware. 9. HTN - controlled. 10. BPH - cont flomax. 11. recent dx of prostate ca - noted. 12. Severe hypoalbuminemia - likely severe protein calorie malnutrition - boost breeze for now. 13. Abnormal LFTs - 2nd to shock at time of presentation?? -- nearly resolved. 14. c diff colitis - in light of severity of his illness, elevated creatinine, etc I believe that vanco is warranted in [place] of flagyl 15. left leg pain - sounds like radicular pain from his lumbar spine. Treat pain for now. DVT possible but less likely. Consider doppler u/s. attempted to call pt's at phone # listed in chart - no answer (02/10/17 and 02/11/17) PT, OT probably will need rehab - if patient is agreeable right IJ central line was pulled/discontinued today - the catheter was NOT fractured - was completely intact after much discussion patient IS agreeable to staying hospitalized for EGD tomorrow Continued [facility] stay due to: inadequate po fluid intake, voiding difficulties, ambulation difficulties, multiple IV medications needed Discharge planning: uncertain
[2017-02-12] MEDS: PANTOprazole INJ 40 MG in DEXTROSE 5% 100ML IV SCH ×3 (01:34→10:41)
[2017-02-12] MEDS ORDERED: METHYLPREDNISOLONE IV 40 MG in SYRINGE 0 ML IV SCH (06:00)
[2017-02-12] MEDS: FORMOTEROL FUMA NEBULIZER SOLN 20 MCG/2 ML VIAL INH SCH ×2 (07:09→19:30)
[2017-02-12] MEDS: ALBUT/IPRATROP 3MG/0.5MG NEB 3 ML VIAL INH SCH ×4 (07:09→19:29)
[2017-02-12 07:11] LABS: HEMATOCRIT 26.8 % (42-52); HEMOGLOBIN 8.6 g/dL (14.0-18.0); MEAN CELL VOLUME 84.8 fL (80-100); MEAN CORPUSCULAR HEMOGLOBIN 27.2 pg (25-34); MEAN CORPUSCULAR HGB CONC 32.1 g/dl (32-36); MEAN PLATELET VOLUME 9.8 fL (7.4-10.4); NUCLEATED RED BLOOD CELL ABS 0.07 K/uL (0-0); PLATELET COUNT 297 K/uL (130-400); RED CELL DISTRIBUTION WIDTH SD 53.3 fL (36.4-46.3)
[2017-02-12] MEDS: BOOST BREEZE NUTRITION DRINK 1 BOX PO SCH ×2 (07:30→16:18)
[2017-02-12 07:51] LABS: CALCIUM 7.7 mg/dl (8.5-10.1); CREATININE 3.81 mg/dl (0.60-1.40)
[2017-02-12] MEDS: GUAIFENESIN 600 MG TABCR PO SCH ×2 (08:53→20:50)
[2017-02-12] MEDS: CEPHALEXIN MONOHYDRATE 250 MG CAP PO SCH (08:53)
[2017-02-12] MEDS: DILTIAZEM HCL 120 MG EXT REL CAP PO SCH (08:53)
[2017-02-12] MEDS: RASPBERRY SYRUP 5 ML UDP PO SCH ×4 (08:54→20:47)
[2017-02-12] MEDS: TAMSULOSIN HCL 0.4 MG CAP PO SCH ×2 (08:54→20:50)
[2017-02-12] MEDS: VANCOMYCIN HCL 125 MG/2.5ML SOLN PO SCH ×4 (08:59→20:47)
--- NOTE | 2017-02-12 10:29 | Nephrology Progress Note ---
Nephrology Progress Note Date of Service Feb 12, 2017. Chief Complaint Evaluation of acute on chronic kidney disease Subjective Mr. Thurman reports that his breathing is improved. He is breathing comfortably on O2 at 3 L / min NC. He denies fever, abdominal pain or overt blood loss. He continues to have diarrhea. Mr. Thurman is awaiting EGD later this morning. Review of Systems Constitutional: No fever Cardiovascular: No chest pain Respiratory: No dyspnea at rest Abdomen: No pain, No nausea, No vomiting Extremities: No leg edema A complete review of systems was performed. Pertinent positives are noted above. All other systems are negative. Vital Signs Last 8 Hrs Date Time Temp Pulse Resp B/P (MAP) Pulse Ox O2 Delivery O2 Flow Rate FiO2 02/12/17 08:00 Nasal Cannula 3.0 02/12/17 07:53 36.1 66 18 158/64 (95) 02/12/17 07:13 79 18 91 Nasal Cannula 3.0 02/12/17 05:58 163/61 (95) 02/12/17 04:00 Nasal Cannula 3.0 Last Recorded Weight Weight (Kilograms): 71.700 Physical Exam General Appearance: no apparent distress Head: atraumatic (temporal muscle wasting) Eyes: PERRL, EOMI Neck: no adenopathy, no JVD Respiratory/Chest: lungs clear, no respiratory distress Cardiovascular: regular rate, rhythm Abdomen/GI: normal bowel sounds, non tender, soft Extremities/Musculoskelatal: no calf tenderness, no pedal edema Neurologic/Psych: alert, oriented x 3 Family History Negative for CKD / ESRD Social History Smoking Status: Current every day smoker Drug Use: none Marital Status: Occupation: retired . No children. Current smoker (1 ppd since age 13). Drinks 3 beer / day. Formerly worked at [employer]. Now retired. Laboratory Results Past 24 Hours 02/12/17 07:01 02/12/17 07:01 Test 02/12/17 07:01 Red Blood Count 3.16 M/uL (4.7-6.1) Mean Corpuscular Volume 84.8 fL (80-100) Mean Corpuscular Hemoglobin 27.2 pg (25-34) Mean Corpuscular Hemoglobin Concent 32.1 g/dl (32-36) RDW Standard Deviation 53.3 fL (36.4-46.3) RDW Coefficient of Variation 17.0 % (11.5-14.5) Mean Platelet Volume 9.8 fL (7.4-10.4) Nucleated RBC Absolute Count (auto) 0.07 K/uL (0-0) Nucleated Red Blood Cells % 0.4 % Anion Gap 9.0 mmol/L (3-11) Est Creatinine Clear Calc Drug Dose 16.2 ml/min Estimated GFR () 16.5 Estimated GFR (Non- 14.2 BUN/Creatinine Ratio 23.0 (10-20) Calcium Level 7.7 mg/dl (8.5-10.1) Allergies Coded Allergies: No Known Allergies (Verified , 12/31/16) Medications Current Inpatient Medications Medications (Trade) Dose Ordered Sig/Paris Route Start Time Stop Time Status Last Admin Dose Admin Pantoprazole Sodium 40 mg/ Dextrose 100 ml @ 20 mls/hr Q5H IV 02/05/17 19:00 03/07/17 18:59 02/12/17 05:49 20 MLS/HR Heparin Sodium (Porcine) (Heparin 10 Unit/ ml 5 ml Flush) 5 ml PRN PRN FLUSH 02/07/17 04:00 03/09/17 03:59 02/08/17 21:17 5 ML Diltiazem HCl (TIAzac CAP) 120 mg DAILY PO 02/07/17 09:00 03/09/17 08:59 02/12/17 08:53 120 MG Finasteride (Proscar Tab) 5 mg HS PO 02/07/17 21:00 03/09/17 20:59 02/11/17 20:11 5 MG Tamsulosin HCl (Flomax Cap) 0.4 mg BID PO 02/07/17 09:00 03/09/17 08:59 02/12/17 08:54 0.4 MG Hydralazine HCl (HydrALAZINE INJ) 10 mg Q4H PRN IV 02/07/17 09:00 03/09/17 08:59 Formoterol Fumarate (Perforomist 20MCG/2ML Neb Soln) 20 mcg BID INH 02/07/17 09:00 03/09/17 08:59 02/12/17 07:09 20 MCG Albuterol/ Ipratropium (Duoneb) 3 ml QIDR INH 02/07/17 12:00 03/09/17 11:59 02/11/17 19:31 3 ML Guaifenesin (Mucinex Contr Rel Tab) 600 mg Q12 PO 02/07/17 09:00 03/09/17 08:59 02/12/17 08:53 600 MG Enteral Nutritional Formula (Boost Breeze Nutritional Drink) 1 box BIDM PO 02/07/17 16:45 03/09/17 16:44 02/11/17 07:30 1 BOX Cephalexin Monohydrate (Keflex Cap) 250 mg DAILY PO 02/09/17 16:00 02/15/17 15:59 02/12/17 08:53 250 MG Acetaminophen (Tylenol Tab) 1,000 mg Q8 PRN PO 02/10/17 13:00 03/12/17 12:59 02/11/17 01:58 1,000 MG Vancomycin HCl (Vancomycin Oral Soln) 125 mg QID PO 02/11/17 13:00 02/25/17 12:59 02/12/17 08:59 125 MG Raspberry (Raspberry Syrup 5ml Cup) 5 ml QID PO 02/11/17 13:00 02/25/17 12:59 02/12/17 08:54 5 ML Methylprednisolone Sodium Succinate 40 mg/Syringe 0.64 ml @ 1.5 mls/min Q12H IV 02/12/17 06:00 03/11/17 09:59 02/12/17 05:49 1.5 MLS/MIN Impression (1) GI bleed (2) Hypotension (3) MY (acute kidney injury) (4) Chronic kidney disease (CKD) stage G3b/A1, moderately decreased glomerular filtration rate (GFR) between 30-44 mL/min/1.73 square meter and albuminuria creatinine ratio less than 30 mg/g (5) COPD exacerbation (6) History of ASCVD (7) PVD (peripheral vascular disease) (8) Prostate CA (9) Cachexia Recommendations ACUTE KIDNEY INJURY: -- Suspect ATN related to hemodynamic instability & anemia in the setting of DAVID inhibitor therapy -- Kidney function is gradually improving. Electrolyte balance is acceptable. No acute indication for HD at this time. Continue supportive care. -- Avoid DAVID inhibitor, NSAIDS or potential nephrotoxins -- Renal US 02/09: R kidney 7.5 cm, L kidney 8.7 cm. Increased cortical echogenicity. No obstruction/stone/mass -- Urinalysis c/w UTI. No casts reported on microscopy -- Monitor serial PRP CHRONIC KIDNEY DISEASE: -- Baseline creatinine has been ~ 1.8 HYPERTENSION: -- Now on Diltiazem & Hydralazine. Blood pressure is acceptable -- Hold antihypertensives for SBP < 100 ANEMIA: -- Await endoscopy results. Patient has h/o UGI bleeding w/ angiodysplasia of the stomach COPD: -- Improved. Continue nebulizer and steroid therapy ID: -- On po Vancomycin for C. Difficile colitis -- Patient has completed 7 days Keflex therapy for UTI. Consider d/c Keflex
[2017-02-12] MEDS ORDERED: KETAMINE HCL INJ 50 MG/ML 10 ML VIAL ONE (12:27)
[2017-02-12] MEDS ORDERED: SODIUM CHLORIDE 0.9% INJ 10 ML VIAL ONE (12:27)
[2017-02-12] MEDS ORDERED: PROPOFOL IV EMULSION 10 MG/ML 20 ML VIAL IV ONE (12:27)
[2017-02-12] MEDS ORDERED: BENZOCAIN/TETRACA/BUTAM SPRAY 200 APPLN/20 GM SPRY ONE (12:27)
[2017-02-12] MEDS ORDERED: MIDAZOLAM HCL 1 MG/ML 2ML VIAL ONE (12:28)
--- NOTE | 2017-02-12 12:37 | Endo History and Physical ---
History & Physical Date of Service: Feb 12, 2017. Chief Complaint: Anemia Referring Physician: Dr Vangie Cavazos History of Present Illness For EGD Past Medical History COPD, CVA/TIA, DE Past Surgical History Hx Cardiac Surgery: Yes (CARDIAC CATH) Hx Abdominal Surgery: No Hx Post-Op Nausea and Vomiting: No Hx Cancer Surgery: No Hx Thoracic Surgery: No Hx Orthopedic: No Hx Urinary Tract Surgery: No Social History Smoking Status: Current Every Day Smoker Hx Substance Use: No Hx Alcohol Use: No Allergies Coded Allergies: No Known Allergies (Verified , 12/31/16) Current Medications Reported Home Medications Medications Dose Route/Sig Max Daily Dose Days Date Category Dose Instructions Percocet 5MG/325MG (Oxycodone/Acetaminophen) Tab 1 Tablet PO Q4H PRN 01/01/17 Rx Cipro (Ciprofloxacin) 250 Mg Tab 250 Mg PO BID 01/01/17 Rx Aspirin Ec (Aspirin) 325 Mg Tab 325 Mg PO QPM 08/26/16 Reported Restart in 3 days if urine clear STOPPED TAKING 6-7 DAYS AGO Flomax (Tamsulosin Hcl) 0.4 Mg Cap 0.4 Mg PO BID 04/25/15 Reported Plavix (Clopidogrel Bisulfate) 75 Mg Tab 75 Mg PO QPM 06/20/14 Reported Restart in 3 days if urine clear. STOPPED TAKING 6-7 DAYS AGO Tiazac (Diltiazem HCl) 120 Mg Capcr 120 Mg PO HS 08/13/12 Reported Proscar (Finasteride) 5 Mg Tab 5 Mg PO HS 08/06/12 Reported Nitrostat (Nitroglycerin) 0.3 Mg Tab 0.3 Mg UT PRN 05/16/09 Reported Zestril (Lisinopril) 10 Mg Tab 10 Mg PO HS 05/16/09 Reported Vital Signs Weight (Kilograms): 71.700 Height (Feet): 5 Height (Inches): 10.00 Date Time Temp Pulse Resp B/P (MAP) Pulse Ox O2 Delivery O2 Flow Rate FiO2 02/12/17 12:25 36.5 95 22 165/76 (105) 94 Nasal Cannula 3 02/12/17 12:00 Nasal Cannula 3.0 02/12/17 11:54 36.1 66 18 158/64 91 Nasal Cannula 3.0 40 02/12/17 11:25 64 18 Nasal Cannula 3.0 02/12/17 08:00 Nasal Cannula 3.0 02/12/17 07:53 36.1 66 18 158/64 (95) 02/12/17 07:13 79 18 91 Nasal Cannula 3.0 02/12/17 05:58 163/61 (95) 02/12/17 04:00 Nasal Cannula 3.0 02/12/17 00:25 155/81 (105) 02/12/17 00:00 94 Nasal Cannula 3.0 02/11/17 20:39 93 Nasal Cannula 3.0 02/11/17 20:00 Nasal Cannula 3.0 02/11/17 19:36 71 20 Nasal Cannula 3.0 02/11/17 19:25 36.3 75 22 138/62 (87) Nasal Cannula 3.0 02/11/17 16:30 Room Air 02/11/17 15:32 82 20 94 Nasal Cannula 3.0 02/11/17 15:15 36.5 72 22 155/68 (97) 94 Nasal Cannula 3.0 Physical Exam General Appearance: + thin Respiratory/Chest: Auscultation: decreased breath sounds Cardiovascular: Heart Auscultation: RRR Abdomen: Inspection & Palpation: soft (Anemia for EGD) Assessment and Plan anemia for EGD
[2017-02-12] MEDS ORDERED: EpHEDrine SULFATE INJ 50 MG/ML AMP IV PRN (13:00)
[2017-02-12] MEDS ORDERED: ATROPINE SULFATE 0.1 MG/ML 5ML SYR IV PRN (13:00)
--- NOTE | 2017-02-12 13:17 | Discharge Instructions ---
Endoscopy Patient Instructions Date / Procedure(s) Performed Feb 12, 2017. EGD Allergy Information Coded Allergies: No Known Allergies (Verified , 02/12/17) Discharge Date / Findings Feb 12, 2017. post pharynx mass, blood in the stomach Medication Instructions Restart Stopped Medication(s): resume meds Current Inpatient Medications Medications (Trade) Dose Ordered Sig/Paris Route Start Time Stop Time Status Last Admin Dose Admin Pantoprazole Sodium 40 mg/ Dextrose 100 ml @ 20 mls/hr Q5H IV 02/05/17 19:00 03/07/17 18:59 02/12/17 10:41 20 MLS/HR Heparin Sodium (Porcine) (Heparin 10 Unit/ ml 5 ml Flush) 5 ml PRN PRN FLUSH 02/07/17 04:00 03/09/17 03:59 02/08/17 21:17 5 ML Diltiazem HCl (TIAzac CAP) 120 mg DAILY PO 02/07/17 09:00 03/09/17 08:59 02/12/17 08:53 120 MG Finasteride (Proscar Tab) 5 mg HS PO 02/07/17 21:00 03/09/17 20:59 02/11/17 20:11 5 MG Tamsulosin HCl (Flomax Cap) 0.4 mg BID PO 02/07/17 09:00 03/09/17 08:59 02/12/17 08:54 0.4 MG Hydralazine HCl (HydrALAZINE INJ) 10 mg Q4H PRN IV 02/07/17 09:00 03/09/17 08:59 Formoterol Fumarate (Perforomist 20MCG/2ML Neb Soln) 20 mcg BID INH 02/07/17 09:00 03/09/17 08:59 02/12/17 07:09 20 MCG Albuterol/ Ipratropium (Duoneb) 3 ml QIDR INH 02/07/17 12:00 03/09/17 11:59 02/12/17 11:25 3 ML Guaifenesin (Mucinex Contr Rel Tab) 600 mg Q12 PO 02/07/17 09:00 03/09/17 08:59 02/12/17 08:53 600 MG Enteral Nutritional Formula (Boost Breeze Nutritional Drink) 1 box BIDM PO 02/07/17 16:45 03/09/17 16:44 02/11/17 07:30 1 BOX Cephalexin Monohydrate (Keflex Cap) 250 mg DAILY PO 02/09/17 16:00 02/15/17 15:59 02/12/17 08:53 250 MG Acetaminophen (Tylenol Tab) 1,000 mg Q8 PRN PO 02/10/17 13:00 03/12/17 12:59 02/11/17 01:58 1,000 MG Vancomycin HCl (Vancomycin Oral Soln) 125 mg QID PO 02/11/17 13:00 02/25/17 12:59 02/12/17 08:59 125 MG Raspberry (Raspberry Syrup 5ml Cup) 5 ml QID PO 02/11/17 13:00 02/25/17 12:59 02/12/17 08:54 5 ML Methylprednisolone Sodium Succinate 40 mg/Syringe 0.64 ml @ 1.5 mls/min Q12H IV 02/12/17 06:00 03/11/17 09:59 02/12/17 05:49 1.5 MLS/MIN Ephedrine Sulfate (EpHEDrine SULFATE INJ) 5 mg Q5M PRN IV 02/12/17 13:00 02/12/17 18:00 Atropine Sulfate (Atropine Sulfate 0.1MG/Ml Inj) 0.5 mg Q1M PRN IV 02/12/17 13:00 02/12/17 18:00 Provider Instructions Activity Restrictions - No exercising or heavy lifting for 24 hours. - Do not drink alcohol the day of the procedure. - Do not drive a car or operate machinery until the day after the procedure. - Do not make any important decisions or sign important papers in 24 hours after the procedure. Following Day: - Return to full activity which may include returning to work/school. Diet Start your diet with liquids and light foods (jello, soup, juice, toast). Then eat your usual diet if not nauseated. Treatment For Common After Affects For mild abdominal pain, bloating, or excessive gas: - Rest - Eat lightly - Lie on right side Follow-Up Information Follow-up with as scheduled Anesthesia Information What You Should Know You have had a procedure that required some medicine to reduce anxiety and discomfort. This treatment is called moderate sedation. After receiving the treatment, you may be sleepy, but you will be able to breathe on your own. The effects of the treatment may last for several hours. Follow these instructions along with Activity/Diet recommendations noted above: * Do NOT do anything where dizziness or clumsiness would be dangerous. * Rest quietly at home today, then you can be up and about tomorrow. * Have a responsible person stay with you the rest of today. * You may have had an I.V. today. If so, you may take the dressing off later today. Recommendations Call your doctor if: * Trouble breathing * Continuous vomiting for more than 24 hours * Temperature above 101 degrees * Severe abdominal pain or bloating * Pain not relieved by pain medicine ordered * There is increased drainage or redness from any incision * A large amount of rectal bleeding greater than 2-3 tablespoons. (If you had a polyp/s removed or have hemorrhoids, a small amount of blood - from the rectum is to be expected.) * You have any unanswered questions or concerns. IN THE EVENT OF A SERIOUS EMERGENCY, GO TO THE NEAREST EMERGENCY ROOM Your discharge instructions were prepared by provider Mynor Sharma. Patient Instructions Signature Page Wade Thurman Patient (or Guardian) Signature/Date: I have read and understand the instructions given to me by my caregivers. Caregiver/RN/Doctor Signature/Date: The above-named patient and/or guardian has received patient instructions on this date. + Original Patient Signature Page (only) stays with chart. Please make copy for patient.
--- NOTE | 2017-02-12 13:24 | GI REPORT ---
Procedure Date: 02/12/2017 12:47 PM Procedure: Upper GI endoscopy Indications: Iron deficiency anemia secondary to chronic blood loss, Heme positive stool Medicines: Midazolam 2 mg IV, Ketamine 25 mg IV, Cetacaine spray Complications: No immediate complications. Estimated Blood Loss: Estimated blood loss was minimal. Procedure: Pre-Anesthesia Assessment: - Prior to the procedure, a History and Physical was performed, and patient medications, allergies and sensitivities were reviewed. The patient's tolerance of previous anesthesia was reviewed. - The risks and benefits of the procedure and the sedation options and risks were discussed with the patient. All questions were answered and informed consent was obtained. After obtaining informed consent, the endoscope was passed under direct vision. Throughout the procedure, the patient's blood pressure, pulse, and oxygen saturations were monitored continuously. The scope was introduced through the mouth, and advanced to the second part of duodenum. The upper GI endoscopy was accomplished without difficulty. The patient tolerated the procedure fairly well. Findings: A medium sized exophytic and raised mass was found in the left pyriform sinus. The mass is not obstructing the airway. Biopsies were taken with a cold forceps for histology. Estimated blood loss was minimal. The Z-line was regular and was found 40 cm from the incisors. Hematin (altered blood/qsuzpk-[id number]-nhrj material) was found in the gastric body. The examined duodenum was normal. Impression: - Medium sized exophytic and raised mass found in the left pyriform sinus, not obstructing the airway. This lesion is possibly malignant. Biopsied. - Z-line regular, 40 cm from the incisors. - Hematin (altered blood/hgfoqm-guyiws-xsnc material) in the gastric body. - Normal examined duodenum. Recommendation: - Return patient to hospital [facility] for ongoing care. - Refer to an ENT specialist at the next available appointment. Mynor Sharma M.D. Mynor Sharma MD 02/12/2017 1:24:15 PM This report has been signed electronically. Note Initiated On: 02/12/2017 12:47 PM I attest to the content of the Intraoperative Record and orders documented therein, exceptions below
--- NOTE | 2017-02-12 13:26 | Hospitalist Progress Note ---
Hospitalist Progress Note Date of Service Feb 12, 2017. (Zahida Blanco CRNP) Subjective Pt evaluation today including: conversation w/ patient, physical exam, chart review, lab review, review of inpatient medication list Voiding: no voiding problems Mr. Thurman is less angry and unhappy with his hospital stay but he maintains that he is leaving today. He is to get an endoscopy today. He continues to have some blood in his stool though the diarrhea has improved. No abd pain, nausea, vomiting. He does not feel particularly short of breath. Per nursing he has some bleeding from the urethra following his traumatic self removal of his Rapp yesterday ROS Constitutional: no chills, aches, sweats or fever Respiratory: no sob,cough, sputum, or wheezing Cardiac: no chest pain, palpitations, edema, orthopnea or lightheadedness GI: no abdominal pain, nausea, vomiting : no dysuria or hesitancy Extremities: no joint pain or weakness Skin: no rash All Other Systems: Reviewed and Negative (Zahida Blanco CRNP) Medications Medications Administered Medications (Trade) Dose Ordered Sig/Paris Route Start Time Stop Time Status Last Admin Dose Admin Sodium Chloride 1,000 ml @ 999 mls/hr Q1H1M STAT IV 02/05/17 13:19 02/05/17 14:19 DC 02/05/17 13:19 999 MLS/HR Dopamine HCl/ Dextrose 250 ml @ 0 mls/hr Q0M STAT IV 02/05/17 14:07 02/05/17 14:11 DC 02/05/17 14:29 11.4 MLS/HR Insulin Human Regular (novoLIN-R U-100 PER UNIT) 10 units NOW STAT IV 02/05/17 14:18 02/05/17 14:20 DC 02/05/17 14:56 10 UNITS Dextrose (Dextrose 50% 50ML Syringe) 50 ml NOW STAT IV 02/05/17 14:18 02/05/17 14:20 DC 02/05/17 14:56 50 ML Albuterol/ Ipratropium (Duoneb) 3 ml NOW STAT INH 02/05/17 14:18 02/05/17 14:20 DC 02/05/17 14:55 3 ML Pantoprazole Sodium 80 mg/ Dextrose 120 ml @ 400 mls/hr NOW IV 02/05/17 15:00 02/05/17 18:50 DC 02/05/17 15:53 400 MLS/HR Sodium Chloride 1,000 ml @ 999 mls/hr Q1H1M STAT IV 02/05/17 15:20 02/05/17 16:20 DC 02/05/17 13:30 999 MLS/HR Sodium Bicarbonate (Sodium Bicarbonate 8.4% Inj) 50 ml STK-MED ONCE IV 02/05/17 15:43 02/05/17 15:44 DC 02/05/17 15:47 50 ML Ceftriaxone Sodium 2000 mg/ Dextrose 70 ml @ 100 mls/hr 1615 ONCE IV 02/05/17 16:15 02/05/17 16:56 DC 02/05/17 16:40 100 MLS/HR Ceftriaxone Sodium 2000 mg/ Dextrose 70 ml @ 100 mls/hr Q24H IV 02/06/17 16:00 02/08/17 16:51 DC 02/08/17 15:59 100 MLS/HR Pantoprazole Sodium 40 mg/ Dextrose 100 ml @ 20 mls/hr Q5H IV 02/05/17 19:00 03/07/17 18:59 02/12/17 10:41 20 MLS/HR Sodium Chloride 1,000 ml @ 80 mls/hr [id number] IV 02/06/17 04:45 02/08/17 11:33 DC 02/08/17 05:03 80 MLS/HR Sodium Polystyrene Sulfonate (Kayexalate Susp) 15 gm NOW STAT PO 02/06/17 04:42 02/06/17 05:10 DC 02/06/17 05:57 15 GM Levalbuterol (Xopenex 1.25MG/ 3ML Neb) 1.25 mg Q4R INH 02/06/17 08:30 02/07/17 08:59 DC 02/07/17 07:02 1.25 MG Vancomycin HCl 1000 mg/Sodium Chloride 270 ml @ 125 mls/hr TODAY@1100 IV 02/06/17 11:00 02/06/17 13:10 DC 02/06/17 11:27 125 MLS/HR Heparin Sodium (Porcine) (Heparin 10 Unit/ ml 5 ml Flush) 5 ml PRN PRN FLUSH 02/07/17 04:00 03/09/17 03:59 02/08/17 21:17 5 ML Diltiazem HCl (TIAzac CAP) 120 mg DAILY PO 02/07/17 09:00 03/09/17 08:59 02/12/17 08:53 120 MG Finasteride (Proscar Tab) 5 mg HS PO 02/07/17 21:00 03/09/17 20:59 02/11/17 20:11 5 MG Tamsulosin HCl (Flomax Cap) 0.4 mg BID PO 02/07/17 09:00 03/09/17 08:59 02/12/17 08:54 0.4 MG Formoterol Fumarate (Perforomist 20MCG/2ML Neb Soln) 20 mcg BID INH 02/07/17 09:00 03/09/17 08:59 02/12/17 07:09 20 MCG Albuterol/ Ipratropium (Duoneb) 3 ml QIDR INH 02/07/17 12:00 03/09/17 11:59 02/12/17 11:25 3 ML Guaifenesin (Mucinex Contr Rel Tab) 600 mg Q12 PO 02/07/17 09:00 03/09/17 08:59 02/12/17 08:53 600 MG Vancomycin HCl 1250 mg/Sodium Chloride 275 ml @ 125 mls/hr TODAY@1100 IV 02/07/17 11:00 02/07/17 13:11 DC 02/07/17 11:51 125 MLS/HR Enteral Nutritional Formula (Boost Breeze Nutritional Drink) 1 box BIDM PO 02/07/17 16:45 03/09/17 16:44 02/11/17 07:30 1 BOX Methylprednisolone Sodium Succinate 40 mg/Syringe 0.64 ml @ 1.5 mls/min Q12H IV 02/08/17 13:00 02/09/17 10:28 DC 02/09/17 01:25 1.5 MLS/MIN Miscellaneous (Soap Suds Enema) 1 ea NOW ONCE IL 02/08/17 13:45 02/08/17 13:46 DC 02/08/17 15:56 1 EA Sodium Biphosphate/ Sodium Phosphate (Fleet Enema) 132 ml STK-MED ONCE .ROUTE 02/08/17 14:07 02/08/17 14:08 DC 02/08/17 15:56 132 ML Furosemide 60 mg/ Syringe 6 ml @ 4 mls/min 1700 ONCE IV 02/08/17 17:00 02/08/17 17:01 DC 02/08/17 17:43 4 MLS/MIN Vancomycin HCl 1000 mg/Sodium Chloride 270 ml @ 125 mls/hr TODAY@1800 IV 02/08/17 18:00 02/08/17 20:10 DC 02/08/17 18:37 125 MLS/HR Methylprednisolone Sodium Succinate 40 mg/Syringe 0.64 ml @ 1.5 mls/min Q8H IV 02/09/17 10:00 02/12/17 00:02 DC 02/11/17 17:25 1.5 MLS/MIN Octreotide Acetate 100 mcg/ Syringe 10 ml @ 3 mls/min TODAY@1500 IV 02/09/17 15:00 02/09/17 15:04 DC 02/09/17 15:20 3 MLS/MIN Octreotide Acetate 500 mcg/ Sodium Chloride 105 ml @ 10 mls/hr [id number] IV 02/09/17 15:00 02/11/17 17:25 DC 02/11/17 06:44 10 MLS/HR Cephalexin Monohydrate (Keflex Cap) 250 mg DAILY PO 02/09/17 16:00 02/15/17 15:59 02/12/17 08:53 250 MG Acetaminophen (Tylenol Tab) 1,000 mg Q8 PRN PO 02/10/17 13:00 03/12/17 12:59 02/11/17 01:58 1,000 MG Acetaminophen (Tylenol Tab) 1,000 mg STK-MED ONCE PO 02/10/17 13:15 02/10/17 13:16 DC 02/10/17 13:20 1,000 MG Metronidazole (Flagyl Tab) 500 mg TID PO 02/11/17 09:00 02/11/17 10:58 DC 02/11/17 07:30 500 MG Metronidazole (Flagyl Tab) 500 mg 0311 ONCE PO 02/11/17 03:11 02/11/17 03:23 DC 02/11/17 03:39 500 MG Vancomycin HCl (Vancomycin Oral Soln) 125 mg QID PO 02/11/17 13:00 02/25/17 12:59 02/12/17 08:59 125 MG Raspberry (Raspberry Syrup 5ml Cup) 5 ml QID PO 02/11/17 13:00 02/25/17 12:59 02/12/17 08:54 5 ML Haloperidol (Haldol Tab) 0.5 mg NOW ONCE PO 02/11/17 17:15 02/11/17 17:16 DC 02/11/17 17:25 0.5 MG Methylprednisolone Sodium Succinate 40 mg/Syringe 0.64 ml @ 1.5 mls/min Q12H IV 02/12/17 06:00 03/11/17 09:59 02/12/17 05:49 1.5 MLS/MIN (Zahida Blanco, OXANA) Objective Vital Signs Date Time Temp Pulse Resp B/P (MAP) Pulse Ox O2 Delivery O2 Flow Rate FiO2 02/12/17 12:25 36.5 95 22 165/76 (105) 94 Nasal Cannula 3 02/12/17 12:00 Nasal Cannula 3.0 02/12/17 11:54 36.1 66 18 158/64 91 Nasal Cannula 3.0 40 02/12/17 11:25 64 18 Nasal Cannula 3.0 02/12/17 08:00 Nasal Cannula 3.0 02/12/17 07:53 36.1 66 18 158/64 (95) 02/12/17 07:13 79 18 91 Nasal Cannula 3.0 02/12/17 05:58 163/61 (95) 02/12/17 04:00 Nasal Cannula 3.0 02/12/17 00:25 155/81 (105) 02/12/17 00:00 94 Nasal Cannula 3.0 02/11/17 20:39 93 Nasal Cannula 3.0 02/11/17 20:00 Nasal Cannula 3.0 02/11/17 19:36 71 20 Nasal Cannula 3.0 02/11/17 19:25 36.3 75 22 138/62 (87) Nasal Cannula 3.0 02/11/17 16:30 Room Air 02/11/17 15:32 82 20 94 Nasal Cannula 3.0 02/11/17 15:15 36.5 72 22 155/68 (97) 94 Nasal Cannula 3.0 (Zahida Blanco, OXANA) Physical Exam Notes: General: no distress Eyes: normal inspection, PERLL Respiratory: chest non tender, clear to auscultation, coarse breath sounds throughout though much improved since admission, no accessory muscle use Cardiac: regular rate and rhythm, no rub or gallop, no murmur, no edema, no jvd GI/: active bowel sounds, no abd pain or tenderness, soft, non distended Extremities: normal range of motion, normal strength, non tender Neuro/Psych: alert and oriented x 3, normal mood and affect Skin: normal color, dry (Zahida Blanco CRNP) Laboratory Results Last 24 Hours Test 02/12/17 07:01 White Blood Count 17.30 K/uL Red Blood Count 3.16 M/uL Hemoglobin 8.6 g/dL Hematocrit 26.8 % Mean Corpuscular Volume 84.8 fL Mean Corpuscular Hemoglobin 27.2 pg Mean Corpuscular Hemoglobin Concent 32.1 g/dl RDW Standard Deviation 53.3 fL RDW Coefficient of Variation 17.0 % Platelet Count 297 K/uL Mean Platelet Volume 9.8 fL Nucleated RBC Absolute Count (auto) 0.07 K/uL Nucleated Red Blood Cells % 0.4 % Sodium Level 136 mmol/L Potassium Level 4.0 mmol/L Chloride Level 107 mmol/L Carbon Dioxide Level 20 mmol/L Anion Gap 9.0 mmol/L Blood Urea Nitrogen 88 mg/dl Creatinine 3.81 mg/dl Est Creatinine Clear Calc Drug Dose 16.2 ml/min Estimated GFR () 16.5 Estimated GFR (Non- 14.2 BUN/Creatinine Ratio 23.0 Random Glucose 114 mg/dl Calcium Level 7.7 mg/dl (Zahida Blanco CRNP) Assessment and Plan Mr. Thurman is a 76 year old man with multiple comorbidities who presented to the hospital for GI bleed and renal failure. Pmhx COPD, current smoker, CAD, PAD, prostate CA, anemia and CKD IV Severe anemia due to GI Bleed - Hgb was 5.1 on presentation - hgb has been between 8.3 and 8.6 for about 5 days now - cbc am, continue to monitor for s/s of bleeding with stools - s/p 4 units prbcs - Cont PPI drip, octreotide - NPO for endoscopy today - mass found above vocal chords - ENT will see patient outpatient Acute renal failure in setting of CKD stage 4 - baseline creatinine is 1.8 - consulted nephrology - avoid DAVID inhibitors, no indication for dialysis at this time - creatinine 3.81 today Coag negative staph UTI - cont Keflex - end 02/15 abx therapy Acute hypoxic respiratory failure 2nd to COPD exacerbation -Changed steroids to oral prednisone -Cont nebs. -Cont pulmonary toilet. - no further s/s of volume overload although patient is up almost 10L from admission HTN -Cont diltiazem. BPH - cont flomax. - patient pulled out his Rapp yesterday while threatening to leave AMA DVT proph - SCDs; chemical proph contraindicated due to GI bleed Prostate cancer - newly diagnosed. Severe hypoalbuminemia - likely severe protein calorie malnutrition - boost breeze for now. Abnormal LFTs - 2nd to shock at time of presentation ? - improving C.diff infection/Ileus - Ileus likely due to infection - no longer with abdominal distention - Continue po vancomycin (Zahida Blanco ., OXANA) Attending Attestation: Pt seen/examined, chart reviewed, care plan d/w OXANA Blanco. I agree w/ the michaud components of her documentation. Pt had uneventful EGD today by Dr. Sharma - supraglottic mass seen and was biopsied. old blood seen in stomach without PUD or lesions Ms. Blanco & I spoke with patient following EGD - gave him results of EGD and that mass was seen. Numerous questions posed by Mr. Thurman. Willing to stay at least 1 more day. VSS, no fever gen - cachectic, hoarse voice, NAD neck - no JVD mouth - no thrush, no mass seen heart - tones are distant, but RRR, s1, s2 lungs - surprisingly CTA b/l today, no distress abd - still mild distension, BS+, NT ext - no edema labs - Hb 8.6 Cr 3.8 A/P: 1. acute renal failure in setting of CKD stage 4 - nephrology consult appreciated; 2nd to ATN from hypotension/shock. 2. acute hypoxic respiratory failure 2nd to COPD exacerbation + acute diastolic CHF/volume overload - improved. wean steroids again tomorrow - likely over to PO prednisone 3. hemorrhagic shock - resolved 4. presumed GI bleeding with resulting acute blood loss anemia - s/p 4 units PRBCs this admission s/p EGD today - old blood in stomach - did he bleed from avms or gastritis? can stop PPI drip; PPI twice daily by mouth advance diet 5. ileus - likely due to c. diff 6. c diff colitis - 14 day course of vanco 125mg qid 7. prostate ca 8. urinary retention - pt reports he self-cathes at home; he pulled out his rapp yesterday at the time he was demanding to be discharged he likely traumatized the urethral tract as he has had some intermittent clots since recommend I/O cath 2-3x's a day 9. 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 Eron Crum MD (Eron Crum MD)
--- NOTE | 2017-02-12 13:39 | PROGRESS NOTE ---
DATE: 02/12/2017 SUBJECTIVE: The patient underwent an EGD today for anemia and heme positive stool, was found to have a mass in the left posterior pharynx that was biopsied. There was a fair amount of old blood in the stomach that was evacuated. He had a gastric inlet patch in the upper esophagus, but no other source of blood loss or abnormalities were found through the second portion of the duodenum. IMPRESSION: The patient has posterior pharynx mass, biopsied. ENT will be consulted.
--- NOTE | 2017-02-12 13:46 | Anesthesiology Progress Note ---
Anesthesia Post Op Note Date & Time Feb 12, 2017 at 13:45 Vital Signs Pain Intensity: 0.0 Vital Signs Past 12 Hours Date Time Temp Pulse Resp B/P (MAP) Pulse Ox O2 Delivery O2 Flow Rate FiO2 02/12/17 13:36 60 22 123/68 (86) 95 Nasal Cannula 3 02/12/17 13:22 62 22 154/56 (88) 99 Nasal Cannula 3 02/12/17 12:25 36.5 95 22 165/76 (105) 94 Nasal Cannula 3 02/12/17 12:00 Nasal Cannula 3.0 02/12/17 11:54 36.1 66 18 158/64 91 Nasal Cannula 3.0 40 02/12/17 11:25 64 18 Nasal Cannula 3.0 02/12/17 08:00 Nasal Cannula 3.0 02/12/17 07:53 36.1 66 18 158/64 (95) 02/12/17 07:13 79 18 91 Nasal Cannula 3.0 02/12/17 05:58 163/61 (95) 02/12/17 04:00 Nasal Cannula 3.0 Notes Mental Status: alert / awake / arousable, participated in evaluation Pt Amnestic to Procedure: Yes Nausea / Vomiting: adequately controlled Pain: adequately controlled Airway Patency, RR, SpO2: stable & adequate BP & HR: stable & adequate Hydration State: stable & adequate Anesthetic Complications: no major complications apparent
[2017-02-12] MEDS ORDERED: METHYLPREDNISOLONE IV 30 MG in SYRINGE 0 ML IV ONE (16:30)
[2017-02-12] MEDS: FINASTERIDE 5 MG TAB PO SCH (20:50)
[2017-02-12] MEDS ORDERED: METHYLPREDNISOLONE IV 30 MG in SYRINGE 0 ML IV SCH (21:00)
[2017-02-12] MEDS ORDERED: MoRPHine SULFATE 2 MG/ML CARP IV PRN (22:30)
[2017-02-13] VITALS (10 sets, daily range): BP systolic 88–171; BP diastolic 55–89; PULSE 60–79; TEMP 36.4–36.7; O2SAT 93–100
[2017-02-13] MEDS: PANTOprazole SOD 40 MG TAB PO SCH ×3 (00:10→20:30)
[2017-02-13 06:47] LABS: CALCIUM 7.4 mg/dl (8.5-10.1); CREATININE 4.02 mg/dl (0.60-1.40); POTASSIUM 3.8 mmol/L (3.5-5.1)
[2017-02-13] MEDS: ALBUT/IPRATROP 3MG/0.5MG NEB 3 ML VIAL INH SCH ×4 (07:08→19:43)
[2017-02-13] MEDS: FORMOTEROL FUMA NEBULIZER SOLN 20 MCG/2 ML VIAL INH SCH ×2 (07:09→19:43)
[2017-02-13] MEDS: BOOST BREEZE NUTRITION DRINK 1 BOX PO SCH ×2 (07:30→16:45)
[2017-02-13] MEDS: TAMSULOSIN HCL 0.4 MG CAP PO SCH ×2 (08:21→20:29)
[2017-02-13] MEDS: DILTIAZEM HCL 120 MG EXT REL CAP PO SCH (08:21)
[2017-02-13] MEDS: CEPHALEXIN MONOHYDRATE 250 MG CAP PO SCH (08:21)
[2017-02-13] MEDS: VANCOMYCIN HCL 125 MG/2.5ML SOLN PO SCH ×4 (08:22→20:29)
[2017-02-13] MEDS: GUAIFENESIN 600 MG TABCR PO SCH ×2 (08:22→20:30)
[2017-02-13] MEDS: RASPBERRY SYRUP 5 ML UDP PO SCH ×4 (08:22→20:29)
--- NOTE | 2017-02-13 11:15 | Nephrology Progress Note ---
Nephrology Progress Note Date of Service Feb 13, 2017. Chief Complaint Evaluation of acute on chronic kidney disease Subjective Mr. Thurman is anxious to leave the hospital. He has removed his IV and rapp catheter on his own. He reports that he is able to do his own clean intermittent bladder catheterizations. He continues to have diarrhea and has tested positive for C. Difficile toxin Review of Systems Constitutional: No fever Cardiovascular: No chest pain Abdomen: No pain, No nausea, No vomiting Extremities: No leg edema A complete review of systems was performed. Pertinent positives are noted above. All other systems are negative. Vital Signs Last 8 Hrs Date Time Temp Pulse Resp B/P (MAP) Pulse Ox O2 Delivery O2 Flow Rate FiO2 02/13/17 08:00 Room Air 02/13/17 07:57 36.7 70 20 170/83 (112) 94 02/13/17 07:12 70 20 100 Nasal Cannula 2.0 02/13/17 04:30 36.6 79 20 94/59 (71) 97 Nasal Cannula 2.0 130/89 (103) 02/13/17 04:00 Nasal Cannula 2.0 Last Recorded Weight Weight (Kilograms): 62.100 Physical Exam General Appearance: + cachetic (frail appearing), + pertinent finding Head: atraumatic (temporal muscle wasting) Eyes: PERRL (+ corneal arcus), EOMI Neck: supple, no adenopathy Respiratory/Chest: + rhonchi Cardiovascular: regular rate, rhythm Abdomen/GI: normal bowel sounds, non tender, soft Extremities/Musculoskelatal: no pedal edema Neurologic/Psych: alert, oriented x 3 Family History Negative for CKD / ESRD Social History Smoking Status: Current every day smoker Drug Use: none Marital Status: Occupation: retired . No children. Current smoker (1 ppd since age 13). Drinks 3 beer / day. Formerly worked at [employer]. Now retired. Laboratory Results Past 24 Hours 02/13/17 05:44 Test 02/13/17 05:44 Anion Gap 10.0 mmol/L (3-11) Est Creatinine Clear Calc Drug Dose 13.3 ml/min Estimated GFR () 15.5 Estimated GFR (Non- 13.3 BUN/Creatinine Ratio 21.8 (10-20) Calcium Level 7.4 mg/dl (8.5-10.1) Allergies Coded Allergies: No Known Allergies (Verified , 02/12/17) Medications Current Inpatient Medications Medications (Trade) Dose Ordered Sig/Paris Route Start Time Stop Time Status Last Admin Dose Admin Heparin Sodium (Porcine) (Heparin 10 Unit/ ml 5 ml Flush) 5 ml PRN PRN FLUSH 02/07/17 04:00 03/09/17 03:59 02/08/17 21:17 5 ML Diltiazem HCl (TIAzac CAP) 120 mg DAILY PO 02/07/17 09:00 03/09/17 08:59 02/13/17 08:21 120 MG Finasteride (Proscar Tab) 5 mg HS PO 02/07/17 21:00 03/09/17 20:59 02/12/17 20:50 5 MG Tamsulosin HCl (Flomax Cap) 0.4 mg BID PO 02/07/17 09:00 03/09/17 08:59 02/13/17 08:21 0.4 MG Hydralazine HCl (HydrALAZINE INJ) 10 mg Q4H PRN IV 02/07/17 09:00 03/09/17 08:59 Formoterol Fumarate (Perforomist 20MCG/2ML Neb Soln) 20 mcg BID INH 02/07/17 09:00 03/09/17 08:59 02/13/17 07:09 20 MCG Albuterol/ Ipratropium (Duoneb) 3 ml QIDR INH 02/07/17 12:00 03/09/17 11:59 02/12/17 15:49 3 ML Guaifenesin (Mucinex Contr Rel Tab) 600 mg Q12 PO 02/07/17 09:00 03/09/17 08:59 02/13/17 08:22 600 MG Enteral Nutritional Formula (Boost Breeze Nutritional Drink) 1 box BIDM PO 02/07/17 16:45 03/09/17 16:44 02/11/17 07:30 1 BOX Cephalexin Monohydrate (Keflex Cap) 250 mg DAILY PO 02/09/17 16:00 02/15/17 15:59 02/13/17 08:21 250 MG Acetaminophen (Tylenol Tab) 1,000 mg Q8 PRN PO 02/10/17 13:00 03/12/17 12:59 12/13/17 01:58 1,000 MG Vancomycin HCl (Vancomycin Oral Soln) 125 mg QID PO 02/11/17 13:00 02/25/17 12:59 02/13/17 08:22 125 MG Raspberry (Raspberry Syrup 5ml Cup) 5 ml QID PO 02/11/17 13:00 02/25/17 12:59 02/13/17 08:22 5 ML Prednisone (PredniSONE TAB) 60 mg DAILY PO 02/13/17 09:00 03/15/17 08:59 02/13/17 08:21 60 MG Pantoprazole Sodium (Protonix Tab) 40 mg BID PO 02/12/17 21:00 02/16/17 20:59 02/13/17 08:23 40 MG Morphine Sulfate (MoRPHine SULFATE INJ) 2 mg Q4H PRN IV 02/12/17 22:30 02/26/17 22:29 Impression (1) GI bleed (2) Hypotension (3) MY (acute kidney injury) (4) Chronic kidney disease (CKD) stage G3b/A1, moderately decreased glomerular filtration rate (GFR) between 30-44 mL/min/1.73 square meter and albuminuria creatinine ratio less than 30 mg/g (5) COPD exacerbation (6) History of ASCVD (7) PVD (peripheral vascular disease) (8) Prostate CA (9) Cachexia Recommendations ACUTE KIDNEY INJURY: -- Suspect ATN related to hemodynamic instability & anemia in the setting of DAVID inhibitor therapy -- Kidney recovery has stalled following removal of rapp catheter. Electrolyte balance is acceptable. No acute indication for HD at this time. Continue supportive care. -- Recommend that patient demonstrate ability to perform C.I.C prior to hospital discharge -- Ideally patient should remain hospitalized until serum creatinine clearly trending down (creatinine < 2.5). Question whether he will keep outpatient follow up appointments CHRONIC KIDNEY DISEASE: -- Baseline creatinine has been ~ 1.8 HYPERTENSION: -- Now on Diltiazem & Hydralazine. Blood pressure is acceptable -- Hold antihypertensives for SBP < 100 ANEMIA: -- EGD results reviewed. 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 This was discussed in detail w/ patient this am and in hospital ENT evaluation recommended. Patient voiced understanding. COPD: -- Improved. Continue nebulizer and steroid therapy ID: -- On po Vancomycin for C. Difficile colitis -- Patient has completed 8 days Keflex therapy for UTI. Recommend d/c Keflex
--- NOTE | 2017-02-13 14:30 | Hospitalist Progress Note ---
Hospitalist Progress Note Date of Service Feb 13, 2017. (Zahida Blanco .OXANA) Subjective Pt evaluation today including: conversation w/ patient, physical exam, chart review, lab review, review of inpatient medication list Voiding: requires PRN straight cath Mr. Thurman is not agreeable to any further inpatient care for rehab. He is adamant about going home today. He has very little support at home and PT/OT has stated he is not safe to go home. His respiratory status has improved and he is off O2 although respiratory therapy was unable to get an oxygen saturation on him for a 2 step He continues to require prn straight cath, per nursing, they watched him cath himself and gave him teaching on sterile technique which he did not want to comply with. Diarrhea is improving, he has not seen any further blood in his bms. He denies problems swallowing and is eating and drinking normally ROS Constitutional: no chills, aches, sweats or fever Respiratory: no sob,cough, sputum, or wheezing Cardiac: no chest pain, palpitations, edema, orthopnea or lightheadedness GI: see HPI :see HPI Extremities: no joint pain or weakness Skin: no rash All Other Systems: Reviewed and Negative (Zahida Blanco .OXANA) Medications Medications Administered Medications (Trade) Dose Ordered Sig/Paris Route Start Time Stop Time Status Last Admin Dose Admin Sodium Chloride 1,000 ml @ 999 mls/hr Q1H1M STAT IV 02/05/17 13:19 02/05/17 14:19 DC 02/05/17 13:19 999 MLS/HR Dopamine HCl/ Dextrose 250 ml @ 0 mls/hr Q0M STAT IV 02/05/17 14:07 02/05/17 14:11 DC 02/05/17 14:29 11.4 MLS/HR Insulin Human Regular (novoLIN-R U-100 PER UNIT) 10 units NOW STAT IV 02/05/17 14:18 02/05/17 14:20 DC 02/05/17 14:56 10 UNITS Dextrose (Dextrose 50% 50ML Syringe) 50 ml NOW STAT IV 02/05/17 14:18 02/05/17 14:20 DC 02/05/17 14:56 50 ML Albuterol/ Ipratropium (Duoneb) 3 ml NOW STAT INH 02/05/17 14:18 02/05/17 14:20 DC 02/05/17 14:55 3 ML Pantoprazole Sodium 80 mg/ Dextrose 120 ml @ 400 mls/hr NOW IV 02/05/17 15:00 02/05/17 18:50 DC 02/05/17 15:53 400 MLS/HR Sodium Chloride 1,000 ml @ 999 mls/hr Q1H1M STAT IV 02/05/17 15:20 02/05/17 16:20 DC 02/05/17 13:30 999 MLS/HR Sodium Bicarbonate (Sodium Bicarbonate 8.4% Inj) 50 ml STK-MED ONCE IV 02/05/17 15:43 02/05/17 15:44 DC 02/05/17 15:47 50 ML Ceftriaxone Sodium 2000 mg/ Dextrose 70 ml @ 100 mls/hr 1615 ONCE IV 02/05/17 16:15 02/05/17 16:56 DC 02/05/17 16:40 100 MLS/HR Ceftriaxone Sodium 2000 mg/ Dextrose 70 ml @ 100 mls/hr Q24H IV 02/06/17 16:00 02/08/17 16:51 DC 02/08/17 15:59 100 MLS/HR Pantoprazole Sodium 40 mg/ Dextrose 100 ml @ 20 mls/hr Q5H IV 02/05/17 19:00 02/12/17 15:38 DC 02/12/17 10:41 20 MLS/HR Sodium Chloride 1,000 ml @ 80 mls/hr [id number] IV 02/06/17 04:45 02/08/17 11:33 DC 02/08/17 05:03 80 MLS/HR Sodium Polystyrene Sulfonate (Kayexalate Susp) 15 gm NOW STAT PO 02/06/17 04:42 02/06/17 05:10 DC 02/06/17 05:57 15 GM Levalbuterol (Xopenex 1.25MG/ 3ML Neb) 1.25 mg Q4R INH 02/06/17 08:30 02/07/17 08:59 DC 02/07/17 07:02 1.25 MG Vancomycin HCl 1000 mg/Sodium Chloride 270 ml @ 125 mls/hr TODAY@1100 IV 02/06/17 11:00 02/06/17 13:10 DC 02/06/17 11:27 125 MLS/HR Heparin Sodium (Porcine) (Heparin 10 Unit/ ml 5 ml Flush) 5 ml PRN PRN FLUSH 02/07/17 04:00 03/09/17 03:59 02/08/17 21:17 5 ML Diltiazem HCl (TIAzac CAP) 120 mg DAILY PO 02/07/17 09:00 03/09/17 08:59 02/13/17 08:21 120 MG Finasteride (Proscar Tab) 5 mg HS PO 02/07/17 21:00 03/09/17 20:59 02/12/17 20:50 5 MG Tamsulosin HCl (Flomax Cap) 0.4 mg BID PO 02/07/17 09:00 03/09/17 08:59 02/13/17 08:21 0.4 MG Formoterol Fumarate (Perforomist 20MCG/2ML Neb Soln) 20 mcg BID INH 02/07/17 09:00 03/09/17 08:59 02/13/17 07:09 20 MCG Albuterol/ Ipratropium (Duoneb) 3 ml QIDR INH 02/07/17 12:00 03/09/17 11:59 02/12/17 15:49 3 ML Guaifenesin (Mucinex Contr Rel Tab) 600 mg Q12 PO 02/07/17 09:00 03/09/17 08:59 02/13/17 08:22 600 MG Vancomycin HCl 1250 mg/Sodium Chloride 275 ml @ 125 mls/hr TODAY@1100 IV 02/07/17 11:00 02/07/17 13:11 DC 02/07/17 11:51 125 MLS/HR Enteral Nutritional Formula (Boost Breeze Nutritional Drink) 1 box BIDM PO 02/07/17 16:45 03/09/17 16:44 02/11/17 07:30 1 BOX Methylprednisolone Sodium Succinate 40 mg/Syringe 0.64 ml @ 1.5 mls/min Q12H IV 02/08/17 13:00 02/09/17 10:28 DC 02/09/17 01:25 1.5 MLS/MIN Miscellaneous (Soap Suds Enema) 1 ea NOW ONCE AK 02/08/17 13:45 02/08/17 13:46 DC 02/08/17 15:56 1 EA Sodium Biphosphate/ Sodium Phosphate (Fleet Enema) 132 ml STK-MED ONCE .ROUTE 02/08/17 14:07 02/08/17 14:08 DC 02/08/17 15:56 132 ML Furosemide 60 mg/ Syringe 6 ml @ 4 mls/min 1700 ONCE IV 02/08/17 17:00 02/08/17 17:01 DC 02/08/17 17:43 4 MLS/MIN Vancomycin HCl 1000 mg/Sodium Chloride 270 ml @ 125 mls/hr TODAY@1800 IV 02/08/17 18:00 02/08/17 20:10 DC 02/08/17 18:37 125 MLS/HR Methylprednisolone Sodium Succinate 40 mg/Syringe 0.64 ml @ 1.5 mls/min Q8H IV 02/09/17 10:00 02/12/17 00:02 DC 02/11/17 17:25 1.5 MLS/MIN Octreotide Acetate 100 mcg/ Syringe 10 ml @ 3 mls/min TODAY@1500 IV 02/09/17 15:00 02/09/17 15:04 DC 02/09/17 15:20 3 MLS/MIN Octreotide Acetate 500 mcg/ Sodium Chloride 105 ml @ 10 mls/hr [id number] IV 02/09/17 15:00 02/11/17 17:25 DC 02/11/17 06:44 10 MLS/HR Cephalexin Monohydrate (Keflex Cap) 250 mg DAILY PO 02/09/17 16:00 02/15/17 15:59 02/13/17 08:21 250 MG Acetaminophen (Tylenol Tab) 1,000 mg Q8 PRN PO 02/10/17 13:00 03/12/17 12:59 02/11/17 01:58 1,000 MG Acetaminophen (Tylenol Tab) 1,000 mg STK-MED ONCE PO 02/10/17 13:15 02/10/17 13:16 DC 02/10/17 13:20 1,000 MG Metronidazole (Flagyl Tab) 500 mg TID PO 02/11/17 09:00 02/11/17 10:58 DC 02/11/17 07:30 500 MG Metronidazole (Flagyl Tab) 500 mg 0311 ONCE PO 02/11/17 03:11 02/11/17 03:23 DC 02/11/17 03:39 500 MG Vancomycin HCl (Vancomycin Oral Soln) 125 mg QID PO 02/11/17 13:00 02/25/17 12:59 02/13/17 08:22 125 MG Raspberry (Raspberry Syrup 5ml Cup) 5 ml QID PO 02/11/17 13:00 02/25/17 12:59 02/13/17 08:22 5 ML Haloperidol (Haldol Tab) 0.5 mg NOW ONCE PO 02/11/17 17:15 02/11/17 17:16 DC 02/11/17 17:25 0.5 MG Methylprednisolone Sodium Succinate 40 mg/Syringe 0.64 ml @ 1.5 mls/min Q12H IV 02/12/17 06:00 02/12/17 16:10 DC 02/12/17 05:49 1.5 MLS/MIN Prednisone (PredniSONE TAB) 60 mg DAILY PO 02/13/17 09:00 03/15/17 08:59 02/13/17 08:21 60 MG Methylprednisolone Sodium Succinate 30 mg/Syringe 0.48 ml @ 1.5 mls/min ONE IV 02/12/17 21:00 02/12/17 21:01 DC 02/12/17 20:51 1.5 MLS/MIN Pantoprazole Sodium (Protonix Tab) 40 mg BID PO 02/12/17 21:00 02/16/17 20:59 02/13/17 08:23 40 MG (Zahida Blanco, OXANA) Objective Vital Signs Date Time Temp Pulse Resp B/P (MAP) Pulse Ox O2 Delivery O2 Flow Rate FiO2 02/13/17 13:22 171/67 (101) 02/13/17 12:00 Room Air 02/13/17 11:41 36.5 69 18 88/55 (66) 97 02/13/17 08:00 Room Air 02/13/17 07:57 36.7 70 20 170/83 (112) 94 02/13/17 07:12 70 20 100 Nasal Cannula 2.0 02/13/17 04:30 36.6 79 20 94/59 (71) 97 Nasal Cannula 2.0 130/89 (103) 02/13/17 04:00 Nasal Cannula 2.0 02/13/17 00:01 Nasal Cannula 3.0 02/12/17 20:32 36.5 62 18 173/63 (99) Nasal Cannula 3.0 02/12/17 20:00 97 Nasal Cannula 3.0 02/12/17 19:35 76 20 Room Air 02/12/17 16:00 Nasal Cannula 3.0 02/12/17 15:50 69 18 Nasal Cannula 3.0 02/12/17 15:36 36.4 69 22 131/55 (80) 90 Nasal Cannula 3.0 (Zahida Blanco CRNP) Physical Exam Notes: General: no distress Eyes: normal inspection, PERLL Respiratory: chest non tender, coarse bases bilaterally, no respiratory distress , no accessory muscle use Cardiac: regular rate and rhythm, no rub or gallop, no murmur, no edema, no jvd GI/: active bowel sounds, no abd pain or tenderness, soft, non distended Extremities: normal range of motion, normal strength, non tender Neuro/Psych: alert and oriented x 3, normal mood and affect Skin: normal color, dry (Zahida Blanco CRNP) Laboratory Results Last 24 Hours Test 02/13/17 05:44 Sodium Level 139 mmol/L Potassium Level 3.8 mmol/L Chloride Level 109 mmol/L Carbon Dioxide Level 20 mmol/L Anion Gap 10.0 mmol/L Blood Urea Nitrogen 88 mg/dl Creatinine 4.02 mg/dl Est Creatinine Clear Calc Drug Dose 13.3 ml/min Estimated GFR () 15.5 Estimated GFR (Non- 13.3 BUN/Creatinine Ratio 21.8 Random Glucose 94 mg/dl Calcium Level 7.4 mg/dl (Zahida Blanco CRNP) Assessment and Plan Mr. Thurman is a 76 year old man with multiple comorbidities who presented to the hospital for GI bleed and renal failure. Pmhx COPD, current smoker, CAD, PAD, prostate CA, anemia and CKD IV Pharyngeal mass - f/u ENT op Severe anemia due to GI Bleed - Hgb was 5.1 on presentation - hgb has been stable in mid 8s for multiple days - cbc am, continue to monitor for s/s of bleeding with stools - s/p 4 units prbcs - d/c ppi in light of EGD results yesterday which did not find a gastric source of bleeding Acute renal failure in setting of CKD stage 4 - baseline creatinine is 1.8 - consulted nephrology - avoid DAVID inhibitors, no indication for dialysis at this time - creatinine above 4 today Coag negative staph UTI - cont Keflex - end 02/15 abx therapy - nursing attempted teaching on sterile technique for self cath but patient was not receptive to it. Acute hypoxic respiratory failure 2nd to COPD exacerbation - improving - continue oral prednisone -Cont nebs. -Cont pulmonary toilet. HTN -Cont diltiazem. BPH - cont flomax. - patient pulled out his [place] yesterday while threatening to leave AMA DVT proph - SCDs; chemical proph contraindicated due to GI bleed Prostate cancer - newly diagnosed. Severe hypoalbuminemia - likely severe protein calorie malnutrition - boost breeze for now. Abnormal LFTs - 2nd to shock at time of presentation ? - improving C.diff infection/Ileus - improving - Ileus likely due to infection - no longer with abdominal distention - Continue po vancomycin (Zahida Blanco ., OXANA) OXANA Supervision Note: I interviewed and examined the patient. Discussed with Zahida DAIGLE and agree with findings and plan as documented in the note. Any exceptions or clarifications are listed here: None Pt is here with GI blood loss, unfortunately Upper endoscopy suggests a pharyngeal mass, no defined source of bleeding was found. He however presented with hypovolemic shock from acute blood loss and subsequently did suffer from ATN, and persists with a CR in the 4 range. The pt is frustrated and wants to go home, however we are unsure of his home situation. vitals are reviewed and stable, overall the pt is thin car is regular lungs are clear but diminished at bases abd is soft Pharyngeal mass - f/u ENT op, final pathology is pending Severe anemia due to GI Bleed - s/p transfusion of 4 units prbcs - d/c ppi in light of EGD results which did not find a gastric source of bleeding Acute renal failure in setting of CKD stage 4 - baseline creatinine is 1.8 - consulted nephrology -continue to avoid nephrotoxins Coag negative staph UTI pt does self cath so concern was poa - Keflex - last dose 02/15 - nursing attempted teaching on sterile technique for self cath but patient was not receptive to it. Acute hypoxic respiratory failure 2nd to COPD exacerbation - improving oral prednisone nebs. HTN controlled with diltiazem. BPH flomax. intermittent straight caths at home DVT proph - SCDs; chemical proph contraindicated due to GI bleed due to pharyngeal mass, palliative care discussion was had, pt is considering palliative care direction (Mau Prajapati M.D.)
--- NOTE | 2017-02-13 17:01 | Palliative Care Consultation ---
Consultation Date of Consultation: Feb 13, 2017. Requesting Physician: OXANA Nascimento Attending Physician: OXANA Nascimento; Dr. Crum Reason for Consultation: Goals of care History of Present Illness This 76 year old male patient with PMH listed below presented to the ED five days ago with c/o lightheadedness, weakness, and lethargy. Hgb found to be 5.1, GI bleed, hypotensive. Recently was diagnosed with prostate cancer, no treatment yet but per patient there are plans for possible radiation therapy. Patient has received 4 units PRBCs. EGD performed yesterday which showed old blood in stomach, non-bleeding ulcers, and a suspicious mass above his vocal cords. Biopsy taken, results pending. Patient has been upset about being in the hospital, has threatened to sign out AMA several times. He has been worried about his 80 year old at home who also has some health problems. Given patient's comorbidities, poor functional status, declining condition, and unhappiness about being in hospital, palliative care is consulted to establish goals of care. I met with the patient and his , Alondra, in room [address] Elaine. Patient is awake, alert and oriented x4. He denies any complaints of pain or SOB at this time. He recapped what brought him into hospital and what was found on EGD yesterday. Patient states that he knows the mass is suspicious for cancer, but he would not want surgery. He states that the only therapy he would ever undergo for cancer of the prostate or of the throat (if that's what it is) would be radiation. He would not want chemo or surgery. Patient's goal is to get home with his . We discussed home health vs. hospice. Patient does not feel he is ready for hospice at this time, nor do I know for sure if he qualifies at this point. He would opt for home health. I did express concern for patient and being alone with any extra care. They have no family in the area to be with them. Case management is involved. Past Medical/Surgical History Medical History: COPD, advanced Current smoker Prostate carcinoma CAD PAD Htn, arterial Social History Smoking Status: Current Every Day Smoker History of Alcohol Use: No Drug Use: none Marital Status: Occupation Status: retired Review of Systems Constitutional: + weakness, No fever, No chills ENT: No trouble swallowing Respiratory: + cough, + dyspnea on exertion, No dyspnea at rest Cardiac: No chest pain, No edema Abdomen: No pain, No nausea, No vomiting Psychiatric: No depression symptoms, No anxiety Heme: + problem reported (scattered bruising from fragile skin) Allergies Coded Allergies: No Known Allergies (Verified , 02/12/17) Medications Current Inpatient Medications Medications (Trade) Dose Ordered Sig/Paris Route Start Time Stop Time Status Last Admin Dose Admin Heparin Sodium (Porcine) (Heparin 10 Unit/ ml 5 ml Flush) 5 ml PRN PRN FLUSH 02/07/17 04:00 03/09/17 03:59 02/08/17 21:17 5 ML Diltiazem HCl (TIAzac CAP) 120 mg DAILY PO 02/07/17 09:00 03/09/17 08:59 02/13/17 08:21 120 MG Finasteride (Proscar Tab) 5 mg HS PO 02/07/17 21:00 03/09/17 20:59 02/12/17 20:50 5 MG Tamsulosin HCl (Flomax Cap) 0.4 mg BID PO 02/07/17 09:00 03/09/17 08:59 02/13/17 08:21 0.4 MG Hydralazine HCl (HydrALAZINE INJ) 10 mg Q4H PRN IV 02/07/17 09:00 03/09/17 08:59 Formoterol Fumarate (Perforomist 20MCG/2ML Neb Soln) 20 mcg BID INH 02/07/17 09:00 03/09/17 08:59 02/13/17 07:09 20 MCG Albuterol/ Ipratropium (Duoneb) 3 ml QIDR INH 02/07/17 12:00 03/09/17 11:59 02/12/17 15:49 3 ML Guaifenesin (Mucinex Contr Rel Tab) 600 mg Q12 PO 02/07/17 09:00 03/09/17 08:59 02/13/17 08:22 600 MG Enteral Nutritional Formula (Boost Breeze Nutritional Drink) 1 box BIDM PO 02/07/17 16:45 03/09/17 16:44 02/11/17 07:30 1 BOX Cephalexin Monohydrate (Keflex Cap) 250 mg DAILY PO 02/09/17 16:00 02/15/17 15:59 02/13/17 08:21 250 MG Acetaminophen (Tylenol Tab) 1,000 mg Q8 PRN PO 02/10/17 13:00 03/12/17 12:59 02/11/17 01:58 1,000 MG Vancomycin HCl (Vancomycin Oral Soln) 125 mg QID PO 02/11/17 13:00 02/25/17 12:59 02/13/17 08:22 125 MG Raspberry (Raspberry Syrup 5ml Cup) 5 ml QID PO 02/11/17 13:00 02/25/17 12:59 02/13/17 08:22 5 ML Prednisone (PredniSONE TAB) 60 mg DAILY PO 02/13/17 09:00 03/15/17 08:59 02/13/17 08:21 60 MG Pantoprazole Sodium (Protonix Tab) 40 mg BID PO 02/12/17 21:00 02/16/17 20:59 02/13/17 08:23 40 MG Morphine Sulfate (MoRPHine SULFATE INJ) 2 mg Q4H PRN IV 02/12/17 22:30 02/26/17 22:29 Physical Exam Date Time Temp Pulse Resp B/P (MAP) Pulse Ox O2 Delivery O2 Flow Rate FiO2 02/13/17 15:14 36.4 65 19 163/67 (99) 95 Room Air 02/13/17 13:22 171/67 (101) 02/13/17 12:00 Room Air 02/13/17 11:41 36.5 69 18 88/55 (66) 97 02/13/17 08:00 Room Air 02/13/17 07:57 36.7 70 20 170/83 (112) 94 02/13/17 07:12 70 20 100 Nasal Cannula 2.0 02/13/17 04:30 36.6 79 20 94/59 (71) 97 Nasal Cannula 2.0 130/89 (103) 02/13/17 04:00 Nasal Cannula 2.0 02/13/17 00:01 Nasal Cannula 3.0 02/12/17 20:32 36.5 62 18 173/63 (99) Nasal Cannula 3.0 02/12/17 20:00 97 Nasal Cannula 3.0 02/12/17 19:35 76 20 Room Air General Appearance: no apparent distress, + cachetic, + thin ENT: hearing grossly normal Neck: supple, no JVD Respiratory: no respiratory distress, no accessory muscle use, + pertinent finding (on room air) Cardiovascular: regular rate, rhythm, no edema Abdomen: non tender, soft Neurologic/Psychiatric: alert, normal mood/affect, oriented x 3 Skin: + pertinent finding (scattered ecchymosis on hands and arms) Laboratory Results Last 24 Hours Test 02/13/17 05:44 Sodium Level 139 mmol/L Potassium Level 3.8 mmol/L Chloride Level 109 mmol/L Carbon Dioxide Level 20 mmol/L Anion Gap 10.0 mmol/L Blood Urea Nitrogen 88 mg/dl Creatinine 4.02 mg/dl Est Creatinine Clear Calc Drug Dose 13.3 ml/min Estimated GFR () 15.5 Estimated GFR (Non- 13.3 BUN/Creatinine Ratio 21.8 Random Glucose 94 mg/dl Calcium Level 7.4 mg/dl Assessment & Plan Palliative Performance Scale: 50 % Problem list: Weakness Lethargy- resolved Lightheadedness- resolved Severe protein/calorie malnutrition Hypoalbuminemia- 2.1 GI bleed/anemia- received 4 units PRBCs COPD- advanced Mass above vocal cords- biopsy pending Prostate carcinoma Goals of care (Z51.) Palliative care recs: discussed with patient, , Zahida Blanco OXANA, and pillowcase maker. -COPD is advanced, but possibly not end-stage. Was on room air entire time I was in room, had no SOB at rest. -Two-step oxygen test to be done to determine patient's need for home oxygen. -Prostate carcinoma- willing to undergo XRT, but not chemo or surgery. He would like to follow up with oncology. -Patient would like to go home with home health. We did discuss hospice for the future and patient would certainly be amenable when the time came. I suggested that he choose a home health agency that also has hospice and he agreed. I updated pillowcase maker on this. -Vocal cord mass- biopsy pending. Again, patient said if it was cancerous, he would not want chemo, and preferably not surgery either. He would consider XRT if it was offered. He will follow up with oncology. -Discharge will be determined by primary medical. Thank you kindly for this consult. I will follow up on Thursday if patient is here.
--- NOTE | 2017-02-13 19:02 | GASTROENTEROLOGY PROGRESS NOTE ---
DATE: 02/13/2017 SUBJECTIVE: The patient doing well, reports no rectal bleeding, tolerated EGD yesterday well. Biopsies were taken from the posterior pharynx with a lesion suspected in this region. The final biopsies show sheaths of fungal spore, keratinaceous debris and strips of mucus. A tentative diagnosis cannot be ranted although no tumor was seen, area in question suggest whether or not this represents a crypt or other tonsil. EGD otherwise did not reveal an obvious source of bleeding. The patient reports no melena or bright red blood per rectum. His appetite is good and would like to advance his diet and is hopeful that he will go home soon. His laboratory studies have shown essentially a consistent hemoglobin since at least February 08 and is currently 8.6 which is slightly above yesterday's value of 8.4. White count; however, is climbing, was 15.3 yesterday and is currently 17.3, although had also been elevated back in on February 08. This, however, is still far lower than his white count on February 06 of 28,000. REVIEW OF SYSTEMS: Review of systems is otherwise noncontributory based on 13-point examined except for mentioned above. CURRENT INPATIENT MEDICATIONS: Include prednisone, morphine p.r.n., pantoprazole orally twice daily, vancomycin q.i.d. for C. diff colitis, Keflex, finasteride, DuoNeb, diltiazem, Flomax, hydralazine, formoterol, guaifenesin. OBJECTIVE: VITAL SIGNS: Show afebrile status 36.4, pulse 65, respirations 19, blood pressure 163/67 and 95% on room air. GENERAL: The patient is awake, alert and oriented x3. HEENT: Sclerae anicteric. Conjunctivae moist. Oral mucosa moist. HEART: Normal S1, S2, although breath sounds are diminished bibasilarly. ABDOMEN: Soft, flat, nontender, nondistended with good bowel sounds. EXTREMITIES: Without edema. RECTAL: Deferred. IMPRESSION AND PLAN: The patient with initial presentation with severe chronic obstructive pulmonary disease exacerbation as well as gastrointestinal bleeding. An upper source was not specifically identified on February 12. There was blood found in the gastric body; however, specific source was not identified. The duodenum was normal. We would continue on PPI therapy and if not recently checked, a stool for H. pylori would be helpful. It would appear that there is at least a component of upper gastrointestinal bleeding but this may coming from the oropharyngeal region. If hemoglobin does not correct or if there is evidence of overt gastrointestinal bleeding or melena repeat upper endoscopy may be needed. Additionally, a colonoscopy may be prudent at some point, although the patient is anxious to go home. I believe it is reasonable to advance his diet. Would complete a 14-day course of vancomycin orally for his C. diff and would consider a tapering dose given that he has been on antibiotics. We will follow with you. Dr. Sharma is covering this weekend.
[2017-02-13] MEDS: FINASTERIDE 5 MG TAB PO SCH (20:30)
[2017-02-14] VITALS (10 sets, daily range): BP systolic 157–175; BP diastolic 62–72; PULSE 56–70; TEMP 36.5–36.6; O2SAT 89–96
[2017-02-14 06:51] LABS: CALCIUM 7.2 mg/dl (8.5-10.1); CREATININE 3.86 mg/dl (0.60-1.40); POTASSIUM 3.7 mmol/L (3.5-5.1)
[2017-02-14] MEDS: ALBUT/IPRATROP 3MG/0.5MG NEB 3 ML VIAL INH SCH ×4 (07:03→19:33)
[2017-02-14] MEDS: FORMOTEROL FUMA NEBULIZER SOLN 20 MCG/2 ML VIAL INH SCH ×2 (07:03→19:34)
[2017-02-14] MEDS: BOOST BREEZE NUTRITION DRINK 1 BOX PO SCH ×2 (07:30→17:00)
[2017-02-14] MEDS: TAMSULOSIN HCL 0.4 MG CAP PO SCH ×2 (10:03→20:32)
[2017-02-14] MEDS: RASPBERRY SYRUP 5 ML UDP PO SCH ×4 (10:03→20:31)
[2017-02-14] MEDS: CEPHALEXIN MONOHYDRATE 250 MG CAP PO SCH (10:03)
[2017-02-14] MEDS: VANCOMYCIN HCL 125 MG/2.5ML SOLN PO SCH ×4 (10:03→20:30)
[2017-02-14] MEDS: GUAIFENESIN 600 MG TABCR PO SCH ×2 (10:03→20:32)
[2017-02-14] MEDS: PANTOprazole SOD 40 MG TAB PO SCH ×2 (10:03→20:31)
[2017-02-14] MEDS: DILTIAZEM HCL 120 MG EXT REL CAP PO SCH (10:04)
--- NOTE | 2017-02-14 10:29 | Nephrology Progress Note ---
Nephrology Progress Note Date of Service Feb 14, 2017. Chief Complaint Evaluation of acute on chronic kidney disease Subjective Mr. Thurman was seen & examined in the PCU this morning. He denied fever or abdominal pain. He does continue to have diarrhea. He removed his rapp catheter but states that senior staff psychologist has been performing C.I.C Review of Systems Constitutional: No fever Cardiovascular: No chest pain Respiratory: No dyspnea at rest Abdomen: No pain, No nausea Extremities: No leg edema A complete review of systems was performed. Pertinent positives are noted above. All other systems are negative. Vital Signs Last 8 Hrs Date Time Temp Pulse Resp B/P (MAP) Pulse Ox O2 Delivery O2 Flow Rate FiO2 02/14/17 08:06 36.5 61 20 175/72 (106) 96 Room Air 02/14/17 07:04 61 18 94 Room Air 02/14/17 05:01 Room Air 02/14/17 04:15 92 Room Air 02/14/17 03:45 36.5 57 23 164/69 (100) 89 Room Air Last Recorded Weight Weight (Kilograms): 71.900 Physical Exam General Appearance: no apparent distress Head: normocephalic, atraumatic Eyes: PERRL, EOMI Neck: no adenopathy Respiratory/Chest: lungs clear, no respiratory distress Cardiovascular: regular rate, rhythm Abdomen/GI: normal bowel sounds, non tender, soft Extremities/Musculoskelatal: no pedal edema Neurologic/Psych: alert Family History Negative for CKD / ESRD Social History Smoking Status: Current every day smoker Drug Use: none Marital Status: Occupation: retired . No children. Current smoker (1 ppd since age 13). Drinks 3 beer / day. Formerly worked at [employer]. Now retired. Laboratory Results Past 24 Hours 02/14/17 05:45 Test 02/14/17 05:45 Anion Gap 9.0 mmol/L (3-11) Est Creatinine Clear Calc Drug Dose 13.9 ml/min Estimated GFR () 16.2 Estimated GFR (Non- 14.0 BUN/Creatinine Ratio 24.5 (10-20) Calcium Level 7.2 mg/dl (8.5-10.1) Allergies Coded Allergies: No Known Allergies (Verified , 02/12/17) Medications Current Inpatient Medications Medications (Trade) Dose Ordered Sig/Paris Route Start Time Stop Time Status Last Admin Dose Admin Heparin Sodium (Porcine) (Heparin 10 Unit/ ml 5 ml Flush) 5 ml PRN PRN FLUSH 02/07/17 04:00 03/09/17 03:59 02/08/17 21:17 5 ML Diltiazem HCl (TIAzac CAP) 120 mg DAILY PO 02/07/17 09:00 03/09/17 08:59 02/14/17 10:04 120 MG Finasteride (Proscar Tab) 5 mg HS PO 02/07/17 21:00 03/09/17 20:59 02/13/17 20:30 5 MG Tamsulosin HCl (Flomax Cap) 0.4 mg BID PO 02/07/17 09:00 03/09/17 08:59 02/14/17 10:03 0.4 MG Hydralazine HCl (HydrALAZINE INJ) 10 mg Q4H PRN IV 02/07/17 09:00 03/09/17 08:59 Formoterol Fumarate (Perforomist 20MCG/2ML Neb Soln) 20 mcg BID INH 02/07/17 09:00 03/09/17 08:59 02/14/17 07:03 20 MCG Albuterol/ Ipratropium (Duoneb) 3 ml QIDR INH 02/07/17 12:00 03/09/17 11:59 02/13/17 19:43 3 ML Guaifenesin (Mucinex Contr Rel Tab) 600 mg Q12 PO 02/07/17 09:00 03/09/17 08:59 02/14/17 10:03 600 MG Enteral Nutritional Formula (Boost Breeze Nutritional Drink) 1 box BIDM PO 02/07/17 16:45 03/09/17 16:44 02/11/17 07:30 1 BOX Cephalexin Monohydrate (Keflex Cap) 250 mg DAILY PO 02/09/17 16:00 02/15/17 15:59 02/14/17 10:03 250 MG Acetaminophen (Tylenol Tab) 1,000 mg Q8 PRN PO 02/10/17 13:00 03/12/17 12:59 02/11/17 01:58 1,000 MG Vancomycin HCl (Vancomycin Oral Soln) 125 mg QID PO 02/11/17 13:00 02/25/17 12:59 02/14/17 10:03 125 MG Raspberry (Raspberry Syrup 5ml Cup) 5 ml QID PO 02/11/17 13:00 02/25/17 12:59 02/14/17 10:03 5 ML Prednisone (PredniSONE TAB) 60 mg DAILY PO 02/13/17 09:00 03/15/17 08:59 02/14/17 10:04 60 MG Pantoprazole Sodium (Protonix Tab) 40 mg BID PO 02/12/17 21:00 02/16/17 20:59 02/14/17 10:03 40 MG Morphine Sulfate (MoRPHine SULFATE INJ) 2 mg Q4H PRN IV 02/12/17 22:30 02/26/17 22:29 Impression (1) GI bleed (2) Hypotension (3) MY (acute kidney injury) (4) Chronic kidney disease (CKD) stage G3b/A1, moderately decreased glomerular filtration rate (GFR) between 30-44 mL/min/1.73 square meter and albuminuria creatinine ratio less than 30 mg/g (5) COPD exacerbation (6) History of ASCVD (7) PVD (peripheral vascular disease) (8) Prostate CA (9) Cachexia Recommendations ACUTE KIDNEY INJURY: -- Suspect ATN related to hemodynamic instability & anemia in the setting of DAVID inhibitor therapy -- Kidney recovery has stalled following removal of rapp catheter. Electrolyte balance is acceptable. No acute indication for HD at this time. Continue supportive care. -- Recommend that patient demonstrate ability to perform C.I.C prior to hospital discharge -- Ideally patient should remain hospitalized until serum creatinine clearly trending down (creatinine < 2.5). Question whether he will keep outpatient follow up appointments CHRONIC KIDNEY DISEASE: -- Baseline creatinine has been ~ 1.8 HYPERTENSION: -- Now on Diltiazem & Hydralazine. Blood pressure is acceptable -- Hold antihypertensives for SBP < 100 ANEMIA: -- EGD results reviewed. 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 This was discussed in detail w/ patient this am and in hospital ENT evaluation recommended. Patient voiced understanding. COPD: -- Improved. Continue nebulizer and steroid therapy ID: -- On po Vancomycin for C. Difficile colitis -- Patient has completed 8 days Keflex therapy for UTI. Recommend d/c Keflex
--- NOTE | 2017-02-14 11:55 | GASTROENTEROLOGY PROGRESS NOTE ---
DATE: 02/14/2017 DATE: 02/14/2017 The patient had biopsies from his left posterior pharynx during his EGD for evaluation of anemia, no source of blood loss was found, although there was a small blood found in the stomach. There was a mass in the left posterior pharynx, which was biopsied. It just showed nondiagnostic material including keratinaceous material, mucus and sheets of fungal spores. ENT was consulted and recommended an outpatient evaluation in our office to be performed after discharge. At this point, the patient is in the process of working on discharge plans. It is likely that he will go home with some home help and once he is home arrangements can be made for him to follow up with ENT as an outpatient. Should he have any signs of overt GI bleeding a repeat endoscopy may be considered.
--- NOTE | 2017-02-14 15:58 | Progress Note ---
Subjective Date of Service: Feb 14, 2017. Subjective pt continues to maintain that he wants to go home, previous PT/OT evaluation recommended rehab, pt is agreeable to rehab and case management is working on the authorization the pt himself, besides feeling weak has no additional complaints Problem List Medical Problems: (1) Acute urinary retention Status: Acute (2) MY (acute kidney injury) Status: Acute (3) GI bleed Status: Acute (4) Hyperkalemia Status: Acute (5) Hypotension Status: Acute (6) Symptomatic anemia Status: Acute (7) UTI (urinary tract infection) Status: Acute (8) UTI (urinary tract infection) Status: Acute Review of Systems Constitutional: + weakness, + fatigue, No fever, No chills Respiratory: + dyspnea on exertion, No cough, No shortness of breath Cardiac: No chest pain, No edema, No claudication Abdomen: No pain, No nausea, No vomiting Musculoskeletal: No joint pain, No muscle pain Male : No dysuria, No urinary frequency Neurologic: + weakness, No memory loss, No paralysis Psychiatric: + depression symptoms, No anhedonism Objective Vital Signs Date Time Temp Pulse Resp B/P (MAP) Pulse Ox O2 Delivery O2 Flow Rate FiO2 02/14/17 15:47 36.6 57 20 157/70 (99) 92 Room Air 02/14/17 15:45 57 18 93 Room Air 02/14/17 12:00 Room Air 02/14/17 11:58 36.5 70 20 168/66 (100) 94 Room Air 02/14/17 11:15 63 18 95 Room Air 02/14/17 08:06 36.5 61 20 175/72 (106) 96 Room Air 02/14/17 08:00 Room Air 02/14/17 07:04 61 18 94 Room Air 02/14/17 05:01 Room Air 02/14/17 04:15 92 Room Air 02/14/17 03:45 36.5 57 23 164/69 (100) 89 Room Air 02/14/17 00:00 Room Air 02/13/17 23:25 36.5 64 24 160/73 (102) 94 Room Air 02/13/17 20:09 36.5 60 14 170/71 (104) 93 Room Air 02/13/17 20:00 Room Air 02/13/17 19:43 77 20 Room Air 02/13/17 16:00 Room Air Physical Exam General Appearance: + mild distress, + thin Eyes: normal inspection, sclerae normal Respiratory/Chest: chest non-tender, + decreased breath sounds, + rhonchi Cardiovascular: regular rate, rhythm, no murmur Abdomen: normal bowel sounds, non tender, soft Extremities: no pedal edema, no calf tenderness Neurologic/Psychiatric: alert, oriented x 3 Skin: normal color, warm/dry Laboratory Results Last 24 Hours Test 02/14/17 05:45 Sodium Level 141 mmol/L Potassium Level 3.7 mmol/L Chloride Level 109 mmol/L Carbon Dioxide Level 22 mmol/L Anion Gap 9.0 mmol/L Blood Urea Nitrogen 95 mg/dl Creatinine 3.86 mg/dl Est Creatinine Clear Calc Drug Dose 13.9 ml/min Estimated GFR () 16.2 Estimated GFR (Non- 14.0 BUN/Creatinine Ratio 24.5 Random Glucose 110 mg/dl Calcium Level 7.2 mg/dl Assessment and Plan 76 M with hemorrhagic shock, acute renal failure from atn, and newly discovered pharyngeal mass Pharyngeal mass - f/u ENT op, final pathology is no confirmatory, sheets of fungal elements seen started on nystatin 02/14 Severe anemia due to GI Bleed - s/p transfusion of 4 units prbcs - d/c ppi in light of EGD results which did not find a gastric source of bleeding -Hgb has been stable Acute renal failure in setting of CKD stage 4 - baseline creatinine is 1.8 - consulted nephrology -continue to avoid nephrotoxins, Cr is remaining up Coag negative staph UTI pt does self cath so concern was poa - Keflex - last dose 02/15 - nursing attempted teaching on sterile technique for self cath but patient was not receptive to it. Acute hypoxic respiratory failure 2nd to COPD exacerbation - improving oral prednisone nebs. 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 BPH flomax. intermittent straight caths at home DVT proph - SCDs; chemical proph contraindicated due to GI bleed due to pharyngeal mass, palliative care discussion was had, pt is considering palliative care direction, however the pt is not as sure in his decision Continued [facility] stay due to: inadequate po fluid intake, voiding difficulties, ambulation difficulties, multiple IV medications needed Discharge planning: uncertain
[2017-02-14] MEDS: NYSTATIN SUSP 500,000 U/5 ML UDC PO SCH ×2 (17:00→20:31)
[2017-02-14] MEDS: FINASTERIDE 5 MG TAB PO SCH (20:32)
[2017-02-15] VITALS (7 sets, daily range): BP systolic 155–183; BP diastolic 63–69; PULSE 59–111; TEMP 36.4–36.6; O2SAT 91–97
[2017-02-15] MEDS ORDERED: GUAIFENESIN SUGAR FREE 100 MG/5 ML UDC PO STA (02:12)
[2017-02-15] MEDS ORDERED: GUAIFENESIN SUGAR FREE 100 MG/5 ML UDC PO PRN (02:15)
[2017-02-15] MEDS: ACETAMINOPHEN 500 MG TAB PO PRN (02:28)
[2017-02-15 06:42] LABS: HEMATOCRIT 25.6 % (42-52); HEMOGLOBIN 7.9 g/dL (14.0-18.0); MEAN CELL VOLUME 84.8 fL (80-100); MEAN CORPUSCULAR HEMOGLOBIN 26.2 pg (25-34); MEAN CORPUSCULAR HGB CONC 30.9 g/dl (32-36); MEAN PLATELET VOLUME 10.7 fL (7.4-10.4); NUCLEATED RED BLOOD CELL ABS 0.03 K/uL (0-0); PLATELET COUNT 314 K/uL (130-400); RED CELL DISTRIBUTION WIDTH CV 17.3 % (11.5-14.5); RED CELL DISTRIBUTION WIDTH SD 54.6 fL (36.4-46.3); WHITE BLOOD COUNT 21.59 K/uL (4.8-10.8)
[2017-02-15] MEDS: ALBUT/IPRATROP 3MG/0.5MG NEB 3 ML VIAL INH SCH ×4 (07:05→20:00)
[2017-02-15] MEDS: FORMOTEROL FUMA NEBULIZER SOLN 20 MCG/2 ML VIAL INH SCH ×2 (07:05→20:34)
[2017-02-15 07:14] LABS: CALCIUM 7.3 mg/dl (8.5-10.1); CREATININE 3.66 mg/dl (0.60-1.40); POTASSIUM 3.7 mmol/L (3.5-5.1)
[2017-02-15] MEDS: BOOST BREEZE NUTRITION DRINK 1 BOX PO SCH ×2 (08:00→16:46)
[2017-02-15] MEDS: TAMSULOSIN HCL 0.4 MG CAP PO SCH ×2 (08:07→19:58)
[2017-02-15] MEDS: DILTIAZEM HCL 120 MG EXT REL CAP PO SCH (08:07)
[2017-02-15] MEDS: PANTOprazole SOD 40 MG TAB PO SCH ×2 (08:08→19:59)
[2017-02-15] MEDS: GUAIFENESIN 600 MG TABCR PO SCH ×2 (08:08→19:59)
[2017-02-15] MEDS: CEPHALEXIN MONOHYDRATE 250 MG CAP PO SCH (08:08)
[2017-02-15] MEDS: NYSTATIN SUSP 500,000 U/5 ML UDC PO SCH ×4 (08:08→19:58)
[2017-02-15] MEDS: RASPBERRY SYRUP 5 ML UDP PO SCH ×4 (08:09→19:57)
[2017-02-15] MEDS: VANCOMYCIN HCL 125 MG/2.5ML SOLN PO SCH ×4 (08:09→19:55)
--- NOTE | 2017-02-15 10:12 | Nephrology Progress Note ---
Nephrology Progress Note Date of Service Feb 15, 2017. Chief Complaint Evaluation of acute on chronic kidney disease Subjective Mr. Thurman was seen & examined in his hospital room this morning. He reports continued diarrhea but denies fever or abdominal pain. Review of Systems Constitutional: No fever Cardiovascular: No chest pain Respiratory: No dyspnea at rest Abdomen: + diarrhea, No pain, No nausea Extremities: No leg edema A complete review of systems was performed. Pertinent positives are noted above. All other systems are negative. Vital Signs Last 8 Hrs Date Time Temp Pulse Resp B/P (MAP) Pulse Ox O2 Delivery O2 Flow Rate FiO2 02/15/17 08:00 Room Air 02/15/17 07:14 36.4 111 20 183/69 (107) 97 Room Air 02/15/17 07:05 60 18 94 Room Air 02/15/17 04:05 Room Air Last Recorded Weight Weight (Kilograms): 71.900 Physical Exam General Appearance: no apparent distress, + cachetic (frail appearing) Eyes: PERRL, EOMI Neck: no adenopathy Respiratory/Chest: lungs clear, no respiratory distress Cardiovascular: regular rate, rhythm Abdomen/GI: normal bowel sounds, non tender, soft Extremities/Musculoskelatal: no calf tenderness, no pedal edema Neurologic/Psych: alert Family History Negative for CKD / ESRD Social History Smoking Status: Current every day smoker Drug Use: none Marital Status: Occupation: retired . No children. Current smoker (1 ppd since age 13). Drinks 3 beer / day. Formerly worked at [employer]. Now retired. Laboratory Results Past 24 Hours 02/15/17 06:23 02/15/17 06:23 Test 02/15/17 06:23 Red Blood Count 3.02 M/uL (4.7-6.1) Mean Corpuscular Volume 84.8 fL (80-100) Mean Corpuscular Hemoglobin 26.2 pg (25-34) Mean Corpuscular Hemoglobin Concent 30.9 g/dl (32-36) RDW Standard Deviation 54.6 fL (36.4-46.3) RDW Coefficient of Variation 17.3 % (11.5-14.5) Mean Platelet Volume 10.7 fL (7.4-10.4) Nucleated RBC Absolute Count (auto) 0.03 K/uL (0-0) Nucleated Red Blood Cells % 0.2 % Anion Gap 6.0 mmol/L (3-11) Est Creatinine Clear Calc Drug Dose 16.9 ml/min Estimated GFR () 17.3 Estimated GFR (Non- 15.0 BUN/Creatinine Ratio 24.3 (10-20) Calcium Level 7.3 mg/dl (8.5-10.1) Allergies Coded Allergies: No Known Allergies (Verified , 02/12/17) Medications Current Inpatient Medications Medications (Trade) Dose Ordered Sig/Paris Route Start Time Stop Time Status Last Admin Dose Admin Heparin Sodium (Porcine) (Heparin 10 Unit/ ml 5 ml Flush) 5 ml PRN PRN FLUSH 02/07/17 04:00 03/09/17 03:59 02/08/17 21:17 5 ML Diltiazem HCl (TIAzac CAP) 120 mg DAILY PO 02/07/17 09:00 03/09/17 08:59 02/15/17 08:07 120 MG Finasteride (Proscar Tab) 5 mg HS PO 02/07/17 21:00 03/09/17 20:59 02/14/17 20:32 5 MG Tamsulosin HCl (Flomax Cap) 0.4 mg BID PO 02/07/17 09:00 03/09/17 08:59 02/15/17 08:07 0.4 MG Hydralazine HCl (HydrALAZINE INJ) 10 mg Q4H PRN IV 02/07/17 09:00 03/09/17 08:59 Formoterol Fumarate (Perforomist 20MCG/2ML Neb Soln) 20 mcg BID INH 02/07/17 09:00 03/09/17 08:59 02/15/17 07:05 20 MCG Albuterol/ Ipratropium (Duoneb) 3 ml QIDR INH 02/07/17 12:00 03/09/17 11:59 02/14/17 15:36 3 ML Guaifenesin (Mucinex Contr Rel Tab) 600 mg Q12 PO 02/07/17 09:00 03/09/17 08:59 02/15/17 08:08 600 MG Enteral Nutritional Formula (Boost Breeze Nutritional Drink) 1 box BIDM PO 02/07/17 16:45 03/09/17 16:44 02/11/17 07:30 1 BOX Cephalexin Monohydrate (Keflex Cap) 250 mg DAILY PO 02/09/17 16:00 02/15/17 15:59 02/15/17 08:08 250 MG Acetaminophen (Tylenol Tab) 1,000 mg Q8 PRN PO 02/10/17 13:00 03/12/17 12:59 02/15/17 02:28 1,000 MG Vancomycin HCl (Vancomycin Oral Soln) 125 mg QID PO 02/11/17 13:00 02/25/17 12:59 02/15/17 08:09 125 MG Raspberry (Raspberry Syrup 5ml Cup) 5 ml QID PO 02/11/17 13:00 02/25/17 12:59 02/15/17 08:09 5 ML Prednisone (PredniSONE TAB) 60 mg DAILY PO 02/13/17 09:00 03/15/17 08:59 02/15/17 08:08 60 MG Pantoprazole Sodium (Protonix Tab) 40 mg BID PO 02/12/17 21:00 02/16/17 20:59 02/15/17 08:08 40 MG Morphine Sulfate (MoRPHine SULFATE INJ) 2 mg Q4H PRN IV 02/12/17 22:30 02/26/17 22:29 Nystatin (Mycostatin Susp) 5 ml QID PO 02/14/17 17:00 03/16/17 16:59 02/15/17 08:08 5 ML Zolpidem Tartrate (Ambien Tab) 5 mg HS PRN PO 02/15/17 00:00 03/17/17 00:00 Impression (1) GI bleed (2) Hypotension (3) MY (acute kidney injury) (4) Chronic kidney disease (CKD) stage G3b/A1, moderately decreased glomerular filtration rate (GFR) between 30-44 mL/min/1.73 square meter and albuminuria creatinine ratio less than 30 mg/g (5) COPD exacerbation (6) History of ASCVD (7) PVD (peripheral vascular disease) (8) Prostate CA (9) Cachexia Recommendations ACUTE KIDNEY INJURY: -- Suspect ATN related to hemodynamic instability & anemia in the setting of DAVID inhibitor therapy -- Creatinine is slowly trending downward. Electrolyte balance is acceptable. No acute indication for HD at this time. Continue supportive care. -- Recommend that patient demonstrate ability to perform C.I.C prior to hospital discharge -- Ideally patient should remain hospitalized until serum creatinine clearly trending down (creatinine < 2.5). Question whether he will keep outpatient follow up appointments CHRONIC KIDNEY DISEASE: -- Baseline creatinine has been ~ 1.8 HYPERTENSION: -- Now on Diltiazem & Hydralazine. Blood pressure is acceptable -- Hold antihypertensives for SBP < 100 ANEMIA: -- EGD results reviewed. 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 He is scheduled for outpatient ENT evaluation -- Hgb is again trending downward. Recommend transfusion to maintain Hgb > 10 COPD: -- Improved. Continue nebulizer and steroid therapy ID: -- On po Vancomycin for C. Difficile colitis -- Patient has completed 9 days Keflex therapy for UTI. Recommend d/c Keflex
--- NOTE | 2017-02-15 12:19 | Progress Note ---
Subjective Date of Service: Feb 15, 2017. Subjective this pt is improving but still his excercise tolerance is not near what is needed to return to home, has little local support. Problem List Medical Problems: (1) Acute urinary retention Status: Acute (2) MY (acute kidney injury) Status: Acute (3) GI bleed Status: Acute (4) Hyperkalemia Status: Acute (5) Hypotension Status: Acute (6) Symptomatic anemia Status: Acute (7) UTI (urinary tract infection) Status: Acute (8) UTI (urinary tract infection) Status: Acute Review of Systems Constitutional: + weight loss, + weakness, + fatigue, No fever, No chills Respiratory: No cough, No shortness of breath, No dyspnea on exertion Cardiac: No chest pain, No PND, No edema Abdomen: No pain, No nausea, No vomiting Male : No dysuria, No urinary frequency Psychiatric: + depression symptoms, No anxiety Objective Vital Signs Date Time Temp Pulse Resp B/P (MAP) Pulse Ox O2 Delivery O2 Flow Rate FiO2 02/15/17 12:00 Room Air 02/15/17 11:11 61 18 93 Room Air 02/15/17 08:00 Room Air 02/15/17 07:14 36.4 111 20 183/69 (107) 97 Room Air 02/15/17 07:05 60 18 94 Room Air 02/15/17 04:05 Room Air 02/15/17 00:05 Room Air 02/14/17 23:20 36.5 66 18 161/62 (95) 94 Room Air 02/14/17 20:05 Room Air 02/14/17 19:38 56 18 90 Room Air 02/14/17 17:04 Room Air 02/14/17 15:47 36.6 57 20 157/70 (99) 92 Room Air 02/14/17 15:45 57 18 93 Room Air Physical Exam General Appearance: + mild distress, + thin Eyes: normal inspection, sclerae normal Neck: supple, no JVD Respiratory/Chest: + decreased breath sounds, + accessory muscle use Cardiovascular: regular rate, rhythm, no murmur Abdomen: normal bowel sounds, non tender, soft Extremities: no pedal edema, no calf tenderness Neurologic/Psychiatric: alert, oriented x 3 Laboratory Results Last 24 Hours Test 02/15/17 06:23 White Blood Count 21.59 K/uL Red Blood Count 3.02 M/uL Hemoglobin 7.9 g/dL Hematocrit 25.6 % Mean Corpuscular Volume 84.8 fL Mean Corpuscular Hemoglobin 26.2 pg Mean Corpuscular Hemoglobin Concent 30.9 g/dl RDW Standard Deviation 54.6 fL RDW Coefficient of Variation 17.3 % Platelet Count 314 K/uL Mean Platelet Volume 10.7 fL Nucleated RBC Absolute Count (auto) 0.03 K/uL Nucleated Red Blood Cells % 0.2 % Sodium Level 139 mmol/L Potassium Level 3.7 mmol/L Chloride Level 109 mmol/L Carbon Dioxide Level 24 mmol/L Anion Gap 6.0 mmol/L Blood Urea Nitrogen 89 mg/dl Creatinine 3.66 mg/dl Est Creatinine Clear Calc Drug Dose 16.9 ml/min Estimated GFR () 17.3 Estimated GFR (Non- 15.0 BUN/Creatinine Ratio 24.3 Random Glucose 105 mg/dl Calcium Level 7.3 mg/dl Assessment and Plan 76 M with hemorrhagic shock, acute renal failure from atn, and newly discovered pharyngeal mass, biopsy inconclusive Pharyngeal mass - f/u ENT op, final pathology is no confirmatory, sheets of fungal elements seen started on nystatin 02/14 Severe anemia due to GI Bleed - s/p transfusion of 4 units prbcs - d/c ppi in light of EGD results which did not find a gastric source of bleeding -Hgb slightly going down to 7.9 continue to follow Acute renal failure in setting of CKD stage 4 - baseline creatinine is 1.8 - consulted nephrology -continue to avoid nephrotoxins, Cr is remaining up with modest improvement 02/15 Coag negative staph UTI pt does self cath so concern was poa - Keflex - last dose 02/15 - nursing attempted teaching on sterile technique for self cath but patient was not receptive to it. Acute hypoxic respiratory failure 2nd to COPD exacerbation - improving oral prednisone; nebs. 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 BPH flomax. intermittent straight caths at home DVT proph - SCDs; chemical proph contraindicated due to GI bleed due to pharyngeal mass, palliative care discussion was had, pt is considering palliative care direction, however the pt is not as sure in his decision, all patient wants to do is go home Continued [facility] stay due to: inadequate po fluid intake, voiding difficulties, ambulation difficulties, multiple IV medications needed Discharge planning: uncertain
[2017-02-15 13:22] LABS: HEMATOCRIT 25.3 % (42-52)
[2017-02-15] MEDS: ZOLPIDEM TARTRATE 5 MG TAB PO PRN (19:55)
[2017-02-15] MEDS: FINASTERIDE 5 MG TAB PO SCH (19:58)
[2017-02-16] VITALS (7 sets, daily range): BP systolic 126–174; BP diastolic 63–80; PULSE 61–89; TEMP 36.4; O2SAT 92–96
[2017-02-16 06:25] LABS: CALCIUM 7.4 mg/dl (8.5-10.1); CREATININE 3.7 mg/dl (0.60-1.40); POTASSIUM 3.8 mmol/L (3.5-5.1)
[2017-02-16] MEDS: ALBUT/IPRATROP 3MG/0.5MG NEB 3 ML VIAL INH SCH ×4 (07:18→20:00)
[2017-02-16] MEDS: FORMOTEROL FUMA NEBULIZER SOLN 20 MCG/2 ML VIAL INH SCH ×2 (07:18→20:04)
[2017-02-16] MEDS: BOOST BREEZE NUTRITION DRINK 1 BOX PO SCH ×2 (08:00→16:14)
[2017-02-16] MEDS: RASPBERRY SYRUP 5 ML UDP PO SCH ×4 (08:08→20:34)
[2017-02-16] MEDS: GUAIFENESIN 600 MG TABCR PO SCH ×2 (08:08→20:34)
[2017-02-16] MEDS: NYSTATIN SUSP 500,000 U/5 ML UDC PO SCH ×4 (08:08→20:35)
[2017-02-16] MEDS: PANTOprazole SOD 40 MG TAB PO SCH (08:08)
[2017-02-16] MEDS: VANCOMYCIN HCL 125 MG/2.5ML SOLN PO SCH ×4 (08:08→20:34)
[2017-02-16] MEDS: DILTIAZEM HCL 120 MG EXT REL CAP PO SCH (08:09)
[2017-02-16] MEDS: TAMSULOSIN HCL 0.4 MG CAP PO SCH ×2 (08:09→20:34)
--- NOTE | 2017-02-16 12:20 | Nephrology Progress Note ---
Nephrology Progress Note Date of Service Feb 16, 2017. Chief Complaint Acute renal insufficiency Subjective No acute events overnight. Appetite poor. No fevers or chills. Wade reports generalized weakness. He denies any evidence of active bleeding. He denies chest pain, palpitations or shortness of breath. No dysuria or frequency. No urinary hesitancy. Occasional incontinence reported. Review of Systems A complete review of systems was performed. Pertinent positives are noted above. All other systems are negative. Vital Signs Last 8 Hrs Date Time Temp Pulse Resp B/P (MAP) Pulse Ox O2 Delivery O2 Flow Rate FiO2 02/16/17 11:17 80 18 96 Room Air 02/16/17 08:00 Room Air 02/16/17 07:20 36.4 67 20 174/80 (111) 92 Room Air 02/16/17 07:18 61 18 92 Room Air Last Recorded Weight Weight (Kilograms): 61.200 Physical Exam General Appearance: no apparent distress, + thin Head: normocephalic, atraumatic Eyes: normal inspection, sclerae normal ENT: normal ENT inspection, + pertinent finding (oral mucosa dry) Neck: supple, + JVD Respiratory/Chest: lungs clear, no respiratory distress, + decreased breath sounds Cardiovascular: regular rate, rhythm, no gallop Abdomen/GI: non tender, soft Extremities/Musculoskelatal: normal inspection, no pedal edema Neurologic/Psych: alert, normal mood/affect Family History Negative for CKD / ESRD Social History Smoking Status: Current every day smoker Drug Use: none Marital Status: Occupation: retired . No children. Current smoker (1 ppd since age 13). Drinks 3 beer / day. Formerly worked at [email or web address]. Now retired. Laboratory Results Past 24 Hours 02/15/17 13:08 02/16/17 05:43 Test 02/16/17 05:43 Anion Gap 4.0 mmol/L (3-11) Est Creatinine Clear Calc Drug Dose 14.2 ml/min Estimated GFR () 17.1 Estimated GFR (Non- 14.8 BUN/Creatinine Ratio 22.7 (10-20) Calcium Level 7.4 mg/dl (8.5-10.1) Allergies Coded Allergies: No Known Allergies (Verified , 02/12/17) Medications Current Inpatient Medications Medications (Trade) Dose Ordered Sig/Paris Route Start Time Stop Time Status Last Admin Dose Admin Heparin Sodium (Porcine) (Heparin 10 Unit/ ml 5 ml Flush) 5 ml PRN PRN FLUSH 02/07/17 04:00 03/09/17 03:59 02/08/17 21:17 5 ML Diltiazem HCl (TIAzac CAP) 120 mg DAILY PO 02/07/17 09:00 03/09/17 08:59 02/16/17 08:09 120 MG Finasteride (Proscar Tab) 5 mg HS PO 02/07/17 21:00 03/09/17 20:59 02/15/17 19:58 5 MG Tamsulosin HCl (Flomax Cap) 0.4 mg BID PO 02/07/17 09:00 03/09/17 08:59 02/16/17 08:09 0.4 MG Hydralazine HCl (HydrALAZINE INJ) 10 mg Q4H PRN IV 02/07/17 09:00 03/09/17 08:59 Formoterol Fumarate (Perforomist 20MCG/2ML Neb Soln) 20 mcg BID INH 02/07/17 09:00 03/09/17 08:59 02/16/17 07:18 20 MCG Albuterol/ Ipratropium (Duoneb) 3 ml QIDR INH 02/07/17 12:00 03/09/17 11:59 02/16/17 11:17 3 ML Guaifenesin (Mucinex Contr Rel Tab) 600 mg Q12 PO 02/07/17 09:00 03/09/17 08:59 02/16/17 08:08 600 MG Enteral Nutritional Formula (Boost Breeze Nutritional Drink) 1 box BIDM PO 02/07/17 16:45 03/09/17 16:44 02/11/17 07:30 1 BOX Acetaminophen (Tylenol Tab) 1,000 mg Q8 PRN PO 02/10/17 13:00 03/12/17 12:59 02/15/17 02:28 1,000 MG Vancomycin HCl (Vancomycin Oral Soln) 125 mg QID PO 02/11/17 13:00 02/25/17 12:59 02/16/17 08:08 125 MG Raspberry (Raspberry Syrup 5ml Cup) 5 ml QID PO 02/11/17 13:00 02/25/17 12:59 02/16/17 08:08 5 ML Prednisone (PredniSONE TAB) 60 mg DAILY PO 02/13/17 09:00 03/15/17 08:59 02/16/17 08:08 60 MG Pantoprazole Sodium (Protonix Tab) 40 mg BID PO 02/12/17 21:00 02/16/17 20:59 02/16/17 08:08 40 MG Morphine Sulfate (MoRPHine SULFATE INJ) 2 mg Q4H PRN IV 02/12/17 22:30 02/26/17 22:29 Nystatin (Mycostatin Susp) 5 ml QID PO 02/14/17 17:00 03/16/17 16:59 02/16/17 08:08 5 ML Zolpidem Tartrate (Ambien Tab) 5 mg HS PRN PO 02/15/17 00:00 03/17/17 00:00 02/15/17 19:55 5 MG Impression (1) GI bleed (2) Hypotension (3) MY (acute kidney injury) (4) Chronic kidney disease (CKD) stage G3b/A1, moderately decreased glomerular filtration rate (GFR) between 30-44 mL/min/1.73 square meter and albuminuria creatinine ratio less than 30 mg/g (5) COPD exacerbation (6) History of ASCVD (7) PVD (peripheral vascular disease) (8) Prostate CA (9) Cachexia Recommendations ACUTE KIDNEY INJURY: -- Suspect ATN related to hemodynamic instability & anemia in the setting of DAVID inhibitor therapy -- Creatinine is slowly trending downward. Electrolyte balance is acceptable. No acute indication for HD at this time. Continue supportive care. -- Wade will need to demonstrate ability to perform C.I.C prior to hospital discharge -- We discussed concerns associated with his current renal impairment in detail today -- Wade acknowledged the risks of loss of renal function CHRONIC KIDNEY DISEASE: -- Baseline creatinine has been ~ 1.8 HYPERTENSION: -- Now on Diltiazem & Hydralazine. Blood pressure is acceptable -- Hold antihypertensives for SBP < 100 ANEMIA: -- EGD results reviewed. 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 He is scheduled for outpatient ENT evaluation -- Recommend transfusion to maintain Hgb > 10 COPD: -- Improved. Continue nebulizer and steroid therapy ID: -- On po Vancomycin for C. Difficile colitis -- Patient has completed 9 days Keflex therapy for UTI
[2017-02-16] MEDS: FINASTERIDE 5 MG TAB PO SCH (20:34)
[2017-02-16] MEDS: ZOLPIDEM TARTRATE 5 MG TAB PO PRN (20:34)
--- NOTE | 2017-02-16 23:22 | Progress Note ---
Subjective Date of Service: Feb 16, 2017. Subjective 76 m has no complaints today. Patient wants to go home. Problem List Medical Problems: (1) Acute urinary retention Status: Acute (2) MY (acute kidney injury) Status: Acute (3) GI bleed Status: Acute (4) Hyperkalemia Status: Acute (5) Hypotension Status: Acute (6) Symptomatic anemia Status: Acute (7) UTI (urinary tract infection) Status: Acute (8) UTI (urinary tract infection) Status: Acute Review of Systems Constitutional: No fever, No chills Respiratory: No cough, No sputum Cardiac: No chest pain Abdomen: No pain, No nausea Neurologic: No memory loss, No paralysis Heme: No abnormal bleeding/bruising Endo: No fatigue Skin: No rash All Other Systems: Reviewed and Negative Medications Current Inpatient Medications Medications (Trade) Dose Ordered Sig/Paris Route Start Time Stop Time Status Last Admin Dose Admin Heparin Sodium (Porcine) (Heparin 10 Unit/ ml 5 ml Flush) 5 ml PRN PRN FLUSH 02/07/17 04:00 03/09/17 03:59 02/08/17 21:17 5 ML Diltiazem HCl (TIAzac CAP) 120 mg DAILY PO 02/07/17 09:00 03/09/17 08:59 02/17/17 08:16 120 MG Finasteride (Proscar Tab) 5 mg HS PO 02/07/17 21:00 03/09/17 20:59 02/16/17 20:34 5 MG Tamsulosin HCl (Flomax Cap) 0.4 mg BID PO 02/07/17 09:00 03/09/17 08:59 02/17/17 08:15 0.4 MG Hydralazine HCl (HydrALAZINE INJ) 10 mg Q4H PRN IV 02/07/17 09:00 03/09/17 08:59 Formoterol Fumarate (Perforomist 20MCG/2ML Neb Soln) 20 mcg BID INH 02/07/17 09:00 03/09/17 08:59 02/17/17 07:42 20 MCG Albuterol/ Ipratropium (Duoneb) 3 ml QIDR INH 02/07/17 12:00 03/09/17 11:59 02/17/17 11:38 3 ML Guaifenesin (Mucinex Contr Rel Tab) 600 mg Q12 PO 02/07/17 09:00 03/09/17 08:59 02/17/17 08:15 600 MG Enteral Nutritional Formula (Boost Breeze Nutritional Drink) 1 box BIDM PO 02/07/17 16:45 03/09/17 16:44 02/11/17 07:30 1 BOX Acetaminophen (Tylenol Tab) 1,000 mg Q8 PRN PO 02/10/17 13:00 03/12/17 12:59 02/15/17 02:28 1,000 MG Vancomycin HCl (Vancomycin Oral Soln) 125 mg QID PO 02/11/17 13:00 02/25/17 12:59 02/17/17 08:16 125 MG Raspberry (Raspberry Syrup 5ml Cup) 5 ml QID PO 02/11/17 13:00 02/25/17 12:59 02/17/17 08:16 5 ML Prednisone (PredniSONE TAB) 60 mg DAILY PO 02/13/17 09:00 03/15/17 08:59 02/17/17 08:16 60 MG Morphine Sulfate (MoRPHine SULFATE INJ) 2 mg Q4H PRN IV 02/12/17 22:30 02/26/17 22:29 Nystatin (Mycostatin Susp) 5 ml QID PO 02/14/17 17:00 03/16/17 16:59 02/17/17 08:16 5 ML Zolpidem Tartrate (Ambien Tab) 5 mg HS PRN PO 02/15/17 00:00 03/17/17 00:00 02/16/17 20:34 5 MG Objective Vital Signs Date Time Temp Pulse Resp B/P (MAP) Pulse Ox O2 Delivery O2 Flow Rate FiO2 02/16/17 20:04 82 18 94 Room Air 02/16/17 17:30 36.4 88 18 150/65 (93) 93 Room Air 02/16/17 16:00 Room Air 02/16/17 15:41 36.4 89 16 126/63 (84) 94 Room Air 02/16/17 15:31 74 18 94 Room Air 02/16/17 11:17 80 18 96 Room Air 02/16/17 08:00 Room Air 02/16/17 07:20 36.4 67 20 174/80 (111) 92 Room Air 02/16/17 07:18 61 18 92 Room Air 02/16/17 00:05 Room Air Physical Exam Comments: General Appearance: No distress + thin Eyes: normal inspection, sclerae normal Neck: supple, no JVD Respiratory/Chest: + decreased breath sounds, + accessory muscle use Cardiovascular: regular rate, rhythm, no murmur Abdomen: normal bowel sounds, non tender, soft Extremities: no pedal edema, no calf tenderness Neurologic/Psychiatric: alert, oriented x 3 Laboratory Results Last 24 Hours Test 02/16/17 05:43 Sodium Level 139 mmol/L Potassium Level 3.8 mmol/L Chloride Level 110 mmol/L Carbon Dioxide Level 25 mmol/L Anion Gap 4.0 mmol/L Blood Urea Nitrogen 84 mg/dl Creatinine 3.70 mg/dl Est Creatinine Clear Calc Drug Dose 14.2 ml/min Estimated GFR () 17.1 Estimated GFR (Non- 14.8 BUN/Creatinine Ratio 22.7 Random Glucose 113 mg/dl Calcium Level 7.4 mg/dl Assessment and Plan 76 M with hemorrhagic shock, acute renal failure from atn, and newly discovered pharyngeal mass, biopsy inconclusive Pharyngeal mass no change in management - f/u ENT op, final pathology is no confirmatory, sheets of fungal elements seen started on nystatin 02/14 Severe anemia due to GI Bleed - s/p transfusion of 4 units prbcs -Has not needed transfusions since the - d/c ppi in light of EGD results which did not find a gastric source of bleeding -Hgb stable. is Acute renal failure in setting of CKD stage 4 - baseline creatinine is 1.8 -gradually improving but still elevated - consulted nephrology -continue to avoid nephrotoxins, Cr is remaining up with modest improvement 02/15 Coag negative staph UTI pt does self cath so concern was poa - Keflex - last dose 02/15 - nursing attempted teaching on sterile technique for self cath but patient was not receptive to it. Acute hypoxic respiratory failure 2nd to COPD exacerbation - improving oral prednisone; nebs. 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 BPH flomax. intermittent straight caths at home DVT proph - SCDs; chemical proph contraindicated due to GI bleed Disposition has not changed: due to pharyngeal mass, palliative care discussion was had, pt is considering palliative care direction, however the pt is not as sure in his decision, all patient wants to do is go home Continued [facility] stay due to: inadequate po fluid intake, voiding difficulties, ambulation difficulties, multiple IV medications needed Discharge planning: uncertain
[2017-02-17] VITALS (8 sets, daily range): BP systolic 117–142; BP diastolic 60–71; PULSE 64–89; TEMP 36.4–36.7; O2SAT 92–96
[2017-02-17 07:27] LABS: HEMATOCRIT 28.4 % (42-52); HEMOGLOBIN 8.9 g/dL (14.0-18.0); MEAN CELL VOLUME 84.5 fL (80-100); MEAN CORPUSCULAR HEMOGLOBIN 26.5 pg (25-34); MEAN CORPUSCULAR HGB CONC 31.3 g/dl (32-36); MEAN PLATELET VOLUME 11.4 fL (7.4-10.4); PLATELET COUNT 357 K/uL (130-400); RED CELL DISTRIBUTION WIDTH CV 17.8 % (11.5-14.5); RED CELL DISTRIBUTION WIDTH SD 55.4 fL (36.4-46.3)
[2017-02-17 07:36] LABS: CALCIUM 7.6 mg/dl (8.5-10.1); CREATININE 3.53 mg/dl (0.60-1.40); POTASSIUM 3.9 mmol/L (3.5-5.1)
[2017-02-17] MEDS: ALBUT/IPRATROP 3MG/0.5MG NEB 3 ML VIAL INH SCH ×4 (07:42→19:31)
[2017-02-17] MEDS: FORMOTEROL FUMA NEBULIZER SOLN 20 MCG/2 ML VIAL INH SCH ×2 (07:42→19:31)
[2017-02-17] MEDS: GUAIFENESIN 600 MG TABCR PO SCH ×2 (08:15→22:15)
[2017-02-17] MEDS: TAMSULOSIN HCL 0.4 MG CAP PO SCH ×2 (08:15→21:19)
[2017-02-17] MEDS: VANCOMYCIN HCL 125 MG/2.5ML SOLN PO SCH ×4 (08:16→21:17)
[2017-02-17] MEDS: DILTIAZEM HCL 120 MG EXT REL CAP PO SCH (08:16)
[2017-02-17] MEDS: NYSTATIN SUSP 500,000 U/5 ML UDC PO SCH ×4 (08:16→21:19)
[2017-02-17] MEDS: RASPBERRY SYRUP 5 ML UDP PO SCH ×4 (08:16→21:18)
--- NOTE | 2017-02-17 10:29 | Nephrology Progress Note ---
Nephrology Progress Note Date of Service Feb 17, 2017. Chief Complaint Acute renal insufficiency Subjective No acute events overnight. Wade feels well. He denies fevers or chills. No diarrhea. No abdominal pain. Appetite reported as good. Performing CIC 3-4 times daily without complications. Review of Systems A complete review of systems was performed. Pertinent positives are noted above. All other systems are negative. Vital Signs Last 8 Hrs Date Time Temp Pulse Resp B/P (MAP) Pulse Ox O2 Delivery O2 Flow Rate FiO2 02/17/17 07:42 82 18 96 Room Air 02/17/17 07:24 36.4 64 20 142/69 (93) 93 Room Air I & O 24-Hour Column 02/18/17 08:00 Output Total 900 ml Balance -900 ml Last Recorded Weight Weight (Kilograms): 61.200 Physical Exam General Appearance: + thin, + pertinent finding (chronically ill appearing) Head: normocephalic, atraumatic Eyes: normal inspection, sclerae normal ENT: normal ENT inspection, pharynx normal Neck: supple Respiratory/Chest: lungs clear, no respiratory distress, no accessory muscle use Cardiovascular: regular rate, rhythm, no gallop Abdomen/GI: non tender, soft Extremities/Musculoskelatal: normal inspection, no pedal edema Neurologic/Psych: alert, normal mood/affect Family History Negative for CKD / ESRD Social History Smoking Status: Current every day smoker Drug Use: none Marital Status: Occupation: retired . No children. Current smoker (1 ppd since age 13). Drinks 3 beer / day. Formerly worked at local [employer]. Now retired. Laboratory Results Past 24 Hours 02/17/17 06:45 02/17/17 06:45 Test 02/17/17 06:45 Red Blood Count 3.36 M/uL (4.7-6.1) Mean Corpuscular Volume 84.5 fL (80-100) Mean Corpuscular Hemoglobin 26.5 pg (25-34) Mean Corpuscular Hemoglobin Concent 31.3 g/dl (32-36) RDW Standard Deviation 55.4 fL (36.4-46.3) RDW Coefficient of Variation 17.8 % (11.5-14.5) Mean Platelet Volume 11.4 fL (7.4-10.4) Anion Gap 7.0 mmol/L (3-11) Est Creatinine Clear Calc Drug Dose 14.9 ml/min Estimated GFR () 18.1 Estimated GFR (Non- 15.6 BUN/Creatinine Ratio 23.9 (10-20) Calcium Level 7.6 mg/dl (8.5-10.1) Allergies Coded Allergies: No Known Allergies (Verified , 02/12/17) Medications Current Inpatient Medications Medications (Trade) Dose Ordered Sig/Paris Route Start Time Stop Time Status Last Admin Dose Admin Heparin Sodium (Porcine) (Heparin 10 Unit/ ml 5 ml Flush) 5 ml PRN PRN FLUSH 02/07/17 04:00 03/09/17 03:59 02/08/17 21:17 5 ML Diltiazem HCl (TIAzac CAP) 120 mg DAILY PO 02/07/17 09:00 03/09/17 08:59 02/17/17 08:16 120 MG Finasteride (Proscar Tab) 5 mg HS PO 02/07/17 21:00 03/09/17 20:59 02/16/17 20:34 5 MG Tamsulosin HCl (Flomax Cap) 0.4 mg BID PO 02/07/17 09:00 03/09/17 08:59 02/17/17 08:15 0.4 MG Hydralazine HCl (HydrALAZINE INJ) 10 mg Q4H PRN IV 02/07/17 09:00 03/09/17 08:59 Formoterol Fumarate (Perforomist 20MCG/2ML Neb Soln) 20 mcg BID INH 02/07/17 09:00 03/09/17 08:59 02/17/17 07:42 20 MCG Albuterol/ Ipratropium (Duoneb) 3 ml QIDR INH 02/07/17 12:00 03/09/17 11:59 02/17/17 07:42 3 ML Guaifenesin (Mucinex Contr Rel Tab) 600 mg Q12 PO 02/07/17 09:00 03/09/17 08:59 02/17/17 08:15 600 MG Enteral Nutritional Formula (Boost Breeze Nutritional Drink) 1 box BIDM PO 02/07/17 16:45 03/09/17 16:44 02/11/17 07:30 1 BOX Acetaminophen (Tylenol Tab) 1,000 mg Q8 PRN PO 02/10/17 13:00 03/12/17 12:59 02/15/17 02:28 1,000 MG Vancomycin HCl (Vancomycin Oral Soln) 125 mg QID PO 02/11/17 13:00 02/25/17 12:59 02/17/17 08:16 125 MG Raspberry (Raspberry Syrup 5ml Cup) 5 ml QID PO 02/11/17 13:00 02/25/17 12:59 02/17/17 08:16 5 ML Prednisone (PredniSONE TAB) 60 mg DAILY PO 02/13/17 09:00 03/15/17 08:59 02/17/17 08:16 60 MG Morphine Sulfate (MoRPHine SULFATE INJ) 2 mg Q4H PRN IV 02/12/17 22:30 02/26/17 22:29 Nystatin (Mycostatin Susp) 5 ml QID PO 02/14/17 17:00 03/16/17 16:59 02/17/17 08:16 5 ML Zolpidem Tartrate (Ambien Tab) 5 mg HS PRN PO 02/15/17 00:00 03/17/17 00:00 02/16/17 20:34 5 MG Impression (1) GI bleed (2) Hypotension (3) MY (acute kidney injury) (4) Chronic kidney disease (CKD) stage G3b/A1, moderately decreased glomerular filtration rate (GFR) between 30-44 mL/min/1.73 square meter and albuminuria creatinine ratio less than 30 mg/g (5) COPD exacerbation (6) History of ASCVD (7) PVD (peripheral vascular disease) (8) Prostate CA (9) Cachexia Recommendations ACUTE KIDNEY INJURY: -- ATN related to hemodynamic instability & anemia in the setting of DAVID inhibitor therapy -- Creatinine is stable. Electrolyte balance is acceptable. No acute indication for HD at this time. Continue supportive care. 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 He is scheduled for outpatient ENT evaluation -- Recommend transfusion to maintain Hgb > 10 ID: -- On po Vancomycin for C. Difficile colitis -- Patient has completed 9 days Keflex therapy for UTI -- Leukocytosis persists
[2017-02-17] MEDS: BOOST BREEZE NUTRITION DRINK 1 BOX PO SCH ×2 (12:10→16:30)
--- NOTE | 2017-02-17 12:19 | Progress Note ---
Subjective Date of Service: Feb 17, 2017. Subjective Pt evaluation today including: conversation w/ patient, physical exam 76 yo male who feels ok. Patient will like to go home. Problem List Medical Problems: (1) Acute urinary retention Status: Acute (2) MY (acute kidney injury) Status: Acute (3) GI bleed Status: Acute (4) Hyperkalemia Status: Acute (5) Hypotension Status: Acute (6) Symptomatic anemia Status: Acute (7) UTI (urinary tract infection) Status: Acute (8) UTI (urinary tract infection) Status: Acute Review of Systems Constitutional: No fever, No chills Respiratory: No cough, No sputum Cardiac: No chest pain Abdomen: No nausea Neurologic: No memory loss, No paralysis Heme: No abnormal bleeding/bruising Endo: No fatigue Skin: No rash, No itch All Other Systems: Reviewed and Negative Medications Current Inpatient Medications Medications (Trade) Dose Ordered Sig/Paris Route Start Time Stop Time Status Last Admin Dose Admin Heparin Sodium (Porcine) (Heparin 10 Unit/ ml 5 ml Flush) 5 ml PRN PRN FLUSH 02/07/17 04:00 03/09/17 03:59 02/08/17 21:17 5 ML Diltiazem HCl (TIAzac CAP) 120 mg DAILY PO 02/07/17 09:00 03/09/17 08:59 02/17/17 08:16 120 MG Finasteride (Proscar Tab) 5 mg HS PO 02/07/17 21:00 03/09/17 20:59 02/16/17 20:34 5 MG Tamsulosin HCl (Flomax Cap) 0.4 mg BID PO 02/07/17 09:00 03/09/17 08:59 02/17/17 08:15 0.4 MG Hydralazine HCl (HydrALAZINE INJ) 10 mg Q4H PRN IV 02/07/17 09:00 03/09/17 08:59 Formoterol Fumarate (Perforomist 20MCG/2ML Neb Soln) 20 mcg BID INH 02/07/17 09:00 03/09/17 08:59 02/17/17 07:42 20 MCG Albuterol/ Ipratropium (Duoneb) 3 ml QIDR INH 02/07/17 12:00 03/09/17 11:59 02/17/17 11:38 3 ML Guaifenesin (Mucinex Contr Rel Tab) 600 mg Q12 PO 02/07/17 09:00 03/09/17 08:59 02/17/17 08:15 600 MG Enteral Nutritional Formula (Boost Breeze Nutritional Drink) 1 box BIDM PO 02/07/17 16:45 03/09/17 16:44 02/17/17 12:10 1 BOX Acetaminophen (Tylenol Tab) 1,000 mg Q8 PRN PO 02/10/17 13:00 03/12/17 12:59 02/15/17 02:28 1,000 MG Vancomycin HCl (Vancomycin Oral Soln) 125 mg QID PO 02/11/17 13:00 02/25/17 12:59 02/17/17 12:10 125 MG Raspberry (Raspberry Syrup 5ml Cup) 5 ml QID PO 02/11/17 13:00 02/25/17 12:59 02/17/17 12:10 5 ML Prednisone (PredniSONE TAB) 60 mg DAILY PO 02/13/17 09:00 03/15/17 08:59 02/17/17 08:16 60 MG Morphine Sulfate (MoRPHine SULFATE INJ) 2 mg Q4H PRN IV 02/12/17 22:30 02/26/17 22:29 Nystatin (Mycostatin Susp) 5 ml QID PO 02/14/17 17:00 03/16/17 16:59 02/17/17 12:10 5 ML Zolpidem Tartrate (Ambien Tab) 5 mg HS PRN PO 02/15/17 00:00 03/17/17 00:00 02/16/17 20:34 5 MG Objective Vital Signs Date Time Temp Pulse Resp B/P (MAP) Pulse Ox O2 Delivery O2 Flow Rate FiO2 02/17/17 11:37 84 18 93 Room Air 02/17/17 10:59 Room Air 02/17/17 07:42 82 18 96 Room Air 02/17/17 07:24 36.4 64 20 142/69 (93) 93 Room Air 02/17/17 00:11 36.7 85 20 134/65 (88) 93 Room Air 02/17/17 00:00 Room Air 02/16/17 20:04 82 18 94 Room Air 02/16/17 17:30 36.4 88 18 150/65 (93) 93 Room Air 02/16/17 16:00 Room Air 02/16/17 15:41 36.4 89 16 126/63 (84) 94 Room Air 02/16/17 15:31 74 18 94 Room Air Physical Exam Comments: General Appearance: No distress + thin Eyes: normal inspection, sclerae normal Neck: supple, no JVD Respiratory/Chest: + decreased breath sounds, + accessory muscle use Cardiovascular: regular rate, rhythm, no murmur Abdomen: normal bowel sounds, non tender, soft Extremities: no pedal edema, no calf tenderness Neurologic/Psychiatric: alert, oriented x 3 Laboratory Results Last 24 Hours Test 02/17/17 06:45 White Blood Count 31.30 K/uL Red Blood Count 3.36 M/uL Hemoglobin 8.9 g/dL Hematocrit 28.4 % Mean Corpuscular Volume 84.5 fL Mean Corpuscular Hemoglobin 26.5 pg Mean Corpuscular Hemoglobin Concent 31.3 g/dl RDW Standard Deviation 55.4 fL RDW Coefficient of Variation 17.8 % Platelet Count 357 K/uL Mean Platelet Volume 11.4 fL Sodium Level 138 mmol/L Potassium Level 3.9 mmol/L Chloride Level 109 mmol/L Carbon Dioxide Level 22 mmol/L Anion Gap 7.0 mmol/L Blood Urea Nitrogen 85 mg/dl Creatinine 3.53 mg/dl Est Creatinine Clear Calc Drug Dose 14.9 ml/min Estimated GFR () 18.1 Estimated GFR (Non- 15.6 BUN/Creatinine Ratio 23.9 Random Glucose 89 mg/dl Calcium Level 7.6 mg/dl Assessment and Plan 76 M with hemorrhagic shock, acute renal failure from atn, and newly discovered pharyngeal mass, biopsy inconclusive Acute renal failure in setting of CKD stage 4 -will give more IVF today. ordered a fluid bolus. - baseline creatinine is 1.8 -gradually improving but still elevated at 3.5 - consulted nephrology -continue to avoid nephrotoxins, Cr is remaining up with modest improvement 02/15 Pharyngeal mass no change in management - f/u ENT op, final pathology is no confirmatory, sheets of fungal elements seen started on nystatin 02/14 Severe anemia due to GI Bleed - s/p transfusion of 4 units prbcs -Has not needed transfusions since the - d/c ppi in light of EGD results which did not find a gastric source of bleeding -Hgb stable. Has been increasing. Leukocytosis: likely secondary to prednisone. Coag negative staph UTI pt does self cath so concern was poa - Keflex - last dose 02/15 - nursing attempted teaching on sterile technique for self cath but patient was not receptive to it. Acute hypoxic respiratory failure 2nd to COPD exacerbation - improving oral prednisone; nebs. May need manager long term care oxygen HTN controlled with diltiazem. BPH flomax. intermittent straight caths at home DVT proph - SCDs; chemical proph contraindicated due to GI bleed Disposition has not changed: due to pharyngeal mass, palliative care discussion was had, pt is considering palliative care direction, however the pt is not as sure in his decision, all patient wants to do is go home SNF would like labs to be better. Continued [facility] stay due to: inadequate po fluid intake, voiding difficulties, ambulation difficulties, multiple IV medications needed Discharge planning: uncertain
[2017-02-17] MEDS: SODIUM CHLORIDE 0.9% 500ML 500 ML IV ONE ×2 (12:56→13:48)
[2017-02-17] MEDS: FINASTERIDE 5 MG TAB PO SCH (21:19)
[2017-02-17] MEDS: ZOLPIDEM TARTRATE 5 MG TAB PO PRN (21:25)
[2017-02-17] MEDS ORDERED: SODIUM CHLORIDE 0.9% 500ML 500 ML IV ONE (23:30)
[2017-02-18 07:14] LABS: CALCIUM 7.3 mg/dl (8.5-10.1); CREATININE 3.45 mg/dl (0.60-1.40); POTASSIUM 3.7 mmol/L (3.5-5.1)
[2017-02-18 07:35] VITALS: BP 94/69; PULSE 107; TEMP 36.9; O2SAT 90
[2017-02-18] MEDS: TAMSULOSIN HCL 0.4 MG CAP PO SCH ×2 (08:00→20:25)
[2017-02-18] MEDS: BOOST BREEZE NUTRITION DRINK 1 BOX PO SCH ×2 (08:00→16:48)
[2017-02-18] MEDS: ALBUT/IPRATROP 3MG/0.5MG NEB 3 ML VIAL INH SCH ×2 (08:00→11:11)
[2017-02-18] MEDS: NYSTATIN SUSP 500,000 U/5 ML UDC PO SCH ×4 (08:00→20:24)
[2017-02-18] MEDS: GUAIFENESIN 600 MG TABCR PO SCH ×2 (08:00→20:24)
[2017-02-18] MEDS: VANCOMYCIN HCL 125 MG/2.5ML SOLN PO SCH ×4 (08:01→20:23)
[2017-02-18] MEDS: DILTIAZEM HCL 120 MG EXT REL CAP PO SCH ×2 (08:01→14:00)
[2017-02-18] MEDS: RASPBERRY SYRUP 5 ML UDP PO SCH ×4 (08:01→20:24)
[2017-02-18] MEDS: FORMOTEROL FUMA NEBULIZER SOLN 20 MCG/2 ML VIAL INH SCH (09:00)
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
[2017-02-18 13:59] VITALS: BP 142/69; PULSE 84
[2017-02-18] MEDS: IPRATROPIUM BROMIDE/ALBUTEROL respimat INH INH SCH ×3 (14:01→20:22)
[2017-02-18 14:55] VITALS: BP 77/58; PULSE 99; TEMP 36.5; O2SAT 96
[2017-02-18 16:00] VITALS: O2SAT 96
--- NOTE | 2017-02-18 16:56 | Progress Note ---
Subjective Date of Service: Feb 18, 2017. Subjective Mr. Thurman has no new complaints today. Patient tells me that he is ok today to go to [facility]. Patient needed 2 nurses tohelp him go to the commode. Problem List Medical Problems: (1) Acute urinary retention Status: Acute (2) MY (acute kidney injury) Status: Acute (3) GI bleed Status: Acute (4) Hyperkalemia Status: Acute (5) Hypotension Status: Acute (6) Symptomatic anemia Status: Acute (7) UTI (urinary tract infection) Status: Acute (8) UTI (urinary tract infection) Status: Acute Review of Systems Constitutional: No fever, No chills Respiratory: + cough, No sputum, No wheezing, No shortness of breath Abdomen: No pain, No nausea Musculoskeletal: + problem reported (generalized weakness) Neurologic: + weakness Endo: + fatigue Skin: No rash, No itch All Other Systems: Reviewed and Negative Medications Current Inpatient Medications Medications (Trade) Dose Ordered Sig/Paris Route Start Time Stop Time Status Last Admin Dose Admin Heparin Sodium (Porcine) (Heparin 10 Unit/ ml 5 ml Flush) 5 ml PRN PRN FLUSH 02/07/17 04:00 03/09/17 03:59 02/08/17 21:17 5 ML Diltiazem HCl (TIAzac CAP) 120 mg DAILY PO 02/07/17 09:00 03/09/17 08:59 02/19/17 08:48 120 MG Finasteride (Proscar Tab) 5 mg HS PO 02/07/17 21:00 03/09/17 20:59 02/18/17 20:25 5 MG Tamsulosin HCl (Flomax Cap) 0.4 mg BID PO 02/07/17 09:00 03/09/17 08:59 02/19/17 08:48 0.4 MG Hydralazine HCl (HydrALAZINE INJ) 10 mg Q4H PRN IV 02/07/17 09:00 03/09/17 08:59 Formoterol Fumarate (Perforomist 20MCG/2ML Neb Soln) 20 mcg BID INH 02/07/17 09:00 03/09/17 08:59 02/17/17 19:31 20 MCG Guaifenesin (Mucinex Contr Rel Tab) 600 mg Q12 PO 02/07/17 09:00 03/09/17 08:59 02/19/17 08:48 600 MG Enteral Nutritional Formula (Boost Breeze Nutritional Drink) 1 box BIDM PO 02/07/17 16:45 03/09/17 16:44 02/19/17 08:49 1 BOX Acetaminophen (Tylenol Tab) 1,000 mg Q8 PRN PO 02/10/17 13:00 03/12/17 12:59 02/15/17 02:28 1,000 MG Vancomycin HCl (Vancomycin Oral Soln) 125 mg QID PO 02/11/17 13:00 02/25/17 12:59 02/19/17 08:47 125 MG Raspberry (Raspberry Syrup 5ml Cup) 5 ml QID PO 02/11/17 13:00 02/25/17 12:59 02/19/17 08:47 5 ML Prednisone (PredniSONE TAB) 60 mg DAILY PO 02/13/17 09:00 03/15/17 08:59 02/19/17 08:48 60 MG Morphine Sulfate (MoRPHine SULFATE INJ) 2 mg Q4H PRN IV 02/12/17 22:30 02/26/17 22:29 Nystatin (Mycostatin Susp) 5 ml QID PO 02/14/17 17:00 03/16/17 16:59 02/19/17 08:48 5 ML Zolpidem Tartrate (Ambien Tab) 5 mg HS PRN PO 02/15/17 00:00 03/17/17 00:00 02/18/17 20:28 5 MG Albuterol/ Ipratropium (Combivent Respimat Inh) 1 puffs QID INH 02/18/17 13:00 03/20/17 12:59 02/19/17 08:48 1 PUFFS Sodium Chloride 500 ml @ 500 mls/hr Q1H IV 02/19/17 08:45 03/21/17 08:44 UNV Objective Vital Signs Date Time Temp Pulse Resp B/P (MAP) Pulse Ox O2 Delivery O2 Flow Rate FiO2 02/18/17 14:55 36.5 99 18 77/58 (64) 96 Room Air 02/18/17 13:59 84 142/69 (93) 02/18/17 11:13 Room Air 02/18/17 07:35 36.9 107 18 94/69 (77) 90 Room Air 02/18/17 00:00 Room Air 02/17/17 23:41 36.6 82 18 117/60 (79) 93 Room Air 02/17/17 20:00 Room Air 02/17/17 19:32 81 16 94 Room Air Physical Exam Comments: General Appearance: No distress + thin Eyes: normal inspection, sclerae normal Neck: supple, no JVD Respiratory/Chest: + decreased breath sounds, + accessory muscle use Cardiovascular: regular rate, rhythm, no murmur Abdomen: normal bowel sounds, non tender, soft Extremities: no pedal edema, no calf tenderness Neurologic/Psychiatric: alert, oriented x 3 Laboratory Results Last 24 Hours Test 02/18/17 06:25 Sodium Level 140 mmol/L Potassium Level 3.7 mmol/L Chloride Level 110 mmol/L Carbon Dioxide Level 21 mmol/L Anion Gap 10.0 mmol/L Blood Urea Nitrogen 82 mg/dl Creatinine 3.45 mg/dl Est Creatinine Clear Calc Drug Dose 15.3 ml/min Estimated GFR () 18.6 Estimated GFR (Non- 16.1 BUN/Creatinine Ratio 23.8 Random Glucose 87 mg/dl Calcium Level 7.3 mg/dl Assessment and Plan 76 M with hemorrhagic shock, acute renal failure from atn, and newly discovered pharyngeal mass, biopsy inconclusive Acute renal failure in setting of CKD stage 4 -no significant improvement after fluids. -patient had a cough on ROS. -May be from fluid, will continue to trend creatinine however, this appears to be more of a chronic issue -especially given that he has other comorbiditites like the pharyngeal cancer and the generalized weakness - baseline creatinine is 1.8 -gradually improving but still elevated above 3 - consulted nephrology -continue to avoid nephrotoxins, Cr is remaining up with modest improvement Pharyngeal mass no change in management - f/u ENT op, final pathology is no confirmatory, sheets of fungal elements seen started on nystatin 02/14 Generalized weakness likely secondary to his multiple comorbidites and lack of activity continue with physical therapy as he has shown improvement throughout his stay. Severe anemia due to GI Bleed - s/p transfusion of 4 units prbcs -Has not needed transfusions since the - d/c ppi in light of EGD results which did not find a gastric source of bleeding -Hgb stable. Has been increasing. Leukocytosis: likely secondary to prednisone. Coag negative staph UTI pt does self cath so concern was poa - Keflex - last dose 02/15 - nursing attempted teaching on sterile technique for self cath but patient was not receptive to it. Acute hypoxic respiratory failure 2nd to COPD exacerbation - improving oral prednisone; nebs. May need half-way oxygen HTN controlled with diltiazem. BPH flomax. intermittent straight caths at home DVT proph - SCDs; chemical proph contraindicated due to GI bleed Disposition has not changed: due to pharyngeal mass, palliative care discussion was had, pt is considering palliative care direction, however the pt is not as sure in his decision, all patient wants to do is go home Patient will likely go to [facility] Continued [facility] stay due to: inadequate po fluid intake, voiding difficulties, ambulation difficulties, multiple IV medications needed Discharge planning: uncertain
[2017-02-18] MEDS: FINASTERIDE 5 MG TAB PO SCH (20:25)
[2017-02-18] MEDS: ZOLPIDEM TARTRATE 5 MG TAB PO PRN (20:28)
[2017-02-18 23:28] VITALS: BP 152/61; PULSE 88; TEMP 36.7; O2SAT 93
[2017-02-19 07:39] VITALS: BP 191/67; PULSE 87; TEMP 36.3; O2SAT 97
[2017-02-19 07:57] LABS: HEMATOCRIT 28.7 % (42-52); HEMOGLOBIN 8.9 g/dL (14.0-18.0); MEAN CELL VOLUME 84.7 fL (80-100); MEAN CORPUSCULAR HEMOGLOBIN 26.3 pg (25-34); MEAN PLATELET VOLUME 10.8 fL (7.4-10.4); PLATELET COUNT 376 K/uL (130-400); RED CELL DISTRIBUTION WIDTH CV 17.9 % (11.5-14.5); RED CELL DISTRIBUTION WIDTH SD 55.1 fL (36.4-46.3); WHITE BLOOD COUNT 30.59 K/uL (4.8-10.8)
[2017-02-19 08:06] LABS: ALBUMIN 2.5 gm/dl (3.4-5.0); CALCIUM 7.6 mg/dl (8.5-10.1); CREATININE 3.59 mg/dl (0.60-1.40); POTASSIUM 3.9 mmol/L (3.5-5.1)
[2017-02-19 08:13] LABS: BASO ABS # 0.01 K/uL (0-0.2); EOS ABS # 0.01 K/uL (0-0.5); IG# 0.26 K/uL (0.00-0.02); LYMPH % 1.3 %; LYMPH ABS # 0.41 K/uL (1.2-3.4); MONO % 5.1 %; MONO ABS # 1.57 K/uL (0.11-0.59); NEUT % 92.8 %; NEUT ABS # 28.33 K/uL (1.4-6.5)
--- NOTE | 2017-02-19 08:43 | Nephrology Progress Note ---
Nephrology Progress Note Date of Service Feb 19, 2017. Chief Complaint Acute renal insufficiency Subjective No acute events overnight. No fevers or chills. Wade remains weak. He is breathing comfortably. He was sleeping soundly when I entered his room. He remains very concerned about his . He is hoping to be able to leave the hospital today. He is considering [facility]. Appetite good. +BM. No diarrhea. No abdominal pain. No signs of bleeding. Review of Systems A complete review of systems was performed. Pertinent positives are noted above. All other systems are negative. Vital Signs Last 8 Hrs Date Time Temp Pulse Resp B/P (MAP) Pulse Ox O2 Delivery O2 Flow Rate FiO2 02/19/17 07:39 36.3 87 18 191/67 (108) 97 Room Air Last Recorded Weight Weight (Kilograms): 61.200 Physical Exam General Appearance: no apparent distress, + thin, + pertinent finding ( chronically ill appearing) Head: normocephalic, atraumatic Eyes: normal inspection, sclerae normal ENT: normal ENT inspection, pharynx normal, + pertinent finding (oral mucosa slightly dry) Neck: supple, + JVD Respiratory/Chest: lungs clear, no respiratory distress, no accessory muscle use Cardiovascular: regular rate, rhythm, no gallop Abdomen/GI: non tender, soft Extremities/Musculoskelatal: normal inspection, no pedal edema Neurologic/Psych: alert, oriented x 3 Family History Negative for CKD / ESRD Social History Smoking Status: Current every day smoker Drug Use: none Marital Status: Occupation: retired . No children. Current smoker (1 ppd since age 13). Drinks 3 beer / day. Formerly worked at [employer]. Now retired. Laboratory Results Past 24 Hours 02/19/17 07:16 Red Blood Count 3.39, Mean Corpuscular Volume 84.7, Mean Corpuscular Hemoglobin 26.3, Mean Corpuscular Hemoglobin Concent 31.0, Mean Platelet Volume 10.8, Neutrophils (%) (Auto) 92.8, Lymphocytes (%) (Auto) 1.3, Monocytes (%) (Auto) 5.1, Eosinophils (%) (Auto) 0.0, Basophils (%) (Auto) 0.0, Neutrophils # (Auto) 28.33, Lymphocytes # (Auto) 0.41, Monocytes # (Auto) 1.57, Eosinophils # (Auto) 0.01, Basophils # (Auto) 0.01 02/19/17 07:16 Test 02/19/17 07:16 White Blood Count 30.59 K/uL (4.8-10.8) Red Blood Count 3.39 M/uL (4.7-6.1) Hemoglobin 8.9 g/dL (14.0-18.0) Hematocrit 28.7 % (42-52) Mean Corpuscular Volume 84.7 fL (80-100) Mean Corpuscular Hemoglobin 26.3 pg (25-34) Mean Corpuscular Hemoglobin Concent 31.0 g/dl (32-36) Platelet Count 376 K/uL (130-400) Mean Platelet Volume 10.8 fL (7.4-10.4) Neutrophils (%) (Auto) 92.8 % Lymphocytes (%) (Auto) 1.3 % Monocytes (%) (Auto) 5.1 % Eosinophils (%) (Auto) 0.0 % Basophils (%) (Auto) 0.0 % Neutrophils # (Auto) 28.33 K/uL (1.4-6.5) Lymphocytes # (Auto) 0.41 K/uL (1.2-3.4) Monocytes # (Auto) 1.57 K/uL (0.11-0.59) Eosinophils # (Auto) 0.01 K/uL (0-0.5) Basophils # (Auto) 0.01 K/uL (0-0.2) RDW Standard Deviation 55.1 fL (36.4-46.3) RDW Coefficient of Variation 17.9 % (11.5-14.5) Immature Granulocyte % (Auto) 0.8 % Immature Granulocyte # (Auto) 0.26 K/uL (0.00-0.02) Hypersegmented Polys 1+ Polychromasia 1+ Hypochromasia PRESENT Acanthocytes 1+ Schistocytes 1+ Anion Gap 9.0 mmol/L (3-11) Est Creatinine Clear Calc Drug Dose 14.7 ml/min Estimated GFR () 17.7 Estimated GFR (Non- 15.3 BUN/Creatinine Ratio 23.4 (10-20) Calcium Level 7.6 mg/dl (8.5-10.1) Total Bilirubin 0.4 mg/dl (0.2-1) Aspartate Amino Transf (AST/SGOT) 26 U/L (15-37) Alanine Aminotransferase (ALT/SGPT) 57 U/L (12-78) Alkaline Phosphatase 72 U/L (45-117) Total Protein 5.0 gm/dl (6.4-8.2) Albumin 2.5 gm/dl (3.4-5.0) Globulin 2.5 gm/dl (2.5-4.0) Albumin/Globulin Ratio 1.0 (0.9-2) Allergies Coded Allergies: No Known Allergies (Verified , 02/12/17) Medications Current Inpatient Medications Medications (Trade) Dose Ordered Sig/Paris Route Start Time Stop Time Status Last Admin Dose Admin Heparin Sodium (Porcine) (Heparin 10 Unit/ ml 5 ml Flush) 5 ml PRN PRN FLUSH 02/07/17 04:00 03/09/17 03:59 02/08/17 21:17 5 ML Diltiazem HCl (TIAzac CAP) 120 mg DAILY PO 02/07/17 09:00 03/09/17 08:59 02/18/17 14:00 120 MG Finasteride (Proscar Tab) 5 mg HS PO 02/07/17 21:00 03/09/17 20:59 02/18/17 20:25 5 MG Tamsulosin HCl (Flomax Cap) 0.4 mg BID PO 02/07/17 09:00 03/09/17 08:59 02/18/17 20:25 0.4 MG Hydralazine HCl (HydrALAZINE INJ) 10 mg Q4H PRN IV 02/07/17 09:00 03/09/17 08:59 Formoterol Fumarate (Perforomist 20MCG/2ML Neb Soln) 20 mcg BID INH 02/07/17 09:00 03/09/17 08:59 02/17/17 19:31 20 MCG Guaifenesin (Mucinex Contr Rel Tab) 600 mg Q12 PO 02/07/17 09:00 03/09/17 08:59 02/18/17 20:24 600 MG Enteral Nutritional Formula (Boost Breeze Nutritional Drink) 1 box BIDM PO 02/07/17 16:45 03/09/17 16:44 02/18/17 16:48 1 BOX Acetaminophen (Tylenol Tab) 1,000 mg Q8 PRN PO 02/10/17 13:00 03/12/17 12:59 02/15/17 02:28 1,000 MG Vancomycin HCl (Vancomycin Oral Soln) 125 mg QID PO 02/11/17 13:00 02/25/17 12:59 02/18/17 20:23 125 MG Raspberry (Raspberry Syrup 5ml Cup) 5 ml QID PO 02/11/17 13:00 02/25/17 12:59 02/18/17 20:24 5 ML Prednisone (PredniSONE TAB) 60 mg DAILY PO 02/13/17 09:00 03/15/17 08:59 02/18/17 10:04 60 MG Morphine Sulfate (MoRPHine SULFATE INJ) 2 mg Q4H PRN IV 02/12/17 22:30 02/26/17 22:29 Nystatin (Mycostatin Susp) 5 ml QID PO 02/14/17 17:00 03/16/17 16:59 02/18/17 20:24 5 ML Zolpidem Tartrate (Ambien Tab) 5 mg HS PRN PO 02/15/17 00:00 03/17/17 00:00 02/18/17 20:28 5 MG Albuterol/ Ipratropium (Combivent Respimat Inh) 1 puffs QID INH 02/18/17 13:00 03/20/17 12:59 02/18/17 20:22 1 PUFFS Impression (1) GI bleed (2) Hypotension (3) MY (acute kidney injury) (4) Chronic kidney disease (CKD) stage G3b/A1, moderately decreased glomerular filtration rate (GFR) between 30-44 mL/min/1.73 square meter and albuminuria creatinine ratio less than 30 mg/g (5) COPD exacerbation (6) History of ASCVD (7) PVD (peripheral vascular disease) (8) Prostate CA (9) Cachexia Mr. Wade Thurman is a 76-year-old male who presented with acute blood loss anemia due to bleeding from a newly discovered pharyngeal mass. Biopsy was inconclusive. The patient is to follow up with ENT as an outpatient. Hospital course was complicated by MY consistent with ATN in the setting of acute blood loss anemia and DAVID use. Renal recovery has been slow. BP is slightly elevated but overall has been acceptable. He completed treatment for a staph UTI. He is on oral vancomycin for C diff. Wade has BPH and chronic urinary retention. He performs CIC. Recommendations ACUTE KIDNEY INJURY: -- Creatinine stable. 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 He is scheduled for outpatient ENT evaluation -- Recommend transfusion to maintain Hgb > 10 ID: -- On po Vancomycin for C. Difficile colitis -- Patient has completed 9 days Keflex therapy for UTI -- Leukocytosis persists
[2017-02-19] MEDS ORDERED: SODIUM CHLORIDE 0.9% 500ML 500 ML IV SCH (08:45)
[2017-02-19] MEDS: VANCOMYCIN HCL 125 MG/2.5ML SOLN PO SCH ×4 (08:47→19:56)
[2017-02-19] MEDS: RASPBERRY SYRUP 5 ML UDP PO SCH ×4 (08:47→19:56)
[2017-02-19] MEDS: NYSTATIN SUSP 500,000 U/5 ML UDC PO SCH ×4 (08:48→19:57)
[2017-02-19] MEDS: IPRATROPIUM BROMIDE/ALBUTEROL respimat INH INH SCH ×4 (08:48→19:56)
[2017-02-19] MEDS: TAMSULOSIN HCL 0.4 MG CAP PO SCH ×2 (08:48→19:57)
[2017-02-19] MEDS: GUAIFENESIN 600 MG TABCR PO SCH ×2 (08:48→19:58)
[2017-02-19] MEDS: DILTIAZEM HCL 120 MG EXT REL CAP PO SCH (08:48)
[2017-02-19] MEDS: BOOST BREEZE NUTRITION DRINK 1 BOX PO SCH ×2 (08:49→16:37)
--- NOTE | 2017-02-19 11:25 | DIAGNOSTIC IMAGING REPORT ---
CHEST 2 VIEWS ROUTINE HISTORY: 76 years-old Male cough/ rhonchi/ leukocytosis acute cough COMPARISON: Chest radiographs 02/11/2017 TECHNIQUE: PA and lateral views of the chest FINDINGS: Cardiac silhouette is mildly enlarged, unchanged. Atherosclerosis of the aorta. Catheter of the right internal jugular region has been removed in the interval. Mild biapical pleural-parenchymal scarring with linear subsegmental bibasilar opacities suggesting atelectasis or scarring. Emphysema. No pneumothorax,or focal airspace consolidation. Chronic blunting of the cost chronic angles. Bones appear grossly intact. IMPRESSION: 1. Blunting of the costophrenic angle suggests scarring or small effusions. 2. Emphysema with areas of chronic scarring. 3. Interval removal of right internal jugular central venous catheter. The above report was generated using voice recognition software. It may contain grammatical, syntax or spelling errors. Electronically signed by: Chema Cruz M.D. 02/19/2017 11:23 AM Dictated Date/Time: 02/19/2017 11:21 AM
[2017-02-19] MEDS ORDERED: DOCUSATE SODIUM/SENNA 50/8.6MG TAB PO ONE (12:45)
[2017-02-19] MEDS ORDERED: SIMETHICONE 80 MG CHEW PO PRN (12:45)
[2017-02-19] MEDS ORDERED: SIMETHICONE 80 MG CHEW PO ONE (13:00)
[2017-02-19 14:01] LABS: CALCIUM 7.6 mg/dl (8.5-10.1); CREATININE 3.48 mg/dl (0.60-1.40); POTASSIUM 3.9 mmol/L (3.5-5.1)
[2017-02-19 14:32] VITALS: BP 137/72; PULSE 84; TEMP 36.5; O2SAT 95
[2017-02-19 16:30] VITALS: O2SAT 95
[2017-02-19] MEDS: ZOLPIDEM TARTRATE 5 MG TAB PO PRN (19:57)
[2017-02-19] MEDS: FINASTERIDE 5 MG TAB PO SCH (19:58)
[2017-02-19 23:22] VITALS: BP 158/54; PULSE 81; TEMP 36.7; O2SAT 95
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
[2017-02-20 00:58] VITALS: O2SAT 95
[2017-02-20] MEDS: VANCOMYCIN HCL 125 MG/2.5ML SOLN PO SCH (07:58)
[2017-02-20] MEDS: IPRATROPIUM BROMIDE/ALBUTEROL respimat INH INH SCH (07:59)
[2017-02-20] MEDS: RASPBERRY SYRUP 5 ML UDP PO SCH (07:59)
[2017-02-20] MEDS: BOOST BREEZE NUTRITION DRINK 1 BOX PO SCH (07:59)
[2017-02-20] MEDS: NYSTATIN SUSP 500,000 U/5 ML UDC PO SCH (08:00)
[2017-02-20] MEDS: DILTIAZEM HCL 120 MG EXT REL CAP PO SCH (08:00)
[2017-02-20] MEDS: GUAIFENESIN 600 MG TABCR PO SCH (08:01)
[2017-02-20] MEDS: TAMSULOSIN HCL 0.4 MG CAP PO SCH (08:01)
[2017-02-20 08:03] VITALS: BP 159/71; PULSE 98; TEMP 36.7; O2SAT 95
[2017-02-20 08:05] LABS: ALBUMIN 2.4 gm/dl (3.4-5.0); CALCIUM 7.5 mg/dl (8.5-10.1); CREATININE 3.1 mg/dl (0.60-1.40)
[2017-02-20] MEDS ORDERED: DOCUSATE SODIUM/SENNA 50/8.6MG TAB PO SCH (09:00)
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
[2017-02-20] MEDS ORDERED: VANC1SUS PO ×2 (11:35→16:49)
[2017-02-20 11:37] VITALS: BP 159/71; PULSE 98; TEMP 36.7; O2SAT 95
--- NOTE | 2017-02-20 11:41 | Discharge Instructions ---
Discharge Instructions Date of Service Feb 20, 2017. Admission Reason for Admission: Gi Bleed, Anemia, Acute Renal Failure Discharge Discharge Diagnosis / Problem: GI Bleed, C. diff colitis, acute renal failure, generalized weakness Discharge Goals Goal(s): Improve function, Increase independence Activity Recommendations Activity Limitations: as noted below Lifting Limitations: gradually increase as tolerated . Instructions / Follow-Up Instructions / Follow-Up F/U with PCP within 1 week Patient is leaving against medical advice. Patient still has elevated white blood count and is still being treated with c. diff. diarrhea will recommend to continue antibiotics for 2 more weeks Patient is recommended inpatient rehab but will now have home health (as he is leaving [facility] and he would not get insurance auth for inpatient rehab.) Patient understand consequences. Current Hospital Diet Patient's current hospital diet: Regular Diet Discharge Diet Recommended Diet: Regular Diet Procedures Procedures Performed: EGD Pending Studies Studies pending at discharge: no Laboratory Results Lipid Panel Test 12/23/16 09:05 Range/Units Triglycerides Level 83 0-150 mg/dl Cholesterol Level 150 0-200 mg/dl HDL Cholesterol 64 mg/dl LDL Cholesterol Direct 81 mg/dl Cholesterol/HDL Ratio 2.3 LDL Cholesterol, Calculated mg/dl Medical Emergencies . Who to Call and When: Medical Emergencies: If at any time you feel your situation is an emergency, please call 911 immediately. . Non-Emergent Contact Non-Emergency issues call your: Primary Care Provider Call Non-Emergent contact if: you have any medication questions . . "Provider Documentation" section prepared by Wade Becerra. . VTE Core Measure Inpt VTE Proph given/why not?: Unfractionated heparin SQ
[2017-02-20] MEDS ORDERED: OXYC-57 PO (16:49)
[2017-02-27] MEDS ORDERED: ASPEC81 PO (13:48)
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
== END 2017-02-20 11:56 | disposition left against medical advice (07) | DRG 377 ==
LOC: EDBD 13:10 → C.EDA 13:12 → C.2T 16:09 → UNDOADMIN 16:09 → ENRESERV 16:58 → C.MED 02-14 14:11 → ENRESERV 02-14 14:33 → C.MS2W 02-16 18:23
PROVIDERS: ADMIT Internal Medicine; ATTEND Internal Medicine Sports Medicine
PROC: 05HM33Z Insertion of Infusion Device into Right Internal Jugular Vein, Percutaneous Approach (ICD-10-PCS; 2017-02-05)
PROC: 0CBM8ZX Excision of Pharynx, Via Natural or Artificial Opening Endoscopic, Diagnostic (ICD-10-PCS; principal; 2017-02-12 12:30)
PROC: 0DJ08ZZ Inspection of Upper Intestinal Tract, Via Natural or Artificial Opening Endoscopic (ICD-10-PCS; principal; 2017-02-12 12:30)
DX: K92.2 Gastrointestinal hemorrhage, unspecified (principal); R57.8 Other shock; N17.0 Acute kidney failure with tubular necrosis; J96.01 Acute respiratory failure with hypoxia; I50.31 Acute diastolic (congestive) heart failure; E43 Unspecified severe protein-calorie malnutrition; D62 Acute posthemorrhagic anemia; N39.0 Urinary tract infection, site not specified; E87.2 Acidosis; N18.4 Chronic kidney disease, stage 4 (severe); J44.1 Chronic obstructive pulmonary disease with (acute) exacerbation; R64 Cachexia; Z68.1 Body mass index [BMI] 19.9 or less, adult; B49 Unspecified mycosis; A04.72 Enterocolitis due to Clostridium difficile, not specified as recurrent; I95.9 Hypotension, unspecified; E87.5 Hyperkalemia; R68.0 Hypothermia, not associated with low environmental temperature; B95.7 Other staphylococcus as the cause of diseases classified elsewhere; J39.2 Other diseases of pharynx; E83.41 Hypermagnesemia; R33.9 Retention of urine, unspecified; D50.0 Iron deficiency anemia secondary to blood loss (chronic); Z66 Do not resuscitate; C61 Malignant neoplasm of prostate; N40.0 Benign prostatic hyperplasia without lower urinary tract symptoms; I25.10 Atherosclerotic heart disease of native coronary artery without angina pectoris; I13.10 Hypertensive heart and chronic kidney disease without heart failure, with stage 1 through stage 4 chronic kidney disease, or unspecified chronic kidney disease; I73.9 Peripheral vascular disease, unspecified; F17.210 Nicotine dependence, cigarettes, uncomplicated; Z79.899 Other long term (current) drug therapy; Z79.82 Long term (current) use of aspirin; Z79.02 Long term (current) use of antithrombotics/antiplatelets; Z82.49 Family history of ischemic heart disease and other diseases of the circulatory system; Z82.3 Family history of stroke

== ENCOUNTER 2017-02-20 15:24 | Inpatient (IN) | payer OTHER ==
[~2017-02-20] VITALS: Ht 177.8 cm; Wt 63.6 kg
[~2017-02-20 15:24] MED LIST changes: +VANC1SUS PO
[2017-02-20 16:22] LABS: HEMATOCRIT 26.1 % (42-52); HEMOGLOBIN 8.1 g/dL (14.0-18.0); MEAN CELL VOLUME 84.7 fL (80-100); MEAN CORPUSCULAR HEMOGLOBIN 26.3 pg (25-34); MEAN PLATELET VOLUME 10.3 fL (7.4-10.4); NUCLEATED RED BLOOD CELL ABS 0.02 K/uL (0-0); PLATELET COUNT 395 K/uL (130-400); RED CELL DISTRIBUTION WIDTH CV 18.2 % (11.5-14.5); RED CELL DISTRIBUTION WIDTH SD 56.4 fL (36.4-46.3); WHITE BLOOD COUNT 29.07 K/uL (4.8-10.8)
--- NOTE | 2017-02-20 16:22 | EMERGENCY ROOM VISIT NOTE ---
History Report prepared by Jamaal: Tien De Paz Under the Supervision of: Dr. Kishan Henriquez D.O. First contact with patient: 15:34 Stated Complaint: GI BLEED History of Present Illness The patient is a 76 year old male who presents to the Emergency Room with complaints of constant tiredness starting this morning. The patient was recently in the hospital for a GI bleed, and he left [facility] this morning to go visit his in the hospital. He states that he had a blood transfusion while in the hospital. The patient denies any pain, nausea, vomiting, chest pain, and shortness of breath. The patient states that he doesn't even notice he is having bowel movements. The patient notes that he was a smoker. Source of History: patient Onset: this morning Position: other (global) Quality: other (tiredness) Timing: constant Associated Symptoms: No chest pain, No SOB, No nausea, No vomiting Review of Systems See HPI for pertinent positives & negatives. A total of 10 systems reviewed and were otherwise negative. Past Medical & Surgical Medical Problems: (1) Cachexia (2) Chronic kidney disease (CKD) stage G3b/A1, moderately decreased glomerular filtration rate (GFR) between 30-44 mL/min/1.73 square meter and albuminuria creatinine ratio less than 30 mg/g (3) COPD exacerbation (4) gi bleed, anemia, acutr renal failure (5) History of ASCVD (6) Prostate CA (7) PVD (peripheral vascular disease) (8) Superficial femoral artery occlusion (9) Urinary retention Social History Smoking Status: Current Every Day Smoker Alcohol Use: none Drug Use: none Marital Status: Occupation Status: retired Current/Historical Medications Scheduled Aspirin (Aspirin Ec), 325 MG PO QPM Clopidogrel Bisulfate (Plavix), 75 MG PO QPM Diltiazem Hcl Ext Rel (Tiazac), 120 MG PO HS Finasteride (Proscar), 5 MG PO HS Lisinopril (Zestril), 10 MG PO HS Nitroglycerin (Nitrostat), 0.3 MG UT PRN Tamsulosin Hcl (Flomax), 0.4 MG PO BID Vancomycin HCl (Vancomycin HCl + Syrspend), 125 MG PO QID Scheduled PRN Oxycodone/Acetaminophen 5MG/325MG (Percocet 5MG/325MG), 1 TABLET PO Q4H PRN for Pain Allergies Coded Allergies: No Known Allergies (Verified , 02/20/17) Physical Exam Vital Signs Date Time Temp Pulse Resp B/P (MAP) Pulse Ox O2 Delivery O2 Flow Rate FiO2 02/20/17 16:58 78 15 151/74 93 Room Air 02/20/17 16:15 80 18 143/64 94 Room Air 02/20/17 15:30 36.4 78 12 150/58 96 Room Air Physical Exam GENERAL: Patient is frail and cachectic appearing. Appears comfortable. EYES: The conjunctivae are clear. The pupils are round and reactive. EARS, NOSE, MOUTH AND THROAT: The nose is without any evidence of any deformity. Mucous membranes are moist tongue is midline NECK: The neck is nontender and supple. RESPIRATORY: Normal respiratory effort is noted there is no evidence of wheezing rhonchi or rales CARDIOVASCULAR: Regular rate and rhythm noted there no murmurs rubs or gallops normal S1 normal S2 GASTROINTESTINAL: The abdomen is soft. Bowel sounds are present in all quadrants. Abdomen is nontender RECTAL: Dark stool that is strongly heme positive. PELVIS: The Pelvis is stable. No tenderness to palpation is noted. BACK: No midline tenderness or or step-off noted range of motion in flexion extension as well as rotation no signs of muscle spasm noted MUSCULOSKELETAL/EXTREMITIES: There is no evidence of gross deformity full range of motion is noted in the hips and shoulders SKIN: There is no obvious evidence of any rash. There are no petechiae, pallor or cyanosis noted. NEUROLOGIC: Patient is awake alert and oriented x3 Medical Decision & Procedures Laboratory Results 02/20/17 16:05 Red Blood Count 3.08, Mean Corpuscular Volume 84.7, Mean Corpuscular Hemoglobin 26.3, Mean Corpuscular Hemoglobin Concent 31.0, Mean Platelet Volume 10.3, Neutrophils (%) (Auto) 97.1, Lymphocytes (%) (Auto) 1.2, Monocytes (%) (Auto) 1.0, Eosinophils (%) (Auto) 0.0, Basophils (%) (Auto) 0.0, Neutrophils # (Auto) 28.18, Lymphocytes # (Auto) 0.36, Monocytes # (Auto) 0.30, Eosinophils # (Auto) 0.01, Basophils # (Auto) 0.01 02/20/17 16:05 Test 02/20/17 16:05 White Blood Count 29.07 K/uL (4.8-10.8) Red Blood Count 3.08 M/uL (4.7-6.1) Hemoglobin 8.1 g/dL (14.0-18.0) Hematocrit 26.1 % (42-52) Mean Corpuscular Volume 84.7 fL (80-100) Mean Corpuscular Hemoglobin 26.3 pg (25-34) Mean Corpuscular Hemoglobin Concent 31.0 g/dl (32-36) Platelet Count 395 K/uL (130-400) Mean Platelet Volume 10.3 fL (7.4-10.4) Neutrophils (%) (Auto) 97.1 % Lymphocytes (%) (Auto) 1.2 % Monocytes (%) (Auto) 1.0 % Eosinophils (%) (Auto) 0.0 % Basophils (%) (Auto) 0.0 % Neutrophils # (Auto) 28.18 K/uL (1.4-6.5) Lymphocytes # (Auto) 0.36 K/uL (1.2-3.4) Monocytes # (Auto) 0.30 K/uL (0.11-0.59) Eosinophils # (Auto) 0.01 K/uL (0-0.5) Basophils # (Auto) 0.01 K/uL (0-0.2) RDW Standard Deviation 56.4 fL (36.4-46.3) RDW Coefficient of Variation 18.2 % (11.5-14.5) Immature Granulocyte % (Auto) 0.7 % Immature Granulocyte # (Auto) 0.21 K/uL (0.00-0.02) Nucleated RBC Absolute Count (auto) 0.02 K/uL (0-0) Nucleated Red Blood Cells % 0.1 % Hypersegmented Polys 2+ Toxic Granulation 1+ Poikilocytosis PRESENT Anisocytosis PRESENT Schistocytes 1+ Prothrombin Time 10.6 SECONDS (9.0-12.0) Prothromb Time International Ratio 1.0 (0.9-1.1) Activated Partial Thromboplast Time 23.0 SECONDS (21.0-31.0) Partial Thromboplastin Ratio 0.9 Anion Gap 10.0 mmol/L (3-11) Est Creatinine Clear Calc Drug Dose 16.0 ml/min Estimated GFR () 19.7 Estimated GFR (Non- 17.0 BUN/Creatinine Ratio 23.5 (10-20) Calcium Level 7.6 mg/dl (8.5-10.1) Total Bilirubin 0.4 mg/dl (0.2-1) Direct Bilirubin < 0.1 mg/dl (0-0.2) Aspartate Amino Transf (AST/SGOT) 15 U/L (15-37) Alanine Aminotransferase (ALT/SGPT) 49 U/L (12-78) Alkaline Phosphatase 73 U/L (45-117) Total Protein 5.1 gm/dl (6.4-8.2) Albumin 2.5 gm/dl (3.4-5.0) Lipase 285 U/L (73-393) Laboratory results per my review. Medications Administered Medications (Trade) Dose Ordered Sig/Paris Route Start Time Stop Time Status Last Admin Dose Admin Vancomycin HCl (Vancomycin Oral Soln) 250 mg ONE STAT PO 02/20/17 16:37 02/20/17 16:38 DC 02/20/17 16:57 250 MG Raspberry (Raspberry Syrup 5ml Cup) 5 ml ONE ONCE PO 02/20/17 17:00 02/20/17 17:01 DC 02/20/17 16:58 5 ML ED Course 1534: The patient was evaluated in room A9. A complete history and physical examination were performed. 1636: I discussed the patient's case with Dr. Hein. The patient will be evaluated for further management. 1637: Vancomycin HCl 350mg PO 1650: I reevaluated the patient and discussed thee treatment plan with him. He is agreeable, and he will be evaluated for further management. 1700: Raspberry Syrup 5ml Cup PO Medical Decision Differential diagnosis: Etiologies such as diverticulosis, AVM, coagulopathy, colitis, inflammatory bowel disease, malignancy, Wilma-Hadley tear, esophagitis, peptic ulcer disease , variceal bleed, gastritis, epistaxis, fissure, hemorrhoids, as well as others were entertained. Nursing notes reviewed. Patient's previous electronic medical records reviewed. The patient is a 76-year-old male who presented to the emergency department for an evaluation of diarrhea. The patient was recently in our facility but he decided to leave the inpatient floor against medical advice. The patient presented back to the emergency department because area [facility] on [facility] felt he was on safe at home. The patient continues to have diarrhea and GI bleeding. The patient's stool was heme positive. A review his medical records does show that the patient had C. difficile colitis. The patient was treated with vancomycin the emergency department. I discussed his case with the on-call [facility] hospitalist group. They've agreed to evaluate the patient in the emergency apartment for further management and disposition. Medication Reconcilliation Current Medication List: was personally reviewed by me Blood Pressure Screening Patient's blood pressure: Elevated blood pressure Monitored by the hospitalist Consults Time Called: [phone] Consulting Physician: Dr. Hein Returned Call: [phone] I discussed the patient's case with Dr. Hein. The patient will be evaluated for further management. Impression Primary Impression: C. difficile colitis Additional Impressions: GI bleeding Diarrhea Scribe Attestation The scribe's documentation has been prepared under my direction and personally reviewed by me in its entirety. I confirm that the note above accurately reflects all work, treatment, procedures, and medical decision making performed by me. Departure Information Dispostion Being Evaluated By Hospitalist Referrals Nitish Shay M.D. (PCP) Problem Qualifiers Additional Impressions: GI bleeding GI bleed type/associated pathology: unspecified gastrointestinal hemorrhage type Qualified Codes: K92.2 - Gastrointestinal hemorrhage, unspecified Diarrhea Diarrhea type: infectious Qualified Codes: A09 - Infectious gastroenteritis and colitis, unspecified
[2017-02-20] MEDS ORDERED: VANCOMYCIN HCL 250 MG/5 ML SOLN PO STA (16:37)
[2017-02-20 16:41] LABS: ALBUMIN 2.5 gm/dl (3.4-5.0); BLOOD UREA NITROGEN 77 mg/dl (7-18); CALCIUM 7.6 mg/dl (8.5-10.1); CARBON DIOXIDE 21 mmol/L (21-32); CREATININE 3.29 mg/dl (0.60-1.40); GLUCOSE 114 mg/dl (70-99); LIPASE 285 U/L (73-393); POTASSIUM 4.5 mmol/L (3.5-5.1); SODIUM 139 mmol/L (136-145)
[2017-02-20 16:44] LABS: ALKALINE PHOSPHATASE 73 U/L (45-117); ALT/SGPT 49 U/L (12-78); AST/SGOT 15 U/L (15-37); TOTAL PROTEIN 5.1 gm/dl (6.4-8.2)
[2017-02-20 16:48] LABS: BASO ABS # 0.01 K/uL (0-0.2); EOS ABS # 0.01 K/uL (0-0.5); IG# 0.21 K/uL (0.00-0.02); LYMPH % 1.2 %; LYMPH ABS # 0.36 K/uL (1.2-3.4); NEUT % 97.1 %; NEUT ABS # 28.18 K/uL (1.4-6.5)
[2017-02-20] MEDS ORDERED: OXYC-57 PO (16:49)
[2017-02-20] MEDS ORDERED: VANC1SUS PO (16:49)
[2017-02-20] MEDS ORDERED: RASPBERRY SYRUP 5 ML UDP PO ONE (17:00)
[2017-02-20] MEDS ORDERED: OXYCODONE/ACETAMINOPHEN 5-325 TAB PO PRN (17:45)
[2017-02-20] MEDS ORDERED: NITROGLYCERIN 0.3 MG/1 TAB 100 TAB BTL UT PRN (17:45)
[2017-02-20] MEDS ORDERED: ACETAMINOPHEN 325 MG TAB PO PRN (17:45)
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
--- NOTE | 2017-02-20 19:30 | NUR ---
arrived from the ED via liter for admission to room 237, awake and alert, denies discomfort, line analyst applied, admission nursing assessment complete, code word declined, fall safety paper signed, inc. small amount black loose stool
[2017-02-20 19:42] VITALS: BP 150/63; PULSE 78; TEMP 36.6; O2SAT 98; Ht 177.8 cm; Wt 63.6 kg
--- NOTE | 2017-02-20 20:45 | NUR ---
Tarun arrived from Pharmacy and begun. Pt remains awake and alert. Concerned regarding his cats at home and contacted a neighbor. Skin care. Bed alarm on. Awaining for Dr Alvarado to obtain Transfusion consent. IV patent and infusing.
[2017-02-20] MEDS ORDERED: CLOPIDOGREL BISULFATE 75 MG TAB PO SCH (21:00)
[2017-02-20] MEDS ORDERED: ASPIRIN 325 MG ECTAB PO SCH (21:00)
[2017-02-20] MEDS: SODIUM CHLORIDE 0.9% 1000ML 1,000 ML IV SCH (21:04)
[2017-02-20] MEDS: METRONIDAZOLE / NSS 500 MG in PREMIXED NSS 100 ML IV SCH (21:04)
[2017-02-20] MEDS: VANCOMYCIN HCL 125 MG/2.5ML SOLN PO SCH (21:04)
[2017-02-20] MEDS: TAMSULOSIN HCL 0.4 MG CAP PO SCH (21:05)
[2017-02-20] MEDS: RASPBERRY SYRUP 5 ML UDP PO SCH (21:05)
[2017-02-20] MEDS: DILTIAZEM HCL 120 MG EXT REL CAP PO SCH (21:06)
[2017-02-20] MEDS: FINASTERIDE 5 MG TAB PO SCH (21:06)
--- NOTE | 2017-02-20 23:00 | NUR ---
Pt awake and requesting a sleeping pill. Blood consent reviewed and signed by MD and Patient. No other changes.
[2017-02-20 23:11] VITALS: BP 143/67; PULSE 80; TEMP 36.8; O2SAT 95
[2017-02-20 23:24] VITALS: BP 150/76; PULSE 75; TEMP 37; O2SAT 94
[2017-02-20 23:32] VITALS: BP 143/69; PULSE 78; TEMP 37; O2SAT 95
[2017-02-20 23:33] VITALS: BP 147/69; PULSE 78; TEMP 36.5; O2SAT 95
[2017-02-20] MEDS: ZOLPIDEM TARTRATE 5 MG TAB PO PRN (23:37)
[2017-02-21] VITALS (10 sets, daily range): BP systolic 83–162; BP diastolic 54–81; PULSE 64–84; TEMP 36.5–36.6; O2SAT 90–98
--- NOTE | 2017-02-21 | NUR ---
Pt resting comfortably at present. RRBC's infusing. No changes in assessment. IV's patent.
[2017-02-21] MEDS: SODIUM CHLORIDE 0.9% 1000ML 1,000 ML IV SCH ×3 (03:45→23:58)
--- NOTE | 2017-02-21 04:00 | NUR ---
Patient resting comfortably. Vitals within parameters. No stools at present Pt repositioning himself. IV patent and infusing.
[2017-02-21] MEDS: METRONIDAZOLE / NSS 500 MG in PREMIXED NSS 100 ML IV SCH ×3 (04:20→19:58)
--- NOTE | 2017-02-21 06:15 | NUR ---
Pt bladder scanned for 533 Ml. Patient unable to successfully st cath himself. Patient st cathed by me with a F 16 Hill. 900 ml concentrated strong clear margo urine. Pt incontinent of black moderate pasty stool. Skin care given Linens changed. Barrier cream applied. Pt pulled up and laying on back. Left arm edematous. No IV in that arm. Right arm trace edema
[2017-02-21 07:37] LABS: HEMOGLOBIN 9.6 g/dL (14.0-18.0); MEAN CORPUSCULAR HEMOGLOBIN 27.2 pg (25-34); MEAN PLATELET VOLUME 10.6 fL (7.4-10.4); PLATELET COUNT 352 K/uL (130-400); RED CELL DISTRIBUTION WIDTH CV 17.3 % (11.5-14.5); RED CELL DISTRIBUTION WIDTH SD 53.2 fL (36.4-46.3); WHITE BLOOD COUNT 25.58 K/uL (4.8-10.8)
[2017-02-21 08:06] LABS: CALCIUM 7.6 mg/dl (8.5-10.1); CREATININE 2.78 mg/dl (0.60-1.40); POTASSIUM 4.3 mmol/L (3.5-5.1)
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
[2017-02-21] MEDS: RASPBERRY SYRUP 5 ML UDP PO SCH ×4 (08:48→21:19)
[2017-02-21] MEDS: VANCOMYCIN HCL 125 MG/2.5ML SOLN PO SCH ×4 (08:48→21:19)
[2017-02-21] MEDS: TAMSULOSIN HCL 0.4 MG CAP PO SCH ×2 (08:49→21:19)
--- NOTE | 2017-02-21 10:34 | NUR ---
electrical repairer case management note. Social service consult for discharge planning. Spoke with pt. Pt appears a&o. Pt left AMA, went home. OOA was notified. Pt said watch caser came to his house and sent him back in. Pt lives with . Pt said his is in another hospital. [facility] with [facility]. Pts insurance denied [facility] previously. Pt agreeable to rehab. Pt chooses referral to [facility]. Pt does not want to go to any snf's in [place]. With permission made referral to [facility]. Nuclear Weapons Custodian to fax. Updated md. Case management to follow with pt.
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
--- NOTE | 2017-02-21 13:00 | NUR ---
A: Physical assessment unchanged, no complaints at this time. Will continue to monitor.
--- NOTE | 2017-02-21 13:40 | NUR ---
RD received trigger for MUST, refer to linked note for full assessment and recommendations. Addendum: 02/21/17 at [address] Amended: Links added.
--- NOTE | 2017-02-21 17:15 | NUR ---
A: Physical assessment unchanged, patient is asking for meds for diarrhea, will notify MD. Patient would also like to be discharged to [facility] rather than [facility] because his is being transferred there. Will notify case management.
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
--- NOTE | 2017-02-21 20:00 | NUR ---
Pt awake and alert. Requesting to be shaven. Feeling distended and requesting to be straight cathed. Pt st cathed with F16 [place] for 300 ml concentrated margo urine. Oral care and patient shaved leaving only moustache. Pt sitting up watching TV. IV patent and infusing.
[2017-02-21] MEDS: ZOLPIDEM TARTRATE 5 MG TAB PO PRN (21:18)
[2017-02-21] MEDS: FINASTERIDE 5 MG TAB PO SCH (21:19)
[2017-02-21] MEDS: DILTIAZEM HCL 120 MG EXT REL CAP PO SCH (21:19)
--- NOTE | 2017-02-22 | NUR ---
Patient sleeping comfortably. Large variance in B/Ps on left and right arms. Right arm B/P 83/54. Left arm within patients parameters. IV patent and infusing. Pt repositioning self in bed.
--- NOTE | 2017-02-22 00:30 | NUR ---
Pt C/O left rib pain. Pt repositioned onto back. Oral care given. B/P elevated. Pt medicated with 0.25mg Dilaudid. Heels floated. No other physical changes in assessment. Addendum: 02/22/17 at 0059 by Heidi Simpson RN The above note is documented on the wrong patient.
--- NOTE | 2017-02-22 04:00 | NUR ---
Patient incontinent of loose black stool with some solid fecal material. Skin care given with wipes and barrier cream. Pt repositioned himself. Pt's secondary tubing changed. No other changes in assessment.
[2017-02-22] MEDS: METRONIDAZOLE / NSS 500 MG in PREMIXED NSS 100 ML IV SCH ×3 (04:06→20:00)
[2017-02-22 04:39] VITALS: BP 164/67; PULSE 63; TEMP 36.7; O2SAT 94
--- NOTE | 2017-02-22 06:00 | NUR ---
Pt awoke and askin for st cath. Catheterized for 600ml with 16F rapp. Pt found incontinent of black stool. Am care, pericare and linen change performed. Pt turned onto right side. Armani cream added to skin care due to perianal erythema.
[2017-02-22 06:15] LABS: HEMATOCRIT 30.8 % (42-52); HEMOGLOBIN 9.7 g/dL (14.0-18.0); MEAN CELL VOLUME 85.8 fL (80-100); MEAN CORPUSCULAR HGB CONC 31.5 g/dl (32-36); MEAN PLATELET VOLUME 11.2 fL (7.4-10.4); PLATELET COUNT 390 K/uL (130-400); RED CELL DISTRIBUTION WIDTH CV 17.4 % (11.5-14.5); RED CELL DISTRIBUTION WIDTH SD 55.3 fL (36.4-46.3); WHITE BLOOD COUNT 28.73 K/uL (4.8-10.8)
[2017-02-22 06:50] LABS: CALCIUM 7.6 mg/dl (8.5-10.1); CREATININE 2.6 mg/dl (0.60-1.40); POTASSIUM 4.8 mmol/L (3.5-5.1)
[2017-02-22 07:53] VITALS: BP 156/68; PULSE 79; TEMP 36.8; O2SAT 95
--- NOTE | 2017-02-22 08:15 | NUR ---
A/ID: Patient is AAOX4, denies pain, denies n/t. LS clear and diminished on RA, denies SOB, occasional nonproductive cough. SR on monitor, denies CP/palp, PPP, BLE pitting edema, L>R. Abdomen soft nontender nondistended, denies n/v, tolerating diet, incontinent BMs loose stool. Straight cath TID and PRN. Skin intact, prevention foam to sacrum. SCDs refused. OOB with walker with assist, generalized weakness. H&H stable, no transfusion needed at this time. Patient agreeing to be discharged to rehab after hospitalization, unsure when he will be ready for discharge.
--- NOTE | 2017-02-22 09:30 | NUR ---
order desk caller case management note. Was notified by nursing that pt wants to go to [facility] now b/c his is going to go there. Spoke with pt and confirmed this. With permission made referral to [facility]. Will need insurance auth prior to discharge. Case management to follow with pt.
[2017-02-22] MEDS: VANCOMYCIN HCL 125 MG/2.5ML SOLN PO SCH (09:34)
[2017-02-22] MEDS: TAMSULOSIN HCL 0.4 MG CAP PO SCH ×2 (09:34→20:00)
[2017-02-22] MEDS: RASPBERRY SYRUP 5 ML UDP PO SCH ×4 (09:34→20:00)
[2017-02-22] MEDS: SODIUM CHLORIDE 0.9% 1000ML 1,000 ML IV SCH (10:50)
--- NOTE | 2017-02-22 11:55 | NUR ---
A: Physical assessment unchanged, no complaints at this time
[2017-02-22] MEDS: VANCOMYCIN HCL 250 MG/5 ML SOLN PO SCH ×3 (12:49→20:06)
[2017-02-22] MEDS ORDERED: VANCOMYCIN HCL 125 MG/2.5ML SOLN PO SCH (13:00)
--- NOTE | 2017-02-22 13:00 | NUR ---
A NOTE- PT ARRIVED TO ROOM 402 FROM PCU . PT IS ON CT PRECAUTIONS FOR C DIFF. HAD 1 SMEAR DARK MELGOZA BM THIS AFTERNOON. REMAINS ON IV FLUIDS. OOB TO CHAIR WITH ASSIST OF1 AND IS VERY WEAK, NO CO PAIN. DRY FRAGILE SKIN HAS BEEN INTACT.
[2017-02-22 13:02] VITALS: BP 141/70; PULSE 81; TEMP 37; O2SAT 96
[2017-02-22 13:12] VITALS: BP 141/70; PULSE 81; TEMP 37; O2SAT 96
--- NOTE | 2017-02-22 13:14 | DIAGNOSTIC IMAGING REPORT ---
RENAL ARTERY DUPLEX ULTRASOUND CLINICAL HISTORY: Renal failure COMPARISON STUDY: 02/09/2017 FINDINGS: The study was markedly limited from a technical standpoint. The patient was unable to cooperate with breath holding. The right kidney appears echogenic consistent with medical renal disease. The right renal artery could not be assessed. The aorta was nonvisualized. The left kidney was not visualized. Note is made of ascites. IMPRESSION: 1. Nondiagnostic evaluation of the renal arteries 2. Atrophic echogenic right kidney consistent with medical renal disease 3. Low volume ascites Electronically signed by: Ozzy Tuttle M.D. 02/22/2017 1:13 PM Dictated Date/Time: 02/22/2017 1:11 PM
--- NOTE | 2017-02-22 13:25 | PROGRESS NOTE ---
DATE: 02/22/2017 SUBJECTIVE: Mr. Thurman continues to feel poorly. He continues to have diarrhea. He denies abdominal pain. He has no chest pain or shortness of breath. He does feel weak. He wishes that he could go home and is disappointed that he is in the hospital on [place] and likely beyond. He has a history of urinary retention. His reduction in renal function has been obvious since the admission and his previous associated admission. He continues to do urinary self-catheterizations. OBJECTIVE: GENERAL: On physical exam, Mr. Thurman appears as a somewhat cachectic man of about his stated age of 76 or perhaps even older. VITAL SIGNS: He is currently afebrile (36.8), his blood pressure 156/68, his pulse 79 and regular, respiratory rate 16, his pulse ox is 94%-95% on room air. SKIN: Shows relatively normal skin turgor. He has wrinkling consistent with his age and probable history of smoking. He has no palpable adenopathy. HEAD: Normal. EYES: Grossly normal. The ocular fundi were not examined. EARS, NOSE, MOUTH AND THROAT: Show relatively moist mucous membranes. NECK: Supple. He does have some minimal jugular venous distention at the angle of the jaw at about 60 degrees. CHEST: Shows diminished breath sounds, but is otherwise clear. CARDIAC: Shows a regular rate and rhythm. I hear no murmur or gallop. ABDOMEN: Nontender. Bowel sounds are present. There is no organomegaly or mass. EXTREMITIES: Show no peripheral edema. He does have significant muscle wasting, particularly in the limb girdle muscles. NEUROLOGIC: Shows no lateralizing findings. PERTINENT LABORATORY WORK: Showed a persistent elevation of his white count to 28,730. His hemoglobin 9.7, hematocrit 30.8. Red cell indices are in the low normal range. His platelet count 390,000. Clinical chemistries from today show a sodium of 140 mmol/L, potassium 4.8 mmol/L, chloride 113 mmol/L, and CO2 content 21 mmol/L. His BUN is 72, his creatinine is down to 2.60. His random blood sugar is 92, his serum calcium 7.6. ASSESSMENT: Very slow improvement in his BUN and creatinine with hydration. His urinalysis has remained normal with no proteinuria. He does have some budding yeasts in his sediment. Given the fact that he has a normal urinalysis and a persistent elevation of his BUN and creatinine and a significant history of vascular disease, I think it may be worthwhile at least to identify underlying abnormalities and to understand his lab work to at least do a bilateral renal ultrasound and renal artery duplex to see if he has adequate flow to both kidneys. Another approach might be to do a renal scan and flow study. What we would do with the results is questionable given the significant debility that he has now. He certainly would not be a candidate for any immediate intervention should significant renal vascular disease be observed. However, it would be helpful to understand what is going on and to understand his laboratory work. Nephrology will continue to follow him during his stay.
[2017-02-22 13:42] VITALS: BP 175/69; PULSE 59
--- NOTE | 2017-02-22 16:00 | NUR ---
A: pt alert and oriented. he has not been OOB yet this shift but acknowledges understanding to ring call mast before getting up. pt is LAC VIEUX. he is on room air. lungs are clear. belly soft, NT, ND. pt reports 2 BM today that are manzanares in color but formed. pt straight cath's self 2-3 x day and states he is independent w/ this . reported last cath was 1300. pt denies pain. IV site intact and infusing fluids as per MAR w/o impairment or discomfort. skin intact. pt tolerating diet w/o c/o nausea. vitals stable. pt hoping to join in rehab center upon d/c. will continue care.
[2017-02-22 16:24] VITALS: BP 163/68; PULSE 66; TEMP 36.5
[2017-02-22] MEDS: FINASTERIDE 5 MG TAB PO SCH (20:01)
[2017-02-22] MEDS: DILTIAZEM HCL 120 MG EXT REL CAP PO SCH (20:01)
[2017-02-22] MEDS: ZOLPIDEM TARTRATE 5 MG TAB PO PRN (20:06)
[2017-02-23 00:35] VITALS: BP 158/64; PULSE 69; TEMP 36.8; O2SAT 95
[2017-02-23] MEDS: SODIUM CHLORIDE 0.9% 1000ML 1,000 ML IV SCH ×3 (01:08→21:09)
--- NOTE | 2017-02-23 01:11 | Progress Note ---
Subjective Date of Service: Feb 22, 2017. Subjective Pt evaluation today including: conversation w/ patient, physical exam Wade is a readmit after having left AMA. Patient states he is continuing to have diarrhea. He states that he wants to leave, but is currently willing to stay as their is a chance he can be with his . Patient denies any fever, chills, nausea, vomiting. Problem List Medical Problems: (1) Acute urinary retention Status: Acute (2) MY (acute kidney injury) Status: Acute (3) C. difficile colitis Status: Acute (4) Diarrhea Status: Acute (5) GI bleed Status: Acute (6) GI bleeding Status: Acute (7) Hyperkalemia Status: Acute (8) Hypotension Status: Acute (9) Symptomatic anemia Status: Acute (10) UTI (urinary tract infection) Status: Acute Review of Systems Constitutional: No fever, No chills Respiratory: No cough Cardiac: No chest pain, No orthopnea Abdomen: No pain, No nausea Endo: No fatigue Skin: No rash, No itch All Other Systems: Reviewed and Negative Medications Current Inpatient Medications Medications (Trade) Dose Ordered Sig/[place] Route Start Time Stop Time Status Last Admin Dose Admin Sodium Chloride 1,000 ml @ 100 mls/hr Q10H IV 02/20/17 17:45 03/22/17 17:44 02/24/17 07:15 100 MLS/HR Acetaminophen (Tylenol Tab) 650 mg Q4H PRN PO 02/20/17 17:45 03/22/17 17:44 Aspirin (Ecotrin Tab) 325 mg QPM PO 02/20/17 21:00 03/22/17 20:59 Future Hold Clopidogrel Bisulfate (plAVix TAB) 75 mg QPM PO 02/20/17 21:00 03/22/17 20:59 Future Hold Diltiazem HCl (TIAzac CAP) 120 mg HS PO 02/20/17 21:00 03/22/17 20:59 02/23/17 20:29 120 MG Finasteride (Proscar Tab) 5 mg HS PO 02/20/17 21:00 03/22/17 20:59 02/23/17 20:29 5 MG Nitroglycerin (Nitrostat Tab) 0.3 mg UD PRN UT 02/20/17 17:45 03/22/17 17:44 Oxycodone/ Acetaminophen (Percocet 5-325mg Tab) 1 tab Q4H PRN PO 02/20/17 17:45 03/06/17 17:44 02/20/17 21:14 1 TAB Tamsulosin HCl (Flomax Cap) 0.4 mg BID PO 02/20/17 21:00 03/22/17 20:59 02/24/17 07:15 0.4 MG Metronidazole 500 mg/Prmx 100 ml @ 100 mls/hr Q8H IV 02/20/17 20:00 03/06/17 19:59 02/24/17 03:54 100 MLS/HR Prednisone (PredniSONE TAB) 50 mg DAILY PO 02/21/17 09:00 03/23/17 08:59 02/24/17 07:16 50 MG Raspberry (Raspberry Syrup 5ml Cup) 5 ml QID PO 02/20/17 21:00 03/06/17 20:59 02/24/17 07:15 5 ML Zolpidem Tartrate (Ambien Tab) 5 mg HS PRN PO 02/20/17 23:30 03/22/17 23:29 02/23/17 21:13 5 MG Vancomycin HCl (Vancomycin Oral Soln) 250 mg QID PO 02/22/17 13:00 03/04/17 12:59 02/24/17 07:15 250 MG Objective Vital Signs Date Time Temp Pulse Resp B/P (MAP) Pulse Ox O2 Delivery O2 Flow Rate FiO2 02/23/17 00:35 36.8 69 20 158/64 (95) 95 Room Air 02/22/17 20:00 Room Air 02/22/17 16:24 36.5 66 18 163/68 (99) 02/22/17 13:42 59 175/69 (104) 02/22/17 13:12 37.0 81 16 96 02/22/17 13:02 37.0 81 16 141/70 (93) 96 02/22/17 12:00 Room Air 02/22/17 08:00 Room Air 02/22/17 07:53 36.8 79 16 156/68 (97) 95 02/22/17 04:39 36.7 63 20 164/67 (99) 94 02/22/17 04:00 Room Air Physical Exam Comments: General Appearance: WD/WN, no apparent distress, + cachetic ENT: normal ENT inspection Neck: supple, no adenopathy Respiratory/Chest: chest non-tender, + decreased breath sounds, + accessory muscle use Cardiovascular: regular rate, rhythm, no edema Abdomen: normal bowel sounds, non tender, soft Extremities: non-tender Neurologic/Psychiatric: alert, oriented x 3 Skin: normal color Laboratory Results Last 24 Hours Test 02/22/17 05:36 White Blood Count 28.73 K/uL Red Blood Count 3.59 M/uL Hemoglobin 9.7 g/dL Hematocrit 30.8 % Mean Corpuscular Volume 85.8 fL Mean Corpuscular Hemoglobin 27.0 pg Mean Corpuscular Hemoglobin Concent 31.5 g/dl RDW Standard Deviation 55.3 fL RDW Coefficient of Variation 17.4 % Platelet Count 390 K/uL Mean Platelet Volume 11.2 fL Sodium Level 140 mmol/L Potassium Level 4.8 mmol/L Chloride Level 113 mmol/L Carbon Dioxide Level 21 mmol/L Anion Gap 6.0 mmol/L Blood Urea Nitrogen 72 mg/dl Creatinine 2.60 mg/dl Est Creatinine Clear Calc Drug Dose 21.1 ml/min Estimated GFR () 26.2 Estimated GFR (Non- 22.6 BUN/Creatinine Ratio 27.6 Random Glucose 92 mg/dl Calcium Level 7.6 mg/dl Assessment and Plan Mr. Thurman is a 76 year old man who is here for GI bleed due to C.diff infection , acute renal failure from atn, and newly discovered pharyngeal mass, biopsy inconclusive C.diff, leukocytosis - admit tele - Patient received 1 unit of PRBC - increased po vanco from 125 mg to 250 mg QID, - iv flagyl was added on admission - hold asa and clopidogrel for now Acute renal failure in setting of CKD stage 4 - little improvement thus far - Creat trending down from 4 - baseline is 1.8 - gentle iv hydration, patient did have episode of fluid overload when here earlier in the month - consulted nephrology - avoid nephrotoxins Pharyngeal mass - outpatient ENT - biopsy not conclusive Leukocytosis: - likely due to c.diff, patient has also been on steroids Coag negative staph UTI pt does self cath - Keflex - last dose 02/15 - nursing attempted teaching on sterile technique for self cath but patient was not receptive to it. - Rapp catheter for now since patient refuses to let someone else straight cath and he does not want to learn proper technique, will need to revisit the issue closer to discharge based on where he ends up being placed - U/A and culture COPD - recently treated for acute hypoxic respiratory failure 2nd to COPD exacerbation - O2 per protocol - taper prednisone HTN controlled with diltiazem. BPH/ prostate CA - flomax. - rapp DVT proph - SCDs; chemical proph contraindicated due to GI bleed Disposition - Patient will likely go to [facility], his may go there but unsure.
[2017-02-23] MEDS: METRONIDAZOLE / NSS 500 MG in PREMIXED NSS 100 ML IV SCH ×3 (04:35→19:50)
--- NOTE | 2017-02-23 04:52 | NUR ---
ID: Patient admitted with C-Diff. AAOx4. VSS. Continues to have loose stool. Self straight caths for urinary retention. Denies pain. Receiving IVF and intermittent IV abx. Isolation precautions maintained. SS following for discharge plan to Rehab. Date uncertain.
[2017-02-23 06:05] LABS: HEMATOCRIT 29.9 % (42-52); HEMOGLOBIN 9.4 g/dL (14.0-18.0); MEAN CELL VOLUME 87.4 fL (80-100); MEAN CORPUSCULAR HEMOGLOBIN 27.5 pg (25-34); MEAN CORPUSCULAR HGB CONC 31.4 g/dl (32-36); MEAN PLATELET VOLUME 10.5 fL (7.4-10.4); PLATELET COUNT 350 K/uL (130-400); RED CELL DISTRIBUTION WIDTH SD 57.3 fL (36.4-46.3); WHITE BLOOD COUNT 24.25 K/uL (4.8-10.8)
[2017-02-23 06:44] LABS: CALCIUM 7.4 mg/dl (8.5-10.1); CREATININE 2.69 mg/dl (0.60-1.40); POTASSIUM 4.7 mmol/L (3.5-5.1)
[2017-02-23 07:30] VITALS: BP 173/64; PULSE 67; TEMP 36.8; O2SAT 94
[2017-02-23] MEDS: RASPBERRY SYRUP 5 ML UDP PO SCH ×4 (09:29→20:29)
[2017-02-23 09:30] VITALS: O2SAT 94
[2017-02-23] MEDS: TAMSULOSIN HCL 0.4 MG CAP PO SCH ×2 (09:30→20:29)
[2017-02-23] MEDS: VANCOMYCIN HCL 250 MG/5 ML SOLN PO SCH ×4 (09:30→20:29)
--- NOTE | 2017-02-23 10:34 | NEPHROLOGY PROGRESS NOTE ---
DATE: 02/23/2017 SUBJECTIVE: Mr. Thurman says that he is feeling somewhat better today. He denies having any significant abdominal pain. He continues to have frequent loose bowel movements. He had 3 bowel movements yesterday and 1 already today. He has not noted any gross blood in his stool. His appetite is fair. He denies any neck pain or swallowing difficulty at this time. He denies having any chest pain or shortness of breath. He has no definite symptoms of uremia or volume overload. OBJECTIVE: GENERAL: On physical exam, he appears as a chronically ill, somewhat cachectic gentleman of about his stated age of 76. VITAL SIGNS: His blood pressure today 173/64, his pulse 67 and regular, respiratory rate 20, his pulse ox 94%-95% on room air. He is afebrile (36.8). SKIN: Shows normal skin turgor. He has no rash or infiltrative skin disease. He has wrinkling consistent with his age and history of smoking. LYMPHATICS: Show no palpable adenopathy. HEAD: Normal. EYES: Grossly normal. The ocular fundi were not examined. EARS, NOSE, MOUTH AND THROAT: Show moist oral mucous membranes. Otherwise, no significant abnormalities are noted. His posterior pharynx is slightly reddened. NECK: Supple. He has minimal jugular venous distention at the angle of the jaw at about 60 degrees. CHEST: Shows diminished breath sounds, but is otherwise clear. I hear no wheezes, rales or rhonchi. CARDIAC: Shows a regular rhythm. S1 and S2 are normal. I hear no murmur or gallop. ABDOMEN: Nontender. It is slightly distended. Bowel sounds are active. There is no obvious organomegaly or mass. I do not hear a definite abdominal bruit. EXTREMITIES: Show no cyanosis, clubbing or peripheral edema. Peripheral pulses are markedly diminished. He has bilateral femoral murmurs. NEUROLOGIC: Shows no lateralizing changes. LABORATORY WORK: Laboratory work from today shows a white count of 24,250 and differential was not done. His hemoglobin is 9.4, hematocrit 29.9, his platelet count 350,000. His clinical chemistries show a sodium of 141 mmol/L, potassium 4.7 mmol/L, chloride is 112 mmol/L, and CO2 content 18 mmol/L. His BUN is 69, creatinine 2.69. A random blood sugar is 102. His serum calcium is 7.4. Previously, his serum albumin was 2.5. He did have a renal artery duplex done yesterday. Unfortunately, it was nondiagnostic from the standpoint of his renal arteries. However, it did demonstrate an atrophic echogenic right kidney. ASSESSMENT: Mr. Thurman's renal function appears to be stable at this point. Given the appearance of his renal ultrasound with an atrophic echogenic right kidney as well as a normal urinalysis and also given his significant history of peripheral vascular and cardiovascular disease, I suspect that he has an ischemic nephropathy. The approach to an ischemic nephropathy would be a referral to [place] or [facility] for CO2 angiography given the level of his renal function. If a significant abnormality is noted in his reasonably normal left kidney, then it would be appropriate to try an angiogram, angioplasty and stent placement if the lesion is amenable to that therapy. However, an approach to that needs to be tempered by his other ongoing issues of C. difficile colitis, which may be slowly improving as well as his retropharyngeal mass. RECOMMENDATIONS: Continue treatment of his C. difficile colitis in the evaluation of his retropharyngeal mass. A decision can be made somewhat at a later date as to whether or not he should be referred for further evaluation for an ischemic nephropathy. Dr. Curry will assume the management of his renal followup tomorrow.
[2017-02-23 15:14] VITALS: BP 154/68; PULSE 63; TEMP 36.4; O2SAT 98
--- NOTE | 2017-02-23 19:20 | NUR ---
A: Pt. AOx4, Diminished lungs on RA, VS stable, IVF infusing per MD, regular bowel sounds, passing gas, periods of incontinence, pt. requested straight cath after only bladder scanning for 106ml, and was emptied for 100ml. Trace edema to b/l LE, scabs present on b/l toes. Pt. does not want to get OOB, bed alarmed, tolerating regular diet, has not requested any pain medication. Call mast within reach. Will continue to monitor. Plans to be d/c to rehab facility once medically stable.
[2017-02-23] MEDS: DILTIAZEM HCL 120 MG EXT REL CAP PO SCH (20:29)
[2017-02-23] MEDS: FINASTERIDE 5 MG TAB PO SCH (20:29)
[2017-02-23 20:30] VITALS: BP 178/81; PULSE 80
[2017-02-23] MEDS: ZOLPIDEM TARTRATE 5 MG TAB PO PRN (21:13)
[2017-02-23] MEDS ORDERED: NURSING DECISION MEDICATION ORDER SCH (21:15)
[2017-02-24 00:11] VITALS: BP 172/71; PULSE 68; TEMP 36.6; O2SAT 96
--- NOTE | 2017-02-24 02:04 | NUR ---
ID NOTE: Patient is alert and oriented x 4. Has periods of confusion. On room air. Tolerating a regular diet. Patient has not needed straight cath'd this shift yet. IVF infusing as ordered. OOB with 2 assist. Vital signs are stable. No complaints of pain. Discharge plans uncertain at this time. Will monitor.
[2017-02-24] MEDS: METRONIDAZOLE / NSS 500 MG in PREMIXED NSS 100 ML IV SCH (03:54)
[2017-02-24 05:45] LABS: HEMATOCRIT 31.6 % (42-52); HEMOGLOBIN 9.5 g/dL (14.0-18.0); MEAN CELL VOLUME 86.8 fL (80-100); MEAN CORPUSCULAR HEMOGLOBIN 26.1 pg (25-34); MEAN CORPUSCULAR HGB CONC 30.1 g/dl (32-36); PLATELET COUNT 353 K/uL (130-400); RED CELL DISTRIBUTION WIDTH CV 18.1 % (11.5-14.5); RED CELL DISTRIBUTION WIDTH SD 57.4 fL (36.4-46.3); WHITE BLOOD COUNT 24.67 K/uL (4.8-10.8)
[2017-02-24 06:21] LABS: CALCIUM 7.3 mg/dl (8.5-10.1); CREATININE 2.64 mg/dl (0.60-1.40); POTASSIUM 4.8 mmol/L (3.5-5.1)
[2017-02-24] MEDS: VANCOMYCIN HCL 250 MG/5 ML SOLN PO SCH ×4 (07:15→20:40)
[2017-02-24] MEDS: TAMSULOSIN HCL 0.4 MG CAP PO SCH ×2 (07:15→20:40)
[2017-02-24] MEDS: RASPBERRY SYRUP 5 ML UDP PO SCH ×4 (07:15→20:40)
[2017-02-24] MEDS: SODIUM CHLORIDE 0.9% 1000ML 1,000 ML IV SCH ×2 (07:15→17:21)
[2017-02-24 07:21] VITALS: BP 161/65; PULSE 69; TEMP 36.5; O2SAT 96
--- NOTE | 2017-02-24 08:42 | Progress Note ---
Subjective Date of Service: Feb 23, 2017. Subjective Pt evaluation today including: conversation w/ patient, physical exam Patient has no new complaints today. Patient denies fever and chills. Problem List Medical Problems: (1) Acute urinary retention Status: Acute (2) MY (acute kidney injury) Status: Acute (3) C. difficile colitis Status: Acute (4) Diarrhea Status: Acute (5) GI bleed Status: Acute (6) GI bleeding Status: Acute (7) Hyperkalemia Status: Acute (8) Hypotension Status: Acute (9) Symptomatic anemia Status: Acute (10) UTI (urinary tract infection) Status: Acute Review of Systems Constitutional: No fever, No chills Respiratory: No cough, No sputum Cardiac: No chest pain Abdomen: No pain Psychiatric: No depression symptoms Skin: No rash, No itch All Other Systems: Reviewed and Negative Medications Current Inpatient Medications Medications (Trade) Dose Ordered Sig/Paris Route Start Time Stop Time Status Last Admin Dose Admin Sodium Chloride 1,000 ml @ 100 mls/hr Q10H IV 02/20/17 17:45 03/22/17 17:44 02/24/17 07:15 100 MLS/HR Acetaminophen (Tylenol Tab) 650 mg Q4H PRN PO 02/20/17 17:45 03/22/17 17:44 Aspirin (Ecotrin Tab) 325 mg QPM PO 02/20/17 21:00 03/22/17 20:59 Future Hold Clopidogrel Bisulfate (plAVix TAB) 75 mg QPM PO 02/20/17 21:00 03/22/17 20:59 Future Hold Diltiazem HCl (TIAzac CAP) 120 mg HS PO 02/20/17 21:00 03/22/17 20:59 02/23/17 20:29 120 MG Finasteride (Proscar Tab) 5 mg HS PO 02/20/17 21:00 03/22/17 20:59 02/23/17 20:29 5 MG Nitroglycerin (Nitrostat Tab) 0.3 mg UD PRN UT 02/20/17 17:45 03/22/17 17:44 Oxycodone/ Acetaminophen (Percocet 5-325mg Tab) 1 tab Q4H PRN PO 02/20/17 17:45 03/06/17 17:44 02/20/17 21:14 1 TAB Tamsulosin HCl (Flomax Cap) 0.4 mg BID PO 02/20/17 21:00 03/22/17 20:59 02/24/17 07:15 0.4 MG Metronidazole 500 mg/Prmx 100 ml @ 100 mls/hr Q8H IV 02/20/17 20:00 03/06/17 19:59 02/24/17 03:54 100 MLS/HR Prednisone (PredniSONE TAB) 50 mg DAILY PO 02/21/17 09:00 03/23/17 08:59 02/24/17 07:16 50 MG Raspberry (Raspberry Syrup 5ml Cup) 5 ml QID PO 02/20/17 21:00 03/06/17 20:59 02/24/17 07:15 5 ML Zolpidem Tartrate (Ambien Tab) 5 mg HS PRN PO 02/20/17 23:30 03/22/17 23:29 02/23/17 21:13 5 MG Vancomycin HCl (Vancomycin Oral Soln) 250 mg QID PO 02/22/17 13:00 03/04/17 12:59 02/24/17 07:15 250 MG Objective Vital Signs Date Time Temp Pulse Resp B/P (MAP) Pulse Ox O2 Delivery O2 Flow Rate FiO2 02/24/17 07:21 36.5 69 18 161/65 (97) 96 Room Air 02/24/17 00:19 Room Air 02/24/17 00:11 36.6 68 20 172/71 (104) 96 Room Air 02/23/17 20:30 80 178/81 (113) 02/23/17 16:00 Room Air 02/23/17 15:14 36.4 63 20 154/68 (96) 98 Room Air 02/23/17 09:30 94 Room Air Physical Exam Comments: General Appearance: WD/WN, no apparent distress, + cachetic ENT: normal ENT inspection Neck: supple, no adenopathy Respiratory/Chest: chest non-tender, + decreased breath sounds, + accessory muscle use Cardiovascular: regular rate, rhythm, no edema Abdomen: normal bowel sounds, non tender, soft Extremities: non-tender Neurologic/Psychiatric: alert, oriented x 3 Skin: normal color Laboratory Results Last 24 Hours Test 02/24/17 05:11 White Blood Count 24.67 K/uL Red Blood Count 3.64 M/uL Hemoglobin 9.5 g/dL Hematocrit 31.6 % Mean Corpuscular Volume 86.8 fL Mean Corpuscular Hemoglobin 26.1 pg Mean Corpuscular Hemoglobin Concent 30.1 g/dl RDW Standard Deviation 57.4 fL RDW Coefficient of Variation 18.1 % Platelet Count 353 K/uL Mean Platelet Volume 11.0 fL Sodium Level 139 mmol/L Potassium Level 4.8 mmol/L Chloride Level 114 mmol/L Carbon Dioxide Level 17 mmol/L Anion Gap 8.0 mmol/L Blood Urea Nitrogen 64 mg/dl Creatinine 2.64 mg/dl Est Creatinine Clear Calc Drug Dose 20.7 ml/min Estimated GFR () 25.7 Estimated GFR (Non- 22.2 BUN/Creatinine Ratio 24.4 Random Glucose 88 mg/dl Calcium Level 7.3 mg/dl Assessment and Plan Mr. Thurman is a 76 year old man who is here for GI bleed due to C.diff infection , acute renal failure from atn, and newly discovered pharyngeal mass, biopsy inconclusive C.diff, leukocytosis - admit tele - Patient received 1 unit of PRBC. Has not had gross bleeding since. -Anemia may have chronic inflammation component as well. - increased po vanco from 125 mg to 250 mg QID on Thursday. 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 - Rapp catheter for now since patient refuses to let someone else straight cath and he does not want to learn proper technique, will need to revisit the issue closer to discharge based on where he ends up being placed - U/A and culture COPD - recently treated for acute hypoxic respiratory failure 2nd to COPD exacerbation - O2 per protocol - taper prednisone HTN controlled with diltiazem. BPH/ prostate CA - flomax. - rapp DVT proph - SCDs; chemical proph contraindicated due to GI bleed Disposition - Patient will likely go to [facility], his may go there but unsure.
--- NOTE | 2017-02-24 09:31 | Nephrology Progress Note ---
Nephrology Progress Note Date of Service Feb 24, 2017. Chief Complaint Follow up evaluation of acute on chronic kidney injury Subjective Mr. Thurman was seen & examined in his hospital room this morning. He is anxious to return home. RN notes show 6 loose BM overnight. Patient remains visibly weak and frail. He denies fever or abdominal discomfort. Review of Systems Constitutional: No fever Cardiovascular: No chest pain Respiratory: No dyspnea at rest Abdomen: + diarrhea, No pain, No nausea Extremities: + leg edema (ankle swelling) A complete review of systems was performed. Pertinent positives are noted above. All other systems are negative. Vital Signs Last 8 Hrs Date Time Temp Pulse Resp B/P (MAP) Pulse Ox O2 Delivery O2 Flow Rate FiO2 02/24/17 07:21 36.5 69 18 161/65 (97) 96 Room Air 02/24/17 07:15 Room Air Last Recorded Weight Weight (Kilograms): 63.600 Physical Exam General Appearance: + cachetic (frail appearing) Head: atraumatic (temporal muscle wasting) Eyes: PERRL, EOMI Neck: no adenopathy Respiratory/Chest: lungs clear, no respiratory distress Cardiovascular: regular rate, rhythm Abdomen/GI: normal bowel sounds, non tender, soft Extremities/Musculoskelatal: + pertinent finding (trace ankle edema) Neurologic/Psych: alert, oriented x 3 Social History Smoking Status: Current every day smoker Drug Use: none Marital Status: Occupation: retired Laboratory Results Past 24 Hours 02/24/17 05:11 02/24/17 05:11 Test 02/24/17 05:11 Red Blood Count 3.64 M/uL (4.7-6.1) Mean Corpuscular Volume 86.8 fL (80-100) Mean Corpuscular Hemoglobin 26.1 pg (25-34) Mean Corpuscular Hemoglobin Concent 30.1 g/dl (32-36) RDW Standard Deviation 57.4 fL (36.4-46.3) RDW Coefficient of Variation 18.1 % (11.5-14.5) Mean Platelet Volume 11.0 fL (7.4-10.4) Anion Gap 8.0 mmol/L (3-11) Est Creatinine Clear Calc Drug Dose 20.7 ml/min Estimated GFR () 25.7 Estimated GFR (Non- 22.2 BUN/Creatinine Ratio 24.4 (10-20) Calcium Level 7.3 mg/dl (8.5-10.1) Allergies Coded Allergies: No Known Allergies (Verified , 02/20/17) Medications Current Inpatient Medications Medications (Trade) Dose Ordered Sig/Paris Route Start Time Stop Time Status Last Admin Dose Admin Sodium Chloride 1,000 ml @ 100 mls/hr Q10H IV 02/20/17 17:45 03/22/17 17:44 02/24/17 07:15 100 MLS/HR Acetaminophen (Tylenol Tab) 650 mg Q4H PRN PO 02/20/17 17:45 03/22/17 17:44 Aspirin (Ecotrin Tab) 325 mg QPM PO 02/20/17 21:00 03/22/17 20:59 Future Hold Clopidogrel Bisulfate (plAVix TAB) 75 mg QPM PO 02/20/17 21:00 03/22/17 20:59 Future Hold Diltiazem HCl (TIAzac CAP) 120 mg HS PO 02/20/17 21:00 03/22/17 20:59 02/23/17 20:29 120 MG Finasteride (Proscar Tab) 5 mg HS PO 02/20/17 21:00 03/22/17 20:59 02/23/17 20:29 5 MG Nitroglycerin (Nitrostat Tab) 0.3 mg UD PRN UT 02/20/17 17:45 03/22/17 17:44 Oxycodone/ Acetaminophen (Percocet 5-325mg Tab) 1 tab Q4H PRN PO 02/20/17 17:45 03/06/17 17:44 02/20/17 21:14 1 TAB Tamsulosin HCl (Flomax Cap) 0.4 mg BID PO 02/20/17 21:00 03/22/17 20:59 02/24/17 07:15 0.4 MG Metronidazole 500 mg/Prmx 100 ml @ 100 mls/hr Q8H IV 02/20/17 20:00 03/06/17 19:59 02/24/17 03:54 100 MLS/HR Prednisone (PredniSONE TAB) 50 mg DAILY PO 02/21/17 09:00 03/23/17 08:59 02/24/17 07:16 50 MG Raspberry (Raspberry Syrup 5ml Cup) 5 ml QID PO 02/20/17 21:00 03/06/17 20:59 02/24/17 07:15 5 ML Zolpidem Tartrate (Ambien Tab) 5 mg HS PRN PO 02/20/17 23:30 03/22/17 23:29 02/23/17 21:13 5 MG Vancomycin HCl (Vancomycin Oral Soln) 250 mg QID PO 02/22/17 13:00 03/04/17 12:59 02/24/17 07:15 250 MG Impression (1) Acute renal insufficiency (2) Chronic kidney disease, stage III (moderate) (3) Urinary retention (4) Pharyngeal mass (5) Acute blood loss anemia Mr. Wade Thurman is a frail 76-year-old male who presented to [facility] on February 05 with acute blood loss anemia due to bleeding from a newly discovered pharyngeal mass. Biopsy was inconclusive. Outpatient ENT follow up was planned. Hospital course was complicated by MY consistent with ATN in the setting of acute blood loss anemia and DAVID use. Renal recovery has been slow. BP is acceptable. Wade completed treatment for a staph UTI. He is on oral vancomycin for C diff. Wade signed out AMA 02/20 and returned to the hospital within 24 hours due to inability to care for himself at home. He is awaiting SNF placement. PO intake is poor. He continues to have frequent loose stool. Appetite is very poor. He is cachetic. Overall, prognosis is guarded. Expediting ENT evaluation as an inpatient would be beneficial as the patient remains hospitalized. Wade has BPH and chronic urinary retention. He performs CIC. Hill catheter placed on readmission. Recommendations ACUTE KIDNEY INJURY: -- Creatinine gradually improving. Volume status and electrolyte balance are acceptable. Continue to monitor CHRONIC KIDNEY DISEASE: -- Baseline creatinine previously ~ 1.8 -- CKD is on the basis of renal vascular disease. Renal US did show asymmetry. Renal artery doppler was inconclusive. Kidney function is recovering with d/ c of DAVID inhibitor and conservative care. Creatinine was stable at 1.8 prior to admission while on DAVID inhibitor therapy CACHEXIA: -- Nutritional supplements HYPERTENSION: -- BP is mildly elevated. Will increase Diltiazem to 240 mg po qHS. 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 Difficile colitis PHARYNGEAL MASS: -- For patient's benefit, consider expediting ENT evaluation while hospitalized
--- NOTE | 2017-02-24 13:20 | NUR ---
Case Management: Pt. remains acute. Pt. is from home and was active with Home [facility]. He lives with his who currently is in another hospital. Pt. requested referral to [facility]. [facility] has accepted patient pending insurance authorization. PT/OT has been ordered and will assist with d/c planning. Case management to follow.
[2017-02-24 15:10] VITALS: BP 171/84; PULSE 72; TEMP 36.4; O2SAT 92
--- NOTE | 2017-02-24 16:01 | Hospitalist Progress Note ---
Hospitalist Progress Note Date of Service Feb 24, 2017. (Zahida Blanco ., OXANA) Subjective Pt evaluation today including: conversation w/ patient, physical exam, chart review, lab review, review of inpatient medication list Mr. Thurman continues to have diarrhea and states that he is unable to tell when he is going and does not know if his stools are dark or bloody. I did attempt to call his at [facility] but was unable to get ahold of her. ROS Constitutional: no chills, aches, sweats or fever Respiratory: no sob,cough, sputum, or wheezing Cardiac: no chest pain, palpitations, edema, orthopnea or lightheadedness GI: no abdominal pain, nausea, vomiting : no dysuria or hesitancy Extremities: no joint pain or weakness Skin: no rash All Other Systems: Reviewed and Negative (Zahida Blanco, OXANA) Medications Medications Administered Medications (Trade) Dose Ordered Sig/Paris Route Start Time Stop Time Status Last Admin Dose Admin Vancomycin HCl (Vancomycin Oral Soln) 250 mg ONE STAT PO 02/20/17 16:37 02/20/17 16:38 DC 02/20/17 16:57 250 MG Raspberry (Raspberry Syrup 5ml Cup) 5 ml ONE ONCE PO 02/20/17 17:00 02/20/17 17:01 DC 02/20/17 16:58 5 ML Sodium Chloride 1,000 ml @ 100 mls/hr Q10H IV 02/20/17 17:45 03/22/17 17:44 02/24/17 07:15 100 MLS/HR Diltiazem HCl (TIAzac CAP) 120 mg HS PO 02/20/17 21:00 02/24/17 09:33 DC 02/23/17 20:29 120 MG Finasteride (Proscar Tab) 5 mg HS PO 02/20/17 21:00 03/22/17 20:59 02/23/17 20:29 5 MG Oxycodone/ Acetaminophen (Percocet 5-325mg Tab) 1 tab Q4H PRN PO 02/20/17 17:45 03/06/17 17:44 02/20/17 21:14 1 TAB Tamsulosin HCl (Flomax Cap) 0.4 mg BID PO 02/20/17 21:00 03/22/17 20:59 02/24/17 07:15 0.4 MG Vancomycin HCl (Vancomycin Oral Soln) 125 mg QID PO 02/20/17 21:00 02/22/17 11:57 DC 02/22/17 09:34 125 MG Metronidazole 500 mg/Prmx 100 ml @ 100 mls/hr Q8H IV 02/20/17 20:00 02/24/17 11:40 DC 02/24/17 03:54 100 MLS/HR Prednisone (PredniSONE TAB) 50 mg DAILY PO 02/21/17 09:00 02/24/17 15:11 DC 02/24/17 07:16 50 MG Raspberry (Raspberry Syrup 5ml Cup) 5 ml QID PO 02/20/17 21:00 03/06/17 20:59 02/24/17 11:51 5 ML Zolpidem Tartrate (Ambien Tab) 5 mg HS PRN PO 02/20/17 23:30 03/22/17 23:29 02/23/17 21:13 5 MG Vancomycin HCl (Vancomycin Oral Soln) 250 mg QID PO 02/22/17 13:00 03/04/17 12:59 02/24/17 11:51 250 MG (Zahida Blanco CRNP) Objective Vital Signs Date Time Temp Pulse Resp B/P (MAP) Pulse Ox O2 Delivery O2 Flow Rate FiO2 02/24/17 15:10 36.4 72 18 171/84 (113) 92 Nasal Cannula 2.0 02/24/17 07:21 36.5 69 18 161/65 (97) 96 Room Air 02/24/17 07:15 Room Air 02/24/17 00:19 Room Air 02/24/17 00:11 36.6 68 20 172/71 (104) 96 Room Air 02/23/17 20:30 80 178/81 (113) 02/23/17 16:00 Room Air (Zahida Blanco CRNP) Physical Exam Notes: General: no distress Eyes: normal inspection, PERLL Respiratory: chest non tender, clear to auscultation, normal breath sounds, no respiratory distress, no accessory muscle use Cardiac: regular rate and rhythm, no rub or gallop, III/ systolic murmur, no edema, no jvd GI/: active bowel sounds, no abd pain or tenderness, soft, non distended Extremities: normal range of motion, normal strength, non tender Neuro/Psych: alert and oriented x 3, normal mood and affect Skin: normal color, dry (Zahida Blanco, OXANA) Laboratory Results Last 24 Hours Test 02/24/17 05:11 White Blood Count 24.67 K/uL Red Blood Count 3.64 M/uL Hemoglobin 9.5 g/dL Hematocrit 31.6 % Mean Corpuscular Volume 86.8 fL Mean Corpuscular Hemoglobin 26.1 pg Mean Corpuscular Hemoglobin Concent 30.1 g/dl RDW Standard Deviation 57.4 fL RDW Coefficient of Variation 18.1 % Platelet Count 353 K/uL Mean Platelet Volume 11.0 fL Sodium Level 139 mmol/L Potassium Level 4.8 mmol/L Chloride Level 114 mmol/L Carbon Dioxide Level 17 mmol/L Anion Gap 8.0 mmol/L Blood Urea Nitrogen 64 mg/dl Creatinine 2.64 mg/dl Est Creatinine Clear Calc Drug Dose 20.7 ml/min Estimated GFR () 25.7 Estimated GFR (Non- 22.2 BUN/Creatinine Ratio 24.4 Random Glucose 88 mg/dl Calcium Level 7.3 mg/dl (Zahida Blanco CRNP) Assessment and Plan Mr. Thurman is a 76 year old man who is here for GI bleed due to C.diff infection , acute renal failure from atn, and newly discovered pharyngeal mass, biopsy inconclusive C.diff, leukocytosis - Patient received 1 unit of PRBC on evening of admission. hgb stable at 9.5 - increased po vanco from 125 mg to 250 mg QID on Thursday. 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 - continue straight cath prn - Urine culture grew yeast. COPD - recently treated for acute hypoxic respiratory failure 2nd to COPD exacerbation - O2 per protocol - taper prednisone HTN controlled with diltiazem. BPH/ prostate CA - flomax. - straight cath prn DVT proph - SCDs; chemical proph contraindicated due to GI bleed Disposition - Patient requested to go to [facility], awaiting authorization (Zahida Blanco ., OXANA) Reviewed: Pt Seen/Exam by Me (Kiana Hensley MD) History NEGATIVE DEVELOPER Supervision Note: I interviewed and examined the patient. Discussed with OXANA Blanco and agree with findings and plan as documented in the note. Any exceptions or clarifications are listed here: Pt anxious for discharge. RN reports only 2 BMs all day and no obvious blood or melena. Pt denies problems. Vitals reviewed NAD, thin RRR no mgr lungs with a few scattered rhonchi, diminished BS throughout Abd +BS soft NT ND Ext : Left leg with 3+ pitting edema to the knee, right leg with trace pitting edema to the knee, no calf tenderness 76 yo male with a h/o CAD, PAD, CKD stage III, COPD, pharyngeal mass, prostate CA, BPH, and recent GI bleeding, here with anemia, GI bleed, and C. diff diarrhea. -C. diff diarrhea improving with increased dose of po Vanco--> ok to dc Flagyl -dc IVFs -will restart ASA in the AM but hold off on Plavix for now--> review of previous hospital records reveal most likely reason for DAPT is PAD with multiple stents placed in the past, none recent. Consider STOPPING Plavix all together in the future given recurrent GI bleeds -LEFT leg with significant pitting edema --> check Doppler LLE to r/o DVT---> IF POSITIVE, would recommend heparin gtt tonight temporarily and evaluation tomorrow for IVC filter given recurrent GI bleeds and severe anemia Documented By: Kiana Hensley (Kiana Hensley MD)
[2017-02-24] MEDS: DILTIAZEM HCL 120 MG ER CAP PO SCH (20:40)
[2017-02-24] MEDS: FINASTERIDE 5 MG TAB PO SCH (20:40)
[2017-02-24] MEDS: ZOLPIDEM TARTRATE 5 MG TAB PO PRN (21:23)
--- NOTE | 2017-02-24 21:32 | DIAGNOSTIC IMAGING REPORT ---
LEFT LOWER EXTREMITY VENOUS DOPPLER CLINICAL HISTORY: Left leg swelling. COMPARISON STUDY: Left lower extremity venous Doppler September 11, 2016. TECHNIQUE: Sonography of the deep venous system of the left lower extremity was performed. Compression and augmentation were evaluated. FINDINGS: The left common femoral, superficial femoral and popliteal veins were compressible. Augmentation was normal. Flow was shown within the deep calf vessels. Left lower extremity edema is noted. Left lower quadrant ascites was incidentally noted. IMPRESSION: 1. No evidence of deep venous thrombus within the left lower extremity. 2. Left lower quadrant ascites. Electronically signed by: Gucci Farnsworth M.D. 02/24/2017 9:31 PM Dictated Date/Time: 02/24/2017 9:29 PM
[2017-02-24 21:33] VITALS: BP 167/78
[2017-02-24 22:49] VITALS: BP 190/81; PULSE 72; TEMP 36.9; O2SAT 95
[2017-02-24 23:27] VITALS: BP 166/74
[2017-02-25] VITALS (7 sets, daily range): BP systolic 158–193; BP diastolic 57–78; PULSE 57–77; TEMP 36.4–36.6; O2SAT 94–98
--- NOTE | 2017-02-25 00:21 | NUR ---
ID note: A/Ox4. Pt denies any pain. Pt has been turning and repositioning in bed. Tolerating a regular diet. Pt plans to go to [facility] when discharged.
[2017-02-25 06:01] LABS: HEMATOCRIT 29.9 % (42-52); HEMOGLOBIN 9.3 g/dL (14.0-18.0); MEAN CELL VOLUME 86.9 fL (80-100); MEAN CORPUSCULAR HGB CONC 31.1 g/dl (32-36); MEAN PLATELET VOLUME 10.4 fL (7.4-10.4); PLATELET COUNT 307 K/uL (130-400); RED CELL DISTRIBUTION WIDTH CV 18.4 % (11.5-14.5); WHITE BLOOD COUNT 21.14 K/uL (4.8-10.8)
[2017-02-25 06:35] LABS: CALCIUM 7.4 mg/dl (8.5-10.1); CREATININE 2.72 mg/dl (0.60-1.40); POTASSIUM 5.1 mmol/L (3.5-5.1)
[2017-02-25] MEDS: RASPBERRY SYRUP 5 ML UDP PO SCH ×4 (07:44→20:31)
[2017-02-25] MEDS: TAMSULOSIN HCL 0.4 MG CAP PO SCH ×2 (07:44→20:26)
[2017-02-25] MEDS: VANCOMYCIN HCL 250 MG/5 ML SOLN PO SCH ×4 (07:44→20:31)
[2017-02-25] MEDS ORDERED: ASPIRIN/ALUM/MAGNES/CAL CARB 325 MG TAB PO SCH (08:00)
[2017-02-25] MEDS ORDERED: CLOPIDOGREL BISULFATE 75 MG TAB PO SCH (08:00)
--- NOTE | 2017-02-25 10:24 | Nephrology Progress Note ---
Nephrology Progress Note Date of Service Feb 25, 2017. Chief Complaint Follow up evaluation of acute on chronic kidney injury Subjective Mr. Thurman was seen & examined in his hospital room this morning. He continues to have diarrhea and remains weak. He has not yet participated in physical therapy. Review of Systems Constitutional: No fever Cardiovascular: No chest pain Respiratory: No dyspnea at rest Abdomen: + diarrhea, No pain A complete review of systems was performed. Pertinent positives are noted above. All other systems are negative. Vital Signs Last 8 Hrs Date Time Temp Pulse Resp B/P (MAP) Pulse Ox O2 Delivery O2 Flow Rate FiO2 02/25/17 09:48 77 98 02/25/17 09:42 Room Air 02/25/17 07:33 36.4 57 20 184/64 (104) 94 Room Air 193/67 (109) Last Recorded Weight Weight (Kilograms): 63.600 Physical Exam General Appearance: + cachetic Head: atraumatic (temporal muscle wasting) Eyes: PERRL Neck: no adenopathy Respiratory/Chest: lungs clear, no respiratory distress Cardiovascular: regular rate, rhythm Abdomen/GI: non tender, soft Extremities/Musculoskelatal: + pertinent finding (trace ankle edema) Neurologic/Psych: alert, oriented x 3 Social History Smoking Status: Current every day smoker Drug Use: none Marital Status: Occupation: retired Laboratory Results Past 24 Hours 02/25/17 05:16 02/25/17 05:16 Test 02/25/17 05:16 Red Blood Count 3.44 M/uL (4.7-6.1) Mean Corpuscular Volume 86.9 fL (80-100) Mean Corpuscular Hemoglobin 27.0 pg (25-34) Mean Corpuscular Hemoglobin Concent 31.1 g/dl (32-36) RDW Standard Deviation 59.0 fL (36.4-46.3) RDW Coefficient of Variation 18.4 % (11.5-14.5) Mean Platelet Volume 10.4 fL (7.4-10.4) Anion Gap 7.0 mmol/L (3-11) Est Creatinine Clear Calc Drug Dose 20.1 ml/min Estimated GFR () 24.8 Estimated GFR (Non- 21.4 BUN/Creatinine Ratio 24.3 (10-20) Calcium Level 7.4 mg/dl (8.5-10.1) Allergies Coded Allergies: No Known Allergies (Verified , 02/20/17) Medications Current Inpatient Medications Medications (Trade) Dose Ordered Sig/Paris Route Start Time Stop Time Status Last Admin Dose Admin Acetaminophen (Tylenol Tab) 650 mg Q4H PRN PO 02/20/17 17:45 03/22/17 17:44 Finasteride (Proscar Tab) 5 mg HS PO 02/20/17 21:00 03/22/17 20:59 02/24/17 20:40 5 MG Nitroglycerin (Nitrostat Tab) 0.3 mg UD PRN UT 02/20/17 17:45 03/22/17 17:44 Oxycodone/ Acetaminophen (Percocet 5-325mg Tab) 1 tab Q4H PRN PO 02/20/17 17:45 03/06/17 17:44 02/20/17 21:14 1 TAB Tamsulosin HCl (Flomax Cap) 0.4 mg BID PO 02/20/17 21:00 03/22/17 20:59 02/25/17 07:44 0.4 MG Raspberry (Raspberry Syrup 5ml Cup) 5 ml QID PO 02/20/17 21:00 03/06/17 20:59 02/25/17 07:44 5 ML Zolpidem Tartrate (Ambien Tab) 5 mg HS PRN PO 02/20/17 23:30 03/22/17 23:29 02/24/17 21:23 5 MG Vancomycin HCl (Vancomycin Oral Soln) 250 mg QID PO 02/22/17 13:00 03/04/17 12:59 02/25/17 07:44 250 MG Diltiazem HCl (Dilacor Xr Cap) 240 mg HS PO 02/24/17 21:00 03/26/17 20:59 02/24/17 20:40 240 MG Prednisone (PredniSONE TAB) 40 mg DAILY PO 02/25/17 08:00 03/23/17 08:59 02/25/17 07:44 40 MG Aspirin/Aluminum/ Magnesium/Ca Carb (Ascriptin Tab) 325 mg DAILY PO 02/25/17 08:00 03/27/17 07:59 02/25/17 07:44 325 MG Impression (1) Acute renal insufficiency (2) Chronic kidney disease, stage III (moderate) (3) Urinary retention (4) Pharyngeal mass (5) Acute blood loss anemia Mr. Thurman is a frail 76-year-old male who presented to [facility] 02/05 with acute anemia due to bleeding from a pharyngeal mass. Biopsy was inconclusive. Outpatient ENT follow up was planned. Hospital course was complicated by MY consistent with ATN in the setting of acute blood loss anemia and DAVID use. Renal recovery has been slow. BP is acceptable. Wade completed treatment for a staph UTI. He is on oral vancomycin for C diff. Wade signed out AMA 02/20 and returned to the hospital within 24 hours due to inability to care for himself at home. He is awaiting SNF placement. PO intake is poor. He continues to have frequent loose stool. Appetite is very poor. He is cachetic. Overall, prognosis is guarded. Expediting ENT evaluation as an inpatient would be beneficial as the patient remains hospitalized. Wade has BPH and chronic urinary retention. He performs CIC. Hill catheter placed on readmission. Recommendations ACUTE KIDNEY INJURY: -- Creatinine gradually improving. Volume status and electrolyte balance are acceptable. Continue to monitor CHRONIC KIDNEY DISEASE: -- Baseline creatinine previously ~ 1.8 -- CKD is on the basis of renal vascular disease. Renal US did show asymmetry. Renal artery doppler was inconclusive. Kidney function is recovering with d/ c of DAVID inhibitor and conservative care. Creatinine was stable at 1.8 prior to admission while on DAVID inhibitor therapy CACHEXIA: -- Nutritional supplements HYPERTENSION: -- BP is mildly elevated. Diltiazem was increased to 240 mg po qHS. 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 Difficile colitis PHARYNGEAL MASS: -- For patient's benefit, consider expediting ENT evaluation while hospitalized
--- NOTE | 2017-02-25 12:10 | NUR ---
Case Management- Met with pt to discuss discharge plans. Currently his is in another hospital she has referrals in place to [facility] and [facility], pt is unsure where she will end up but his primary goal is to be at the same facility with her. Spoke with Shayy [facility] is apparently ready for discharge today and they will be submitting for her insurance auth. They will need OT documentation to submit on pt. Message left with [facility] regarding acceptance/bed status. Addendum: 02/25/17 at 1534 by [employer] Pts spouse is going to [facility], cancelled [facility] referral. Spoke with Sheryl at [facility] they can accept pt once medically stable. manager of internal audit will need to submit for insurance auth. Addendum: 02/25/17 at 1610 by [employer] Clinical sent to [facility] requesting SNF auth for 02/26, awaiting determination.
--- NOTE | 2017-02-25 14:45 | Hospitalist Progress Note ---
Hospitalist Progress Note Date of Service Feb 25, 2017. (Zahida Blanco .OXANA) Subjective Pt evaluation today including: conversation w/ patient, physical exam, chart review, lab review, conversation w/ senior analytic consultant Mr. Thurman denies sob today, he is feeling ready to go to [facility]. His apparently has been approved to discharge at [place] and go to as well. ROS Constitutional: no chills, aches, sweats or fever Respiratory: no sob,cough, sputum, or wheezing Cardiac: no chest pain, palpitations, edema, orthopnea or lightheadedness GI: no abdominal pain, nausea, vomiting, continues to have diarrhea : no dysuria or hesitancy Extremities: no joint pain or weakness Skin: no rash All Other Systems: Reviewed and Negative (Zahida Blanco CRNP) Medications Medications Administered Medications (Trade) Dose Ordered Sig/Paris Route Start Time Stop Time Status Last Admin Dose Admin Vancomycin HCl (Vancomycin Oral Soln) 250 mg ONE STAT PO 02/20/17 16:37 02/20/17 16:38 DC 02/20/17 16:57 250 MG Raspberry (Raspberry Syrup 5ml Cup) 5 ml ONE ONCE PO 02/20/17 17:00 02/20/17 17:01 DC 02/20/17 16:58 5 ML Sodium Chloride 1,000 ml @ 100 mls/hr Q10H IV 02/20/17 17:45 02/24/17 20:20 DC 02/24/17 17:21 100 MLS/HR Diltiazem HCl (TIAzac CAP) 120 mg HS PO 02/20/17 21:00 02/24/17 09:33 DC 02/23/17 20:29 120 MG Finasteride (Proscar Tab) 5 mg HS PO 02/20/17 21:00 03/22/17 20:59 02/24/17 20:40 5 MG Oxycodone/ Acetaminophen (Percocet 5-325mg Tab) 1 tab Q4H PRN PO 02/20/17 17:45 03/06/17 17:44 02/20/17 21:14 1 TAB Tamsulosin HCl (Flomax Cap) 0.4 mg BID PO 02/20/17 21:00 03/22/17 20:59 02/25/17 07:44 0.4 MG Vancomycin HCl (Vancomycin Oral Soln) 125 mg QID PO 02/20/17 21:00 02/22/17 11:57 DC 02/22/17 09:34 125 MG Metronidazole 500 mg/Prmx 100 ml @ 100 mls/hr Q8H IV 02/20/17 20:00 02/24/17 11:40 DC 02/24/17 03:54 100 MLS/HR Prednisone (PredniSONE TAB) 50 mg DAILY PO 02/21/17 09:00 02/24/17 15:11 DC 02/24/17 07:16 50 MG Raspberry (Raspberry Syrup 5ml Cup) 5 ml QID PO 02/20/17 21:00 03/06/17 20:59 02/25/17 11:54 5 ML Zolpidem Tartrate (Ambien Tab) 5 mg HS PRN PO 02/20/17 23:30 03/22/17 23:29 02/24/17 21:23 5 MG Vancomycin HCl (Vancomycin Oral Soln) 250 mg QID PO 02/22/17 13:00 03/04/17 12:59 02/25/17 11:54 250 MG Diltiazem HCl (Dilacor Xr Cap) 240 mg HS PO 02/24/17 21:00 03/26/17 20:59 02/24/17 20:40 240 MG Prednisone (PredniSONE TAB) 40 mg DAILY PO 02/25/17 08:00 03/23/17 08:59 02/25/17 07:44 40 MG Aspirin/Aluminum/ Magnesium/Ca Carb (Ascriptin Tab) 325 mg DAILY PO 02/25/17 08:00 03/27/17 07:59 02/25/17 07:44 325 MG (Zahida Blanco, OXANA) Objective Vital Signs Date Time Temp Pulse Resp B/P (MAP) Pulse Ox O2 Delivery O2 Flow Rate FiO2 02/25/17 12:52 165/57 (93) 02/25/17 09:48 77 98 02/25/17 09:42 Room Air 02/25/17 07:33 36.4 57 20 184/64 (104) 94 Room Air 193/67 (109) 02/24/17 23:27 166/74 (104) 02/24/17 23:27 Room Air 02/24/17 22:49 36.9 72 19 190/81 (117) 95 Room Air 02/24/17 21:33 167/78 (107) 02/24/17 16:00 Room Air 02/24/17 15:10 36.4 72 18 171/84 (113) 92 Nasal Cannula 2.0 (Zahida Blanco CRNP) Physical Exam Notes: General: no distress Eyes: normal inspection, PERLL Respiratory: chest non tender, clear to auscultation, normal breath sounds, no respiratory distress, no accessory muscle use Cardiac: regular rate and rhythm, no rub or gallop, no murmur, +2 pitting edema LE, no jvd GI/: active bowel sounds, no abd pain or tenderness, soft, non distended Extremities: normal range of motion, normal strength, non tender Neuro/Psych: alert and oriented x 3, normal mood and affect Skin: normal color, dry (Zahida Blanco CRNP) Laboratory Results Last 24 Hours Test 02/25/17 05:16 White Blood Count 21.14 K/uL Red Blood Count 3.44 M/uL Hemoglobin 9.3 g/dL Hematocrit 29.9 % Mean Corpuscular Volume 86.9 fL Mean Corpuscular Hemoglobin 27.0 pg Mean Corpuscular Hemoglobin Concent 31.1 g/dl RDW Standard Deviation 59.0 fL RDW Coefficient of Variation 18.4 % Platelet Count 307 K/uL Mean Platelet Volume 10.4 fL Sodium Level 138 mmol/L Potassium Level 5.1 mmol/L Chloride Level 114 mmol/L Carbon Dioxide Level 17 mmol/L Anion Gap 7.0 mmol/L Blood Urea Nitrogen 66 mg/dl Creatinine 2.72 mg/dl Est Creatinine Clear Calc Drug Dose 20.1 ml/min Estimated GFR () 24.8 Estimated GFR (Non- 21.4 BUN/Creatinine Ratio 24.3 Random Glucose 84 mg/dl Calcium Level 7.4 mg/dl (Zahida Blanco CRNP) Assessment and Plan Mr. Thurman is a 76 year old man who is here for GI bleed due to C.diff infection , acute renal failure from atn, and newly discovered pharyngeal mass, biopsy inconclusive C.diff, leukocytosis - Patient received 1 unit of PRBC on evening of admission. hgb stable - continue po vanco at 250 mg QID. - d/c'd asa and clopidogrel Acute renal failure in setting of CKD stage 4 - Creat trending down from 4 - 2.7 today baseline is 1.8 - d/c'd fluids due to edema - consulted nephrology - avoid nephrotoxins Pharyngeal mass - outpatient ENT - biopsy not conclusive Leukocytosis: - likely due to c.diff, patient has also been on steroids, trending down Coag negative staph UTI pt does self cath - Keflex - last dose 02/15 - nursing attempted teaching on sterile technique for self cath but patient was not receptive to it. - continue straight cath prn - Urine culture grew yeast. COPD - recently treated for acute hypoxic respiratory failure 2nd to COPD exacerbation - O2 per protocol - taper prednisone HTN controlled with diltiazem, increased yesterday by nephro. BPH/ prostate CA - flomax. - straight cath prn DVT proph - SCDs; chemical proph contraindicated due to GI bleed Disposition - Patient requested to go to [facility], awaiting authorization (Zahida Blanco, OXANA) Reviewed: Pt Seen/Exam by Me (Kiana Hensley MD) History PATHOLOGY TECHNICIAN Supervision Note: I interviewed and examined the patient. Discussed with OXANA Blanco and agree with findings and plan as documented in the note. Any exceptions or clarifications are listed here: Very minimal stool output today. Hgb again remains stable and no obvious bleeding. Pt has no complaints. BPs remain out of control. Doppler LLE neg for DVT last night Vitals reviewed NAD, thin RRR no mgr lungs diminished BS throughout, but clear Abd +BS soft NT ND Ext : Left leg with 2+ pitting edema to the knee, right leg with trace pitting edema to the knee, no calf tenderness 76 yo male with a h/o CAD, PAD, HTN, CKD stage III, COPD, pharyngeal mass, prostate CA, BPH, and recent GI bleeding, here with anemia, GI bleed, and C. diff diarrhea. -C. diff diarrhea improving with increased dose of po Vanco-he has received the 125mg qid dose since 02/11 but did not start improving until increased to 250mg qid on 02/20. WIll continue 10 day course from the date of 02/20 (last dose on 03/01/17) -LE edema-dc'd IVFs, Doppler neg for DVT, likely volume overload from IVFs and renal failure, hypoalbuminemia--> will not give diuretics in light of renal failure, follow I/Os -needs f/u with Nephrology as outpt - restarted ASA 81mg but hold off on Plavix for now--> review of previous hospital records reveal most likely reason for DAPT is PAD with multiple stents placed in the past, none recent. Consider STOPPING Plavix all together in the future given recurrent GI bleeds, but if deemed necessary, would wait at least 2 weeks and document stable hemoglobins -recommend close f/u of CBC at [facility] -Will need OUTPATIENT ENT f/u with Dr. De La Cruz or other ENT for pharyngeal mass with biopsy showing fungal sheets (sample taken during EGD) -BPs UNCONTROLLED since holding lisinopril for MY--> increased dose of diltiazem on 02/24 with little effect so far; add hydralazine 10mg po tid and titrate upward as needed, ordered prn IV hydralazine for while in hospital -hopeful for dc to [facility] now tomorrow once insurance authorization approved. Documented By: Kiana Hensley (Kiana Hensley MD)
[2017-02-25] MEDS ORDERED: HydrALAZINE HCL 20 MG/ML VIAL IV. PRN (16:00)
--- NOTE | 2017-02-25 18:25 | NUR ---
A: Pt reports he thinks it may be time to straight cath - bladder scan for 420mL as highest amt. Made pt aware of order for straight cath if bladder scan greater than 500. Pt denies any discomfort at this time. Will continue to monitor and straight cath once bladder scan greater than 500mL per doctor order.
[2017-02-25] MEDS: FINASTERIDE 5 MG TAB PO SCH (20:26)
[2017-02-25] MEDS: DILTIAZEM HCL 120 MG ER CAP PO SCH (20:27)
--- NOTE | 2017-02-25 20:30 | NUR ---
NURSE NOTE: 2030 - STRAIGHT CATH FOR 500 CC CLEAR CONCENTRATED YELLOW
[2017-02-25] MEDS: HydrALAZINE 10 MG TAB PO SCH (20:32)
[2017-02-25] MEDS: ZOLPIDEM TARTRATE 5 MG TAB PO PRN (20:46)
--- NOTE | 2017-02-26 03:44 | NUR ---
ID: A/O X 3 - OCCASIONAL CONFUSION - VSS - HL - RA SATS WNL - LUNGS DIMINISHED - BS+ - INCONTINENT LARGE LOOSE BM - SKIN DRY FRAGILE SALLOW - MULTI AREA ECCHYMOSIS - SCABS - HEALING REDDENED AREAS - ST CATH FOR 500 CC AT 02/25 - TOLERATED WELL - REPOSITIONS SELF - DENIES PAIN - REQUESTED AMBIEN - D/C UNCERTAIN
--- NOTE | 2017-02-26 06:30 | NUR ---
NURSE NOTE: LAST STRAIGHT CATH 02/25 - 2029 FOR 500 CC - APPROX 0500 BLADDER SCANNED PT FOR 760 CC - ATTEMPTED TO STRAIGHT CATH X 2 - PENILE/SCROTAL AREA EDEMATOUS FLUID FILLED - UNSUCCESSFUL ATTEMPTS - SECOND ATTEMPT ABDULLAHI BLOOD DRAINAGE CONTACTED MD WHO ORDERED UROLOGY CONSULT - ASSOCIATE PROFESSOR OF MEDICINE CONTACTED UROLOGIST WHO ORDERED CT SCAN CT SCAN OBTAINED - MD CONTACTED INFORMATION PASSED TO NEXT SHIFT
[2017-02-26 07:14] VITALS: BP 164/62; PULSE 58; TEMP 36.4; O2SAT 95
--- NOTE | 2017-02-26 07:20 | DIAGNOSTIC IMAGING REPORT ---
CT OF THE ABDOMEN AND PELVIS WITHOUT CONTRAST CLINICAL HISTORY: ? renal failure. C. difficile colitis. COMPARISON STUDY: CT of the abdomen and pelvis December 25, 2016 and renal ultrasound February 09, 2017. TECHNIQUE: Axial images of the abdomen and pelvis were obtained without IV contrast. Images were reviewed in the axial, sagittal, and coronal planes. A dose lowering technique was utilized adhering to the principles of ALARA. FINDINGS: Visualized portions of the lower chest demonstrate small bilateral pleural effusions, right larger than left. Associated by basilar opacities favor atelectasis. Sales Contracts Analyst image demonstrates suspected mild pulmonary edema. There is generalized anasarca. Small amount of abdominal and pelvic ascites is noted. Evaluation on this exam is difficult due to poor soft tissue differentiation from the anasarca. Several hypodense hepatic lesions are unchanged. These favor cysts. A few water attenuation bilateral renal lesions are suboptimally assessed on this unenhanced exam but likely reflect cysts. Unenhanced images of the spleen, adrenal glands and pancreas are unremarkable. There are gallstones within the gallbladder. The gallbladder is not distended. There is no hydronephrosis. Calcifications within each renal sinus favor vascular calcifications there is moderate distention of the bladder. Colonic diverticulosis is noted without evidence for acute diverticulitis. There is moderate wall thickening of the rectum with perirectal infiltration. Note is made of a gas containing tract which extends from the right lateral aspect of the rectum superiorly. This may reflect a contained rectal perforation. No abscess is identified on this unenhanced exam. Several old lumbar spine compression deformities are noted. There is grade II anterolisthesis of L5 on S1 which is unchanged. IMPRESSION: 1. Moderate rectal wall thickening with perirectal infiltration. In addition, gas containing tract which arises from the right lateral aspect of the rectum and extends superiorly. This is suboptimally assessed on this unenhanced exam but appears to be extraluminal and raises the possibility of a contained rectal perforation. A redundant portion of the colon could appear similar although is considered less likely. Findings discussed with Dr. Hensley at time of dictation. 2. No hydronephrosis. Severe right and moderate left renal atrophy. Moderate distention of the bladder. 3. Evidence for volume overload with small bilateral pleural effusions, anasarca, ascites and mild pulmonary edema. 4. Cholelithiasis. Electronically signed by: Gucci Farnsworth M.D. 02/26/2017 7:19 AM Dictated Date/Time: 02/26/2017 7:00 AM
[2017-02-26] MEDS ORDERED: LIDOCAINE HCL 2% JELLY 30 ML TUBE EXT ONE (07:41)
[2017-02-26 08:25] LABS: EOS % 0.4 %; EOS ABS # 0.07 K/uL (0-0.5); HEMATOCRIT 32.5 % (42-52); HEMOGLOBIN 10.2 g/dL (14.0-18.0); IG# 0.09 K/uL (0.00-0.02); LYMPH % 2.7 %; LYMPH ABS # 0.51 K/uL (1.2-3.4); MEAN CELL VOLUME 87.1 fL (80-100); MEAN CORPUSCULAR HEMOGLOBIN 27.3 pg (25-34); MEAN CORPUSCULAR HGB CONC 31.4 g/dl (32-36); MEAN PLATELET VOLUME 10.2 fL (7.4-10.4); MONO % 4.7 %; MONO ABS # 0.89 K/uL (0.11-0.59); NEUT % 91.7 %; NEUT ABS # 17.56 K/uL (1.4-6.5); PLATELET COUNT 291 K/uL (130-400); RED CELL DISTRIBUTION WIDTH CV 18.5 % (11.5-14.5); RED CELL DISTRIBUTION WIDTH SD 58.9 fL (36.4-46.3); WHITE BLOOD COUNT 19.12 K/uL (4.8-10.8)
[2017-02-26 09:03] LABS: ALBUMIN 2.5 gm/dl (3.4-5.0); ALT/SGPT 36 U/L (12-78); AST/SGOT 16 U/L (15-37); BLOOD UREA NITROGEN 72 mg/dl (7-18); CALCIUM 7.8 mg/dl (8.5-10.1); CARBON DIOXIDE 19 mmol/L (21-32); CREATININE 2.83 mg/dl (0.60-1.40); GLUCOSE 81 mg/dl (70-99); POTASSIUM 5.3 mmol/L (3.5-5.1); SODIUM 139 mmol/L (136-145)
[2017-02-26 09:06] LABS: ALKALINE PHOSPHATASE 70 U/L (45-117); TOTAL PROTEIN 4.8 gm/dl (6.4-8.2)
[2017-02-26] MEDS: TAMSULOSIN HCL 0.4 MG CAP PO SCH ×2 (09:15→19:45)
[2017-02-26] MEDS: ASPIRIN 81 MG ECTAB PO SCH (09:15)
[2017-02-26] MEDS: VANCOMYCIN HCL 250 MG/5 ML SOLN PO SCH ×4 (09:15→19:45)
[2017-02-26] MEDS: RASPBERRY SYRUP 5 ML UDP PO SCH ×4 (09:15→19:45)
[2017-02-26] MEDS: HydrALAZINE 10 MG TAB PO SCH ×3 (09:15→19:45)
[2017-02-26] MEDS: BICALUTAMIDE 50 MG TAB PO SCH (09:18)
--- NOTE | 2017-02-26 09:51 | Hospitalist Progress Note ---
Hospitalist Progress Note Date of Service Feb 26, 2017. (Zahida Blanco CRNP) Subjective Pt evaluation today including: conversation w/ patient, physical exam, chart review, lab review Voiding: rapp catheter in place This morning Mr. Thurman was retaining 650 ml of urine on bladder scan and nursing was unable to successfully place Rapp catheter so urology was consulted and they placed a Rapp. CT this morning also showed contained rectal perforation for which general surgery was consulted. Per nursing, surgery did not feel that intervention was necessary at this time. Nursing also denied any bloody or dark stools, patient's diarrhea is improving ROS Constitutional: no chills, aches, sweats or fever Respiratory: no sob,cough, sputum, or wheezing Cardiac: no chest pain, palpitations, edema, orthopnea or lightheadedness GI: no abdominal pain, nausea, vomiting, diarrhea or constipation :see HPI Extremities: no joint pain or weakness Skin: no rash All Other Systems: Reviewed and Negative (Zahida Blanco CRNP) Medications Medications Administered Medications (Trade) Dose Ordered Sig/Paris Route Start Time Stop Time Status Last Admin Dose Admin Vancomycin HCl (Vancomycin Oral Soln) 250 mg ONE STAT PO 02/20/17 16:37 02/20/17 16:38 DC 02/20/17 16:57 250 MG Raspberry (Raspberry Syrup 5ml Cup) 5 ml ONE ONCE PO 02/20/17 17:00 02/20/17 17:01 DC 02/20/17 16:58 5 ML Sodium Chloride 1,000 ml @ 100 mls/hr Q10H IV 02/20/17 17:45 02/24/17 20:20 DC 02/24/17 17:21 100 MLS/HR Diltiazem HCl (TIAzac CAP) 120 mg HS PO 02/20/17 21:00 02/24/17 09:33 DC 02/23/17 20:29 120 MG Finasteride (Proscar Tab) 5 mg HS PO 02/20/17 21:00 18 20:59 02/25/17 20:26 5 MG Oxycodone/ Acetaminophen (Percocet 5-325mg Tab) 1 tab Q4H PRN PO 02/20/17 17:45 03/06/17 17:44 02/20/17 21:14 1 TAB Tamsulosin HCl (Flomax Cap) 0.4 mg BID PO 02/20/17 21:00 03/22/17 20:59 02/26/17 09:15 0.4 MG Vancomycin HCl (Vancomycin Oral Soln) 125 mg QID PO 02/20/17 21:00 02/22/17 11:57 DC 02/22/17 09:34 125 MG Metronidazole 500 mg/Prmx 100 ml @ 100 mls/hr Q8H IV 02/20/17 20:00 02/24/17 11:40 DC 02/24/17 03:54 100 MLS/HR Prednisone (PredniSONE TAB) 50 mg DAILY PO 02/21/17 09:00 02/24/17 15:11 DC 02/24/17 07:16 50 MG Raspberry (Raspberry Syrup 5ml Cup) 5 ml QID PO 02/20/17 21:00 03/06/17 20:59 02/26/17 09:15 5 ML Zolpidem Tartrate (Ambien Tab) 5 mg HS PRN PO 02/20/17 23:30 03/22/17 23:29 02/25/17 20:46 5 MG Vancomycin HCl (Vancomycin Oral Soln) 250 mg QID PO 02/22/17 13:00 03/04/17 12:59 02/26/17 09:15 250 MG Diltiazem HCl (Dilacor Xr Cap) 240 mg HS PO 02/24/17 21:00 03/26/17 20:59 02/25/17 20:27 240 MG Prednisone (PredniSONE TAB) 40 mg DAILY PO 02/25/17 08:00 03/23/17 08:59 02/26/17 09:15 40 MG Aspirin/Aluminum/ Magnesium/Ca Carb (Ascriptin Tab) 325 mg DAILY PO 02/25/17 08:00 02/25/17 15:54 DC 02/25/17 07:44 325 MG Aspirin (Ecotrin Tab) 81 mg DAILY PO 02/26/17 08:00 03/27/17 07:59 02/26/17 09:15 81 MG Hydralazine HCl (Apresoline Tab) 10 mg TID PO 02/25/17 20:00 03/27/17 19:59 02/26/17 09:15 10 MG Bicalutamide (Casodex Tab) 50 mg QAM PO 02/27/17 08:00 03/29/17 07:59 02/26/17 09:18 50 MG (Zahida Blanco CRNP) Objective Vital Signs Date Time Temp Pulse Resp B/P (MAP) Pulse Ox O2 Delivery O2 Flow Rate FiO2 02/26/17 07:14 36.4 58 18 164/62 (96) 95 02/26/17 00:15 Room Air 02/25/17 23:04 36.4 69 17 159/62 (94) 96 Room Air 02/25/17 20:23 36.6 74 18 166/70 (102) 98 Room Air 02/25/17 16:00 Room Air 02/25/17 15:59 73 158/61 (93) 02/25/17 15:24 36.6 66 18 185/77 (113) 95 Room Air 02/25/17 12:52 165/57 (93) 02/25/17 09:48 77 98 02/25/17 09:42 Room Air (Zahida Blanco CRNP) Physical Exam Notes: General: no distress Eyes: normal inspection, PERLL Respiratory: chest non tender, clear to auscultation, normal breath sounds, no respiratory distress, no accessory muscle use Cardiac: regular rate and rhythm, no rub or gallop, no murmur, +2 pitting edema lower extremities GI/: active bowel sounds, no abd pain or tenderness, soft, non distended Extremities: normal range of motion, normal strength, non tender Neuro/Psych: alert and oriented x 3, normal mood and affect Skin: normal color, dry (Zahida Blanco CRNP) Laboratory Results Last 24 Hours Test 02/26/17 08:18 White Blood Count 19.12 K/uL Red Blood Count 3.73 M/uL Hemoglobin 10.2 g/dL Hematocrit 32.5 % Mean Corpuscular Volume 87.1 fL Mean Corpuscular Hemoglobin 27.3 pg Mean Corpuscular Hemoglobin Concent 31.4 g/dl Platelet Count 291 K/uL Mean Platelet Volume 10.2 fL Neutrophils (%) (Auto) 91.7 % Lymphocytes (%) (Auto) 2.7 % Monocytes (%) (Auto) 4.7 % Eosinophils (%) (Auto) 0.4 % Basophils (%) (Auto) 0.0 % Neutrophils # (Auto) 17.56 K/uL Lymphocytes # (Auto) 0.51 K/uL Monocytes # (Auto) 0.89 K/uL Eosinophils # (Auto) 0.07 K/uL Basophils # (Auto) 0.00 K/uL RDW Standard Deviation 58.9 fL RDW Coefficient of Variation 18.5 % Immature Granulocyte % (Auto) 0.5 % Immature Granulocyte # (Auto) 0.09 K/uL Sodium Level 139 mmol/L Potassium Level 5.3 mmol/L Chloride Level 112 mmol/L Carbon Dioxide Level 19 mmol/L Anion Gap 8.0 mmol/L Blood Urea Nitrogen 72 mg/dl Creatinine 2.83 mg/dl Est Creatinine Clear Calc Drug Dose 19.4 ml/min Estimated GFR () 23.6 Estimated GFR (Non- 20.4 BUN/Creatinine Ratio 25.5 Random Glucose 81 mg/dl Calcium Level 7.8 mg/dl Magnesium Level 2.7 mg/dl Total Bilirubin 0.4 mg/dl Direct Bilirubin < 0.1 mg/dl Aspartate Amino Transf (AST/SGOT) 16 U/L Alanine Aminotransferase (ALT/SGPT) 36 U/L Alkaline Phosphatase 70 U/L Total Protein 4.8 gm/dl Albumin 2.5 gm/dl Prostate Specific Antigen 4.050 ng/ml (Zahida Blanco ., OXANA) Diagnostic Results CT OF THE ABDOMEN AND PELVIS WITHOUT CONTRAST CLINICAL HISTORY: ? renal failure. C. difficile colitis. COMPARISON STUDY: CT of the abdomen and pelvis December 25, 2016 and renal ultrasound February 09, 2017. TECHNIQUE: Axial images of the abdomen and pelvis were obtained without IV contrast. Images were reviewed in the axial, sagittal, and coronal planes. A dose lowering technique was utilized adhering to the principles of ALARA. FINDINGS: Visualized portions of the lower chest demonstrate small bilateral pleural effusions, right larger than left. Associated by basilar opacities favor atelectasis. Extension Course Coordinator image demonstrates suspected mild pulmonary edema. There is generalized anasarca. Small amount of abdominal and pelvic ascites is noted. Evaluation on this exam is difficult due to poor soft tissue differentiation from the anasarca. Several hypodense hepatic lesions are unchanged. These favor cysts. A few water attenuation bilateral renal lesions are suboptimally assessed on this unenhanced exam but likely reflect cysts. Unenhanced images of the spleen, adrenal glands and pancreas are unremarkable. There are gallstones within the gallbladder. The gallbladder is not distended. There is no hydronephrosis. Calcifications within each renal sinus favor vascular calcifications there is moderate distention of the bladder. Colonic diverticulosis is noted without evidence for acute diverticulitis. There is moderate wall thickening of the rectum with perirectal infiltration. Note is made of a gas containing tract which extends from the right lateral aspect of the rectum superiorly. This may reflect a contained rectal perforation. No abscess is identified on this unenhanced exam. Several old lumbar spine compression deformities are noted. There is grade II anterolisthesis of L5 on S1 which is unchanged. IMPRESSION: 1. Moderate rectal wall thickening with perirectal infiltration. In addition, gas containing tract which arises from the right lateral aspect of the rectum and extends superiorly. This is suboptimally assessed on this unenhanced exam but appears to be extraluminal and raises the possibility of a contained rectal perforation. A redundant portion of the colon could appear similar although is considered less likely. Findings discussed with Dr. Hensley at time of dictation. 2. No hydronephrosis. Severe right and moderate left renal atrophy. Moderate distention of the bladder. 3. Evidence for volume overload with small bilateral pleural effusions, anasarca, ascites and mild pulmonary edema. 4. Cholelithiasis. (Zahida Blanco ., OXANA) Assessment and Plan Mr. Thurman is a 76 year old man who is here for GI bleed due to C.diff infection , acute renal failure from atn, and newly discovered pharyngeal mass, biopsy inconclusive C.diff - diarrhea decreasing - Patient received 1 unit of PRBC on evening of admission. hgb stable - continue po vanco at 250 mg QID. - d/c'd clopidogrel and restarted ASA - appears that ASA and clopidogrel was for PVD so may be able to stop clopidogrel altogether Acute renal failure in setting of CKD stage 4 - Creat was trending down from 4 but is beginning to creep back up - 2.83 today baseline is 1.8 - d/c'd fluids due to edema - respiratory status is not compromised though patient appears to be in fluid overload given anasarca, ascites and pleural effusions on imaging and as well as edema in lower extremities, will hold off on diuretics for now given rising creatinine - consulted nephrology - avoid nephrotoxins Contained rectal perforation on CT - consulted gen surg - npo tonight in case it worsens but if abd remains benign can leave tomorrow Pharyngeal mass - outpatient ENT - biopsy not conclusive Leukocytosis: - likely due to c.diff, patient has also been on steroids, trending down Coag negative staph UTI pt does self cath - Keflex - last dose 02/15 - nursing attempted teaching on sterile technique for self cath but patient was not receptive to it. - Urine culture grew yeast. COPD - recently treated for acute hypoxic respiratory failure 2nd to COPD exacerbation - O2 per protocol - continuing to taper prednisone HTN controlled with diltiazem, increased 02/24 by nephro, bp improving BPH/ prostate CA - flomax. - traumatic rapp insertion this morning requiring urology to come and place Rapp - will leave Rapp in on DC until f/u with urology DVT proph - SCDs; chemical proph contraindicated due to GI bleed Disposition - Likely tomorrow, awaiting auth for [facility] (Zahida Blanco CRNP) Reviewed: Pt Seen/Exam by Me (Kiana Hensley MD) History AD OPERATIONS SPECIALIST Supervision Note: I interviewed and examined the patient. Discussed with OXANA Blanco and agree with findings and plan as documented in the note. Any exceptions or clarifications are listed here: Urinary retention with traumatic Rapp placement this AM prompted Urology consult and CT abd/pel. Contained rectal perforation noted on CT. I discussed the case with Gen Surgery who recommended conservative management, keep NPO. Pt remains quite stable and says there is "no way I'm having any surgery!" Diarrhea has slowed down today, 5 small-moderate BMs today, no blood. BPs improve with addition of hydralazine. Pt surprised to hear he has prostate CA Vitals reviewed NAD, thin RRR no mgr lungs diminished BS throughout, but clear Abd +BS soft NT ND Ext : bilat legs 1+ pitting edema to the knees slightly improved from yesterday 76 yo male with a h/o CAD, PAD, HTN, CKD stage III, COPD, pharyngeal mass, prostate CA, BPH, and recent GI bleeding, here with anemia, GI bleed, and C. diff diarrhea. -C. diff diarrhea improving with increased dose of po Vanco-he has received the 125mg qid dose since 02/11 but did not start improving until increased to 250mg qid on 02/20. WIll continue 10 day course from the date of 02/20 (last dose on 03/01/17) -LE edema/hypoalbuminemia/MY-dc'd IVFs, Doppler neg for DVT, likely volume overload from IVFs and renal failure, hypoalbuminemia--> will not give diuretics in light of renal failure, follow I/Os -Nephrology started HCO3 tabs todya for non AG met acidosis likely from GI losses and from renal failure -needs f/u with Nephrology as outpt -recommend close f/u of CBC at [facility] -Will need OUTPATIENT ENT f/u with Dr. De La Cruz or other ENT for pharyngeal mass with biopsy showing fungal sheets (sample taken during EGD) -BPs were UNCONTROLLED since holding lisinopril for MY--> increased dose of diltiazem on 02/24 with little effect so far; added hydralazine 10mg po tid and titrate upward as needed-BPs improved somewhat today -Urinary retention/Prostate CA--> seen by Urology today and will keep Rapp in place x 10 days then TOV as outpt, restarted Casodex and is due to see Urology for Eligard injection at that time too -Contained rectal perforation--> Surgery recommends conservative management for now, NPO, but no pain, not toxic. Could have been from enemas received on -hopeful for dc to [facility] now tomorrow once insurance authorization approved. Documented By: Kiana Hensley (Kiana Hensley MD)
--- NOTE | 2017-02-26 10:51 | Nephrology Progress Note ---
Nephrology Progress Note Date of Service Feb 26, 2017. Chief Complaint Follow up evaluation of acute on chronic kidney injury Subjective Mr. Thurman was seen & evaluated in his hospital room this morning. He continues to have loose bowel movements. He remains weak and has not yet participated with physical therapy. Rapp catheter was removed yesterday. staffing analyst was unable to perform intermittent bladder catheterizations. Urology placed a new rapp catheter last PM. Abdominal CT revealed a possible contained rectal perforation. Review of Systems Constitutional: No fever Cardiovascular: No chest pain Respiratory: No dyspnea at rest Abdomen: + diarrhea, No pain, No nausea A complete review of systems was performed. Pertinent positives are noted above. All other systems are negative. Vital Signs Last 8 Hrs Date Time Temp Pulse Resp B/P (MAP) Pulse Ox O2 Delivery O2 Flow Rate FiO2 02/26/17 07:14 36.4 58 18 164/62 (96) 95 Last Recorded Weight Weight (Kilograms): 63.600 Physical Exam General Appearance: no apparent distress, + cachetic Head: atraumatic (temporal muscle wasting) Eyes: PERRL Neck: no adenopathy Respiratory/Chest: lungs clear, no respiratory distress Cardiovascular: regular rate, rhythm Abdomen/GI: non tender (hypoactive bowel sounds) Genitourinary - Male: + pertinent finding (rapp catheter in place draining clear yellow urine) Extremities/Musculoskelatal: + pertinent finding (1+ pretibial pitting edema) Neurologic/Psych: alert Social History Smoking Status: Current every day smoker Drug Use: none Marital Status: Occupation: retired Laboratory Results Past 24 Hours 02/26/17 08:18 Red Blood Count 3.73, Mean Corpuscular Volume 87.1, Mean Corpuscular Hemoglobin 27.3, Mean Corpuscular Hemoglobin Concent 31.4, Mean Platelet Volume 10.2, Neutrophils (%) (Auto) 91.7, Lymphocytes (%) (Auto) 2.7, Monocytes (%) (Auto) 4.7, Eosinophils (%) (Auto) 0.4, Basophils (%) (Auto) 0.0, Neutrophils # (Auto) 17.56, Lymphocytes # (Auto) 0.51, Monocytes # (Auto) 0.89, Eosinophils # (Auto) 0.07, Basophils # (Auto) 0.00 02/26/17 08:18 Test 02/26/17 08:18 White Blood Count 19.12 K/uL (4.8-10.8) Red Blood Count 3.73 M/uL (4.7-6.1) Hemoglobin 10.2 g/dL (14.0-18.0) Hematocrit 32.5 % (42-52) Mean Corpuscular Volume 87.1 fL (80-100) Mean Corpuscular Hemoglobin 27.3 pg (25-34) Mean Corpuscular Hemoglobin Concent 31.4 g/dl (32-36) Platelet Count 291 K/uL (130-400) Mean Platelet Volume 10.2 fL (7.4-10.4) Neutrophils (%) (Auto) 91.7 % Lymphocytes (%) (Auto) 2.7 % Monocytes (%) (Auto) 4.7 % Eosinophils (%) (Auto) 0.4 % Basophils (%) (Auto) 0.0 % Neutrophils # (Auto) 17.56 K/uL (1.4-6.5) Lymphocytes # (Auto) 0.51 K/uL (1.2-3.4) Monocytes # (Auto) 0.89 K/uL (0.11-0.59) Eosinophils # (Auto) 0.07 K/uL (0-0.5) Basophils # (Auto) 0.00 K/uL (0-0.2) RDW Standard Deviation 58.9 fL (36.4-46.3) RDW Coefficient of Variation 18.5 % (11.5-14.5) Immature Granulocyte % (Auto) 0.5 % Immature Granulocyte # (Auto) 0.09 K/uL (0.00-0.02) Anion Gap 8.0 mmol/L (3-11) Est Creatinine Clear Calc Drug Dose 19.4 ml/min Estimated GFR () 23.6 Estimated GFR (Non- 20.4 BUN/Creatinine Ratio 25.5 (10-20) Calcium Level 7.8 mg/dl (8.5-10.1) Magnesium Level 2.7 mg/dl (1.8-2.4) Total Bilirubin 0.4 mg/dl (0.2-1) Direct Bilirubin < 0.1 mg/dl (0-0.2) Aspartate Amino Transf (AST/SGOT) 16 U/L (15-37) Alanine Aminotransferase (ALT/SGPT) 36 U/L (12-78) Alkaline Phosphatase 70 U/L (45-117) Total Protein 4.8 gm/dl (6.4-8.2) Albumin 2.5 gm/dl (3.4-5.0) Prostate Specific Antigen 4.050 ng/ml (0.000-4.000) Allergies Coded Allergies: No Known Allergies (Verified , 02/20/17) Medications Current Inpatient Medications Medications (Trade) Dose Ordered Sig/Paris Route Start Time Stop Time Status Last Admin Dose Admin Acetaminophen (Tylenol Tab) 650 mg Q4H PRN PO 02/20/17 17:45 03/22/17 17:44 Finasteride (Proscar Tab) 5 mg HS PO 02/20/17 21:00 03/22/17 20:59 02/25/17 20:26 5 MG Nitroglycerin (Nitrostat Tab) 0.3 mg UD PRN UT 02/20/17 17:45 03/22/17 17:44 Oxycodone/ Acetaminophen (Percocet 5-325mg Tab) 1 tab Q4H PRN PO 02/20/17 17:45 03/06/17 17:44 02/20/17 21:14 1 TAB Tamsulosin HCl (Flomax Cap) 0.4 mg BID PO 02/20/17 21:00 03/22/17 20:59 02/26/17 09:15 0.4 MG Raspberry (Raspberry Syrup 5ml Cup) 5 ml QID PO 02/20/17 21:00 03/06/17 20:59 02/26/17 09:15 5 ML Zolpidem Tartrate (Ambien Tab) 5 mg HS PRN PO 02/20/17 23:30 03/22/17 23:29 02/25/17 20:46 5 MG Vancomycin HCl (Vancomycin Oral Soln) 250 mg QID PO 02/22/17 13:00 03/04/17 12:59 02/26/17 09:15 250 MG Diltiazem HCl (Dilacor Xr Cap) 240 mg HS PO 02/24/17 21:00 03/26/17 20:59 02/25/17 20:27 240 MG Hydralazine HCl (HydrALAZINE INJ) 10 mg Q8H PRN IV. 02/25/17 16:00 03/27/17 15:59 Aspirin (Ecotrin Tab) 81 mg DAILY PO 02/26/17 08:00 03/27/17 07:59 02/26/17 09:15 81 MG Hydralazine HCl (Apresoline Tab) 10 mg TID PO 02/25/17 20:00 03/27/17 19:59 02/26/17 09:15 10 MG Bicalutamide (Casodex Tab) 50 mg QAM PO 02/27/17 08:00 03/29/17 07:59 02/26/17 09:18 50 MG Prednisone (PredniSONE TAB) 30 mg DAILY PO 02/27/17 08:00 03/23/17 08:59 Sodium Bicarbonate 75 meq/Sodium Chloride 1,075 ml @ 80 mls/hr [id number] IV 02/26/17 11:00 03/28/17 10:29 Impression (1) Acute renal insufficiency (2) Chronic kidney disease, stage III (moderate) (3) Urinary retention (4) Pharyngeal mass (5) Acute blood loss anemia Mr. Thurman is a frail 76-year-old male who presented to [facility] 02/05 with acute anemia due to bleeding from a pharyngeal mass. Biopsy was inconclusive. Outpatient ENT follow up was planned. Hospital course was complicated by MY consistent with ATN in the setting of acute blood loss anemia and DAVID use. Renal recovery has been slow. BP is acceptable. Mr. Thurman completed treatment for a staph UTI. Mr. Thurman is on oral vancomycin for C diff. Mr. Thurman signed out AMA 02/20 and returned to the hospital within 24 hours due to inability to care for himself at home. He is awaiting SNF placement. Patient continues to have diarrhea. Abdominal CT 02/25 revealed a contained rectal perforation Mr. Thurman has BPH and chronic urinary retention. He performs CIC. Rapp catheter placed on readmission. Recommendations ACUTE KIDNEY INJURY: -- Renal recovery has stalled. This may be related to rectal inflammation. Unable to provide hydration due to 3rd spacing of volume CHRONIC KIDNEY DISEASE: -- Baseline creatinine previously ~ 1.8 -- CKD is on the basis of renal vascular disease. Renal US did show asymmetry. Renal artery doppler was inconclusive. Kidney function is recovering with d/ c of DAVID inhibitor and conservative care. Creatinine was stable at 1.8 prior to admission while on DAVID inhibitor therapy CACHEXIA: -- Nutritional supplements HYPERTENSION: -- BP is mildly elevated. Diltiazem was increased to 240 mg po qHS. -- Avoid DAVID / ARB due to MY ID: -- On PO Vancomycin for C. Difficile colitis PHARYNGEAL MASS: -- For patient's benefit, consider expediting ENT evaluation while hospitalized GI: -- Abdominal CT 02/25 with rectal inflammation and contained perforation. General surgery has recommended conservative management
--- NOTE | 2017-02-26 10:57 | NUR ---
A NOTE-PT WITH #18 FR JOVLE CATH PLACED THIS AM BY THIS NURSE WITHOUT DIFFICULTY. NO HEMATURIA NOTED. DRAINING WELL. PT DENIES ABD OR RECTAL PAIN. HAD 2 SOFT BROWN BM AND LARGE BM OVERNIGHT. NO BLEEDING NOTED AND NO NAUSEA OR VOMITING NOTED. PT WAS SEEN BY UROLOGY AND GENERAL SURGERY THIS AM AND NO INTERVENTIONS NEEDED AT THIS TIME. PER UROLOGY CATHETER IS TO REMAIN IN PLACE.
[2017-02-26] MEDS ORDERED: SODIUM BICARBONATE 8.4% INJ 75 MEQ in SODIUM CHLORIDE 0.45% 1000ML 1,000 ML IV SCH (11:00)
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
--- NOTE | 2017-02-26 14:05 | NUR ---
Pt seen for followup, refer to linked note for full assessment and recommendations. Addendum: 02/26/17 at [address] Amended: Links added.
--- NOTE | 2017-02-26 14:11 | NUR ---
Case Management- Updated pt on discharge plans, he is accepted at [facility] once medically stable. Requested PT/OT update notes Thursday am in case pt is ready for transition tomorrow or over the weekend. Will continue to follow.
--- NOTE | 2017-02-26 14:19 | Urology Consultation ---
History General Date of Service: Feb 26, 2017. Chief Complaint: urinary retention Primary Care Physician: Nitish Shay M.D. Pt seen a urologist before?: Yes (Dr. Prasanna Urbina ) If yes, why?: prostate cancer History of Present Illness 76 yo male admitted for GI bleed. consulted for UR. Rapp catheter placed this morning for 760ml PVR. Rapp draining clear, yellow urine. The pt takes finasteride and Flomax at home. He has seen Dr. Urbina last in December for prostate cancer found on pathology after TURP. The pt does not recall that he has prostate cancer. Previously ordered Casodex, but does not recall whether he takes it at home. However, his PSA has improved to 4.05 today from 21 in November, so one would assume he is on the medication at home. He is to receive an Eligard injection at next office visit with Dr. Urbina. Imaging Imaging: CT Laboratory Last 24 Hours Test 02/26/17 08:18 White Blood Count 19.12 K/uL Red Blood Count 3.73 M/uL Hemoglobin 10.2 g/dL Hematocrit 32.5 % Mean Corpuscular Volume 87.1 fL Mean Corpuscular Hemoglobin 27.3 pg Mean Corpuscular Hemoglobin Concent 31.4 g/dl Platelet Count 291 K/uL Mean Platelet Volume 10.2 fL Neutrophils (%) (Auto) 91.7 % Lymphocytes (%) (Auto) 2.7 % Monocytes (%) (Auto) 4.7 % Eosinophils (%) (Auto) 0.4 % Basophils (%) (Auto) 0.0 % Neutrophils # (Auto) 17.56 K/uL Lymphocytes # (Auto) 0.51 K/uL Monocytes # (Auto) 0.89 K/uL Eosinophils # (Auto) 0.07 K/uL Basophils # (Auto) 0.00 K/uL RDW Standard Deviation 58.9 fL RDW Coefficient of Variation 18.5 % Immature Granulocyte % (Auto) 0.5 % Immature Granulocyte # (Auto) 0.09 K/uL Sodium Level 139 mmol/L Potassium Level 5.3 mmol/L Chloride Level 112 mmol/L Carbon Dioxide Level 19 mmol/L Anion Gap 8.0 mmol/L Blood Urea Nitrogen 72 mg/dl Creatinine 2.83 mg/dl Est Creatinine Clear Calc Drug Dose 19.4 ml/min Estimated GFR () 23.6 Estimated GFR (Non- 20.4 BUN/Creatinine Ratio 25.5 Random Glucose 81 mg/dl Calcium Level 7.8 mg/dl Magnesium Level 2.7 mg/dl Total Bilirubin 0.4 mg/dl Direct Bilirubin < 0.1 mg/dl Aspartate Amino Transf (AST/SGOT) 16 U/L Alanine Aminotransferase (ALT/SGPT) 36 U/L Alkaline Phosphatase 70 U/L Total Protein 4.8 gm/dl Albumin 2.5 gm/dl Prostate Specific Antigen 4.050 ng/ml Problem List Medical Problems: (1) Acute urinary retention Status: Acute (2) MY (acute kidney injury) Status: Acute (3) C. difficile colitis Status: Acute (4) Diarrhea Status: Acute (5) GI bleed Status: Acute (6) GI bleeding Status: Acute (7) Hyperkalemia Status: Acute (8) Hypotension Status: Acute (9) Symptomatic anemia Status: Acute (10) UTI (urinary tract infection) Status: Acute Past History cancer - prostate, coronary artery disease, hypertension, other (PAD) Past Surgical History: EGD Family History ND, CVA Social History Hx Tobacco Use In Past Year?: Yes Smokin pack/day Alcohol: daily (2-3 drinks per day- beer) Marital status: Occupation status: retired Immunizations History of Influenza Vaccine: N/A Influenza Vaccine Date: Feb 02, 2010 History of Tetanus Vaccine?: Unknown History of Pneumococcal: Unknown History of Hepatitis B Vaccine: Unknown History of MDRO No Allergies Coded Allergies: No Known Allergies (Verified , 02/20/17) Medications Home Medications: Home Meds and Scripts Medications Dose Route/Sig Max Daily Dose Days Date Category Dose Instructions Percocet 5MG/325MG (Oxycodone/Acetaminophen) Tab 1 Tablet PO Q4H PRN 02/20/17 Reported PAIN Vancomycin HCl + Syrspend (Vancomycin HCl) 50 Mg/Ml Hattie 125 Mg PO QID 14 02/20/17 Reported Aspirin Ec (Aspirin) 325 Mg Tab 325 Mg PO QPM 08/26/16 Reported Restart in 3 days if urine clear STOPPED TAKING 6-7 DAYS AGO Flomax (Tamsulosin Hcl) 0.4 Mg Cap 0.4 Mg PO BID 04/25/15 Reported Plavix (Clopidogrel Bisulfate) 75 Mg Tab 75 Mg PO QPM 06/20/14 Reported Restart in 3 days if urine clear. STOPPED TAKING 6-7 DAYS AGO Tiazac (Diltiazem HCl) 120 Mg Capcr 120 Mg PO HS 08/13/12 Reported Proscar (Finasteride) 5 Mg Tab 5 Mg PO HS 08/06/12 Reported Nitrostat (Nitroglycerin) 0.3 Mg Tab 0.3 Mg UT PRN 05/16/09 Reported Zestril (Lisinopril) 10 Mg Tab 10 Mg PO HS 05/16/09 Reported Inpatient Medications: Current Inpatient Medications Medications (Trade) Dose Ordered Sig/Paris Route Start Time Stop Time Status Last Admin Dose Admin Acetaminophen (Tylenol Tab) 650 mg Q4H PRN PO 02/20/17 17:45 03/22/17 17:44 Finasteride (Proscar Tab) 5 mg HS PO 02/20/17 21:00 03/22/17 20:59 02/25/17 20:26 5 MG Nitroglycerin (Nitrostat Tab) 0.3 mg UD PRN UT 02/20/17 17:45 03/22/17 17:44 Oxycodone/ Acetaminophen (Percocet 5-325mg Tab) 1 tab Q4H PRN PO 02/20/17 17:45 03/06/17 17:44 02/20/17 21:14 1 TAB Tamsulosin HCl (Flomax Cap) 0.4 mg BID PO 02/20/17 21:00 03/22/17 20:59 02/26/17 09:15 0.4 MG Raspberry (Raspberry Syrup 5ml Cup) 5 ml QID PO 02/20/17 21:00 03/06/17 20:59 02/26/17 12:48 5 ML Zolpidem Tartrate (Ambien Tab) 5 mg HS PRN PO 02/20/17 23:30 03/22/17 23:29 02/25/17 20:46 5 MG Vancomycin HCl (Vancomycin Oral Soln) 250 mg QID PO 02/22/17 13:00 03/04/17 12:59 02/26/17 12:48 250 MG Diltiazem HCl (Dilacor Xr Cap) 240 mg HS PO 02/24/17 21:00 03/26/17 20:59 02/25/17 20:27 240 MG Hydralazine HCl (HydrALAZINE INJ) 10 mg Q8H PRN IV. 02/25/17 16:00 03/27/17 15:59 Aspirin (Ecotrin Tab) 81 mg DAILY PO 02/26/17 08:00 03/27/17 07:59 02/26/17 09:15 81 MG Hydralazine HCl (Apresoline Tab) 10 mg TID PO 02/25/17 20:00 03/27/17 19:59 02/26/17 09:15 10 MG Bicalutamide (Casodex Tab) 50 mg QAM PO 02/27/17 08:00 03/29/17 07:59 02/26/17 09:18 50 MG Prednisone (PredniSONE TAB) 30 mg DAILY PO 02/27/17 08:00 03/23/17 08:59 Sodium Bicarbonate (Sodium Bicarbonate Tab) 650 mg BID PO 02/26/17 20:00 03/28/17 19:59 Review of Systems Review of Systems Constitutional: No fever, No chills Eyes: No double vision Neurological: No dizzy Endocrine: No excessive thirst Gastrointestinal: No abdominal pain, No nausea, No vomiting Cardiovascular: No chest pain Respiratory: No shortness of breath Skin: No rash Musculoskeletal: + arthritis Psychologic / Mental: + trouble remembering Male : + urinary retention Physical Exam Vital Signs: Vital Signs Past 12 Hours Date Time Temp Pulse Resp B/P (MAP) Pulse Ox O2 Delivery O2 Flow Rate FiO2 02/26/17 10:46 Room Air 02/26/17 07:14 36.4 58 18 164/62 (96) 95 Physical Exam: General Appearance: no apparent distress Eyes: bilateral eyes normal inspection ENT: hearing grossly normal Neck: no JVD Respiratory/Chest: no respiratory distress, no accessory muscle use Cardiovascular: no JVD Extremities: normal inspection Neurologic/Psychiatric: alert, normal mood/affect, oriented x 3 Skin: normal color Assessment & Plan Assessment & Plan A/P: Urinary retention, Prostate cancer Will leave rapp catheter in place for 7-10 day. Outpatient TOV at that time. Continue finasteride and Flomax. I have repeated a UC&S. Will restart Casodex for prostate cancer while inpatient. Will arrange for an outpatient f/u in 7-[address] Urbina for Eligard injection, TOV, and further discussion of prostate cancer and tx options. Thanks for the consult. No further management at this time. Recall PRN issues. Thanks for allowing us to participate in this pt's care.
[2017-02-26 15:20] VITALS: BP 157/62; PULSE 58; TEMP 36.6; O2SAT 98
[2017-02-26] MEDS: SODIUM BICARBONATE 650 MG TAB PO SCH (19:45)
[2017-02-26] MEDS: FINASTERIDE 5 MG TAB PO SCH (19:46)
[2017-02-26] MEDS: DILTIAZEM HCL 120 MG ER CAP PO SCH (19:53)
[2017-02-26 19:54] VITALS: BP 156/54; PULSE 50
[2017-02-26] MEDS: ZOLPIDEM TARTRATE 5 MG TAB PO PRN (20:59)
--- NOTE | 2017-02-26 23:25 | NUR ---
ID: A&Ox4. Ambulates with 2 assist. VSS on RA. Incont of bowel x1 this shift, on PO Vancomycin. Hill patent/draining. Saline locked L forearm. NPO status r/t rectal perforation. [facility]
[2017-02-27] VITALS: BP 156/74; PULSE 76; TEMP 36.4; O2SAT 94
[2017-02-27 05:52] LABS: BASO % 0.1 %; BASO ABS # 0.01 K/uL (0-0.2); EOS % 0.2 %; EOS ABS # 0.03 K/uL (0-0.5); HEMATOCRIT 30.8 % (42-52); HEMOGLOBIN 9.7 g/dL (14.0-18.0); IG# 0.08 K/uL (0.00-0.02); LYMPH % 2.9 %; MEAN CELL VOLUME 86.3 fL (80-100); MEAN CORPUSCULAR HEMOGLOBIN 27.2 pg (25-34); MEAN CORPUSCULAR HGB CONC 31.5 g/dl (32-36); MONO % 3.3 %; MONO ABS # 0.57 K/uL (0.11-0.59); NEUT ABS # 16.02 K/uL (1.4-6.5); PLATELET COUNT 276 K/uL (130-400); RED CELL DISTRIBUTION WIDTH CV 18.4 % (11.5-14.5); RED CELL DISTRIBUTION WIDTH SD 58.8 fL (36.4-46.3); WHITE BLOOD COUNT 17.21 K/uL (4.8-10.8)
[2017-02-27 06:26] LABS: CALCIUM 7.7 mg/dl (8.5-10.1); CREATININE 2.71 mg/dl (0.60-1.40); POTASSIUM 5.6 mmol/L (3.5-5.1)
[2017-02-27 07:39] VITALS: BP 102/64; PULSE 74; TEMP 36.5; O2SAT 94
[2017-02-27] MEDS: HydrALAZINE 10 MG TAB PO SCH ×2 (07:46→12:49)
[2017-02-27] MEDS: SODIUM BICARBONATE 650 MG TAB PO SCH (07:46)
[2017-02-27] MEDS: RASPBERRY SYRUP 5 ML UDP PO SCH ×2 (07:46→12:49)
[2017-02-27] MEDS: TAMSULOSIN HCL 0.4 MG CAP PO SCH (07:46)
[2017-02-27] MEDS: ASPIRIN 81 MG ECTAB PO SCH (07:46)
[2017-02-27] MEDS: BICALUTAMIDE 50 MG TAB PO SCH (07:47)
[2017-02-27] MEDS: VANCOMYCIN HCL 250 MG/5 ML SOLN PO SCH ×2 (07:47→12:49)
[2017-02-27 07:50] VITALS: BP 192/75; PULSE 76
--- NOTE | 2017-02-27 07:50 | Surgery Progress Note ---
Surgery Progress Note Date of Service Feb 27, 2017. Subjective + feeling well, + bowel movement (1 this AM, more formed), + diet (npo), No complaints (no abdominal pain) Objective Vital Signs: Date Time Temp Pulse Resp B/P (MAP) Pulse Ox O2 Delivery O2 Flow Rate FiO2 02/27/17 07:39 36.5 74 20 102/64 (77) 94 Room Air 02/27/17 00:37 Room Air 02/27/17 00:00 36.4 76 18 156/74 (101) 94 Room Air 02/26/17 20:00 Room Air 02/26/17 19:54 50 156/54 (88) 02/26/17 15:55 Room Air 02/26/17 15:20 36.6 58 16 157/62 (93) 98 Room Air 02/26/17 10:46 Room Air Abdomen: non tender, non distended, soft Laboratory Results: Results Past 24 Hours Test 02/26/17 08:18 02/27/17 05:07 Range/Units White Blood Count 19.12 17.21 4.8-10.8 K/uL Red Blood Count 3.73 3.57 4.7-6.1 M/uL Hemoglobin 10.2 9.7 14.0-18.0 g/dL Hematocrit 32.5 30.8 42-52 % Mean Corpuscular Volume 87.1 86.3 80-100 fL Mean Corpuscular Hemoglobin 27.3 27.2 25-34 pg Mean Corpuscular Hemoglobin Concent 31.4 31.5 32-36 g/dl Platelet Count 291 276 130-400 K/uL Mean Platelet Volume 10.2 11.0 7.4-10.4 fL Neutrophils (%) (Auto) 91.7 93.0 % Lymphocytes (%) (Auto) 2.7 2.9 % Monocytes (%) (Auto) 4.7 3.3 % Eosinophils (%) (Auto) 0.4 0.2 % Basophils (%) (Auto) 0.0 0.1 % Neutrophils # (Auto) 17.56 16.02 1.4-6.5 K/uL Lymphocytes # (Auto) 0.51 0.50 1.2-3.4 K/uL Monocytes # (Auto) 0.89 0.57 0.11-0.59 K/uL Eosinophils # (Auto) 0.07 0.03 0-0.5 K/uL Basophils # (Auto) 0.00 0.01 0-0.2 K/uL RDW Standard Deviation 58.9 58.8 36.4-46.3 fL RDW Coefficient of Variation 18.5 18.4 11.5-14.5 % Immature Granulocyte % (Auto) 0.5 0.5 % Immature Granulocyte # (Auto) 0.09 0.08 0.00-0.02 K/uL Sodium Level 139 137 136-145 mmol/L Potassium Level 5.3 5.6 3.5-5.1 mmol/L Chloride Level 112 113 98-107 mmol/L Carbon Dioxide Level 19 18 21-32 mmol/L Anion Gap 8.0 6.0 3-11 mmol/L Blood Urea Nitrogen 72 68 7-18 mg/dl Creatinine 2.83 2.71 0.60-1.40 mg/dl Est Creatinine Clear Calc Drug Dose 19.4 20.2 ml/min Estimated GFR () 23.6 24.9 Estimated GFR (Non- 20.4 21.5 BUN/Creatinine Ratio 25.5 24.9 10-20 Random Glucose 81 79 70-99 mg/dl Calcium Level 7.8 7.7 8.5-10.1 mg/dl Magnesium Level 2.7 1.8-2.4 mg/dl Total Bilirubin 0.4 0.2-1 mg/dl Direct Bilirubin < 0.1 0-0.2 mg/dl Aspartate Amino Transf (AST/SGOT) 16 15-37 U/L Alanine Aminotransferase (ALT/SGPT) 36 12-78 U/L Alkaline Phosphatase 70 45-117 U/L Total Protein 4.8 6.4-8.2 gm/dl Albumin 2.5 3.4-5.0 gm/dl Prostate Specific Antigen 4.050 0.000-4.000 ng/ml Microbiology Results 02/26/17 Urine Culture, Received Pending Assessment & Plan 1. C. difficile colitis. 2. Possible rectal perforation. Stable over past 24 hrs. WBC improved. OK to resume diet.
--- NOTE | 2017-02-27 10:55 | Nephrology Progress Note ---
Nephrology Progress Note Date of Service Feb 27, 2017. Chief Complaint Follow up evaluation of acute on chronic kidney injury Subjective Mr. Thurman was seen & examined in his hospital room this morning. At the time of my evaluation he was eating orange slices. Mr. Thurman currently denies fever or abdominal pain. He continues to have loose bowel movements and c/o weakness. Review of Systems Constitutional: No fever Cardiovascular: No chest pain Respiratory: No dyspnea at rest Abdomen: No pain, No nausea, No vomiting Extremities: No leg edema A complete review of systems was performed. Pertinent positives are noted above. All other systems are negative. Vital Signs Last 8 Hrs Date Time Temp Pulse Resp B/P (MAP) Pulse Ox O2 Delivery O2 Flow Rate FiO2 02/27/17 09:15 Room Air 02/27/17 07:50 76 192/75 (114) 02/27/17 07:39 36.5 74 20 102/64 (77) 94 Room Air Last Recorded Weight Weight (Kilograms): 63.600 Physical Exam General Appearance: no apparent distress, + cachetic Head: atraumatic (temporal muscle wasting) Eyes: PERRL, EOMI Neck: no adenopathy, no JVD Respiratory/Chest: lungs clear Cardiovascular: regular rate, rhythm Abdomen/GI: normal bowel sounds, non tender, soft Genitourinary - Male: + pertinent finding (rapp catheter in place draining clear yellow urine) Extremities/Musculoskelatal: no pedal edema (marked interosseus muscle wasting) Neurologic/Psych: alert, oriented x 3 Social History Smoking Status: Current every day smoker Drug Use: none Marital Status: Occupation: retired Laboratory Results Past 24 Hours 02/27/17 05:07 Red Blood Count 3.57, Mean Corpuscular Volume 86.3, Mean Corpuscular Hemoglobin 27.2, Mean Corpuscular Hemoglobin Concent 31.5, Mean Platelet Volume 11.0, Neutrophils (%) (Auto) 93.0, Lymphocytes (%) (Auto) 2.9, Monocytes (%) (Auto) 3.3, Eosinophils (%) (Auto) 0.2, Basophils (%) (Auto) 0.1, Neutrophils # (Auto) 16.02, Lymphocytes # (Auto) 0.50, Monocytes # (Auto) 0.57, Eosinophils # (Auto) 0.03, Basophils # (Auto) 0.01 02/27/17 05:07 Test 02/27/17 05:07 White Blood Count 17.21 K/uL (4.8-10.8) Red Blood Count 3.57 M/uL (4.7-6.1) Hemoglobin 9.7 g/dL (14.0-18.0) Hematocrit 30.8 % (42-52) Mean Corpuscular Volume 86.3 fL (80-100) Mean Corpuscular Hemoglobin 27.2 pg (25-34) Mean Corpuscular Hemoglobin Concent 31.5 g/dl (32-36) Platelet Count 276 K/uL (130-400) Mean Platelet Volume 11.0 fL (7.4-10.4) Neutrophils (%) (Auto) 93.0 % Lymphocytes (%) (Auto) 2.9 % Monocytes (%) (Auto) 3.3 % Eosinophils (%) (Auto) 0.2 % Basophils (%) (Auto) 0.1 % Neutrophils # (Auto) 16.02 K/uL (1.4-6.5) Lymphocytes # (Auto) 0.50 K/uL (1.2-3.4) Monocytes # (Auto) 0.57 K/uL (0.11-0.59) Eosinophils # (Auto) 0.03 K/uL (0-0.5) Basophils # (Auto) 0.01 K/uL (0-0.2) RDW Standard Deviation 58.8 fL (36.4-46.3) RDW Coefficient of Variation 18.4 % (11.5-14.5) Immature Granulocyte % (Auto) 0.5 % Immature Granulocyte # (Auto) 0.08 K/uL (0.00-0.02) Anion Gap 6.0 mmol/L (3-11) Est Creatinine Clear Calc Drug Dose 20.2 ml/min Estimated GFR () 24.9 Estimated GFR (Non- 21.5 BUN/Creatinine Ratio 24.9 (10-20) Calcium Level 7.7 mg/dl (8.5-10.1) Allergies Coded Allergies: No Known Allergies (Verified , 02/20/17) Medications Current Inpatient Medications Medications (Trade) Dose Ordered Sig/Paris Route Start Time Stop Time Status Last Admin Dose Admin Acetaminophen (Tylenol Tab) 650 mg Q4H PRN PO 02/20/17 17:45 03/22/17 17:44 Finasteride (Proscar Tab) 5 mg HS PO 02/20/17 21:00 03/22/17 20:59 02/26/17 19:46 5 MG Nitroglycerin (Nitrostat Tab) 0.3 mg UD PRN UT 02/20/17 17:45 03/22/17 17:44 Oxycodone/ Acetaminophen (Percocet 5-325mg Tab) 1 tab Q4H PRN PO 02/20/17 17:45 03/06/17 17:44 02/20/17 21:14 1 TAB Tamsulosin HCl (Flomax Cap) 0.4 mg BID PO 02/20/17 21:00 03/22/17 20:59 02/27/17 07:46 0.4 MG Raspberry (Raspberry Syrup 5ml Cup) 5 ml QID PO 02/20/17 21:00 03/06/17 20:59 02/27/17 07:46 5 ML Zolpidem Tartrate (Ambien Tab) 5 mg HS PRN PO 02/20/17 23:30 03/22/17 23:29 02/26/17 20:59 5 MG Vancomycin HCl (Vancomycin Oral Soln) 250 mg QID PO 02/22/17 13:00 03/04/17 12:59 02/27/17 07:47 250 MG Diltiazem HCl (Dilacor Xr Cap) 240 mg HS PO 02/24/17 21:00 03/26/17 20:59 02/25/17 20:27 240 MG Hydralazine HCl (HydrALAZINE INJ) 10 mg Q8H PRN IV. 02/25/17 16:00 03/27/17 15:59 Aspirin (Ecotrin Tab) 81 mg DAILY PO 02/26/17 08:00 03/27/17 07:59 02/27/17 07:46 81 MG Hydralazine HCl (Apresoline Tab) 10 mg TID PO 02/25/17 20:00 03/27/17 19:59 02/27/17 07:46 10 MG Bicalutamide (Casodex Tab) 50 mg QAM PO 02/27/17 08:00 03/29/17 07:59 02/27/17 07:47 50 MG Prednisone (PredniSONE TAB) 30 mg DAILY PO 02/27/17 08:00 03/23/17 08:59 02/27/17 07:46 30 MG Sodium Bicarbonate (Sodium Bicarbonate Tab) 650 mg BID PO 02/26/17 20:00 03/28/17 19:59 02/27/17 07:46 650 MG Impression (1) Acute renal insufficiency (2) Chronic kidney disease, stage III (moderate) (3) Urinary retention (4) Pharyngeal mass (5) Acute blood loss anemia Mr. 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 Biopsy was inconclusive. Outpatient ENT follow up was planned. Hospital course was complicated by MY consistent with ATN in the setting of acute blood loss anemia and DAVID use. Renal recovery has been slow. BP is acceptable. Mr. Thurman completed treatment for a staph UTI. Mr. Thurman is on oral vancomycin for C diff. Mr. Thurman signed out AMA 02/20 and returned to the hospital within 24 hours due to inability to care for himself at home. He is awaiting SNF placement. Patient continues to have diarrhea. Abdominal CT 02/25 revealed a contained rectal perforation Mr. Thurman has BPH and chronic urinary retention. He performs CIC. Rapp catheter placed on readmission. Recommendations ACUTE KIDNEY INJURY: -- Creatinine has stabilized at 2.7 -- Patient has mild hyperkalemia. Will order low K diet. Will avoid SPS due to rectal perforation. Will provide one dose Lasix 40 mg IV to help correct potassium and mobilize pleural fluid. CHRONIC KIDNEY DISEASE: -- Baseline creatinine previously ~ 1.8 -- CKD is on the basis of renal vascular disease. Renal US did show asymmetry. Renal artery doppler was inconclusive. Kidney function is recovering with d/ c of DAVID inhibitor and conservative care. Creatinine was stable at 1.8 prior to admission while on DAVID inhibitor therapy CACHEXIA: -- Nutritional supplements HYPERTENSION: -- BP is mildly elevated. Diltiazem was increased to 240 mg po qHS. -- Avoid DAVID / ARB due to MY ID: -- On PO Vancomycin for C. Difficile colitis PHARYNGEAL MASS: -- For patient's benefit, consider expediting ENT evaluation while hospitalized GI: -- Abdominal CT 02/25 with rectal inflammation and contained perforation. General surgery has recommended conservative management
[2017-02-27] MEDS ORDERED: FUROSEMIDE INJ 40 MG in SYRINGE 0 ML IV ONE (11:00)
--- NOTE | 2017-02-27 11:00 | NUR ---
Case Management- Clinical information sent to [facility] requesting SNF authorization, awaiting response. Met with pt to review plan, he is anxious to get to [facility]. Pt reports he will need wheelchair transportation, he is aware and agreeable to any out of pocket expense. Addendum: 02/27/17 at 1227 by Vielka Jenkins SERV Update provided to Sheryl [place] [facility] they can accept pt at any time today. Addendum: 02/27/17 at 1337 by Vielka Jenkins SERV Insurance auth still pending. Addendum: 02/27/17 at 1439 by Vielka Jenkins SERV Monica obtained #[id number], good for 5 days, information provided to [facility] at [facility]. [facility] has access to pts chart. Message left with admissions, awaiting transport time. Addendum: 02/27/17 at 1455 by Vielka Jenkins SERV [facility] medics to transport pt at 1600, [facility] and business unit manager made aware.
--- NOTE | 2017-02-27 11:52 | DIAGNOSTIC IMAGING REPORT ---
LEFT UPPER EXTREMITY VENOUS DOPPLER HISTORY: edema left arm COMPARISON STUDY: None. FINDINGS: The left internal jugular vein is patent. There is normal flow within the left subclavian vein. There is normal flow and compressibility within the left axillary, basilic, brachial, radial, ulnar, and visualized cephalic veins. Moderate calcified plaque seen within the left carotid bifurcation resulting and 50-60% stenosis. This is not significantly changed compared to a 2015 carotid Doppler study. IMPRESSION: No DVT within the left upper extremity. Electronically signed by: Kuldip Vazquez M.D. 02/27/2017 11:51 AM Dictated Date/Time: 02/27/2017 11:49 AM
[2017-02-27 13:43] VITALS: BP 170/80; PULSE 78
[2017-02-27] MEDS ORDERED: SODI650T8 PO (13:48)
[2017-02-27] MEDS ORDERED: ASPI-320 PO (13:48)
[2017-02-27] MEDS ORDERED: PRD10 PO (13:48)
[2017-02-27] MEDS ORDERED: DLCSR120 PO (13:48)
[2017-02-27] MEDS ORDERED: VANC1SUS PO (13:48)
[2017-02-27] MEDS ORDERED: CSD50 PO (13:48)
[2017-02-27] MEDS ORDERED: RSPS5 PO (13:48)
[2017-02-27] MEDS ORDERED: APR10 PO (13:48)
--- NOTE | 2017-02-27 14:14 | Discharge Instructions ---
Discharge Instructions Date of Service Feb 27, 2017. Admission Reason for Admission: C Difficile Colitis Discharge Discharge Diagnosis / Problem: C.diff colitis, acute on chronic renal failure, Discharge Goals Goal(s): Decrease discomfort, Improve disease control Activity Recommendations Activity Level: Assistance Required Therapies: Physical Therapy, Occupational Therapy Shower/Bathe: no limitations . Additional Information Patient informed of condition: Yes Advance Directives: No DNR: Yes Level of Care: Acute Rehab Communicable Disease: Yes Prognosis: Stable Rapp Catheter: Yes (do not remove until seen by urology) Instructions / Follow-Up Instructions / Follow-Up Please have Mr. Thurman follow up with [facility] for pharyngeal mass He will also need to see [facility] in the next 7-10 days, rapp catheter should stay in until seen by them. Please have him see Dr. Sharma with GI and [facility] nephrology within the next week His vancomycin should be tapered: 250 mg qid - last day 03/01 03/02- 250 mg bid x 7 days 250 mg daily x 7 days His prednisone should be tapered: 30 mg x 1 day 20 mg x 2 days 10 mg x 2 days Please repeat prp in the next 2 days and cbc and prp next week Consider restarting Plavix in a few weeks if hgb has stabilized Current Hospital Diet Patient's current hospital diet: Renal Diet, Low Potassium Diet (2g K) Discharge Diet Recommended Diet: Renal Diet, Low Potassium Diet (2g K) Procedures Procedures Performed: Upper extremity ultrasound Abd/pelvis CT Lower extremity US Renal US Pending Studies Studies pending at discharge: no Physician Orders On Transfer Vital Signs: ROUTINE Weigh: Routine POLST Discussion: without POLST completion (but consider completing one with him at [facility]) Laboratory Results Last 24 Hours Test 02/27/17 05:07 White Blood Count 17.21 K/uL Red Blood Count 3.57 M/uL Hemoglobin 9.7 g/dL Hematocrit 30.8 % Mean Corpuscular Volume 86.3 fL Mean Corpuscular Hemoglobin 27.2 pg Mean Corpuscular Hemoglobin Concent 31.5 g/dl Platelet Count 276 K/uL Mean Platelet Volume 11.0 fL Neutrophils (%) (Auto) 93.0 % Lymphocytes (%) (Auto) 2.9 % Monocytes (%) (Auto) 3.3 % Eosinophils (%) (Auto) 0.2 % Basophils (%) (Auto) 0.1 % Neutrophils # (Auto) 16.02 K/uL Lymphocytes # (Auto) 0.50 K/uL Monocytes # (Auto) 0.57 K/uL Eosinophils # (Auto) 0.03 K/uL Basophils # (Auto) 0.01 K/uL RDW Standard Deviation 58.8 fL RDW Coefficient of Variation 18.4 % Immature Granulocyte % (Auto) 0.5 % Immature Granulocyte # (Auto) 0.08 K/uL Sodium Level 137 mmol/L Potassium Level 5.6 mmol/L Chloride Level 113 mmol/L Carbon Dioxide Level 18 mmol/L Anion Gap 6.0 mmol/L Blood Urea Nitrogen 68 mg/dl Creatinine 2.71 mg/dl Est Creatinine Clear Calc Drug Dose 20.2 ml/min Estimated GFR () 24.9 Estimated GFR (Non- 21.5 BUN/Creatinine Ratio 24.9 Random Glucose 79 mg/dl Calcium Level 7.7 mg/dl Lipid Panel Test 12/23/16 09:05 Range/Units Triglycerides Level 83 0-150 mg/dl Cholesterol Level 150 0-200 mg/dl HDL Cholesterol 64 mg/dl LDL Cholesterol Direct 81 mg/dl Cholesterol/HDL Ratio 2.3 LDL Cholesterol, Calculated mg/dl Medical Emergencies . Who to Call and When: Medical Emergencies: If at any time you feel your situation is an emergency, please call 911 immediately. . Non-Emergent Contact Non-Emergency issues call your: Primary Care Provider Call Non-Emergent contact if: you have any medication questions . Past History Medical & Surgical History: (1) gi bleed, anemia, acutr renal failure (2) UTI (urinary tract infection) (3) Chronic kidney disease (CKD) stage G3b/A1, moderately decreased glomerular filtration rate (GFR) between 30-44 mL/min/1.73 square meter and albuminuria creatinine ratio less than 30 mg/g (4) Cachexia (5) PVD (peripheral vascular disease) (6) C. difficile colitis (7) Prostate CA (8) COPD exacerbation (9) GI bleeding (10) HTN (hypertension) (11) Urinary retention . "Provider Documentation" section prepared by Zahida Blanco. . Federal Law Clerk Recommendations Federal Law Clerk Recommendations: see follow up recs Core Measure Problem Core Measures: None
[2017-02-27 15:03] VITALS: BP 151/66; PULSE 82; TEMP 36.6; O2SAT 96
[2017-02-27 15:29] VITALS: BP 151/66; PULSE 82; TEMP 36.6; O2SAT 96
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
--- NOTE | 2017-02-27 17:04 | NUR ---
A: SL removed intact from right forearm. Hill catheter intact and patent clear yellow. Patient dressed with help of aid. Discharge information, med red, and copy of chart given to transport. Patient left the floor with [facility] at 1450. All belongings and paperwork sent with patient. Report called to [facility].
[2017-03-26] MEDS ORDERED: TAMS0.4C38 PO (13:29)
[2017-03-26] MEDS ORDERED: ORVANCOMY1 PO (13:29)
[2017-03-26] MEDS ORDERED: DILT120C68 PO (13:29)
[2017-03-26] MEDS ORDERED: SODI1ENE PR (13:29)
[2017-03-26] MEDS ORDERED: NTRSL3 UT (13:29)
[2017-03-26] MEDS ORDERED: PRED10TA PO (13:29)
[2017-03-26] MEDS ORDERED: SODI650T8 PO (13:29)
[2017-03-26] MEDS ORDERED: MOML PO (13:29)
[2017-03-26] MEDS ORDERED: HYDR-4715 PO (13:29)
[2017-03-26] MEDS ORDERED: BICA50TA40 PO (13:29)
[2017-03-26] MEDS ORDERED: MELATAB2 PO (13:29)
[2017-03-26] MEDS ORDERED: FINA5TAB PO (13:29)
[2017-03-26] MEDS ORDERED: ASPCH81X PO (13:29)
[2017-03-26] MEDS ORDERED: OXGN (13:29)
[2017-03-26] MEDS ORDERED: ACET-1311 PO (13:29)
[2017-03-26] MEDS ORDERED: BISA10SU3 PR (13:29)
[2017-03-26] MEDS ORDERED: SULF1TAB92 PO (13:29)
[2017-06-10] MEDS ORDERED: ATRINS NEB (09:29)
== END 2017-02-27 15:50 | DRG 371 ==
LOC: EDBD 15:24 → C.EDA 15:25 → C.2T 17:50 → ENRESERV 18:19 → C.4E 02-22 13:15
PROVIDERS: ADMIT Internal Medicine; ATTEND Family Medicine
DX: A04.72 Enterocolitis due to Clostridium difficile, not specified as recurrent (principal); R57.8 Other shock; N18.4 Chronic kidney disease, stage 4 (severe); D62 Acute posthemorrhagic anemia; S36.63XA Laceration of rectum, initial encounter; N17.0 Acute kidney failure with tubular necrosis; N39.0 Urinary tract infection, site not specified; E87.2 Acidosis; J44.1 Chronic obstructive pulmonary disease with (acute) exacerbation; J96.01 Acute respiratory failure with hypoxia; Z85.46 Personal history of malignant neoplasm of prostate; I73.9 Peripheral vascular disease, unspecified; F17.200 Nicotine dependence, unspecified, uncomplicated; J39.2 Other diseases of pharynx; B95.8 Unspecified staphylococcus as the cause of diseases classified elsewhere; I10 Essential (primary) hypertension; N40.1 Benign prostatic hyperplasia with lower urinary tract symptoms; I25.10 Atherosclerotic heart disease of native coronary artery without angina pectoris; E87.5 Hyperkalemia; X58.XXXA Exposure to other specified factors, initial encounter; Y92.019 Unspecified place in single-family (private) house as the place of occurrence of the external cause; R33.9 Retention of urine, unspecified; K31.819 Angiodysplasia of stomach and duodenum without bleeding; Z87.891 Personal history of nicotine dependence

== ENCOUNTER → 2017-03-03 | Outpatient (CLI) | payer OTHER ==
[~2017-03-03] MED LIST changes: +ACET-1311 PO; +APR10 PO; +ASPCH81X PO; +ASPI-320 PO; -ASPI325T39 PO; +ATRINS NEB; +BICA50TA40 PO; +BISA10SU3 PR; -CIPR250T3 PO; -CLOP1TAB5 PO; +CSD50 PO; +DLCSR120 PO; +HYDR-4715 PO; -LISI-461 PO; +MELATAB2 PO; +MOML PO; +ORVANCOMY1 PO; +OXGN; -OXYC-57 PO; +PRD10 PO; +PRED10TA PO; +RSPS5 PO; +SODI1ENE PR; +SODI650T8 PO; +SULF1TAB92 PO
[2017-03-03 09:15] LABS: BLOOD UREA NITROGEN 76 mg/dl (7-18); CALCIUM 7.6 mg/dl (8.5-10.1); CARBON DIOXIDE 18 mmol/L (21-32); CREATININE 2.79 mg/dl (0.60-1.40); GLUCOSE 89 mg/dl (70-99); POTASSIUM 4.9 mmol/L (3.5-5.1); SODIUM 140 mmol/L (136-145)
== END ==
LOC: C.LABCC 08:26
PROVIDERS: ATTEND Internal Medicine
DX: N18.9 Chronic kidney disease, unspecified (principal); B96.89 Other specified bacterial agents as the cause of diseases classified elsewhere

== ENCOUNTER → 2017-03-04 | Outpatient (CLI) | payer OTHER ==
[2017-03-04 09:34] LABS: HEMATOCRIT 26.4 % (42-52); HEMOGLOBIN 8.4 g/dL (14.0-18.0); MEAN CELL VOLUME 87.1 fL (80-100); MEAN CORPUSCULAR HEMOGLOBIN 27.7 pg (25-34); MEAN CORPUSCULAR HGB CONC 31.8 g/dl (32-36); MEAN PLATELET VOLUME 11.5 fL (7.4-10.4); PLATELET COUNT 168 K/uL (130-400); RED CELL DISTRIBUTION WIDTH SD 60.9 fL (36.4-46.3); WHITE BLOOD COUNT 10.35 K/uL (4.8-10.8)
[2017-03-04 09:54] LABS: BLOOD UREA NITROGEN 69 mg/dl (7-18); CALCIUM 7.6 mg/dl (8.5-10.1); CARBON DIOXIDE 19 mmol/L (21-32); CREATININE 2.71 mg/dl (0.60-1.40); GLUCOSE 83 mg/dl (70-99); POTASSIUM 4.8 mmol/L (3.5-5.1); SODIUM 139 mmol/L (136-145)
== END ==
LOC: C.LABCC 09:18
PROVIDERS: ATTEND Internal Medicine
DX: D64.9 Anemia, unspecified (principal)

== ENCOUNTER → 2017-03-05 | Outpatient (CLI) | payer OTHER ==
[2017-03-05 08:38] LABS: HEMATOCRIT 26.2 % (42-52); HEMOGLOBIN 8.3 g/dL (14.0-18.0); MEAN CELL VOLUME 87.6 fL (80-100); MEAN CORPUSCULAR HEMOGLOBIN 27.8 pg (25-34); MEAN CORPUSCULAR HGB CONC 31.7 g/dl (32-36); MEAN PLATELET VOLUME 10.5 fL (7.4-10.4); PLATELET COUNT 169 K/uL (130-400); RED CELL DISTRIBUTION WIDTH CV 19.1 % (11.5-14.5); WHITE BLOOD COUNT 10.31 K/uL (4.8-10.8)
[2017-03-05 10:24] LABS: BLOOD UREA NITROGEN 69 mg/dl (7-18); CALCIUM 7.6 mg/dl (8.5-10.1); CARBON DIOXIDE 19 mmol/L (21-32); CREATININE 2.83 mg/dl (0.60-1.40); GLUCOSE 80 mg/dl (70-99); POTASSIUM 4.9 mmol/L (3.5-5.1); SODIUM 139 mmol/L (136-145)
== END ==
LOC: C.LABCC 07:54
PROVIDERS: ATTEND Internal Medicine
DX: D64.9 Anemia, unspecified (principal)

== ENCOUNTER → 2017-03-09 | Outpatient (CLI) | payer OTHER ==
[~2017-03-09] MED LIST changes: -ACET-1311 PO; -ASPCH81X PO; +ASPEC81 PO; -ASPI-320 PO; -ATRINS NEB; -BICA50TA40 PO; -BISA10SU3 PR; -DILT120C68 PO; -HYDR-4715 PO; -MELATAB2 PO; -MOML PO; -ORVANCOMY1 PO; -OXGN; -PRED10TA PO; -SODI1ENE PR; -SULF1TAB92 PO
[2017-03-09 08:20] LABS: HEMATOCRIT 24.3 % (42-52); HEMOGLOBIN 7.6 g/dL (14.0-18.0); MEAN CELL VOLUME 87.7 fL (80-100); MEAN CORPUSCULAR HEMOGLOBIN 27.4 pg (25-34); MEAN CORPUSCULAR HGB CONC 31.3 g/dl (32-36); MEAN PLATELET VOLUME 10.6 fL (7.4-10.4); PLATELET COUNT 209 K/uL (130-400); RED CELL DISTRIBUTION WIDTH CV 19.3 % (11.5-14.5); RED CELL DISTRIBUTION WIDTH SD 62.8 fL (36.4-46.3); WHITE BLOOD COUNT 7.76 K/uL (4.8-10.8)
[2017-03-09 08:30] LABS: BLOOD UREA NITROGEN 55 mg/dl (7-18); CALCIUM 7.8 mg/dl (8.5-10.1); CARBON DIOXIDE 21 mmol/L (21-32); CREATININE 2.39 mg/dl (0.60-1.40); GLUCOSE 104 mg/dl (70-99); SODIUM 143 mmol/L (136-145)
== END ==
LOC: C.LABCC 08:05
PROVIDERS: ATTEND Internal Medicine
DX: D64.9 Anemia, unspecified (principal); N18.4 Chronic kidney disease, stage 4 (severe)

== ENCOUNTER → 2017-03-11 | Outpatient (CLI) | payer OTHER ==
[2017-03-11 09:11] LABS: HEMATOCRIT 24.5 % (42-52); HEMOGLOBIN 7.5 g/dL (14.0-18.0); MEAN CELL VOLUME 87.8 fL (80-100); MEAN CORPUSCULAR HEMOGLOBIN 26.9 pg (25-34); MEAN CORPUSCULAR HGB CONC 30.6 g/dl (32-36); PLATELET COUNT 268 K/uL (130-400); RED CELL DISTRIBUTION WIDTH CV 19.1 % (11.5-14.5); RED CELL DISTRIBUTION WIDTH SD 61.2 fL (36.4-46.3); WHITE BLOOD COUNT 7.72 K/uL (4.8-10.8)
== END ==
LOC: C.LABCC 08:29
PROVIDERS: ATTEND Internal Medicine
DX: D64.9 Anemia, unspecified (principal)

== ENCOUNTER → 2017-03-13 | Outpatient (CLI) | payer OTHER | LOC: C.LABCC 22:40 | PROVIDERS: ATTEND Internal Medicine | DX: R31.9 Hematuria, unspecified (principal) ==

== ENCOUNTER → 2017-03-16 | Outpatient (CLI) | payer OTHER ==
[2017-03-16 11:47] LABS: BASO % 0.8 %; BASO ABS # 0.07 K/uL (0-0.2); EOS % 1.4 %; EOS ABS # 0.13 K/uL (0-0.5); HEMATOCRIT 31.2 % (42-52); IG# 0.09 K/uL (0.00-0.02); LYMPH % 6.6 %; LYMPH ABS # 0.59 K/uL (1.2-3.4); MEAN CELL VOLUME 89.1 fL (80-100); MEAN CORPUSCULAR HEMOGLOBIN 28.6 pg (25-34); MEAN CORPUSCULAR HGB CONC 32.1 g/dl (32-36); MEAN PLATELET VOLUME 9.8 fL (7.4-10.4); MONO % 8.6 %; MONO ABS # 0.77 K/uL (0.11-0.59); NEUT % 81.6 %; NEUT ABS # 7.32 K/uL (1.4-6.5); PLATELET COUNT 442 K/uL (130-400); RED CELL DISTRIBUTION WIDTH CV 18.4 % (11.5-14.5); RED CELL DISTRIBUTION WIDTH SD 59.8 fL (36.4-46.3); WHITE BLOOD COUNT 8.97 K/uL (4.8-10.8)
== END ==
LOC: C.LABCC 09:39
PROVIDERS: ATTEND Internal Medicine
DX: D64.9 Anemia, unspecified (principal)

== ENCOUNTER → 2017-03-24 | Outpatient (CLI) | payer OTHER ==
[2017-03-24 08:10] LABS: BASO % 1.5 %; BASO ABS # 0.16 K/uL (0-0.2); EOS % 1.1 %; EOS ABS # 0.12 K/uL (0-0.5); HEMATOCRIT 28.1 % (42-52); LYMPH % 6.5 %; LYMPH ABS # 0.69 K/uL (1.2-3.4); MEAN CELL VOLUME 86.2 fL (80-100); MEAN CORPUSCULAR HEMOGLOBIN 27.6 pg (25-34); MEAN PLATELET VOLUME 9.6 fL (7.4-10.4); MONO % 10.6 %; MONO ABS # 1.13 K/uL (0.11-0.59); NEUT % 79.4 %; NEUT ABS # 8.44 K/uL (1.4-6.5); PLATELET COUNT 610 K/uL (130-400); RED CELL DISTRIBUTION WIDTH CV 17.7 % (11.5-14.5); RED CELL DISTRIBUTION WIDTH SD 56.1 fL (36.4-46.3); WHITE BLOOD COUNT 10.64 K/uL (4.8-10.8)
[2017-03-24 08:20] LABS: BLOOD UREA NITROGEN 38 mg/dl (7-18); CALCIUM 8.6 mg/dl (8.5-10.1); CARBON DIOXIDE 20 mmol/L (21-32); CREATININE 2.33 mg/dl (0.60-1.40); GLUCOSE 85 mg/dl (70-99); POTASSIUM 3.8 mmol/L (3.5-5.1); SODIUM 139 mmol/L (136-145)
== END ==
LOC: C.LABCC 08:03
PROVIDERS: ATTEND Internal Medicine
DX: D64.9 Anemia, unspecified (principal); N39.0 Urinary tract infection, site not specified

== ENCOUNTER → 2017-03-25 | Outpatient (CLI) | payer OTHER ==
[~2017-03-25] MED LIST changes: +ACET-1311 PO; +ASPCH81X PO; +BICA50TA2 PO; +BISA10SU3 PR; +DILT120C68 PO; +HYDR-4715 PO; +MELATAB2 PO; +MOML PO; +ORVANCOMY1 PO; +OXGN; +PRED10TA PO; +SODI1ENE PR; +SULF1TAB92 PO
== END ==
LOC: C.LABCC 08:32
PROVIDERS: ATTEND Internal Medicine
DX: R19.7 Diarrhea, unspecified (principal)

== ENCOUNTER → 2017-03-30 | Outpatient (CLI) | payer OTHER ==
[~2017-03-30] MED LIST changes: -APR10 PO; -ASPEC81 PO; -CSD50 PO; -DLCSR120 PO; -PRD10 PO; -RSPS5 PO; -VANC1SUS PO
[2017-03-30 10:28] LABS: BLOOD UREA NITROGEN 46 mg/dl (7-18); CREATININE 2.13 mg/dl (0.60-1.40)
== END ==
LOC: C.LABCC 08:59
PROVIDERS: ATTEND Internal Medicine
DX: C67.9 Malignant neoplasm of bladder, unspecified (principal); N40.0 Benign prostatic hyperplasia without lower urinary tract symptoms

== ENCOUNTER → 2017-04-23 | Outpatient (CLI) | payer OTHER | LOC: C.LABCC 17:45 | PROVIDERS: ATTEND Internal Medicine | DX: R19.7 Diarrhea, unspecified (principal); Z86.19 Personal history of other infectious and parasitic diseases ==

== ENCOUNTER → 2017-06-08 | Outpatient (CLI) | payer OTHER ==
[~2017-06-08] MED LIST changes: +ATRINS NEB
[2017-06-08 10:06] LABS: MEAN CELL VOLUME 79.6 fL (80-100); MEAN CORPUSCULAR HEMOGLOBIN 24.2 pg (25-34); MEAN CORPUSCULAR HGB CONC 30.4 g/dl (32-36); MEAN PLATELET VOLUME 9.1 fL (7.4-10.4); PLATELET COUNT 628 K/uL (130-400); RED CELL DISTRIBUTION WIDTH CV 16.9 % (11.5-14.5); RED CELL DISTRIBUTION WIDTH SD 49.4 fL (36.4-46.3); WHITE BLOOD COUNT 9.94 K/uL (4.8-10.8)
[2017-06-08 10:19] LABS: ALBUMIN 2.9 gm/dl (3.4-5.0); BLOOD UREA NITROGEN 70 mg/dl (7-18); CALCIUM 9.3 mg/dl (8.5-10.1); CARBON DIOXIDE 23 mmol/L (21-32); CREATININE 2.38 mg/dl (0.60-1.40); GLUCOSE 78 mg/dl (70-99); PHOSPHORUS 4.6 mg/dl (2.5-4.9); POTASSIUM 3.5 mmol/L (3.5-5.1); SODIUM 138 mmol/L (136-145)
[2017-06-08 10:35] LABS: BASO % 1.2 %; BASO ABS # 0.12 K/uL (0-0.2); EOS % 2.9 %; EOS ABS # 0.29 K/uL (0-0.5); IG# 0.04 K/uL (0.00-0.02); LYMPH % 7.8 %; LYMPH ABS # 0.78 K/uL (1.2-3.4); MONO % 7.4 %; MONO ABS # 0.74 K/uL (0.11-0.59); NEUT % 80.3 %; NEUT ABS # 7.97 K/uL (1.4-6.5)
== END ==
LOC: C.LABCC 09:05
PROVIDERS: ATTEND Internal Medicine
DX: N18.4 Chronic kidney disease, stage 4 (severe) (principal)

== ENCOUNTER → 2017-06-15 | Outpatient (CLI) | payer OTHER ==
[~2017-06-15] MED LIST changes: -ORVANCOMY1 PO; -PRED10TA PO; -SODI650T8 PO
[2017-06-15 08:26] LABS: EOS % 2.8 %; EOS ABS # 0.28 K/uL (0-0.5); HEMATOCRIT 29.2 % (42-52); HEMOGLOBIN 9.2 g/dL (14.0-18.0); IG# 0.04 K/uL (0.00-0.02); LYMPH % 7.2 %; LYMPH ABS # 0.73 K/uL (1.2-3.4); MEAN CELL VOLUME 80.7 fL (80-100); MEAN CORPUSCULAR HEMOGLOBIN 25.4 pg (25-34); MEAN CORPUSCULAR HGB CONC 31.5 g/dl (32-36); MEAN PLATELET VOLUME 8.9 fL (7.4-10.4); MONO % 7.3 %; MONO ABS # 0.74 K/uL (0.11-0.59); NEUT % 81.3 %; NEUT ABS # 8.29 K/uL (1.4-6.5); PLATELET COUNT 509 K/uL (130-400); RED CELL DISTRIBUTION WIDTH CV 17.5 % (11.5-14.5); RED CELL DISTRIBUTION WIDTH SD 51.4 fL (36.4-46.3); WHITE BLOOD COUNT 10.18 K/uL (4.8-10.8)
[2017-06-15 08:36] LABS: ALBUMIN 2.8 gm/dl (3.4-5.0); BLOOD UREA NITROGEN 70 mg/dl (7-18); CALCIUM 9.3 mg/dl (8.5-10.1); CARBON DIOXIDE 27 mmol/L (21-32); GLUCOSE 88 mg/dl (70-99); POTASSIUM 3.6 mmol/L (3.5-5.1); SODIUM 136 mmol/L (136-145)
[2017-06-15 08:46] LABS: ALKALINE PHOSPHATASE 82 U/L (45-117); ALT/SGPT 18 U/L (12-78); AST/SGOT 13 U/L (15-37)
== END ==
LOC: C.LABCC 08:11
PROVIDERS: ATTEND Internal Medicine
DX: N18.9 Chronic kidney disease, unspecified (principal); D64.9 Anemia, unspecified

== ENCOUNTER → 2017-06-30 | Outpatient (CLI) | payer OTHER ==
[2017-06-30 09:25] LABS: HEMATOCRIT 27.3 % (42-52); HEMOGLOBIN 8.8 g/dL (14.0-18.0); MEAN CELL VOLUME 82.7 fL (80-100); MEAN CORPUSCULAR HEMOGLOBIN 26.7 pg (25-34); MEAN CORPUSCULAR HGB CONC 32.2 g/dl (32-36); PLATELET COUNT 601 K/uL (130-400); RED CELL DISTRIBUTION WIDTH CV 19.2 % (11.5-14.5); RED CELL DISTRIBUTION WIDTH SD 58.1 fL (36.4-46.3); WHITE BLOOD COUNT 10.98 K/uL (4.8-10.8)
[2017-06-30 09:35] LABS: BLOOD UREA NITROGEN 74 mg/dl (7-18); CALCIUM 9.9 mg/dl (8.5-10.1); CARBON DIOXIDE 28 mmol/L (21-32); CREATININE 2.38 mg/dl (0.60-1.40); GLUCOSE 92 mg/dl (70-99); SODIUM 136 mmol/L (136-145)
== END ==
LOC: C.LABCC 08:49
PROVIDERS: ATTEND Internal Medicine
DX: D64.9 Anemia, unspecified (principal); N18.9 Chronic kidney disease, unspecified

== ENCOUNTER → 2017-07-08 | Outpatient (CLI) | payer OTHER ==
[2017-07-08 08:50] LABS: BASO % 0.7 %; BASO ABS # 0.09 K/uL (0-0.2); EOS % 1.9 %; EOS ABS # 0.26 K/uL (0-0.5); HEMATOCRIT 22.7 % (42-52); HEMOGLOBIN 7.1 g/dL (14.0-18.0); IG# 0.05 K/uL (0.00-0.02); LYMPH % 4.4 %; MEAN CORPUSCULAR HEMOGLOBIN 26.9 pg (25-34); MEAN CORPUSCULAR HGB CONC 31.3 g/dl (32-36); MEAN PLATELET VOLUME 9.1 fL (7.4-10.4); MONO % 8.1 %; NEUT % 84.5 %; PLATELET COUNT 596 K/uL (130-400); RED CELL DISTRIBUTION WIDTH CV 20.1 % (11.5-14.5); RED CELL DISTRIBUTION WIDTH SD 62.9 fL (36.4-46.3)
[2017-07-08 08:56] LABS: BLOOD UREA NITROGEN 115 mg/dl (7-18); CALCIUM 10.1 mg/dl (8.5-10.1); CARBON DIOXIDE 24 mmol/L (21-32); CREATININE 3.07 mg/dl (0.60-1.40); GLUCOSE 97 mg/dl (70-99); POTASSIUM 3.9 mmol/L (3.5-5.1); SODIUM 136 mmol/L (136-145)
== END ==
LOC: C.LABCC 08:35
PROVIDERS: ATTEND Internal Medicine
DX: D64.9 Anemia, unspecified (principal); E87.6 Hypokalemia

== ENCOUNTER → 2017-07-16 | Outpatient (CLI) | payer OTHER ==
[2017-07-16 08:50] LABS: ALBUMIN 2.6 gm/dl (3.4-5.0); ALKALINE PHOSPHATASE 95 U/L (45-117); ALT/SGPT 20 U/L (12-78); AST/SGOT 16 U/L (15-37); BLOOD UREA NITROGEN 89 mg/dl (7-18); CALCIUM 9.8 mg/dl (8.5-10.1); CARBON DIOXIDE 24 mmol/L (21-32); CREATININE 2.69 mg/dl (0.60-1.40); GLUCOSE 91 mg/dl (70-99); POTASSIUM 4.3 mmol/L (3.5-5.1); SODIUM 131 mmol/L (136-145); TOTAL PROTEIN 5.7 gm/dl (6.4-8.2)
== END ==
LOC: C.LABCC 07:39
PROVIDERS: ATTEND Internal Medicine
DX: C61 Malignant neoplasm of prostate (principal)

== ENCOUNTER → 2017-07-16 | Outpatient (CLI) | payer OTHER ==
--- NOTE | 2017-07-16 09:00 | DIAGNOSTIC IMAGING REPORT ---
ABDOMEN AND PELVIS CT WITHOUT CONTRAST CT DOSE: 272.14 mGy.cm HISTORY: Urinary retention. R33.9 Urinary ehycscycrX27.89 Bladder [id number] Prostate cancerAUT TECHNIQUE: Multiaxial CT images of the abdomen and pelvis were performed without contrast. A dose lowering technique was utilized adhering to the principles of ALARA. COMPARISON STUDY: CT abdomen and pelvis 02/26/2017. FINDINGS: Study is limited without the use of IV contrast. Dependent subsegmental consolidative opacities and groundglass densities are noted. Emphysematous changes of the lung bases are noted. 4 mm pleural-based nodule of the lateral segment right middle lobe incidentally noted. There is no pneumatosis or pneumoperitoneum identified. Trace pericardial effusion. Coronary arterial calcifications are noted. There are at least 3 low attenuating lesions about the liver measuring up to 1.5 cm within the right hepatic lobe which are unchanged from prior study may reflect hepatic cysts. No intrahepatic biliary ductal dilation. Gallbladder, spleen, pancreas and right adrenal gland are unremarkable. There is mild thickening about the left adrenal gland. Severe right and moderate left renal atrophy redemonstrated with low attenuating lesions of the kidneys suggesting renal cysts. Renal vascular calcifications are seen without obstructing calculi or hydronephrosis. I attenuating material is noted layering within the dependent urinary bladder lumen. There is mild circumferential wall thickening about the bladder. The prostate does not appear to be significantly enlarged. There are extensive calcification of the aorta and proximal branch vessels without aneurysm identified. No bulky adenopathy. High attenuating material suggesting ingested debris noted within the dependent gastric lumen. There is no small bowel obstruction. Large stool ball the rectal vault measures up to 8.3 cm transversely. Mild circumferential rectal wall thickening with mild perivesicular stranding is also noted. Previously described area of contained rectal perforation is no longer identified. Moderate pancolonic stool compatible with constipation. Colonic diverticulosis without diverticulitis. Mild generalized body wall edema. Bones appear moderately demineralized. Chronic pars defects at L5-S1 with anterolisthesis L5 and S1. Unchanged. Remote compression deformities of the spine. IMPRESSION: 1. High attenuating layering material within the urinary bladder lumen suggests debris and/or blood products. Additionally, there is mild circumferential wall thickening of the urinary bladder. Correlation with urinalysis and cystoscopy recommended. 2. Severe right and moderate left renal atrophy redemonstrated without hydronephrosis. 3. Constipation with large stool ball of the rectum. Additionally, there is mild rectal wall thickening with perirectal inflammatory stranding suggesting stercoral proctitis. 4. Emphysema. 5. Additional findings as above. Electronically signed by: Chema Cruz M.D. 07/16/2017 8:59 AM Dictated Date/Time: 07/16/2017 8:42 AM
== END | disposition home or self-care (01) ==
LOC: C.CTS 08:30
PROVIDERS: ATTEND Urology
DX: C61 Malignant neoplasm of prostate (principal); N32.89 Other specified disorders of bladder; R33.9 Retention of urine, unspecified; N26.1 Atrophy of kidney (terminal); K59.00 Constipation, unspecified; J43.9 Emphysema, unspecified

== ENCOUNTER → 2017-07-20 | Outpatient (CLI) | payer OTHER ==
[2017-07-20 09:04] LABS: BLOOD UREA NITROGEN 72 mg/dl (7-18); CALCIUM 8.7 mg/dl (8.5-10.1); CARBON DIOXIDE 23 mmol/L (21-32); CREATININE 2.51 mg/dl (0.60-1.40); GLUCOSE 87 mg/dl (70-99); POTASSIUM 3.5 mmol/L (3.5-5.1); SODIUM 132 mmol/L (136-145)
== END ==
LOC: C.LABCC 08:38
PROVIDERS: ATTEND Internal Medicine
DX: I10 Essential (primary) hypertension (principal)

== ENCOUNTER → 2017-07-21 | Outpatient (CLI) | payer OTHER | LOC: C.LABCC 16:38 | PROVIDERS: ATTEND Internal Medicine | DX: R41.82 Altered mental status, unspecified (principal) ==